=== PATIENT | male | born 1965 | race Hispanic/Latino ===

== ENCOUNTER 2018-04-08 09:00 | Inpatient (IN) | payer MEDICAID ==
[2018-04-08] MEDS ORDERED: NACL 0.9% 500 ML 500 ML IV ONE ×2 (09:33→19:03)
[2018-04-08] MEDS ORDERED: VANCOMYCIN 1,500 MG in NACL 0.9% 500 ML 500 ML IV ONE (09:33)
[2018-04-08] MEDS ORDERED: NACL 0.9% 1000 ML IV ONE (09:33)
[2018-04-08] MEDS ORDERED: ZOSYN/NS 4.5GM/100ML 4.5 GM/100 ML VIAL IV ONE (09:35)
[2018-04-08] MEDS ORDERED: NACL 0.9% 1000 ML 1,000 ML IV ONE ×2 (09:39)
[2018-04-08] MEDS ORDERED: VASELINE LIP THERAPY TP PRN (09:39)
[2018-04-08 09:55] LABS: Calcium 9.8 mg/dL (8.4-10.2)
[2018-04-08 09:58] LABS: Basophils % (Auto) 0.3 % (0.0-1.8); Eosinophils # (Auto) 0.1 K/mm3 (0.0-0.4); Eosinophils % (Auto) 0.8 % (0.0-4.3); Hematocrit 47.1 % (35.5-45.6); Hemoglobin 15.7 gm/dl (11.8-15.2); Lymphocytes # (Auto) 1.1 K/mm3 (1.2-5.4); Lymphocytes % (Auto) 11.4 % (13.4-35.0); Mean Corpuscular HGB Conc 33 % (32-34); Mean Corpuscular Hemoglobin 30 pg (28-32); Mean Corpuscular Volume 91 fl (84-94); Monocytes # (Auto) 0.5 K/mm3 (0.0-0.8); Monocytes % (Auto) 5.8 % (0.0-7.3); Platelet Count 621 K/mm3 (140-440); Red Cell Distribution Width 15.1 % (13.2-15.2)
[2018-04-08] MEDS ORDERED: NACL 0.9% 500 ML IV SCH (10:00)
[2018-04-08] MEDS ORDERED: LEVOPHED DRIP 4 MG/NS 250 ML 4 MG/250 ML BAG IV SCH (10:00)
[2018-04-08] MEDS ORDERED: ATIVAN 100 MG in NACL 0.9% 50 ML, VIAFLEX EMPTY CONTAINER 0 ML IV SCH (10:00)
--- NOTE | 2018-04-08 10:03 | Cat Scan Report ---
FINAL REPORT EXAM: CT HEAD/BRAIN WO CON HISTORY: neuro deficits < 6hrs or sx present upon awakening TECHNIQUE: CT of the Head without IV contrast. PRIORS: None currently available. FINDINGS: Series 2:52 oval low-attenuation lesion measuring 13 x 15 mm in the right parietal lobe demonstrates a focal area of irregular peripheral calcification. Surrounding decreased attenuation the wider matter appears represent vasogenic edema. There is a very subtle left midline shift of the posterior falx. Marie-white matter attenuation appears intact. No other lesions identified. Differential diagnosis does include acute ischemia. There is no hemorrhage. There is no hydrocephalus. Age appropriate marie-white matter attenuation is noted. There is no calvarial fracture. The temporal bones demonstrate aerated mastoid air cells. The middle ears appear unremarkable. Paranasal sinuses are unremarkable. Globes are intact. IMPRESSION: Suspect cystic mass in the right parietal lobe. Differential diagnosis includes ischemia and neurocysticercosis. Further evaluation with a CT with contrast or MRI of the brain with and without contrast. April 07, 2018 at 0655 PDT: I discussed the findings over phone with Dr. Mccann.
[2018-04-08 10:27] LABS: INR 1.35 (0.87-1.13)
[2018-04-08 10:28] LABS: Thrombin Time 14.6 Sec. (15.1-19.6)
--- NOTE | 2018-04-08 10:35 | Emergency Department Report ---
ED General Adult HPI - General Chief complaint: Altered Mental Status Stated complaint: UNRESPONSIVE Source: EMS Mode of arrival: Stretcher Limitations: Altered Mental Status - History of Present Illness Initial comments: This is a 52-year-old male that was transferred to this facility via EMS. Paramedics states they were called for shortness of breath. However, they report that they found the patient to be completely unresponsive. They transported him to this facility for further care and evaluation. They were unable to initiate an IV. They did find a glucose of approximately 200. His blood pressure and pulse were basically stable. According to the information the paramedics received from the [place] [facility] the patient had just been admitted there yesterday. At the time of admission, he was able to suction himself and speak. The [place] [facility] did not provide us with any information concerning the patient's past medical history nor with the medics able to provide this. Later on the patient's father did arrive. He corroborated that the patient had an acute change in his mental status since yesterday. He was indeed able to speak yesterday. He had limited mobility. He had been registered for hosp[facility] care and [place] [facility]. Had only been in the [place] [facility] since yesterday. 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 He has already received chemotherapy and radiation therapy. The father is aware that the patient is in hospice for a terminal condition. His CODE STATUS is still full code however. -: year(s) Consistency: constant Associated Symptoms: other (unable to obtain patient is unresponsive) - Related Data Allergies Allergy/AdvReac Type Severity Reaction Status Date / Time No Known Allergies Allergy Unverified 04/08/18 09:20 ED Review of Systems ROS: Stated complaint: UNRESPONSIVE Other details as noted in HPI Comment: Unobtainable due to pts medical conditions ED Past Medical Hx - Past Medical History Additional medical history: Metastatic cancer - Social History Other Social History: longterm resident ED Physical Exam - General Limitations: Altered Mental Status General appearance: obtunded, other (respiratory distress) - Head Head exam: Present: atraumatic - Eye Eye exam: Absent: scleral icterus Pupils: Present: miosis - ENT ENT exam: Present: other (some dark material about the oropharynx) - Neck Neck exam: Present: full ROM (adequate ). Absent: meningismus - Respiratory Respiratory exam: Present: normal lung sounds bilaterally. Absent: respiratory distress - Cardiovascular Cardiovascular Exam: Present: regular rate, normal rhythm. Absent: systolic murmur, diastolic murmur, rubs, gallop - GI/Abdominal GI/Abdominal exam: Present: soft, normal bowel sounds. Absent: distended, tenderness, guarding, rigid - Extremities Exam Extremities exam: Present: other (no gross deformity) - Back Exam Back exam: Present: other (did not visualize) - Neurological Exam Neurological exam: Present: other (obtunded I doubt if the pupils are reactive) ED Course Vital Signs 04/08/18 04/08/18 04/08/18 08:58 09:00 09:16 Pulse Rate 160 H 159 H 154 H Respiratory 16 20 20 Rate Blood Pressure 100/81 65/40 O2 Sat by Pulse 85 Oximetry 04/08/18 04/08/18 04/08/18 09:30 09:48 10:00 Pulse Rate 154 H Respiratory 30 H Rate Blood Pressure 124/92 67/34 92/65 O2 Sat by Pulse 92 Oximetry 04/08/18 04/08/18 04/08/18 10:15 10:25 10:30 Pulse Rate 121 H 122 H 121 H Respiratory 19 17 Rate Blood Pressure 98/69 98/69 97/67 O2 Sat by Pulse 95 96 95 Oximetry 04/08/18 04/08/18 04/08/18 10:45 11:00 11:15 Pulse Rate 116 H 119 H 122 H Respiratory 20 18 16 Rate Blood Pressure 98/63 97/56 91/59 O2 Sat by Pulse 95 92 91 Oximetry 04/08/18 04/08/18 04/08/18 11:30 11:45 12:00 Pulse Rate 121 H 123 H 123 H Respiratory 20 21 22 Rate Blood Pressure 95/61 98/64 104/70 O2 Sat by Pulse 91 92 92 Oximetry 04/08/18 12:15 Pulse Rate 121 H Respiratory 23 Rate Blood Pressure 103/72 O2 Sat by Pulse 92 Oximetry - Reevaluation(s) Reevaluation #1: Since the patient had a full CODE STATUS he was actively resuscitated. I placed him on a code sepsis and code stroke pathway. He was treated with empiric Miotics. He was intubated on arrival. A central line was placed in anticipation of hypotension which occurred shortly thereafter. The patient was given a volume bolus. He was placed on pressors. A CT of his head showed a very large right parietal mass with significant edema and mild midline shift. Chest x-ray was consistent with a tumor burden of metastatic lung tissue. The line and endotracheal tube were in good position. I spoke to the father concerning the patient's obvious grim prognosis. I explained that decisions or guarding and of life care are certainly warranted. I explained to him that Dr. Wood hospice would talk to him further about this. At this time he will remain intubated and be admitted to the intensive care unit. I did not find that the father was ready to withdraw life support. The patient remains deeply comatose. I did order Decadron and consideration of cerebral edema. Father could not tell me if the patient was already on steroids. 04/08/18 12:04 Reevaluation #2: Case was reviewed with Dr. Wood who will be taking over care. 04/08/18 12:38 - Central Line Placement Left IJ Consent Obtained: verbal consent Time Out Performed: Yes Patient Placed on Monitor/Pulse Ox: Yes MD Prep: mask, gown, gloves Central Line Prep: Chlorhexidine scrub Local Anesthesia Used: Lidocaine 1% Amount of Anesthesia Used (mls): 3 Ultrasound Used for Placement: No Central Line Lumen Inserted: triple Bloods Obtained for Lab: Yes (dark red nonpulsatile) Central Line Position: good blood return, all ports aspirated, flus, sutured in place with 3-0 Dressing Applied: Tegaderm Post Procedure X-Ray: tip of catheter in good p Patient Tolerated Procedure: well Complications: none - Intubation Time Out Performed: No Sedative: Etomidate Paralytic: Succinylcholine Laryngoscope: Derek Size: 4 ET Tube Size: 8 Tube Secured Depth (cm): 24 Tube Secured Location: teeth Tube Placement Confirmation: visualized tube passing t Patient Tolerated Procedure: well Intubation Complications: none ED Medical Decision Making - Lab Data Result diagrams: 04/08/18 09:25 04/08/18 11:00 Laboratory Results - last 24 hr 04/08/18 04/08/18 04/08/18 09:25 09:25 09:25 WBC 9.3 RBC 5.20 H Hgb 15.7 H Hct 47.1 H MCV 91 MCH 30 MCHC 33 RDW 15.1 Plt Count 621 H Lymph % (Auto) 11.4 L [place] % (Auto) 5.8 Eos % (Auto) 0.8 Baso % (Auto) 0.3 Lymph # 1.1 L [place] # 0.5 Eos # 0.1 Baso # 0.0 Add Manual Diff Complete Seg Neutrophils % 81.7 H Seg Neutrophils # 7.6 PT 17.5 H INR 1.35 H APTT 35.0 Thrombin Time 14.6 L Sodium 140 Potassium 5.2 H Chloride 89.9 L Carbon Dioxide 24 Anion Gap 31 BUN 22 H Creatinine 1.7 H Estimated GFR 43 BUN/Creatinine Ratio 13 Glucose 184 H Calcium 9.8 Ammonia Troponin T 0.059 H NT-Pro-B Natriuret Pep 04/08/18 04/08/18 09:25 09:57 WBC RBC Hgb Hct MCV MCH MCHC RDW Plt Count Lymph % (Auto) [place] % (Auto) Eos % (Auto) Baso % (Auto) Lymph # [place] # Eos # Baso # Add Manual Diff Seg Neutrophils % Seg Neutrophils # PT INR APTT Thrombin Time Sodium Potassium Chloride Carbon Dioxide Anion Gap BUN Creatinine Estimated GFR BUN/Creatinine Ratio Glucose Calcium Ammonia 74.0 H Troponin T NT-Pro-B Natriuret Pep 2534 H - EKG Data -: EKG Interpreted by Me EKG shows normal: sinus rhythm, axis, intervals, QRS complexes, ST-T waves Rate: tachycardia - EKG Data Interpretation: nonspecific ST-T wave delon (inferolateral abnormalities) - Radiology Data interpreted by me: See above description. Couldn't totally rule out superimposed pneumonia Critical Care Time: Yes Critical care time in (mins) excluding proc time.: 90 Critical care attestation.: If time is entered above; I have spent that time in minutes in the direct care of this critically ill patient, excluding procedure time. ED Disposition Clinical Impression: Metastatic cancer, Brain metastases Coma Qualifiers: Coma depth: [place] coma 3-8 Coma timing: in the field (EMT or ambulance) Qualified Code(s): R40.2431 - [place] coma scale score 3-8, in the field [EMT or ambulance] Respiratory failure Qualifiers: Chronicity: acute Respiratory failure complication: hypoxia Qualified Code(s): J96.01 - Acute respiratory failure with hypoxia Sepsis Qualifiers: Sepsis type: sepsis due to unspecified organism Qualified Code(s): A41.9 - Sepsis, unspecified organism Disposition: DC-09 OP ADMIT IP TO THIS HOSP Is pt being admited?: Yes Does the pt Need Aspirin: No Condition: Stable Referrals: PRIMARY CARE, [Primary Care Provider] - 3-5 Days Time of Disposition: 12:37
[2018-04-08 10:39] LABS: Creatine Kinase MB < 1.0 ng/mL (0.0-4.0)
[2018-04-08 11:08] LABS: Bilirubin,Direct 0.2 mg/dL (0-0.2)
[2018-04-08] MEDS ORDERED: DECADRON IV ONE (11:22)
[2018-04-08] MEDS ORDERED: REGLAN IV PRN (11:28)
[2018-04-08] MEDS ORDERED: SODIUM BICARBONATE FEEDTUBE PRN ×2 (11:28→11:36)
[2018-04-08] MEDS ORDERED: SODIUM CHLORIDE FLUSH SYRINGE 10 ML IV PRN ×2 (11:28)
[2018-04-08] MEDS ORDERED: ZOFRAN IV PRN (11:28)
[2018-04-08] MEDS ORDERED: SIMPLE SYRUP FEEDTUBE PRN ×4 (11:28→11:36)
[2018-04-08] MEDS ORDERED: PANCREAZE DR 10,500 UNIT FEEDTUBE PRN ×2 (11:28→11:36)
--- NOTE | 2018-04-08 11:28 | History and Physical Report ---
History of Present Illness Date of examination: 04/08/18 Date of admission: 04/08/18 Chief complaint: CC Unresponsive and Resp distress in NH pripr to EMS arrival History of present illness: - History of Present Illness Initial comments: This is a 52-year-old male that was transferred to this facility via EMS. Paramedics states they were called for shortness of breath. However, they report that they found the patient to be completely unresponsive. They transported him to this facility for further care and evaluation. They were unable to initiate an IV. They did find a glucose of approximately 200. His blood pressure and pulse were basically stable. According to the information the paramedics received from the care home the patient had just been admitted there yesterday. At the time of admission, he was able to suction himself and speak. The care home did not provide us with any information concerning the patient's past medical history nor with the medics able to provide this. Later on the patient's father did arrive. He corroborated that the patient had an acute change in his mental status since yesterday. He was indeed able to speak yesterday. He had limited mobility. He had been registered for hospice care and care home at [facility]. Had only been in the care home since yesterday. 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 He has already received chemotherapy and radiation therapy. The father is aware that the patient is in hospice for a terminal condition. His CODE STATUS is still full code however. Past Medical History Additional medical history: Metastatic cancer Social History Other Social History: [facility] resident Surgical History unavailable Family History unavailable Review of Systems ROS: Stated complaint: UNRESPONSIVE Other details as noted in HPI Comment: Unobtainable due to pts medical conditions Medications and Allergies Allergies Allergy/AdvReac Type Severity Reaction Status Date / Time No Known Allergies Allergy Unverified 04/08/18 09:20 Home Medications Medication Instructions Recorded Confirmed Last Taken Type Acetaminophen 650 mg PERCUTANEO Q4HR PRN 04/08/18 04/08/18 Unknown History Cipro/Dexameth 0.3/0.1% 1 drop OD 4XD 04/08/18 04/08/18 04/07/18 13:00 History Furosemide 20 mg PERCUTANEO DAILY 04/08/18 04/08/18 04/07/18 09:00 History Hyoscyamine Rapdis 0.125 mg 0.125 mg SL Q4HR PRN 04/08/18 04/08/18 Unknown History Keppra TAB 500 mg PERCUTANEO Q12H 04/08/18 04/08/18 04/07/18 09:00 History Morphine Sulfate 0.25 - 1 ml PERCUTANEO Q4-6H PRN 04/08/18 04/08/18 04/07/18 01: 30 History [place] 10-325 Tablet 10 - 325 mg PERCUTANEO Q6HR PRN 04/08/18 04/08/18 04/08/18 05:10 History Polyethylene Glycol 3350 17 gm PERCUTANEO Q24HR PRN 04/08/18 04/08/18 Unknown History [Smoothlax] Senna 17.2 mg PERCUTANEO QHS PRN 04/08/18 04/08/18 04/06/18 21:00 History Sertraline HCl 50 mg PERCUTANEO DAILY 04/08/18 04/08/18 04/07/18 09:00 History Xanax 1 mg PERCUTANEO Q12H 04/08/18 04/08/18 04/07/18 09:00 History oxyCODONE 10 mg PERCUTANEO Q12H 04/08/18 04/08/18 04/07/18 09:00 History Active Meds: Active Medications Hydrophilic Ointment (Vaseline Lip Therapy) 1 applic TP Q2HR PRN PRN Reason: Dry Lips Norepinephrine (Levophed Drip 4 Mg/Ns 250 Ml) 4 mg in 250 mls @ 7.5 mls/hr IV TITR MARISOL; Protocol Last Admin: 04/08/18 09:39 Dose: 6 mcg/min, 22.5 mls/hr Lorazepam 100 mg/ Sodium Chloride/ Miscellaneous Information 100 mls @ 1 mls/ hr IV TITR MARISOL; Protocol Last Admin: 04/08/18 09:59 Dose: 1 mg/hr, 1 mls/hr Multi-Ingred Cream/Lotion/Oil/Oint (Artificial Tears Ophth Oint) 1 applic OU Q4HR PRN PRN Reason: Dry Eye(s) Sodium Chloride (Nacl 0.9% 500 Ml) 1 ml IV DIRECT MARISOL Exam - Physical Exam Narrative exam: Patient intubated - Constitutional Vitals: Temp Pulse Resp BP Pulse Ox 121 H 17 97/67 95 04/08/18 10:30 04/08/18 10:30 04/08/18 10:30 04/08/18 10:30 General appearance: Present: mild distress, well-nourished - EENT Eyes: Present: PERRL ENT: hearing intact, clear oral mucosa, other - Neck Neck: Present: supple, normal ROM - Respiratory Respiratory effort: normal Respiratory: bilateral: CTA - Cardiovascular Heart rate: 78 Rhythm: regular Heart Sounds: Present: S1 & S2. Absent: rub, click - Extremities Extremities: no ischemia, pulses intact, pulses symmetrical, No edema Peripheral Pulses: within normal limits - Abdominal General gastrointestinal: Present: soft, non-tender, non-distended, normal bowel sounds Male genitourinary: Present: normal - Rectal Rectal Exam: deferred - Integumentary Integumentary: Present: clear, warm, dry - Musculoskeletal Musculoskeletal: generalized weakness, other - Psychiatric Psychiatric: intact judgment & insight, other (Patient intubated) - Neurologic Neurologic: CNII-XII intact - Allied Health Allied health notes reviewed: nursing, case management Results - Labs CBC & Chem 7: 04/09/18 04:00 04/09/18 04:00 Labs: Laboratory Last Values WBC 9.3 K/mm3 (4.5-11.0) 04/08/18 09:25 RBC 5.20 M/mm3 (3.65-5.03) H 04/08/18 09:25 Hgb 15.7 gm/dl (11.8-15.2) H 04/08/18 09:25 Hct 47.1 % (35.5-45.6) H 04/08/18 09:25 MCV 91 fl (84-94) 04/08/18 09:25 MCH 30 pg (28-32) 04/08/18 09:25 MCHC 33 % (32-34) 04/08/18 09:25 RDW 15.1 % (13.2-15.2) 04/08/18 09:25 Plt Count 621 K/mm3 (140-440) H 04/08/18 09:25 Lymph % (Auto) 11.4 % (13.4-35.0) L 04/08/18 09:25 [place] % (Auto) 5.8 % (0.0-7.3) 04/08/18 09:25 Eos % (Auto) 0.8 % (0.0-4.3) 04/08/18 09:25 Baso % (Auto) 0.3 % (0.0-1.8) 04/08/18 09:25 Lymph # 1.1 K/mm3 (1.2-5.4) L 04/08/18 09:25 [place] # 0.5 K/mm3 (0.0-0.8) 04/08/18 09:25 Eos # 0.1 K/mm3 (0.0-0.4) 04/08/18 09:25 Baso # 0.0 K/mm3 (0.0-0.1) 04/08/18 09:25 Add Manual Diff Complete 04/08/18 09:25 Seg Neutrophils % 81.7 % (40.0-70.0) H 04/08/18 09:25 Seg Neutrophils # 7.6 K/mm3 (1.8-7.7) 04/08/18 09:25 PT 17.5 Sec. (12.2-14.9) H 04/08/18 09:25 INR 1.35 (0.87-1.13) H 04/08/18 09:25 APTT 35.0 Sec. (24.2-36.6) 04/08/18 09:25 Thrombin Time 14.6 Sec. (15.1-19.6) L 04/08/18 09:25 POC ABG pH 7.294 (7.35-7.45) L 04/08/18 10:43 POC ABG pCO2 49.6 (35-45) H 04/08/18 10:43 POC ABG pO2 92 (80-105) 04/08/18 10:43 POC ABG HCO3 24.1 04/08/18 10:43 POC ABG Total CO2 26 04/08/18 10:43 POC ABG O2 Sat 96 04/08/18 10:43 POC ABG Base Excess -2 04/08/18 10:43 FiO2 70 % 04/08/18 10:43 Sodium 140 mmol/L (137-145) 04/08/18 09:25 Potassium 5.2 mmol/L (3.6-5.0) H 04/08/18 09:25 Chloride 89.9 mmol/L (98-107) L 04/08/18 09:25 Carbon Dioxide 24 mmol/L (22-30) 04/08/18 09:25 Anion Gap 31 mmol/L 04/08/18 09:25 BUN 22 mg/dL (9-20) H 04/08/18 09:25 Creatinine 1.7 mg/dL (0.8-1.5) H 04/08/18 09:25 Estimated GFR 43 ml/min 04/08/18 09:25 BUN/Creatinine Ratio 13 % 04/08/18 09:25 Glucose 184 mg/dL (75-100) H 04/08/18 09:25 Lactic Acid 10.50 mmol/L (0.7-2.0) H* 04/08/18 09:25 Calcium 9.8 mg/dL (8.4-10.2) 04/08/18 09:25 Magnesium 1.90 mg/dL (1.7-2.3) 04/08/18 09:25 Total Bilirubin 0.50 mg/dL (0.1-1.2) 04/08/18 10:18 Direct Bilirubin 0.2 mg/dL (0-0.2) 04/08/18 10:18 Indirect Bilirubin 0.3 mg/dL 04/08/18 10:18 AST 93 units/L (5-40) H 04/08/18 10:18 ALT 39 units/L (7-56) 04/08/18 10:18 Alkaline Phosphatase 216 units/L (35-129) H 04/08/18 10:18 Ammonia 74.0 umol/L (25-60) H 04/08/18 09:57 Total Creatine Kinase 38 units/L (55-170) L 04/08/18 09:25 CK-MB (CK-2) < 1.0 ng/mL (0.0-4.0) 04/08/18 09:25 CK-MB (CK-2) Rel Index 2.6 (0-4) 04/08/18 09:25 Troponin T 0.059 ng/mL (0.00-0.029) H 04/08/18 09:25 NT-Pro-B Natriuret Pep 2534 pg/mL (0-900) H 04/08/18 09:25 Total Protein 6.6 g/dL (6.3-8.2) 04/08/18 10:18 Albumin 3.0 g/dL (3.9-5) L 04/08/18 10:18 Albumin/Globulin Ratio 0.8 % 04/08/18 10:18 - Imaging and Cardiology Imaging and Cardiology: Head Ct IMPRESSION: Suspect cystic mass in the right parietal lobe. Differential diagnosis includes ischemia and neurocysticercosis. Further evaluation with a CT with contrast or MRI of the brain with and without contrast CXR . IMPRESSION: Suspect multiple bilateral pulmonary nodules. Differential diagnosis includes diffuse patchy pneumonia or acute pneumonitis. Assessment and Plan Assessment and plan: Critical care statement The high probability of a clinically significant, sudden or life threatening deterioration of the [Pulmonary, cadiac, renal] system(s) required my full and direct attention, intervention and personal management. The aggregate critical care time was [45] minutes. This time is in addition to time spent performing reported procedures but includes the following: [x] Data Review and interpretation [x] Patient assessment and monitoring of vital signs [x] Documentation [x] Medication orders and management Advance Directives: Yes (DNR) VTE prophylaxis?: Chemical Plan of care discussed with patient/family: Yes - Patient Problems (1) Respiratory failure Current Visit: Yes Status: Acute Qualifiers: Chronicity: acute Respiratory failure complication: hypoxia Qualified Code(s): J96.01 - Acute respiratory failure with hypoxia Plan to address problem: VEnt support Patient is apparently DNR per father but he doesn't want to sign the DNR Sheet to give permission Jesika [phone] Hospitalist team to call reg DNR as it was late in the night -this information was recieved (2) Brain metastases Current Visit: Yes Status: Chronic Plan to address problem: Probably from Lung CA Poor prognosis IV Decadron to decrease swelling (3) Metastatic cancer Current Visit: Yes Status: Chronic Plan to address problem: Hospice suggested and initiated (4) Sepsis Current Visit: Yes Status: Acute Qualifiers: Sepsis type: sepsis due to unspecified organism Qualified Code(s): A41.9 - Sepsis, unspecified organism Plan to address problem: IV Vanco and IV Zosyn for Broad spectrum coverage Sepsis possible Elevated Lactic Acid (5) SETH (acute kidney injury) Current Visit: Yes Status: Acute Plan to address problem: IV Fluids for now (6) DVT prophylaxis Current Visit: Yes Status: Acute Plan to address problem: On Lovenox GI prophylaxis initiated
[2018-04-08 11:29] LABS: Calcium 8.5 mg/dL (8.4-10.2)
--- NOTE | 2018-04-08 11:41 | XRay Report ---
FINAL REPORT EXAM: XR CHEST 1V AP HISTORY: ETT placement TECHNIQUE: Frontal chest x-ray. PRIORS: None currently available. FINDINGS: Cardiac silhouette is within normal limits. Aortic calcifications. Multiple nodular ill-defined densities in both lungs slightly more predominant in the left lower lobe. No pneumothorax. No effusion There are no suspicious osseous lesions. Endotracheal tube tip is approximately 4.5 cm above the kayla. Satisfactory. Left internal jugular central line tip is present within the SVC. IMPRESSION: Suspect multiple bilateral pulmonary nodules. Differential diagnosis includes diffuse patchy pneumonia or acute pneumonitis.
[2018-04-08 13:00] LABS: Bacteria,Urine 1+ /HPF (Negative); Mucus,Urine FEW /HPF
[2018-04-08 13:01] LABS: Bilirubin,Urine NEG (Negative); Blood,Urine NEG (Negative); Color,Urine Amber (Yellow)
[2018-04-08] MEDS: DUONEB *Not for PRN Use IH SCH ×2 (13:05→20:11)
--- NOTE | 2018-04-08 14:52 | Consultation ---
History of Present Illness Consult date: 04/08/18 Requesting physician: KOTA CLARK History of present illness: History per medical records This is a 52-year-old male that was transferred to this facility via EMS. Paramedics states they were called for shortness of breath. However, they report that they found the patient to be completely unresponsive. They transported him to this facility for further care and evaluation. They were unable to initiate an IV. They did find a glucose of approximately 200. His blood pressure and pulse were basically stable. According to the information the paramedics received from the fpc the patient had just been admitted there yesterday. At the time of admission, he was able to suction himself and speak. The fpc did not provide us with any information concerning the patient's past medical history nor with the medics able to provide this. Later on the patient's father did arrive. He corroborated that the patient had an acute change in his mental status since yesterday. He was indeed able to speak yesterday. He had limited mobility. He had been registered for hospice care and fpc at [facility]. Had only been in the fpc since yesterday. 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 He has already received chemotherapy and radiation therapy. The father is aware that the patient is in hospice for a terminal condition. Patient seen and examined. Vitals, labs, medications, chart and imaging reviewed. Discussed extensively with the father and cousin at the bedside. They share decision making Patient is orally intubated, mechanical ventilatroy support, and is currently unresponsive. 24 hour events reviewed. discussed with RT and RN Medications and Allergies Allergies Allergy/AdvReac Type Severity Reaction Status Date / Time No Known Allergies Allergy Unverified 04/08/18 09:20 Active Meds: Active Medications Acetaminophen (Tylenol) 650 mg PO Q4H PRN PRN Reason: Pain MILD(1-3)/Fever >100.5/CHEN Albuterol/Ipratropium (Duoneb *Not For Prn Use*) 1 ampul IH Q6HRT [facility] Last Admin: 04/08/18 13:05 Dose: 1 ampul Lipase/Protease/Amylase (Pancreaze Dr 10,500 Unit) 1 each FEEDTUBE PRN PRN PRN Reason: For Clogged Feeding Tube Lipase/Protease/Amylase (Pancreaze Dr 10,500 Unit) 1 each FEEDTUBE PRN PRN PRN Reason: For Clogged Feeding Tube Enoxaparin Sodium (Lovenox) 30 mg SUB-Q QDAY MARISOL Hydrophilic Ointment (Vaseline Lip Therapy) 1 applic TP Q2HR PRN PRN Reason: Dry Lips Norepinephrine (Levophed Drip 4 Mg/Ns 250 Ml) 4 mg in 250 mls @ 7.5 mls/hr IV TITR MARISOL; Protocol Last Admin: 04/08/18 09:39 Dose: 6 mcg/min, 22.5 mls/hr Lorazepam 100 mg/ Sodium Chloride/ Miscellaneous Information 100 mls @ 1 mls/ hr IV TITR MARISOL; Protocol Last Admin: 04/08/18 09:59 Dose: 1 mg/hr, 1 mls/hr Dextrose/Sodium Chloride (D5ns) 1,000 mls @ 100 mls/hr IV DIRECT MARISOL Metoclopramide HCl (Reglan) 10 mg IV Q6H PRN PRN Reason: Nausea And Vomiting Morphine Sulfate (Morphine) 2 mg IV Q4H PRN PRN Reason: Pain, Moderate (4-6) Multi-Ingred Cream/Lotion/Oil/Oint (Artificial Tears Ophth Oint) 1 applic OU Q4HR PRN PRN Reason: Dry Eye(s) Ondansetron HCl (Zofran) 4 mg IV Q8H PRN PRN Reason: Nausea And Vomiting Simple Syrup (Simple Syrup) 15 ml FEEDTUBE PRN PRN PRN Reason: Hypoglycemia Simple Syrup (Simple Syrup) 30 ml FEEDTUBE PRN PRN PRN Reason: Hypoglycemia Simple Syrup (Simple Syrup) 15 ml FEEDTUBE PRN PRN PRN Reason: Hypoglycemia Simple Syrup (Simple Syrup) 30 ml FEEDTUBE PRN PRN PRN Reason: Hypoglycemia Sodium Bicarbonate (Sodium Bicarbonate) 325 mg FEEDTUBE PRN PRN PRN Reason: For Clogged Feeding Tube Sodium Bicarbonate (Sodium Bicarbonate) 325 mg FEEDTUBE PRN PRN PRN Reason: For Clogged Feeding Tube Sodium Chloride (Nacl 0.9% 500 Ml) 1 ml IV DIRECT MARISOL Sodium Chloride (Sodium Chloride Flush Syringe 10 Ml) 10 ml IV PRN PRN PRN Reason: LINE FLUSH Sodium Chloride (Sodium Chloride Flush Syringe 10 Ml) 10 ml IV PRN PRN PRN Reason: LINE FLUSH Sodium Chloride (Sodium Chloride Flush Syringe 10 Ml) 10 ml IV BID MARISOL Sodium Chloride (Sodium Chloride Flush Syringe 10 Ml) 10 ml IV BID MARISOL Review of Systems ROS unobtainable: due to endotracheal tube, due to mental status Physical Examination Vital signs: Vital Signs Pulse Resp 160 H 16 04/08/18 08:58 04/08/18 08:58 Gen. appearance: Patient lying in bed, no apparent distress, cachexia Orally intubated, ETT to [facility], no patient-ventilator dyssynchrony HEENT: Normocephalic, atraumatic, pupils equally round and reactive to light, no scleral icterus,. Dark blood in oral cavity No JVD or thyromegaly or nodule,neck supple, no carotid bruit ,mucous membranes moist, no exudate or erythema Heart: S1, S2, regular rate and rhythm Lungs: Clear bilaterally, breathing comfortable Abdomen: Positive bowel sounds, non distended, no organomegaly, PEG tube in palce Extremity:no edema cyanosis, clubbing, pulses present bilaterally Skin: no rash, dry, warm Neuro: unresponsive Results - Laboratory Findings CBC and BMP: 04/08/18 09:25 04/08/18 11:00 ABG POC ABG pH 7.294 (7.35-7.45) L 04/08/18 10:43 POC ABG pCO2 49.6 (35-45) H 04/08/18 10:43 POC ABG pO2 92 (80-105) 04/08/18 10:43 POC ABG HCO3 24.1 04/08/18 10:43 POC ABG Total CO2 26 04/08/18 10:43 POC ABG O2 Sat 96 04/08/18 10:43 PT/INR, D-dimer PT 17.5 Sec. (12.2-14.9) H 04/08/18 09:25 INR 1.35 (0.87-1.13) H 04/08/18 09:25 Abnormal lab findings: Abnormal Labs 04/08/18 04/08/18 04/08/18 09:25 09:25 09:25 RBC 5.20 H Hgb 15.7 H Hct 47.1 H Plt Count 621 H Lymph % (Auto) 11.4 L Lymph # 1.1 L Seg Neutrophils % 81.7 H PT 17.5 H INR 1.35 H Thrombin Time 14.6 L POC ABG pH POC ABG pCO2 Potassium 5.2 H Chloride 89.9 L BUN 22 H Creatinine 1.7 H Glucose 184 H Lactic Acid AST Alkaline Phosphatase Ammonia Total Creatine Kinase Troponin T 0.059 H NT-Pro-B Natriuret Pep Albumin Urine WBC (Auto) 04/08/18 04/08/18 04/08/18 09:25 09:25 09:57 RBC Hgb Hct Plt Count Lymph % (Auto) Lymph # Seg Neutrophils % PT INR Thrombin Time POC ABG pH POC ABG pCO2 Potassium Chloride BUN Creatinine Glucose Lactic Acid 10.50 H* AST Alkaline Phosphatase Ammonia 74.0 H Total Creatine Kinase 38 L Troponin T NT-Pro-B Natriuret Pep 2534 H Albumin Urine WBC (Auto) 04/08/18 04/08/18 04/08/18 10:18 10:43 11:00 RBC Hgb Hct Plt Count Lymph % (Auto) Lymph # Seg Neutrophils % PT INR Thrombin Time POC ABG pH 7.294 L POC ABG pCO2 49.6 H Potassium Chloride 96.8 L BUN 21 H Creatinine 1.6 H Glucose 155 H Lactic Acid AST 93 H Alkaline Phosphatase 216 H Ammonia Total Creatine Kinase Troponin T NT-Pro-B Natriuret Pep Albumin 3.0 L Urine WBC (Auto) 04/08/18 04/08/18 11:00 12:34 RBC Hgb Hct Plt Count Lymph % (Auto) Lymph # Seg Neutrophils % PT INR Thrombin Time POC ABG pH POC ABG pCO2 Potassium Chloride BUN Creatinine Glucose Lactic Acid 8.40 H* AST Alkaline Phosphatase Ammonia Total Creatine Kinase Troponin T NT-Pro-B Natriuret Pep Albumin Urine WBC (Auto) 22.0 H Assessment and Plan -Acute hypoxemic respiratory failure on MVS -Aspiration pneumonia/HAP -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 Plan is to make him DNAR if he has a cardiac arrest. They want him aggressively treated fro the next 48 hours and then will decide on further goals of care The high probability of a clinically significant, sudden or life threatening deterioration of the [respiratory,cardiovascular,] system(s) required my full and direct attention, intervention and personal management. The aggregate critical care time was [40] minutes without overlap. Time includes spent on; [x] Data Review and interpretation [x] Patient assessment and monitoring of vital signs [x] Documentation [x] Medication orders and management
[2018-04-08] MEDS: D5NS 1,000 ML IV SCH (17:42)
[2018-04-08] MEDS ORDERED: SODIUM CHLORIDE FLUSH SYRINGE 10 ML IV SCH ×2 (22:00)
[2018-04-09] MEDS: PEPCID PO SCH ×3 (00:25→22:50)
[2018-04-09] MEDS ORDERED: ZOSYN/NS 4.5GM/100ML 4.5 GM/100 ML VIAL IV SCH (02:00)
[2018-04-09] MEDS ORDERED: VANCOMYCIN PHARMACY TO DOSE IV SCH (02:00)
[2018-04-09] MEDS: DUONEB *Not for PRN Use IH SCH ×4 (02:05→20:12)
[2018-04-09] MEDS: ZOSYN/NS 3.375GM/50ML 3.375 GM/50 ML BAG IV SCH ×4 (03:08→18:32)
[2018-04-09] MEDS: D5NS 1,000 ML IV SCH (03:10)
[2018-04-09 03:32] LABS: Chol/HDL Ratio 4.06 %
[2018-04-09 05:34] LABS: Alanine Aminotransferase 26 units/L (7-56); Albumin 2.3 g/dL (3.9-5); BUN/Creatinine Ratio 29; Blood Urea Nitrogen 26 mg/dL (9-20); Calcium 8.2 mg/dL (8.4-10.2); Hemolysis Index 2
[2018-04-09] MEDS ORDERED: VANCOMYCIN 1,250 MG in NACL 0.9% 250ML 250 ML IV SCH (06:00)
[2018-04-09 06:07] LABS: Basophils % (Auto) 0.2 % (0.0-1.8); Eosinophils % (Auto) 0.2 % (0.0-4.3); Hematocrit 34.7 % (35.5-45.6); Hemoglobin 11.7 gm/dl (11.8-15.2); Lymphocytes # (Auto) 0.5 K/mm3 (1.2-5.4); Lymphocytes % (Auto) 6.5 % (13.4-35.0); Mean Corpuscular HGB Conc 34 % (32-34); Mean Corpuscular Hemoglobin 30 pg (28-32); Mean Corpuscular Volume 90 fl (84-94); Monocytes # (Auto) 0.2 K/mm3 (0.0-0.8); Monocytes % (Auto) 3.5 % (0.0-7.3); Platelet Count 351 K/mm3 (140-440); Red Blood Count 3.86 M/mm3 (3.65-5.03)
[2018-04-09] MEDS ORDERED: D50W (25GM) Syringe IV PRN ×2 (06:55)
[2018-04-09] MEDS ORDERED: NACL 0.9% 1000 ML 1,000 ML IV SCH (08:00)
[2018-04-09] MEDS ORDERED: DUONEB *Not for PRN Use IH SCH (08:00)
[2018-04-09] MEDS ORDERED: LOVENOX SUB-Q SCH (10:00)
[2018-04-09] MEDS: DECADRON IV SCH ×3 (10:06→18:32)
[2018-04-09] MEDS: SODIUM CHLORIDE FLUSH SYRINGE 10 ML IV SCH (10:07)
--- NOTE | 2018-04-09 13:31 | Progress Note ---
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 DNAR if he has a cardiac arrest. Discussed with the . If weaning parameters are acceptable plan is to extubate him to BIPAP with an understanding not to re-intubate. The high probability of a clinically significant, sudden or life threatening deterioration of the [respiratory,cardiovascular,] system(s) required my full and direct attention, intervention and personal management. The aggregate critical care time was [40] minutes without overlap. Time includes spent on; [x] Data Review and interpretation [x] Patient assessment and monitoring of vital signs [x] Documentation [x] Medication orders and management Subjective Date of service: 04/09/18 Interval history: Acute hypoxemic respiratory failure, pneumonia, brain metastases, sepsis Seen and examined at bedside; 24hour events reviewed; nursing and respiratory care staff consulted; no adverse overnight events reported to me; More awake and responsive Objective - Exam Narrative Exam: GEN: gravely ill, unresponsive, orally intubated to MVS HEENT: extraocular, pupils upward gaze NECK: supple, no adenopathy, no thyromegaly, no JVD CVS/HEART: Regular tacycardia, normal S1S2, pulses present bilaterally CHEST/LUNGS: Tachypneic, Symmetrical chest expansion, good air entry bilaterally GI/Abdomen: soft, PEG in place, good bowel sounds, no guarding or rebound /Bladder: no suprapubic tenderness, no CVA or paraspinal tenderness EXT/Skin: no c/c/e, no obvious rash MSK: unresponsive, he will spontaneous move right arm Neuro: doesn't follow command Psych: unresponsive Vital Signs - 12hr 04/09/18 04/09/18 04/09/18 01:40 01:50 02:00 Temperature Pulse Rate 125 H 124 H 124 H Pulse Rate [ Anterior Bilateral Throughout] Pulse Rate [ From Monitor] Respiratory 24 23 18 Rate Respiratory Rate [Anterior Bilateral Throughout] Blood Pressure 104/71 101/68 104/66 O2 Sat by Pulse 96 96 95 Oximetry 04/09/18 04/09/18 04/09/18 02:06 02:10 02:11 Temperature Pulse Rate 128 H Pulse Rate [ 125 H 125 H Anterior Bilateral Throughout] Pulse Rate [ From Monitor] Respiratory 22 Rate Respiratory 21 23 Rate [Anterior Bilateral Throughout] Blood Pressure 104/66 O2 Sat by Pulse 96 Oximetry 04/09/18 04/09/18 04/09/18 02:20 02:30 02:40 Temperature Pulse Rate 128 H 128 H 125 H Pulse Rate [ Anterior Bilateral Throughout] Pulse Rate [ From Monitor] Respiratory 22 22 22 Rate Respiratory Rate [Anterior Bilateral Throughout] Blood Pressure 106/69 104/70 104/70 O2 Sat by Pulse 96 96 96 Oximetry 04/09/18 04/09/18 04/09/18 02:50 03:00 03:10 Temperature Pulse Rate 127 H 126 H 127 H Pulse Rate [ Anterior Bilateral Throughout] Pulse Rate [ From Monitor] Respiratory 21 22 21 Rate Respiratory Rate [Anterior Bilateral Throughout] Blood Pressure 111/75 105/74 105/74 O2 Sat by Pulse 96 96 96 Oximetry 04/09/18 04/09/18 04/09/18 03:20 03:30 03:40 Temperature Pulse Rate 126 H 126 H 126 H Pulse Rate [ Anterior Bilateral Throughout] Pulse Rate [ From Monitor] Respiratory 22 21 21 Rate Respiratory Rate [Anterior Bilateral Throughout] Blood Pressure 104/73 108/72 105/74 O2 Sat by Pulse 96 96 96 Oximetry 04/09/18 04/09/18 04/09/18 03:44 03:50 04:00 Temperature 100.5 F H Pulse Rate 126 H 124 H Pulse Rate [ Anterior Bilateral Throughout] Pulse Rate [ 126 H From Monitor] Respiratory 21 22 Rate Respiratory Rate [Anterior Bilateral Throughout] Blood Pressure 106/68 106/72 O2 Sat by Pulse 97 96 96 Oximetry 04/09/18 04/09/18 04/09/18 04:10 04:17 04:20 Temperature Pulse Rate 124 H 125 H 125 H Pulse Rate [ Anterior Bilateral Throughout] Pulse Rate [ From Monitor] Respiratory 22 21 Rate Respiratory Rate [Anterior Bilateral Throughout] Blood Pressure 106/72 106/72 102/72 O2 Sat by Pulse 96 96 96 Oximetry 04/09/18 04/09/18 04/09/18 04:30 04:40 04:50 Temperature Pulse Rate 125 H 125 H 125 H Pulse Rate [ Anterior Bilateral Throughout] Pulse Rate [ From Monitor] Respiratory 21 21 23 Rate Respiratory Rate [Anterior Bilateral Throughout] Blood Pressure 102/70 102/70 106/69 O2 Sat by Pulse 96 96 96 Oximetry 04/09/18 04/09/18 04/09/18 05:00 05:10 05:20 Temperature Pulse Rate 125 H 123 H 122 H Pulse Rate [ Anterior Bilateral Throughout] Pulse Rate [ From Monitor] Respiratory 23 21 21 Rate Respiratory Rate [Anterior Bilateral Throughout] Blood Pressure 102/73 102/73 106/69 O2 Sat by Pulse 96 96 96 Oximetry 04/09/18 04/09/18 04/09/18 05:30 05:31 05:40 Temperature Pulse Rate 123 H 124 H Pulse Rate [ Anterior Bilateral Throughout] Pulse Rate [ 123 H From Monitor] Respiratory 20 26 H 21 Rate Respiratory Rate [Anterior Bilateral Throughout] Blood Pressure 110/72 110/72 O2 Sat by Pulse 96 96 96 Oximetry 04/09/18 04/09/18 04/09/18 05:50 06:00 06:10 Temperature Pulse Rate 123 H 123 H 121 H Pulse Rate [ Anterior Bilateral Throughout] Pulse Rate [ From Monitor] Respiratory 21 22 23 Rate Respiratory Rate [Anterior Bilateral Throughout] Blood Pressure 109/74 105/73 105/73 O2 Sat by Pulse 96 96 95 Oximetry 04/09/18 04/09/18 04/09/18 06:20 06:30 06:40 Temperature Pulse Rate 122 H 120 H 121 H Pulse Rate [ Anterior Bilateral Throughout] Pulse Rate [ From Monitor] Respiratory 22 22 25 H Rate Respiratory Rate [Anterior Bilateral Throughout] Blood Pressure 102/70 106/67 106/67 O2 Sat by Pulse 96 95 95 Oximetry 04/09/18 04/09/18 04/09/18 06:50 07:00 07:10 Temperature Pulse Rate 122 H 120 H 120 H Pulse Rate [ Anterior Bilateral Throughout] Pulse Rate [ 101 H From Monitor] Respiratory 22 24 22 Rate Respiratory Rate [Anterior Bilateral Throughout] Blood Pressure 100/71 106/70 106/70 O2 Sat by Pulse 95 95 96 Oximetry 04/09/18 04/09/18 04/09/18 07:20 07:30 07:40 Temperature Pulse Rate 121 H 120 H 121 H Pulse Rate [ Anterior Bilateral Throughout] Pulse Rate [ From Monitor] Respiratory 23 23 22 Rate Respiratory Rate [Anterior Bilateral Throughout] Blood Pressure 100/71 96/67 96/67 O2 Sat by Pulse 96 96 96 Oximetry 04/09/18 04/09/18 04/09/18 07:50 08:00 08:08 Temperature 99.1 F Pulse Rate 121 H 121 H Pulse Rate [ 106 H Anterior Bilateral Throughout] Pulse Rate [ From Monitor] Respiratory 22 22 Rate Respiratory 23 Rate [Anterior Bilateral Throughout] Blood Pressure 100/73 106/69 O2 Sat by Pulse 96 96 Oximetry 04/09/18 04/09/18 04/09/18 08:10 08:20 08:30 Temperature Pulse Rate 120 H 119 H 124 H Pulse Rate [ Anterior Bilateral Throughout] Pulse Rate [ From Monitor] Respiratory 21 16 15 Rate Respiratory Rate [Anterior Bilateral Throughout] Blood Pressure 106/69 110/70 108/69 O2 Sat by Pulse 96 97 97 Oximetry 04/09/18 04/09/18 04/09/18 08:40 08:50 09:00 Temperature Pulse Rate 127 H 127 H 130 H Pulse Rate [ Anterior Bilateral Throughout] Pulse Rate [ From Monitor] Respiratory 16 23 18 Rate Respiratory Rate [Anterior Bilateral Throughout] Blood Pressure 108/69 103/72 95/68 O2 Sat by Pulse 97 96 94 Oximetry 04/09/18 04/09/18 04/09/18 09:10 09:20 09:30 Temperature Pulse Rate 128 H 129 H 129 H Pulse Rate [ Anterior Bilateral Throughout] Pulse Rate [ From Monitor] Respiratory 25 H 25 H 24 Rate Respiratory Rate [Anterior Bilateral Throughout] Blood Pressure 95/68 105/78 114/73 O2 Sat by Pulse 96 96 96 Oximetry 04/09/18 04/09/18 04/09/18 09:40 09:50 10:00 Temperature Pulse Rate 127 H 127 H 126 H Pulse Rate [ Anterior Bilateral Throughout] Pulse Rate [ From Monitor] Respiratory 25 H 23 27 H Rate Respiratory Rate [Anterior Bilateral Throughout] Blood Pressure 114/73 106/67 109/80 O2 Sat by Pulse 96 96 96 Oximetry 04/09/18 04/09/18 04/09/18 10:10 10:20 10:30 Temperature Pulse Rate 126 H 124 H Pulse Rate [ Anterior Bilateral Throughout] Pulse Rate [ From Monitor] Respiratory 25 H 18 Rate Respiratory Rate [Anterior Bilateral Throughout] Blood Pressure 109/80 109/80 111/72 O2 Sat by Pulse 96 96 100 Oximetry 04/09/18 04/09/18 04/09/18 10:40 10:50 11:00 Temperature Pulse Rate 126 H 123 H 122 H Pulse Rate [ Anterior Bilateral Throughout] Pulse Rate [ From Monitor] Respiratory 20 23 22 Rate Respiratory Rate [Anterior Bilateral Throughout] Blood Pressure 111/72 97/49 102/69 O2 Sat by Pulse 99 99 99 Oximetry 04/09/18 04/09/18 04/09/18 11:10 11:20 11:30 Temperature Pulse Rate 121 H 120 H 119 H Pulse Rate [ Anterior Bilateral Throughout] Pulse Rate [ From Monitor] Respiratory 25 H 17 20 Rate Respiratory Rate [Anterior Bilateral Throughout] Blood Pressure 102/69 103/67 106/69 O2 Sat by Pulse 97 96 96 Oximetry 04/09/18 04/09/18 04/09/18 11:40 11:50 12:00 Temperature 98.6 F Pulse Rate 117 H 115 H 114 H Pulse Rate [ Anterior Bilateral Throughout] Pulse Rate [ From Monitor] Respiratory 24 25 H 24 Rate Respiratory Rate [Anterior Bilateral Throughout] Blood Pressure 106/69 107/69 102/68 O2 Sat by Pulse 94 94 94 Oximetry CBC and BMP: 04/09/18 04:00 04/12/18 08:29 ABG, PT/INR, D-dimer: ABG POC ABG pH 7.405 (7.35-7.45) 04/09/18 04:24 POC ABG pCO2 44.5 (35-45) 04/09/18 04:24 POC ABG pO2 135 (80-105) H 04/09/18 04:24 POC ABG HCO3 27.9 04/09/18 04:24 POC ABG Total CO2 29 04/09/18 04:24 POC ABG O2 Sat 99 04/09/18 04:24 PT/INR, D-dimer PT 17.5 Sec. (12.2-14.9) H 04/08/18 09:25 INR 1.35 (0.87-1.13) H 04/08/18 09:25 Abnormal lab findings: Abnormal Labs 04/08/18 04/08/18 04/08/18 09:25 09:25 09:25 RBC 5.20 H Hgb 15.7 H Hct 47.1 H Plt Count 621 H Lymph % (Auto) 11.4 L Lymph # 1.1 L Seg Neutrophils % 81.7 H PT 17.5 H INR 1.35 H Thrombin Time 14.6 L POC ABG pH POC ABG pCO2 POC ABG pO2 Potassium 5.2 H Chloride 89.9 L BUN 22 H Creatinine 1.7 H Glucose 184 H POC Glucose Lactic Acid Calcium AST Alkaline Phosphatase Ammonia Total Creatine Kinase Troponin T 0.059 H NT-Pro-B Natriuret Pep Total Protein Albumin Triglycerides 158 H HDL Cholesterol 32 L Urine WBC (Auto) 04/08/18 04/08/18 04/08/18 09:25 09:25 09:57 RBC Hgb Hct Plt Count Lymph % (Auto) Lymph # Seg Neutrophils % PT INR Thrombin Time POC ABG pH POC ABG pCO2 POC ABG pO2 Potassium Chloride BUN Creatinine Glucose POC Glucose Lactic Acid 10.50 H* Calcium AST Alkaline Phosphatase Ammonia 74.0 H Total Creatine Kinase 38 L Troponin T NT-Pro-B Natriuret Pep 2534 H Total Protein Albumin Triglycerides HDL Cholesterol Urine WBC (Auto) 04/08/18 04/08/18 04/08/18 10:18 10:43 11:00 RBC Hgb Hct Plt Count Lymph % (Auto) Lymph # Seg Neutrophils % PT INR Thrombin Time POC ABG pH 7.294 L POC ABG pCO2 49.6 H POC ABG pO2 Potassium Chloride 96.8 L BUN 21 H Creatinine 1.6 H Glucose 155 H POC Glucose Lactic Acid Calcium AST 93 H Alkaline Phosphatase 216 H Ammonia Total Creatine Kinase Troponin T NT-Pro-B Natriuret Pep Total Protein Albumin 3.0 L Triglycerides HDL Cholesterol Urine WBC (Auto) 04/08/18 04/08/18 04/08/18 11:00 12:34 16:41 RBC Hgb Hct Plt Count Lymph % (Auto) Lymph # Seg Neutrophils % PT INR Thrombin Time POC ABG pH POC ABG pCO2 POC ABG pO2 Potassium Chloride BUN Creatinine Glucose POC Glucose Lactic Acid 8.40 H* 5.10 H* Calcium AST Alkaline Phosphatase Ammonia Total Creatine Kinase Troponin T NT-Pro-B Natriuret Pep Total Protein Albumin Triglycerides HDL Cholesterol Urine WBC (Auto) 22.0 H 04/08/18 04/08/18 04/08/18 17:43 20:54 23:39 RBC Hgb Hct Plt Count Lymph % (Auto) Lymph # Seg Neutrophils % PT INR Thrombin Time POC ABG pH POC ABG pCO2 POC ABG pO2 Potassium Chloride BUN Creatinine Glucose POC Glucose 168 H 167 H Lactic Acid 4.70 H* Calcium AST Alkaline Phosphatase Ammonia Total Creatine Kinase Troponin T NT-Pro-B Natriuret Pep Total Protein Albumin Triglycerides HDL Cholesterol Urine WBC (Auto) 04/09/18 04/09/18 04/09/18 04:00 04:00 04:00 RBC Hgb 11.7 L D Hct 34.7 L D Plt Count Lymph % (Auto) 6.5 L Lymph # 0.5 L Seg Neutrophils % 89.6 H PT INR Thrombin Time POC ABG pH POC ABG pCO2 POC ABG pO2 Potassium Chloride BUN 26 H Creatinine Glucose 179 H POC Glucose Lactic Acid 3.50 H* Calcium 8.2 L AST 61 H Alkaline Phosphatase 142 H Ammonia Total Creatine Kinase Troponin T NT-Pro-B Natriuret Pep Total Protein 5.2 L D Albumin 2.3 L Triglycerides HDL Cholesterol Urine WBC (Auto) 04/09/18 04/09/18 04/09/18 04:24 06:03 12:19 RBC Hgb Hct Plt Count Lymph % (Auto) Lymph # Seg Neutrophils % PT INR Thrombin Time POC ABG pH POC ABG pCO2 POC ABG pO2 135 H Potassium Chloride BUN Creatinine Glucose POC Glucose 158 H 168 H Lactic Acid Calcium AST Alkaline Phosphatase Ammonia Total Creatine Kinase Troponin T NT-Pro-B Natriuret Pep Total Protein Albumin Triglycerides HDL Cholesterol Urine WBC (Auto)
--- NOTE | 2018-04-09 14:10 | Progress Note ---
Assessment and Plan - Patient Problems (1) SETH (acute kidney injury) Current Visit: Yes Status: Acute Plan to address problem: Most likely secondary to prerenal azotemia. Should correct with intravascular volume repletion. (2) Coma Current Visit: Yes Status: Acute Qualifiers: Coma depth: Walden coma 3-8 Coma timing: in the field (EMT or ambulance) Qualified Code(s): R40.2431 - Walden coma scale score 3-8, in the field [EMT or ambulance] Plan to address problem: Most likely secondary to brain metastasis. See related MRI results and MRI examined. Prognosis at this times extremely poor. Unlikely to wake up. Patient has not lost gag but has limited pupil reflexes and activity. And this is on limited sedation. (3) Respiratory failure Current Visit: Yes Status: Acute Qualifiers: Chronicity: acute Respiratory failure complication: hypoxia Qualified Code(s): J96.01 - Acute respiratory failure with hypoxia Plan to address problem: Acute respiratory failure chronic respiratory failure secondary to metastatic lung cancer with brain metastasis. Prognosis grave. Can treat pain control supportive care. She does not a candidate treat underlying etiology. S x-ray show multiple bilateral pulmonary nodules. Continue vent management by pulmonology. (4) Sepsis Current Visit: Yes Status: Acute Qualifiers: Sepsis type: sepsis due to unspecified organism Qualified Code(s): A41.9 - Sepsis, unspecified organism Plan to address problem: Sepsis multifactorial possible pneumonia acute respiratory infection and renal also a possible source of infection. We'll continue on Zosyn and vancomycin broad-spectrum antibiotic coverage. Overall prognosis remained poor. (5) Brain metastases Current Visit: Yes Status: Chronic (6) Metastatic cancer Current Visit: Yes Status: Chronic Plan to address problem: Recommend to continue hospice services. Has spoke with family. Want to be aggressive for another 24 hours. If not may resume withdrawing life support. History Interval history: Patient currently in the ICU intubated unresponsive no sedatives. Hospital course complicated over p.m. low grade fever and agitation. Family at bedside AND ANSWERED TO HER SATISFACTION. FATHER IS AT BEDSIDE AND WANTS AGGRESSIVE TREATMENT FOR ANOTHER 24 HOURS AT LEAST. Hospitalist Physical - Constitutional Vitals: Temp Pulse Resp BP Pulse Ox 98.6 F 108 H 24 106/72 98 04/09/18 12:00 04/09/18 13:00 04/09/18 12:00 04/09/18 13:00 04/09/18 13:00 General appearance: Present: mild distress, well-nourished, other - EENT ENT: other (moderate distress. He would to appreciate pupils eyes are closed. Some distress. Intubated.) - Neck Neck: Present: supple, normal ROM - Respiratory Respiratory: bilateral: diminished - Cardiovascular Rhythm: other (tachycardia) Heart Sounds: Present: S1 & S2 - Extremities Extremities: no ischemia, pulses intact, pulses symmetrical, No edema, normal temperature, normal color Peripheral Pulses: within normal limits - Abdominal General gastrointestinal: soft, non-tender, non-distended - Integumentary Integumentary: Present: clear, warm, dry - Psychiatric Psychiatric: other (edematous) - Neurologic Neurologic: other (intubated unresponsive.) Results - Labs CBC & Chem 7: 04/09/18 04:00 04/09/18 04:00 Labs: Laboratory Last Values WBC 7.1 K/mm3 (4.5-11.0) 04/09/18 04:00 RBC 3.86 M/mm3 (3.65-5.03) 04/09/18 04:00 Hgb 11.7 gm/dl (11.8-15.2) L D 04/09/18 04:00 Hct 34.7 % (35.5-45.6) L D 04/09/18 04:00 MCV 90 fl (84-94) 04/09/18 04:00 MCH 30 pg (28-32) 04/09/18 04:00 MCHC 34 % (32-34) 04/09/18 04:00 RDW 15.0 % (13.2-15.2) 04/09/18 04:00 Plt Count 351 K/mm3 (140-440) 04/09/18 04:00 Lymph % (Auto) 6.5 % (13.4-35.0) L 04/09/18 04:00 Hale % (Auto) 3.5 % (0.0-7.3) 04/09/18 04:00 Eos % (Auto) 0.2 % (0.0-4.3) 04/09/18 04:00 Baso % (Auto) 0.2 % (0.0-1.8) 04/09/18 04:00 Lymph # 0.5 K/mm3 (1.2-5.4) L 04/09/18 04:00 Hale # 0.2 K/mm3 (0.0-0.8) 04/09/18 04:00 Eos # 0.0 K/mm3 (0.0-0.4) 04/09/18 04:00 Baso # 0.0 K/mm3 (0.0-0.1) 04/09/18 04:00 Add Manual Diff Complete 04/08/18 09:25 Seg Neutrophils % 89.6 % (40.0-70.0) H 04/09/18 04:00 Seg Neutrophils # 6.4 K/mm3 (1.8-7.7) 04/09/18 04:00 PT 17.5 Sec. (12.2-14.9) H 04/08/18 09:25 INR 1.35 (0.87-1.13) H 04/08/18 09:25 APTT 35.0 Sec. (24.2-36.6) 04/08/18 09:25 Thrombin Time 14.6 Sec. (15.1-19.6) L 04/08/18 09:25 POC ABG pH 7.405 (7.35-7.45) 04/09/18 04:24 POC ABG pCO2 44.5 (35-45) 04/09/18 04:24 POC ABG pO2 135 (80-105) H 04/09/18 04:24 POC ABG HCO3 27.9 04/09/18 04:24 POC ABG Total CO2 29 04/09/18 04:24 POC ABG O2 Sat 99 04/09/18 04:24 POC ABG Base Excess 3 04/09/18 04:24 FiO2 70 % 04/09/18 04:24 Sodium 141 mmol/L (137-145) 04/09/18 04:00 Potassium 3.9 mmol/L (3.6-5.0) 04/09/18 04:00 Chloride 100.7 mmol/L (98-107) 04/09/18 04:00 Carbon Dioxide 28 mmol/L (22-30) 04/09/18 04:00 Anion Gap 16 mmol/L 04/09/18 04:00 BUN 26 mg/dL (9-20) H 04/09/18 04:00 Creatinine 0.9 mg/dL (0.8-1.5) 04/09/18 04:00 Estimated GFR > 60 ml/min 04/09/18 04:00 BUN/Creatinine Ratio 29 % 04/09/18 04:00 Glucose 179 mg/dL (75-100) H 04/09/18 04:00 POC Glucose 168 (70-105) H 04/09/18 12:19 Lactic Acid 3.50 mmol/L (0.7-2.0) H* 04/09/18 04:00 Calcium 8.2 mg/dL (8.4-10.2) L 04/09/18 04:00 Magnesium 1.90 mg/dL (1.7-2.3) 04/08/18 09:25 Total Bilirubin 0.30 mg/dL (0.1-1.2) 04/09/18 04:00 Direct Bilirubin 0.2 mg/dL (0-0.2) 04/08/18 10:18 Indirect Bilirubin 0.3 mg/dL 04/08/18 10:18 AST 61 units/L (5-40) H 04/09/18 04:00 ALT 26 units/L (7-56) 04/09/18 04:00 Alkaline Phosphatase 142 units/L (35-129) H 04/09/18 04:00 Ammonia 74.0 umol/L (25-60) H 04/08/18 09:57 Total Creatine Kinase 38 units/L (55-170) L 04/08/18 09:25 CK-MB (CK-2) < 1.0 ng/mL (0.0-4.0) 04/08/18 09:25 CK-MB (CK-2) Rel Index 2.6 (0-4) 04/08/18 09:25 Troponin T 0.059 ng/mL (0.00-0.029) H 04/08/18 09:25 NT-Pro-B Natriuret Pep 2534 pg/mL (0-900) H 04/08/18 09:25 Total Protein 5.2 g/dL (6.3-8.2) L D 04/09/18 04:00 Albumin 2.3 g/dL (3.9-5) L 04/09/18 04:00 Albumin/Globulin Ratio 0.8 % 04/09/18 04:00 Triglycerides 158 mg/dL (2-149) H 04/08/18 09:25 Cholesterol 130 mg/dL (50-199) 04/08/18 09:25 LDL Cholesterol Direct 60 mg/dL (50-130) 04/08/18 09:25 HDL Cholesterol 32 mg/dL (40-59) L 04/08/18 09:25 Cholesterol/HDL Ratio 4.06 % 04/08/18 09:25 Urine Color Kiersten (Yellow) 04/08/18 12:34 Urine Turbidity Cloudy (Clear) 04/08/18 12:34 Urine pH 5.0 (5.0-7.0) 04/08/18 12:34 Ur Specific [place] 1.023 (1.003-1.030) 04/08/18 12:34 Urine Protein 100 mg/dl mg/dL (Negative) 04/08/18 12:34 Urine Glucose (UA) 50 mg/dL (Negative) 04/08/18 12:34 Urine Ketones Neg mg/dL (Negative) 04/08/18 12:34 Urine Blood Neg (Negative) 04/08/18 12:34 Urine Nitrite Neg (Negative) 04/08/18 12:34 Ur Reducing Substances Not Reportable 04/08/18 12:34 Urine Bilirubin Neg (Negative) 04/08/18 12:34 Urine Ictotest Not Reportable 04/08/18 12:34 Urine Urobilinogen 4.0 mg/dL (<2.0) 04/08/18 12:34 Ur Leukocyte Esterase Neg (Negative) 04/08/18 12:34 Urine WBC (Auto) 22.0 /HPF (0.0-6.0) H 04/08/18 12:34 Urine RBC (Auto) 7.0 /HPF (0.0-6.0) 04/08/18 12:34 U Epithel Cells (Auto) 5.0 /HPF (0-13.0) 04/08/18 12:34 Urine Bacteria (Auto) 1+ /HPF (Negative) 04/08/18 12:34 Urine Mucus Few /HPF 04/08/18 12:34
[2018-04-09] MEDS: VANCOMYCIN 1,500 MG in NACL 0.9% 500 ML 500 ML IV SCH (18:32)
--- NOTE | 2018-04-09 19:43 | XRay Report ---
FINAL REPORT EXAM: XR CHEST 1V AP HISTORY: follow up respiratory failure TECHNIQUE: Frontal chest x-ray Comparison: Earlier same day at 9:40 Eastern Standard time FINDINGS: Patient remains intubated with endotracheal tube tip 3 centimeters above the kayla. Unchanged left IJ central line. Heart size is normal. There are somewhat nodular and patchy appearing bilateral dense infiltrates which may represent masses or pneumonitis. No pneumothorax. IMPRESSION: Unchanged exam. Patchy somewhat nodular bilateral fairly dense infiltrates or pulmonary nodules. Recommend correlation with CT chest with IV contrast. Finding may represent patchy pneumonia/acute pneumonitis or neoplastic disease. Patient remains intubated with endotracheal tube tip well above the kayla. Left IJ central line unchanged.
[2018-04-09] MEDS: SODIUM CHLORIDE FLUSH SYRINGE 10 ML IV PRN (22:49)
[2018-04-10] MEDS: SODIUM CHLORIDE FLUSH SYRINGE 10 ML IV SCH ×3 (00:51→22:44)
[2018-04-10] MEDS: ZOSYN/NS 3.375GM/50ML 3.375 GM/50 ML BAG IV SCH ×4 (00:52→18:17)
[2018-04-10] MEDS: D5NS 1,000 ML IV SCH ×2 (00:52→09:59)
[2018-04-10] MEDS: DUONEB *Not for PRN Use IH SCH ×4 (02:13→20:51)
[2018-04-10] MEDS: DECADRON IV SCH ×4 (03:30→17:32)
--- NOTE | 2018-04-10 03:39 | XRay Report ---
FINAL REPORT EXAM: XR CHEST 1V AP HISTORY: follow up respiratory failure COMPARISON: April 09, 2018. FINDINGS: Frontal view(s) of the chest obtained. Heart normal in size. ETT and left IJ line remain in place. There persistent patchy nodular airspace opacities throughout the lungs. Increasing consolidation medial left lung base. No pneumothorax. IMPRESSION: Stable diffuse pulmonary nodular opacities. There may be increasing consolidation medial left lung base. Findings are most concerning for pneumonia.
[2018-04-10] MEDS: VANCOMYCIN 1,500 MG in NACL 0.9% 500 ML 500 ML IV SCH (07:03)
[2018-04-10] MEDS: LOVENOX SUB-Q SCH (10:00)
[2018-04-10] MEDS: PEPCID PO SCH ×2 (10:00→22:44)
--- NOTE | 2018-04-10 10:27 | Progress Note ---
Assessment and Plan -Head and neck cancer with metastasis to brain and lungs -Comatose -Acute hypoxemic respiratory failure on mechanical ventilation support -Aspiration pneumonia/HAP -Severe protein calorie malnutrition -Oropharyngeal dysphaigia -PEG -Patient had a spine is hospice appropriate -wean supplemental oxygen for O2 sats>90% -Aspiration precautions -Enteral nutrition -Stress ulcer prophylaxis -Monitor renal indices and urine output -Monitor neurology, neuro checks -Seizure precautions -Daily SAT and SBT -Analgesia and agitation management -Accuchecks with glycemic control -Antibiotics for MRSA and GNR coverage -VTE prophylaxis The high probability of a clinically significant, sudden or life threatening deterioration of the [] system(s) required my full and direct attention, intervention and personal management. The aggregate critical care time was [] minutes. This time is in addition to time spent performing reported procedures but includes the following: [x] Data Review and interpretation [x] Patient assessment and monitoring of vital signs [x] Documentation [x] Medication orders and management Subjective Date of service: 04/10/18 Principal diagnosis: acute hypoxemic respiratory failure, pneumonia, brain metastases, sepsis Interval history: Patient is seen and examined. Patient remained unresponsive and on ventilatory support. No overnight event reported to me. Objective - Exam Narrative Exam: Constitutional: Comatose. On mechanical ventilation. Afebrile. In no distress Head: Normocephalic atraumatic Eyes: Pupils are equal round and reactive to light Nose: No enlarged turbinates, no septal deviation. Mouth: Moist mucous membranes. Neck: Supple no thyromegaly. No bruit. No JVD Heart: Regular rate and rhythm, S1-S2 abnormal. No rubs murmurs or gallop Lungs: Decreased sounds bilaterally no rales or rhonchi Abdomen: Soft, nontender. Bowel sound are present. Extremities: No edema no cyanosis and no clubbing. Neuro: Unresponsive. Skin: No rashes no hyperemic spots Psychiatry: Unresponsive - Constitutional Vitals: Vital Signs - 12hr 04/09/18 04/09/18 04/09/18 22:30 22:41 22:50 Temperature Pulse Rate 107 H 112 H 113 H Pulse Rate [ Anterior Bilateral Throughout] Pulse Rate [ Right Dorsalis Pedis] Respiratory Rate Respiratory Rate [Anterior Bilateral Throughout] Blood Pressure 114/75 114/75 114/75 O2 Sat by Pulse 97 97 Oximetry 04/09/18 04/09/18 04/09/18 23:00 23:11 23:20 Temperature Pulse Rate 111 H 111 H Pulse Rate [ Anterior Bilateral Throughout] Pulse Rate [ Right Dorsalis Pedis] Respiratory 17 Rate Respiratory Rate [Anterior Bilateral Throughout] Blood Pressure 113/79 113/79 113/79 O2 Sat by Pulse 92 93 Oximetry 04/09/18 04/09/18 04/09/18 23:30 23:41 23:48 Temperature Pulse Rate 108 H 107 H 106 H Pulse Rate [ Anterior Bilateral Throughout] Pulse Rate [ Right Dorsalis Pedis] Respiratory 25 H 23 Rate Respiratory Rate [Anterior Bilateral Throughout] Blood Pressure 103/71 103/71 108/68 O2 Sat by Pulse 93 95 95 Oximetry 04/09/18 04/10/18 04/10/18 23:51 00:00 00:11 Temperature 98.1 F Pulse Rate 106 H 102 H 104 H Pulse Rate [ Anterior Bilateral Throughout] Pulse Rate [ 96 H Right Dorsalis Pedis] Respiratory 24 28 H 23 Rate Respiratory Rate [Anterior Bilateral Throughout] Blood Pressure 103/71 110/71 110/71 O2 Sat by Pulse 91 97 98 Oximetry 04/10/18 04/10/18 04/10/18 00:21 00:31 00:41 Temperature Pulse Rate 102 H 108 H 111 H Pulse Rate [ Anterior Bilateral Throughout] Pulse Rate [ Right Dorsalis Pedis] Respiratory 24 15 24 Rate Respiratory Rate [Anterior Bilateral Throughout] Blood Pressure 110/71 121/59 121/59 O2 Sat by Pulse 98 98 97 Oximetry 04/10/18 04/10/18 04/10/18 00:51 01:00 01:11 Temperature Pulse Rate 104 H 99 H 96 H Pulse Rate [ Anterior Bilateral Throughout] Pulse Rate [ Right Dorsalis Pedis] Respiratory 26 H 24 44 H Rate Respiratory Rate [Anterior Bilateral Throughout] Blood Pressure 121/59 107/72 107/72 O2 Sat by Pulse 96 93 97 Oximetry 04/10/18 04/10/18 04/10/18 01:21 01:30 01:41 Temperature Pulse Rate 94 H 93 H 92 H Pulse Rate [ Anterior Bilateral Throughout] Pulse Rate [ Right Dorsalis Pedis] Respiratory 21 20 19 Rate Respiratory Rate [Anterior Bilateral Throughout] Blood Pressure 107/73 104/68 104/68 O2 Sat by Pulse 97 97 Oximetry 04/10/18 04/10/18 04/10/18 01:51 02:00 02:11 Temperature Pulse Rate 91 H 90 94 H Pulse Rate [ Anterior Bilateral Throughout] Pulse Rate [ Right Dorsalis Pedis] Respiratory 21 19 14 Rate Respiratory Rate [Anterior Bilateral Throughout] Blood Pressure 104/70 104/70 104/71 O2 Sat by Pulse 96 96 99 Oximetry 04/10/18 04/10/18 04/10/18 02:13 02:21 02:30 Temperature Pulse Rate 94 H 94 H Pulse Rate [ 90 Anterior Bilateral Throughout] Pulse Rate [ Right Dorsalis Pedis] Respiratory 22 23 Rate Respiratory 20 Rate [Anterior Bilateral Throughout] Blood Pressure 116/78 107/74 O2 Sat by Pulse 99 Oximetry 04/10/18 04/10/18 04/10/18 02:35 02:41 02:51 Temperature Pulse Rate 99 H 96 H Pulse Rate [ 93 H Anterior Bilateral Throughout] Pulse Rate [ Right Dorsalis Pedis] Respiratory 26 H 23 Rate Respiratory 21 Rate [Anterior Bilateral Throughout] Blood Pressure 107/74 117/74 O2 Sat by Pulse 96 97 Oximetry 04/10/18 04/10/18 04/10/18 03:00 03:11 03:21 Temperature Pulse Rate 92 H 91 H 88 Pulse Rate [ Anterior Bilateral Throughout] Pulse Rate [ Right Dorsalis Pedis] Respiratory 16 21 22 Rate Respiratory Rate [Anterior Bilateral Throughout] Blood Pressure 105/70 105/70 103/71 O2 Sat by Pulse 96 97 Oximetry 04/10/18 04/10/18 04/10/18 03:30 03:41 03:51 Temperature Pulse Rate 93 H 87 87 Pulse Rate [ Anterior Bilateral Throughout] Pulse Rate [ Right Dorsalis Pedis] Respiratory 20 21 21 Rate Respiratory Rate [Anterior Bilateral Throughout] Blood Pressure 109/74 109/74 101/72 O2 Sat by Pulse 97 98 Oximetry 04/10/18 04/10/18 04/10/18 03:54 04:00 04:11 Temperature 98.2 F Pulse Rate 87 92 H 86 Pulse Rate [ Anterior Bilateral Throughout] Pulse Rate [ Right Dorsalis Pedis] Respiratory 24 21 Rate Respiratory Rate [Anterior Bilateral Throughout] Blood Pressure 101/72 114/81 114/81 O2 Sat by Pulse 98 97 97 Oximetry 04/10/18 04/10/18 04/10/18 04:21 04:29 04:30 Temperature Pulse Rate 84 83 Pulse Rate [ Anterior Bilateral Throughout] Pulse Rate [ 101 H Right Dorsalis Pedis] Respiratory 22 22 22 Rate Respiratory Rate [Anterior Bilateral Throughout] Blood Pressure 105/74 112/75 O2 Sat by Pulse 98 98 97 Oximetry 04/10/18 04/10/18 04/10/18 04:41 04:51 05:00 Temperature Pulse Rate 84 83 86 Pulse Rate [ Anterior Bilateral Throughout] Pulse Rate [ Right Dorsalis Pedis] Respiratory 22 22 24 Rate Respiratory Rate [Anterior Bilateral Throughout] Blood Pressure 112/75 110/76 119/80 O2 Sat by Pulse 98 97 96 Oximetry 04/10/18 04/10/18 04/10/18 05:11 05:21 05:30 Temperature Pulse Rate 85 83 81 Pulse Rate [ Anterior Bilateral Throughout] Pulse Rate [ Right Dorsalis Pedis] Respiratory 21 20 20 Rate Respiratory Rate [Anterior Bilateral Throughout] Blood Pressure 119/80 115/76 104/73 O2 Sat by Pulse 97 98 Oximetry 04/10/18 04/10/18 04/10/18 05:41 05:51 06:00 Temperature Pulse Rate 83 83 99 H Pulse Rate [ Anterior Bilateral Throughout] Pulse Rate [ Right Dorsalis Pedis] Respiratory 24 25 H 28 H Rate Respiratory Rate [Anterior Bilateral Throughout] Blood Pressure 104/73 119/78 125/79 O2 Sat by Pulse 98 99 97 Oximetry 04/10/18 04/10/18 04/10/18 06:11 06:21 06:30 Temperature Pulse Rate 87 100 H 98 H Pulse Rate [ Anterior Bilateral Throughout] Pulse Rate [ Right Dorsalis Pedis] Respiratory 23 14 24 Rate Respiratory Rate [Anterior Bilateral Throughout] Blood Pressure 125/79 110/73 123/85 O2 Sat by Pulse 97 98 98 Oximetry 04/10/18 04/10/18 04/10/18 06:41 06:51 06:54 Temperature Pulse Rate 92 H 95 H 94 H Pulse Rate [ Anterior Bilateral Throughout] Pulse Rate [ Right Dorsalis Pedis] Respiratory 25 H 32 H 30 H Rate Respiratory Rate [Anterior Bilateral Throughout] Blood Pressure 123/85 113/75 113/75 O2 Sat by Pulse 98 96 95 Oximetry 04/10/18 04/10/18 04/10/18 07:00 07:11 07:21 Temperature Pulse Rate 91 H 89 87 Pulse Rate [ Anterior Bilateral Throughout] Pulse Rate [ Right Dorsalis Pedis] Respiratory 30 H 26 H 25 H Rate Respiratory Rate [Anterior Bilateral Throughout] Blood Pressure 108/73 108/73 110/73 O2 Sat by Pulse 95 94 94 Oximetry 04/10/18 04/10/18 04/10/18 07:30 07:41 07:51 Temperature Pulse Rate 84 84 83 Pulse Rate [ Anterior Bilateral Throughout] Pulse Rate [ Right Dorsalis Pedis] Respiratory 25 H 26 H 26 H Rate Respiratory Rate [Anterior Bilateral Throughout] Blood Pressure 102/69 102/69 107/74 O2 Sat by Pulse 94 96 96 Oximetry 04/10/18 04/10/18 04/10/18 08:00 08:11 08:21 Temperature Pulse Rate 80 81 80 Pulse Rate [ Anterior Bilateral Throughout] Pulse Rate [ Right Dorsalis Pedis] Respiratory 24 23 25 H Rate Respiratory Rate [Anterior Bilateral Throughout] Blood Pressure 105/70 105/70 107/71 O2 Sat by Pulse 96 96 97 Oximetry 04/10/18 04/10/18 04/10/18 08:30 08:40 08:42 Temperature Pulse Rate 77 79 Pulse Rate [ 80 Anterior Bilateral Throughout] Pulse Rate [ Right Dorsalis Pedis] Respiratory 27 H 24 Rate Respiratory 23 Rate [Anterior Bilateral Throughout] Blood Pressure 110/73 110/73 O2 Sat by Pulse 98 97 Oximetry 04/10/18 04/10/18 04/10/18 08:47 08:51 08:55 Temperature Pulse Rate 84 80 Pulse Rate [ 90 Anterior Bilateral Throughout] Pulse Rate [ Right Dorsalis Pedis] Respiratory 30 H 23 Rate Respiratory 30 H Rate [Anterior Bilateral Throughout] Blood Pressure 110/73 113/74 O2 Sat by Pulse 98 99 Oximetry 04/10/18 04/10/18 04/10/18 09:00 09:11 09:21 Temperature Pulse Rate 90 93 H 91 H Pulse Rate [ Anterior Bilateral Throughout] Pulse Rate [ Right Dorsalis Pedis] Respiratory 35 H 32 H 32 H Rate Respiratory Rate [Anterior Bilateral Throughout] Blood Pressure 116/79 110/73 118/75 O2 Sat by Pulse 96 96 95 Oximetry 04/10/18 04/10/18 04/10/18 09:30 09:41 09:51 Temperature Pulse Rate 87 100 H 98 H Pulse Rate [ Anterior Bilateral Throughout] Pulse Rate [ Right Dorsalis Pedis] Respiratory 30 H 20 24 Rate Respiratory Rate [Anterior Bilateral Throughout] Blood Pressure 118/78 118/78 120/74 O2 Sat by Pulse 97 98 Oximetry - Labs CBC & Chem 7: 04/09/18 04:00 04/09/18 04:00 Labs: Abnormal lab results 04/09/18 04/09/18 04/09/18 Range/Units 12:19 16:30 18:01 POC ABG pCO2 45.7 H (35-45) POC ABG pO2 168 H (80-105) POC Glucose 168 H 161 H (70-105) 04/09/18 04/10/18 04/10/18 Range/Units 23:31 04:01 05:24 POC ABG pCO2 (35-45) POC ABG pO2 124 H (80-105) POC Glucose 154 H 141 H (70-105)
[2018-04-10] MEDS: SODIUM CHLORIDE FLUSH SYRINGE 10 ML IV PRN ×3 (11:33→18:46)
[2018-04-10] MEDS ORDERED: LASIX IV ONE (12:00)
[2018-04-10] MEDS: MORPHINE IV PRN ×3 (12:24→22:51)
--- NOTE | 2018-04-10 13:18 | Progress Note ---
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 Tolerating SBT with NIF -25, RSBI 62. Given one dose of furosemide. Plan to extubate to NIPPV Discussed extensively with his Lili. If he fails she would not want him re- intubated. However she will call Paras's father and talk with him to about her decision The high probability of a clinically significant, sudden or life threatening deterioration of the [respiratory,cardiovascular,] system(s) required my full and direct attention, intervention and personal management. The aggregate critical care time was [35] minutes without overlap. Time includes spent on; [x] Data Review and interpretation [x] Patient assessment and monitoring of vital signs [x] Documentation [x] Medication orders and management Subjective Date of service: 04/10/18 Principal diagnosis: acute hypoxemic respiratory failure, pneumonia, brain metastases, sepsis Interval history: Acute hypoxemic respiratory failure, pneumonia, brain metastases, sepsis Seen and examined at bedside; 24hour events reviewed; nursing and respiratory care staff consulted; no adverse overnight events reported to me; More awake and responsive Tracks voice. Father and cousin at the bedside Objective - Exam Narrative Exam: GEN: gravely ill, unresponsive, orally intubated to MVS HEENT: extraocular, pupils upward gaze NECK: supple, no adenopathy, no thyromegaly, no JVD CVS/HEART: Regular tacycardia, normal S1S2, pulses present bilaterally CHEST/LUNGS: Tachypneic, Symmetrical chest expansion, good air entry bilaterally GI/Abdomen: soft, PEG in place, good bowel sounds, no guarding or rebound /Bladder: no suprapubic tenderness, no CVA or paraspinal tenderness EXT/Skin: no c/c/e, no obvious rash MSK: unresponsive, he will spontaneous move right arm Neuro: doesn't follow command Psych: unresponsive Vital Signs - 12hr 04/10/18 04/10/18 04/10/18 01:21 01:30 01:41 Temperature Pulse Rate 94 H 93 H 92 H Pulse Rate [ Anterior Bilateral Throughout] Pulse Rate [ Right Dorsalis Pedis] Respiratory 21 20 19 Rate Respiratory Rate [Anterior Bilateral Throughout] Blood Pressure 107/73 104/68 104/68 O2 Sat by Pulse 97 97 Oximetry 04/10/18 04/10/18 04/10/18 01:51 02:00 02:11 Temperature Pulse Rate 91 H 90 94 H Pulse Rate [ Anterior Bilateral Throughout] Pulse Rate [ Right Dorsalis Pedis] Respiratory 21 19 14 Rate Respiratory Rate [Anterior Bilateral Throughout] Blood Pressure 104/70 104/70 104/71 O2 Sat by Pulse 96 96 99 Oximetry 04/10/18 04/10/18 04/10/18 02:13 02:21 02:30 Temperature Pulse Rate 94 H 94 H Pulse Rate [ 90 Anterior Bilateral Throughout] Pulse Rate [ Right Dorsalis Pedis] Respiratory 22 23 Rate Respiratory 20 Rate [Anterior Bilateral Throughout] Blood Pressure 116/78 107/74 O2 Sat by Pulse 99 Oximetry 04/10/18 04/10/18 04/10/18 02:35 02:41 02:51 Temperature Pulse Rate 99 H 96 H Pulse Rate [ 93 H Anterior Bilateral Throughout] Pulse Rate [ Right Dorsalis Pedis] Respiratory 26 H 23 Rate Respiratory 21 Rate [Anterior Bilateral Throughout] Blood Pressure 107/74 117/74 O2 Sat by Pulse 96 97 Oximetry 04/10/18 04/10/18 04/10/18 03:00 03:11 03:21 Temperature Pulse Rate 92 H 91 H 88 Pulse Rate [ Anterior Bilateral Throughout] Pulse Rate [ Right Dorsalis Pedis] Respiratory 16 21 22 Rate Respiratory Rate [Anterior Bilateral Throughout] Blood Pressure 105/70 105/70 103/71 O2 Sat by Pulse 96 97 Oximetry 04/10/18 04/10/18 04/10/18 03:30 03:41 03:51 Temperature Pulse Rate 93 H 87 87 Pulse Rate [ Anterior Bilateral Throughout] Pulse Rate [ Right Dorsalis Pedis] Respiratory 20 21 21 Rate Respiratory Rate [Anterior Bilateral Throughout] Blood Pressure 109/74 109/74 101/72 O2 Sat by Pulse 97 98 Oximetry 08/13/18 08/13/18 08/13/18 03:54 04:00 04:11 Temperature 98.2 F Pulse Rate 87 92 H 86 Pulse Rate [ Anterior Bilateral Throughout] Pulse Rate [ Right Dorsalis Pedis] Respiratory 24 21 Rate Respiratory Rate [Anterior Bilateral Throughout] Blood Pressure 101/72 114/81 114/81 O2 Sat by Pulse 98 97 97 Oximetry 04/10/18 04/10/18 04/10/18 04:21 04:29 04:30 Temperature Pulse Rate 84 83 Pulse Rate [ Anterior Bilateral Throughout] Pulse Rate [ 101 H Right Dorsalis Pedis] Respiratory 22 22 22 Rate Respiratory Rate [Anterior Bilateral Throughout] Blood Pressure 105/74 112/75 O2 Sat by Pulse 98 98 97 Oximetry 04/10/18 04/10/18 04/10/18 04:41 04:51 05:00 Temperature Pulse Rate 84 83 86 Pulse Rate [ Anterior Bilateral Throughout] Pulse Rate [ Right Dorsalis Pedis] Respiratory 22 22 24 Rate Respiratory Rate [Anterior Bilateral Throughout] Blood Pressure 112/75 110/76 119/80 O2 Sat by Pulse 98 97 96 Oximetry 04/10/18 04/10/18 04/10/18 05:11 05:21 05:30 Temperature Pulse Rate 85 83 81 Pulse Rate [ Anterior Bilateral Throughout] Pulse Rate [ Right Dorsalis Pedis] Respiratory 21 20 20 Rate Respiratory Rate [Anterior Bilateral Throughout] Blood Pressure 119/80 115/76 104/73 O2 Sat by Pulse 97 98 Oximetry 04/10/18 04/10/18 04/10/18 05:41 05:51 06:00 Temperature Pulse Rate 83 83 99 H Pulse Rate [ Anterior Bilateral Throughout] Pulse Rate [ Right Dorsalis Pedis] Respiratory 24 25 H 28 H Rate Respiratory Rate [Anterior Bilateral Throughout] Blood Pressure 104/73 119/78 125/79 O2 Sat by Pulse 98 99 97 Oximetry 04/10/18 04/10/18 04/10/18 06:11 06:21 06:30 Temperature Pulse Rate 87 100 H 98 H Pulse Rate [ Anterior Bilateral Throughout] Pulse Rate [ Right Dorsalis Pedis] Respiratory 23 14 24 Rate Respiratory Rate [Anterior Bilateral Throughout] Blood Pressure 125/79 110/73 123/85 O2 Sat by Pulse 97 98 98 Oximetry 04/10/18 04/10/18 04/10/18 06:41 06:51 06:54 Temperature Pulse Rate 92 H 95 H 94 H Pulse Rate [ Anterior Bilateral Throughout] Pulse Rate [ Right Dorsalis Pedis] Respiratory 25 H 32 H 30 H Rate Respiratory Rate [Anterior Bilateral Throughout] Blood Pressure 123/85 113/75 113/75 O2 Sat by Pulse 98 96 95 Oximetry 04/10/18 04/10/18 04/10/18 07:00 07:11 07:21 Temperature Pulse Rate 91 H 89 87 Pulse Rate [ Anterior Bilateral Throughout] Pulse Rate [ Right Dorsalis Pedis] Respiratory 30 H 26 H 25 H Rate Respiratory Rate [Anterior Bilateral Throughout] Blood Pressure 108/73 108/73 110/73 O2 Sat by Pulse 95 94 94 Oximetry 04/10/18 04/10/18 04/10/18 07:30 07:41 07:51 Temperature Pulse Rate 84 84 83 Pulse Rate [ Anterior Bilateral Throughout] Pulse Rate [ Right Dorsalis Pedis] Respiratory 25 H 26 H 26 H Rate Respiratory Rate [Anterior Bilateral Throughout] Blood Pressure 102/69 102/69 107/74 O2 Sat by Pulse 94 96 96 Oximetry 04/10/18 04/10/18 04/10/18 08:00 08:11 08:21 Temperature Pulse Rate 80 81 80 Pulse Rate [ Anterior Bilateral Throughout] Pulse Rate [ Right Dorsalis Pedis] Respiratory 24 23 25 H Rate Respiratory Rate [Anterior Bilateral Throughout] Blood Pressure 105/70 105/70 107/71 O2 Sat by Pulse 96 96 97 Oximetry 04/10/18 04/10/18 04/10/18 08:30 08:40 08:42 Temperature Pulse Rate 77 79 Pulse Rate [ 80 Anterior Bilateral Throughout] Pulse Rate [ Right Dorsalis Pedis] Respiratory 27 H 24 Rate Respiratory 23 Rate [Anterior Bilateral Throughout] Blood Pressure 110/73 110/73 O2 Sat by Pulse 98 97 Oximetry 04/10/18 04/10/18 04/10/18 08:47 08:51 08:55 Temperature Pulse Rate 84 80 Pulse Rate [ 90 Anterior Bilateral Throughout] Pulse Rate [ Right Dorsalis Pedis] Respiratory 30 H 23 Rate Respiratory 30 H Rate [Anterior Bilateral Throughout] Blood Pressure 110/73 113/74 O2 Sat by Pulse 98 99 Oximetry 04/10/18 04/10/18 04/10/18 09:00 09:11 09:21 Temperature Pulse Rate 90 93 H 91 H Pulse Rate [ Anterior Bilateral Throughout] Pulse Rate [ Right Dorsalis Pedis] Respiratory 35 H 32 H 32 H Rate Respiratory Rate [Anterior Bilateral Throughout] Blood Pressure 116/79 110/73 118/75 O2 Sat by Pulse 96 96 95 Oximetry 04/10/18 04/10/18 04/10/18 09:30 09:41 09:51 Temperature Pulse Rate 87 100 H 98 H Pulse Rate [ Anterior Bilateral Throughout] Pulse Rate [ Right Dorsalis Pedis] Respiratory 30 H 20 24 Rate Respiratory Rate [Anterior Bilateral Throughout] Blood Pressure 118/78 118/78 120/74 O2 Sat by Pulse 97 98 Oximetry 04/10/18 04/10/18 10:45 12:56 Temperature Pulse Rate 108 H 89 Pulse Rate [ Anterior Bilateral Throughout] Pulse Rate [ Right Dorsalis Pedis] Respiratory 36 H 34 H Rate Respiratory Rate [Anterior Bilateral Throughout] Blood Pressure 130/83 142/107 O2 Sat by Pulse 95 95 Oximetry CBC and BMP: 04/09/18 04:00 04/12/18 08:29 ABG, PT/INR, D-dimer: ABG POC ABG pH 7.439 (7.35-7.45) 04/10/18 04:01 POC ABG pCO2 38.6 (35-45) 04/10/18 04:01 POC ABG pO2 124 (80-105) H 04/10/18 04:01 POC ABG HCO3 26.2 04/10/18 04:01 POC ABG Total CO2 27 04/10/18 04:01 POC ABG O2 Sat 99 04/10/18 04:01 PT/INR, D-dimer PT 17.5 Sec. (12.2-14.9) H 04/08/18 09:25 INR 1.35 (0.87-1.13) H 04/08/18 09:25 Abnormal lab findings: Abnormal Labs 04/08/18 04/08/18 04/08/18 09:25 09:25 09:25 RBC 5.20 H Hgb 15.7 H Hct 47.1 H Plt Count 621 H Lymph % (Auto) 11.4 L Lymph # 1.1 L Seg Neutrophils % 81.7 H PT 17.5 H INR 1.35 H Thrombin Time 14.6 L POC ABG pH POC ABG pCO2 POC ABG pO2 Potassium 5.2 H Chloride 89.9 L BUN 22 H Creatinine 1.7 H Glucose 184 H POC Glucose Lactic Acid Calcium AST Alkaline Phosphatase Ammonia Total Creatine Kinase Troponin T 0.059 H NT-Pro-B Natriuret Pep Total Protein Albumin Triglycerides 158 H HDL Cholesterol 32 L Urine WBC (Auto) 04/08/18 04/08/18 04/08/18 09:25 09:25 09:57 RBC Hgb Hct Plt Count Lymph % (Auto) Lymph # Seg Neutrophils % PT INR Thrombin Time POC ABG pH POC ABG pCO2 POC ABG pO2 Potassium Chloride BUN Creatinine Glucose POC Glucose Lactic Acid 10.50 H* Calcium AST Alkaline Phosphatase Ammonia 74.0 H Total Creatine Kinase 38 L Troponin T NT-Pro-B Natriuret Pep 2534 H Total Protein Albumin Triglycerides HDL Cholesterol Urine WBC (Auto) 04/08/18 04/08/18 04/08/18 10:18 10:43 11:00 RBC Hgb Hct Plt Count Lymph % (Auto) Lymph # Seg Neutrophils % PT INR Thrombin Time POC ABG pH 7.294 L POC ABG pCO2 49.6 H POC ABG pO2 Potassium Chloride 96.8 L BUN 21 H Creatinine 1.6 H Glucose 155 H POC Glucose Lactic Acid Calcium AST 93 H Alkaline Phosphatase 216 H Ammonia Total Creatine Kinase Troponin T NT-Pro-B Natriuret Pep Total Protein Albumin 3.0 L Triglycerides HDL Cholesterol Urine WBC (Auto) 04/08/18 04/08/18 04/08/18 11:00 12:34 16:41 RBC Hgb Hct Plt Count Lymph % (Auto) Lymph # Seg Neutrophils % PT INR Thrombin Time POC ABG pH POC ABG pCO2 POC ABG pO2 Potassium Chloride BUN Creatinine Glucose POC Glucose Lactic Acid 8.40 H* 5.10 H* Calcium AST Alkaline Phosphatase Ammonia Total Creatine Kinase Troponin T NT-Pro-B Natriuret Pep Total Protein Albumin Triglycerides HDL Cholesterol Urine WBC (Auto) 22.0 H 04/08/18 04/08/18 04/08/18 17:43 20:54 23:39 RBC Hgb Hct Plt Count Lymph % (Auto) Lymph # Seg Neutrophils % PT INR Thrombin Time POC ABG pH POC ABG pCO2 POC ABG pO2 Potassium Chloride BUN Creatinine Glucose POC Glucose 168 H 167 H Lactic Acid 4.70 H* Calcium AST Alkaline Phosphatase Ammonia Total Creatine Kinase Troponin T NT-Pro-B Natriuret Pep Total Protein Albumin Triglycerides HDL Cholesterol Urine WBC (Auto) 04/09/18 04/09/18 04/09/18 04:00 04:00 04:00 RBC Hgb 11.7 L D Hct 34.7 L D Plt Count Lymph % (Auto) 6.5 L Lymph # 0.5 L Seg Neutrophils % 89.6 H PT INR Thrombin Time POC ABG pH POC ABG pCO2 POC ABG pO2 Potassium Chloride BUN 26 H Creatinine Glucose 179 H POC Glucose Lactic Acid 3.50 H* Calcium 8.2 L AST 61 H Alkaline Phosphatase 142 H Ammonia Total Creatine Kinase Troponin T NT-Pro-B Natriuret Pep Total Protein 5.2 L D Albumin 2.3 L Triglycerides HDL Cholesterol Urine WBC (Auto) 04/09/18 04/09/18 04/09/18 04:24 06:03 12:19 RBC Hgb Hct Plt Count Lymph % (Auto) Lymph # Seg Neutrophils % PT INR Thrombin Time POC ABG pH POC ABG pCO2 POC ABG pO2 135 H Potassium Chloride BUN Creatinine Glucose POC Glucose 158 H 168 H Lactic Acid Calcium AST Alkaline Phosphatase Ammonia Total Creatine Kinase Troponin T NT-Pro-B Natriuret Pep Total Protein Albumin Triglycerides HDL Cholesterol Urine WBC (Auto) 04/09/18 04/09/18 04/09/18 16:30 18:01 23:31 RBC Hgb Hct Plt Count Lymph % (Auto) Lymph # Seg Neutrophils % PT INR Thrombin Time POC ABG pH POC ABG pCO2 45.7 H POC ABG pO2 168 H Potassium Chloride BUN Creatinine Glucose POC Glucose 161 H 154 H Lactic Acid Calcium AST Alkaline Phosphatase Ammonia Total Creatine Kinase Troponin T NT-Pro-B Natriuret Pep Total Protein Albumin Triglycerides HDL Cholesterol Urine WBC (Auto) 04/10/18 04/10/18 04/10/18 04:01 05:24 12:49 RBC Hgb Hct Plt Count Lymph % (Auto) Lymph # Seg Neutrophils % PT INR Thrombin Time POC ABG pH POC ABG pCO2 POC ABG pO2 124 H Potassium Chloride BUN Creatinine Glucose POC Glucose 141 H 132 H Lactic Acid Calcium AST Alkaline Phosphatase Ammonia Total Creatine Kinase Troponin T NT-Pro-B Natriuret Pep Total Protein Albumin Triglycerides HDL Cholesterol Urine WBC (Auto)
[2018-04-11] MEDS: ZOSYN/NS 3.375GM/50ML 3.375 GM/50 ML BAG IV SCH ×4 (02:14→17:41)
[2018-04-11] MEDS: DECADRON IV SCH ×5 (02:14→21:41)
[2018-04-11] MEDS: DUONEB *Not for PRN Use IH SCH ×3 (08:04→20:00)
--- NOTE | 2018-04-11 08:12 | Progress Note ---
Assessment and Plan Assessment and plan: Patient is a 52 yo man from [facility] with Hospice who presented to [facility] ED via EMS with AMS/unresponsiveness. According to chart, patient just arrived to [facility] with hospice one day prior to this unresponsive state. 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 He has already received chemotherapy and radiation therapy. The father is aware that the patient is in hospice for a terminal condition. His CODE STATUS was intially full code but has been changed to DNR/ AND. He is intubated but not sedated. His care has been pretty much been governed by Inserting Press Operator. -Acute hypoxic respiratory failure on MV: continue weaning attempts, possible extubation today -Aspiration pneumonia/HAP with Sepsis poa: being treated with IV Zosyn -Metastatic head and neck cancer to the brain and lung: on IV Decadron -Acute encephalopathy as above -ARF, vasomotor nephropathy, poa: continue to monitor bmp -Severe protein calorie malnutrition: consult Gaming Worker, tube feeding -Oropharyngeal dysphaigia with PEG tube: continue present management -Advance care planning: now DNR -DVT prophylaxis: scd and sq lovenox CCT 31 minutes History Interval history: Patient was seen and examined. Follow-up on current diagnosis of unresponsiveness. Patient is intubated. Imaging, nursing note, chart, labs and old chart reviewed. Hospitalist Physical - Physical exam Narrative exam: GEN: ill appearing unresponsive, eyes open HEENT: ETT in place, extraocular, pupils upward gaze NECK: supple, no adenopathy, no thyromegaly, no JVD CVS/HEART: RRR, normal S1S2, pulses present bilaterally CHEST/LUNGS: Symmetrical chest expansion, good air entry bilaterally GI/Abdomen: soft, PEG in place, good bowel sounds, no guarding or rebound /Bladder: no suprapubic tenderness, no CVA or paraspinal tenderness EXT/Skin: no c/c/e, no obvious rash MSK: unresponsive Neuro: CN 2-12 grossly intact, doesn't follow command Psych: unresponsive - Constitutional Vitals: Temp Pulse Resp BP Pulse Ox 97.6 F 77 11 L 147/93 98 04/11/18 03:28 04/11/18 07:00 04/11/18 07:00 04/11/18 07:00 04/11/18 07:00 General appearance: Absent: mild distress, well-nourished, other Results - Labs CBC & Chem 7: 04/09/18 04:00 04/09/18 04:00 Labs: Laboratory Last Values WBC 7.1 K/mm3 (4.5-11.0) 04/09/18 04:00 RBC 3.86 M/mm3 (3.65-5.03) 04/09/18 04:00 Hgb 11.7 gm/dl (11.8-15.2) L D 04/09/18 04:00 Hct 34.7 % (35.5-45.6) L D 04/09/18 04:00 MCV 90 fl (84-94) 04/09/18 04:00 MCH 30 pg (28-32) 04/09/18 04:00 MCHC 34 % (32-34) 04/09/18 04:00 RDW 15.0 % (13.2-15.2) 04/09/18 04:00 Plt Count 351 K/mm3 (140-440) 04/09/18 04:00 Lymph % (Auto) 6.5 % (13.4-35.0) L 04/09/18 04:00 [place] % (Auto) 3.5 % (0.0-7.3) 04/09/18 04:00 Eos % (Auto) 0.2 % (0.0-4.3) 04/09/18 04:00 Baso % (Auto) 0.2 % (0.0-1.8) 04/09/18 04:00 Lymph # 0.5 K/mm3 (1.2-5.4) L 04/09/18 04:00 [place] # 0.2 K/mm3 (0.0-0.8) 04/09/18 04:00 Eos # 0.0 K/mm3 (0.0-0.4) 04/09/18 04:00 Baso # 0.0 K/mm3 (0.0-0.1) 04/09/18 04:00 Add Manual Diff Complete 04/08/18 09:25 Seg Neutrophils % 89.6 % (40.0-70.0) H 04/09/18 04:00 Seg Neutrophils # 6.4 K/mm3 (1.8-7.7) 04/09/18 04:00 PT 17.5 Sec. (12.2-14.9) H 04/08/18 09:25 INR 1.35 (0.87-1.13) H 04/08/18 09:25 APTT 35.0 Sec. (24.2-36.6) 04/08/18 09:25 Thrombin Time 14.6 Sec. (15.1-19.6) L 04/08/18 09:25 POC ABG pH 7.439 (7.35-7.45) 04/10/18 04:01 POC ABG pCO2 38.6 (35-45) 04/10/18 04:01 POC ABG pO2 124 (80-105) H 04/10/18 04:01 POC ABG HCO3 26.2 04/10/18 04:01 POC ABG Total CO2 27 04/10/18 04:01 POC ABG O2 Sat 99 04/10/18 04:01 POC ABG Base Excess 2 04/10/18 04:01 FiO2 50 % 04/10/18 04:01 Sodium 141 mmol/L (137-145) 04/09/18 04:00 Potassium 3.9 mmol/L (3.6-5.0) 04/09/18 04:00 Chloride 100.7 mmol/L (98-107) 04/09/18 04:00 Carbon Dioxide 28 mmol/L (22-30) 04/09/18 04:00 Anion Gap 16 mmol/L 04/09/18 04:00 BUN 26 mg/dL (9-20) H 04/09/18 04:00 Creatinine 0.9 mg/dL (0.8-1.5) 04/09/18 04:00 Estimated GFR > 60 ml/min 04/09/18 04:00 BUN/Creatinine Ratio 29 % 04/09/18 04:00 Glucose 179 mg/dL (75-100) H 04/09/18 04:00 POC Glucose 107 (70-105) H 04/11/18 05:28 Lactic Acid 3.50 mmol/L (0.7-2.0) H* 04/09/18 04:00 Calcium 8.2 mg/dL (8.4-10.2) L 04/09/18 04:00 Magnesium 1.90 mg/dL (1.7-2.3) 04/08/18 09:25 Total Bilirubin 0.30 mg/dL (0.1-1.2) 04/09/18 04:00 Direct Bilirubin 0.2 mg/dL (0-0.2) 04/08/18 10:18 Indirect Bilirubin 0.3 mg/dL 04/08/18 10:18 AST 61 units/L (5-40) H 04/09/18 04:00 ALT 26 units/L (7-56) 04/09/18 04:00 Alkaline Phosphatase 142 units/L (35-129) H 04/09/18 04:00 Ammonia 74.0 umol/L (25-60) H 04/08/18 09:57 Total Creatine Kinase 38 units/L (55-170) L 04/08/18 09:25 CK-MB (CK-2) < 1.0 ng/mL (0.0-4.0) 04/08/18 09:25 CK-MB (CK-2) Rel Index 2.6 (0-4) 04/08/18 09:25 Troponin T 0.059 ng/mL (0.00-0.029) H 04/08/18 09:25 NT-Pro-B Natriuret Pep 2534 pg/mL (0-900) H 04/08/18 09:25 Total Protein 5.2 g/dL (6.3-8.2) L D 04/09/18 04:00 Albumin 2.3 g/dL (3.9-5) L 04/09/18 04:00 Albumin/Globulin Ratio 0.8 % 04/09/18 04:00 Triglycerides 158 mg/dL (2-149) H 04/08/18 09:25 Cholesterol 130 mg/dL (50-199) 04/08/18 09:25 LDL Cholesterol Direct 60 mg/dL (50-130) 04/08/18 09:25 HDL Cholesterol 32 mg/dL (40-59) L 04/08/18 09:25 Cholesterol/HDL Ratio 4.06 % 04/08/18 09:25 Urine Color Kiersten (Yellow) 04/08/18 12:34 Urine Turbidity Cloudy (Clear) 04/08/18 12:34 Urine pH 5.0 (5.0-7.0) 08/11/18 12:34 Ur Specific [place] 1.023 (1.003-1.030) 04/08/18 12:34 Urine Protein 100 mg/dl mg/dL (Negative) 04/08/18 12:34 Urine Glucose (UA) 50 mg/dL (Negative) 04/08/18 12:34 Urine Ketones Neg mg/dL (Negative) 04/08/18 12:34 Urine Blood Neg (Negative) 04/08/18 12:34 Urine Nitrite Neg (Negative) 04/08/18 12:34 Ur Reducing Substances Not Reportable 04/08/18 12:34 Urine Bilirubin Neg (Negative) 04/08/18 12:34 Urine Ictotest Not Reportable 04/08/18 12:34 Urine Urobilinogen 4.0 mg/dL (<2.0) 04/08/18 12:34 Ur Leukocyte Esterase Neg (Negative) 04/08/18 12:34 Urine WBC (Auto) 22.0 /HPF (0.0-6.0) H 04/08/18 12:34 Urine RBC (Auto) 7.0 /HPF (0.0-6.0) 04/08/18 12:34 U Epithel Cells (Auto) 5.0 /HPF (0-13.0) 04/08/18 12:34 Urine Bacteria (Auto) 1+ /HPF (Negative) 04/08/18 12:34 Urine Mucus Few /HPF 04/08/18 12:34
--- NOTE | 2018-04-11 11:41 | Progress Note ---
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 Acute encephalopathy Abnormal CTscan brain Severe protein calorie malnutrition Oropharyngeal dysphagia PEG - stopped BIPAP re: emesis - NT suction done and will continue prn - continue aspiration precautions - continue to wean supplemental oxygen for O2 sats>90% - continue VTE prophylaxis - continue Reglan re: emesis - continue Enteral nutrition as tolerated - continue to monitor renal indices and urine output (repeat BMP in am) - continue to monitor neurology, neuro checks - continue Seizure precautions - Analgesia and agitation management - Accuchecks with glycemic control - continue empiric antibiotics and follow cultures (growing klebsiella from ETT aspirate) - de-escalate AB's once BC's final - Critical care bundles addressed - family discussion had yesterday; he is a DNR now and is already enrolled with hospice care - care plan discussed with family in room The high probability of a clinically significant, sudden or life threatening deterioration of the [respiratory,cardiac, neurologic] system(s) required my full and direct attention, intervention and personal management. The aggregate critical care time was [35] minutes without overlap. Time includes spent on; [x] Data Review and interpretation [x] Patient assessment and monitoring of vital signs [x] Documentation [x] Medication orders and management Subjective Date of service: 04/11/18 Principal diagnosis: Acute hypoxemic respiratory failure, pneumonia, brain metastases, sepsis Interval history: Patient is seen today for: Acute hypoxemic respiratory failure, pneumonia, brain metastases, sepsis Seen and examined at bedside; 24hour events reviewed; nursing and respiratory care staff consulted; no adverse overnight events reported to me; on 100% NRB; breathing is moderately labored; remains a DNR; No emesis or overt aspiration but with excessive oropharyngeal secretions; also episode of emesis earlier so off NIV Objective Vital Signs - 12hr 04/10/18 04/11/18 04/11/18 23:51 00:00 00:11 Temperature Pulse Rate 79 96 H 79 Pulse Rate [ Anterior Bilateral Throughout] Pulse Rate [ 98 H Right Dorsalis Pedis] Respiratory 21 25 H 24 Rate Respiratory Rate [Anterior Bilateral Throughout] Respiratory Rate [Head] Blood Pressure 114/81 128/87 128/87 O2 Sat by Pulse 98 96 Oximetry 04/11/18 04/11/18 04/11/18 00:21 00:25 00:30 Temperature Pulse Rate 87 88 91 H Pulse Rate [ Anterior Bilateral Throughout] Pulse Rate [ Right Dorsalis Pedis] Respiratory 26 H 25 H 17 Rate Respiratory Rate [Anterior Bilateral Throughout] Respiratory Rate [Head] Blood Pressure 123/86 123/86 125/84 O2 Sat by Pulse 96 96 97 Oximetry 04/11/18 04/11/18 04/11/18 00:41 00:51 01:00 Temperature Pulse Rate 89 98 H 85 Pulse Rate [ Anterior Bilateral Throughout] Pulse Rate [ Right Dorsalis Pedis] Respiratory 20 11 L 26 H Rate Respiratory Rate [Anterior Bilateral Throughout] Respiratory Rate [Head] Blood Pressure 125/84 133/94 118/83 O2 Sat by Pulse 95 97 94 Oximetry 04/11/18 04/11/18 04/11/18 01:11 01:21 01:30 Temperature Pulse Rate 95 H 83 89 Pulse Rate [ Anterior Bilateral Throughout] Pulse Rate [ Right Dorsalis Pedis] Respiratory 14 29 H 12 Rate Respiratory Rate [Anterior Bilateral Throughout] Respiratory Rate [Head] Blood Pressure 118/83 135/87 126/88 O2 Sat by Pulse 96 93 94 Oximetry 04/11/18 04/11/18 04/11/18 01:41 01:51 02:00 Temperature Pulse Rate 96 H 90 90 Pulse Rate [ Anterior Bilateral Throughout] Pulse Rate [ Right Dorsalis Pedis] Respiratory 17 27 H 13 Rate Respiratory Rate [Anterior Bilateral Throughout] Respiratory Rate [Head] Blood Pressure 126/88 142/102 135/95 O2 Sat by Pulse 96 94 95 Oximetry 04/11/18 04/11/18 04/11/18 02:11 02:21 02:30 Temperature Pulse Rate 81 81 84 Pulse Rate [ Anterior Bilateral Throughout] Pulse Rate [ Right Dorsalis Pedis] Respiratory 27 H 28 H 13 Rate Respiratory Rate [Anterior Bilateral Throughout] Respiratory Rate [Head] Blood Pressure 135/95 136/94 140/91 O2 Sat by Pulse 94 94 97 Oximetry 04/11/18 04/11/18 04/11/18 02:41 02:51 03:00 Temperature Pulse Rate 79 92 H 87 Pulse Rate [ Anterior Bilateral Throughout] Pulse Rate [ Right Dorsalis Pedis] Respiratory 26 H 16 16 Rate Respiratory Rate [Anterior Bilateral Throughout] Respiratory Rate [Head] Blood Pressure 140/91 128/87 141/90 O2 Sat by Pulse 98 98 98 Oximetry 04/11/18 04/11/18 04/11/18 03:11 03:21 03:28 Temperature 97.6 F Pulse Rate 86 91 H Pulse Rate [ Anterior Bilateral Throughout] Pulse Rate [ Right Dorsalis Pedis] Respiratory 24 17 Rate Respiratory Rate [Anterior Bilateral Throughout] Respiratory Rate [Head] Blood Pressure 141/90 142/98 O2 Sat by Pulse 98 98 Oximetry 04/11/18 04/11/18 04/11/18 03:30 03:41 03:49 Temperature Pulse Rate 92 H 97 H 85 Pulse Rate [ Anterior Bilateral Throughout] Pulse Rate [ Right Dorsalis Pedis] Respiratory 19 13 22 Rate Respiratory Rate [Anterior Bilateral Throughout] Respiratory Rate [Head] Blood Pressure 138/92 138/92 138/92 O2 Sat by Pulse 95 98 96 Oximetry 04/11/18 04/11/18 04/11/18 03:51 04:00 04:11 Temperature Pulse Rate 85 91 H 80 Pulse Rate [ Anterior Bilateral Throughout] Pulse Rate [ 89 Right Dorsalis Pedis] Respiratory 19 15 27 H Rate Respiratory Rate [Anterior Bilateral Throughout] Respiratory Rate [Head] Blood Pressure 139/88 142/95 142/95 O2 Sat by Pulse 97 95 96 Oximetry 04/11/18 04/11/18 04/11/18 04:21 04:30 04:41 Temperature Pulse Rate 88 80 80 Pulse Rate [ Anterior Bilateral Throughout] Pulse Rate [ Right Dorsalis Pedis] Respiratory 19 26 H 18 Rate Respiratory Rate [Anterior Bilateral Throughout] Respiratory Rate [Head] Blood Pressure 132/90 135/87 135/87 O2 Sat by Pulse 97 Oximetry 04/11/18 04/11/18 04/11/18 04:51 05:00 05:11 Temperature Pulse Rate 86 81 77 Pulse Rate [ Anterior Bilateral Throughout] Pulse Rate [ Right Dorsalis Pedis] Respiratory 24 21 24 Rate Respiratory Rate [Anterior Bilateral Throughout] Respiratory Rate [Head] Blood Pressure 130/87 133/89 133/89 O2 Sat by Pulse Oximetry 04/11/18 04/11/18 04/11/18 05:21 05:30 05:41 Temperature Pulse Rate 90 92 H 82 Pulse Rate [ Anterior Bilateral Throughout] Pulse Rate [ Right Dorsalis Pedis] Respiratory 18 14 18 Rate Respiratory Rate [Anterior Bilateral Throughout] Respiratory Rate [Head] Blood Pressure 132/87 143/100 133/89 O2 Sat by Pulse Oximetry 04/11/18 04/11/18 04/11/18 05:51 06:00 06:11 Temperature Pulse Rate 86 82 77 Pulse Rate [ Anterior Bilateral Throughout] Pulse Rate [ Right Dorsalis Pedis] Respiratory 25 H 15 25 H Rate Respiratory Rate [Anterior Bilateral Throughout] Respiratory Rate [Head] Blood Pressure 132/88 147/99 147/99 O2 Sat by Pulse Oximetry 04/11/18 04/11/18 04/11/18 06:21 06:30 06:41 Temperature Pulse Rate 85 79 87 Pulse Rate [ Anterior Bilateral Throughout] Pulse Rate [ Right Dorsalis Pedis] Respiratory 14 16 15 Rate Respiratory Rate [Anterior Bilateral Throughout] Respiratory Rate [Head] Blood Pressure 144/103 144/99 144/99 O2 Sat by Pulse 98 97 Oximetry 04/11/18 04/11/18 04/11/18 06:51 07:00 07:11 Temperature Pulse Rate 91 H 77 79 Pulse Rate [ Anterior Bilateral Throughout] Pulse Rate [ Right Dorsalis Pedis] Respiratory 17 11 L 17 Rate Respiratory Rate [Anterior Bilateral Throughout] Respiratory Rate [Head] Blood Pressure 149/99 147/93 147/93 O2 Sat by Pulse 97 98 97 Oximetry 04/11/18 04/11/18 04/11/18 07:21 07:30 07:41 Temperature Pulse Rate 83 89 82 Pulse Rate [ Anterior Bilateral Throughout] Pulse Rate [ Right Dorsalis Pedis] Respiratory 14 14 15 Rate Respiratory Rate [Anterior Bilateral Throughout] Respiratory Rate [Head] Blood Pressure 149/99 150/107 149/99 O2 Sat by Pulse 97 98 97 Oximetry 04/11/18 04/11/18 04/11/18 07:51 08:00 08:02 Temperature 98.8 F Pulse Rate 90 83 86 Pulse Rate [ Anterior Bilateral Throughout] Pulse Rate [ Right Dorsalis Pedis] Respiratory 16 13 20 Rate Respiratory Rate [Anterior Bilateral Throughout] Respiratory Rate [Head] Blood Pressure 151/96 160/106 151/96 O2 Sat by Pulse 97 97 97 Oximetry 04/11/18 04/11/18 04/11/18 08:04 08:11 08:14 Temperature Pulse Rate 89 Pulse Rate [ 85 82 Anterior Bilateral Throughout] Pulse Rate [ Right Dorsalis Pedis] Respiratory 15 Rate Respiratory 20 20 Rate [Anterior Bilateral Throughout] Respiratory Rate [Head] Blood Pressure 151/96 O2 Sat by Pulse 97 Oximetry 04/11/18 04/11/18 04/11/18 08:21 08:30 08:41 Temperature Pulse Rate 98 H 88 91 H Pulse Rate [ Anterior Bilateral Throughout] Pulse Rate [ Right Dorsalis Pedis] Respiratory 12 13 12 Rate Respiratory Rate [Anterior Bilateral Throughout] Respiratory Rate [Head] Blood Pressure 162/99 158/94 162/99 O2 Sat by Pulse 96 97 97 Oximetry 04/11/18 04/11/18 04/11/18 08:51 09:00 09:11 Temperature Pulse Rate 92 H 90 94 H Pulse Rate [ Anterior Bilateral Throughout] Pulse Rate [ Right Dorsalis Pedis] Respiratory 15 10 L 19 Rate Respiratory Rate [Anterior Bilateral Throughout] Respiratory Rate [Head] Blood Pressure 161/102 154/107 158/94 O2 Sat by Pulse 97 97 96 Oximetry 04/11/18 04/11/18 04/11/18 09:21 09:30 09:41 Temperature Pulse Rate 88 100 H 81 Pulse Rate [ Anterior Bilateral Throughout] Pulse Rate [ Right Dorsalis Pedis] Respiratory 11 L 12 12 Rate Respiratory Rate [Anterior Bilateral Throughout] Respiratory Rate [Head] Blood Pressure 149/107 163/107 163/107 O2 Sat by Pulse 97 96 97 Oximetry 04/11/18 04/11/18 04/11/18 09:51 10:00 10:11 Temperature Pulse Rate 93 H 138 H 79 Pulse Rate [ Anterior Bilateral Throughout] Pulse Rate [ Right Dorsalis Pedis] Respiratory 17 12 14 Rate Respiratory Rate [Anterior Bilateral Throughout] Respiratory 27 H Rate [Head] Blood Pressure 137/94 148/98 148/98 O2 Sat by Pulse 97 97 99 Oximetry 04/11/18 04/11/18 04/11/18 10:21 10:30 10:41 Temperature Pulse Rate 89 79 84 Pulse Rate [ Anterior Bilateral Throughout] Pulse Rate [ Right Dorsalis Pedis] Respiratory 14 14 12 Rate Respiratory Rate [Anterior Bilateral Throughout] Respiratory Rate [Head] Blood Pressure 138/98 156/96 156/96 O2 Sat by Pulse 99 97 98 Oximetry 04/11/18 04/11/18 04/11/18 10:51 11:01 11:11 Temperature Pulse Rate 118 H 138 H Pulse Rate [ Anterior Bilateral Throughout] Pulse Rate [ Right Dorsalis Pedis] Respiratory 36 H 29 H 29 H Rate Respiratory Rate [Anterior Bilateral Throughout] Respiratory Rate [Head] Blood Pressure 164/95 171/106 171/106 O2 Sat by Pulse 50 L 63 L 81 L Oximetry Constitutional: appears uncomfortable, other (middle aged chronically ill looking CM; normocephalic and atraumatic) Eyes: non-icteric ENT: oropharynx moist, oropharyngeal exudate pre, other (mallampati 2) Neck: supple, no lymphadenopathy, no JVD, other (no thyromegaly) Effort: very labored Ascultation: Bilateral: diminished breath sounds, rales Percussion: Bilateral: not dull Cardiovascular: regular rate and rhythm, PVC's noted (occasional), other (No R/M ) Gastrointestinal: normoactive bowel sounds, soft, non-tender, non-distended, other (No HSM) Integumentary: other (poor turgor) Extremities: no cyanosis, no edema, pink and warm, pulses normal, other ( contractures) Neurologic: unable to assess Psychiatric: other (unable to assess) CBC and BMP: 04/09/18 04:00 04/09/18 04:00 ABG, PT/INR, D-dimer: ABG POC ABG pH 7.439 (7.35-7.45) 04/10/18 04:01 POC ABG pCO2 38.6 (35-45) 04/10/18 04:01 POC ABG pO2 124 (80-105) H 04/10/18 04:01 POC ABG HCO3 26.2 04/10/18 04:01 POC ABG Total CO2 27 04/10/18 04:01 POC ABG O2 Sat 99 04/10/18 04:01 PT/INR, D-dimer PT 17.5 Sec. (12.2-14.9) H 04/08/18 09:25 INR 1.35 (0.87-1.13) H 04/08/18 09:25 Abnormal lab findings: Abnormal Labs 04/08/18 04/08/18 04/08/18 09:25 09:25 09:25 RBC 5.20 H Hgb 15.7 H Hct 47.1 H Plt Count 621 H Lymph % (Auto) 11.4 L Lymph # 1.1 L Seg Neutrophils % 81.7 H PT 17.5 H INR 1.35 H Thrombin Time 14.6 L POC ABG pH POC ABG pCO2 POC ABG pO2 Potassium 5.2 H Chloride 89.9 L BUN 22 H Creatinine 1.7 H Glucose 184 H POC Glucose Lactic Acid Calcium AST Alkaline Phosphatase Ammonia Total Creatine Kinase Troponin T 0.059 H NT-Pro-B Natriuret Pep Total Protein Albumin Triglycerides 158 H HDL Cholesterol 32 L Urine WBC (Auto) 04/08/18 04/08/18 04/08/18 09:25 09:25 09:57 RBC Hgb Hct Plt Count Lymph % (Auto) Lymph # Seg Neutrophils % PT INR Thrombin Time POC ABG pH POC ABG pCO2 POC ABG pO2 Potassium Chloride BUN Creatinine Glucose POC Glucose Lactic Acid 10.50 H* Calcium AST Alkaline Phosphatase Ammonia 74.0 H Total Creatine Kinase 38 L Troponin T NT-Pro-B Natriuret Pep 2534 H Total Protein Albumin Triglycerides HDL Cholesterol Urine WBC (Auto) 04/08/18 04/08/18 04/08/18 10:18 10:43 11:00 RBC Hgb Hct Plt Count Lymph % (Auto) Lymph # Seg Neutrophils % PT INR Thrombin Time POC ABG pH 7.294 L POC ABG pCO2 49.6 H POC ABG pO2 Potassium Chloride 96.8 L BUN 21 H Creatinine 1.6 H Glucose 155 H POC Glucose Lactic Acid Calcium AST 93 H Alkaline Phosphatase 216 H Ammonia Total Creatine Kinase Troponin T NT-Pro-B Natriuret Pep Total Protein Albumin 3.0 L Triglycerides HDL Cholesterol Urine WBC (Auto) 04/08/18 04/08/18 04/08/18 11:00 12:34 16:41 RBC Hgb Hct Plt Count Lymph % (Auto) Lymph # Seg Neutrophils % PT INR Thrombin Time POC ABG pH POC ABG pCO2 POC ABG pO2 Potassium Chloride BUN Creatinine Glucose POC Glucose Lactic Acid 8.40 H* 5.10 H* Calcium AST Alkaline Phosphatase Ammonia Total Creatine Kinase Troponin T NT-Pro-B Natriuret Pep Total Protein Albumin Triglycerides HDL Cholesterol Urine WBC (Auto) 22.0 H 04/08/18 04/08/18 04/08/18 17:43 20:54 23:39 RBC Hgb Hct Plt Count Lymph % (Auto) Lymph # Seg Neutrophils % PT INR Thrombin Time POC ABG pH POC ABG pCO2 POC ABG pO2 Potassium Chloride BUN Creatinine Glucose POC Glucose 168 H 167 H Lactic Acid 4.70 H* Calcium AST Alkaline Phosphatase Ammonia Total Creatine Kinase Troponin T NT-Pro-B Natriuret Pep Total Protein Albumin Triglycerides HDL Cholesterol Urine WBC (Auto) 04/09/18 04/09/18 04/09/18 04:00 04:00 04:00 RBC Hgb 11.7 L D Hct 34.7 L D Plt Count Lymph % (Auto) 6.5 L Lymph # 0.5 L Seg Neutrophils % 89.6 H PT INR Thrombin Time POC ABG pH POC ABG pCO2 POC ABG pO2 Potassium Chloride BUN 26 H Creatinine Glucose 179 H POC Glucose Lactic Acid 3.50 H* Calcium 8.2 L AST 61 H Alkaline Phosphatase 142 H Ammonia Total Creatine Kinase Troponin T NT-Pro-B Natriuret Pep Total Protein 5.2 L D Albumin 2.3 L Triglycerides HDL Cholesterol Urine WBC (Auto) 04/09/18 04/09/18 04/09/18 04:24 06:03 12:19 RBC Hgb Hct Plt Count Lymph % (Auto) Lymph # Seg Neutrophils % PT INR Thrombin Time POC ABG pH POC ABG pCO2 POC ABG pO2 135 H Potassium Chloride BUN Creatinine Glucose POC Glucose 158 H 168 H Lactic Acid Calcium AST Alkaline Phosphatase Ammonia Total Creatine Kinase Troponin T NT-Pro-B Natriuret Pep Total Protein Albumin Triglycerides HDL Cholesterol Urine WBC (Auto) 04/09/18 04/09/18 04/09/18 16:30 18:01 23:31 RBC Hgb Hct Plt Count Lymph % (Auto) Lymph # Seg Neutrophils % PT INR Thrombin Time POC ABG pH POC ABG pCO2 45.7 H POC ABG pO2 168 H Potassium Chloride BUN Creatinine Glucose POC Glucose 161 H 154 H Lactic Acid Calcium AST Alkaline Phosphatase Ammonia Total Creatine Kinase Troponin T NT-Pro-B Natriuret Pep Total Protein Albumin Triglycerides HDL Cholesterol Urine WBC (Auto) 04/10/18 04/10/18 04/10/18 04:01 05:24 12:49 RBC Hgb Hct Plt Count Lymph % (Auto) Lymph # Seg Neutrophils % PT INR Thrombin Time POC ABG pH POC ABG pCO2 POC ABG pO2 124 H Potassium Chloride BUN Creatinine Glucose POC Glucose 141 H 132 H Lactic Acid Calcium AST Alkaline Phosphatase Ammonia Total Creatine Kinase Troponin T NT-Pro-B Natriuret Pep Total Protein Albumin Triglycerides HDL Cholesterol Urine WBC (Auto) 04/10/18 04/11/18 04/11/18 19:07 00:11 05:28 RBC Hgb Hct Plt Count Lymph % (Auto) Lymph # Seg Neutrophils % PT INR Thrombin Time POC ABG pH POC ABG pCO2 POC ABG pO2 Potassium Chloride BUN Creatinine Glucose POC Glucose 128 H 120 H 107 H Lactic Acid Calcium AST Alkaline Phosphatase Ammonia Total Creatine Kinase Troponin T NT-Pro-B Natriuret Pep Total Protein Albumin Triglycerides HDL Cholesterol Urine WBC (Auto) Chest x-ray: image reviewed (persistent metastatic lesions and no obvious new aspiration) Allied health notes reviewed: nursing
--- NOTE | 2018-04-11 11:55 | XRay Report ---
AP CHEST: HISTORY: Respiratory distress, low oxygen saturation The endotracheal tube has been removed since yesterday's examination. The left venous catheter is unchanged. Diffuse bilateral nodular lung densities are not significantly changed. It is unclear if this represents nodular infiltrates or bilateral pulmonary nodules. Consider further evaluation with CT chest as needed. No large pleural effusion or pneumothorax has developed. Heart size remains within normal limits. IMPRESSION: Extubation. Otherwise, no change since yesterday's exam.
[2018-04-11] MEDS: PEPCID PO SCH ×2 (13:09→21:42)
[2018-04-11] MEDS: LOVENOX SUB-Q SCH (13:09)
[2018-04-11] MEDS: TORADOL IV PRN (21:37)
[2018-04-11] MEDS: SODIUM CHLORIDE FLUSH SYRINGE 10 ML IV SCH (21:42)
[2018-04-11] MEDS: ARTIFICIAL TEARS OPHTH OINT OU PRN (21:42)
[2018-04-12] MEDS: ZOSYN/NS 3.375GM/50ML 3.375 GM/50 ML BAG IV SCH ×3 (00:20→19:14)
--- NOTE | 2018-04-12 03:08 | XRay Report ---
FINAL REPORT EXAM: XR CHEST 1V AP HISTORY: follow up respiratory failure COMPARISON: April 10, 2018 FINDINGS: Frontal view(s) of the chest obtained. Heart normal in size. Left IJ line remains in place. ET tube is been removed. Patchy airspace opacities scattered throughout the lungs slightly progressed from prior study. No pneumothorax. IMPRESSION: Bilateral patchy pulmonary infiltrates slightly progressed from prior study concerning for worsening pneumonia. ETT has been removed.
[2018-04-12] MEDS: DECADRON IV SCH ×3 (05:55→22:30)
[2018-04-12] MEDS: MORPHINE IV PRN ×4 (06:01→22:39)
--- NOTE | 2018-04-12 08:04 | Progress Note ---
Assessment and Plan Assessment and plan: Patient is a 52 yo man from [facility] with Hospice who presented to [facility] ED via EMS with AMS/unresponsiveness. According to chart, patient just arrived to [facility] with hospice one day prior to this unresponsive state. 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 He has already received chemotherapy and radiation therapy. The father is aware that the patient is in hospice for a terminal condition. His CODE STATUS was initially full code but has been changed to DNR/ AND. He was intubated but not sedated, now he has been extubated on 04/11/18. His care has been pretty much been governed by Waist Fitter. -Acute hypoxic respiratory failure on MV: continue weaning attempts, extubated -Aspiration pneumonia/HAP with Sepsis poa: being treated with IV Zosyn -Metastatic head and neck cancer to the brain and lung: on IV Decadron -Acute encephalopathy as above -ARF, vasomotor nephropathy, poa: continue to monitor bmp -Severe protein calorie malnutrition: consult Residential Housekeeper, tube feeding -Oropharyngeal dysphaigia with PEG tube: continue present management -Advance care planning: now DNR -DVT prophylaxis: scd and sq lovenox Disposition: Hospice care pending Gravely ill I sat down and talked with father at bedside. He did not like [facility]. He willing to go to hospice but location will need to be decided upon. D/W Dr. Gomez CCT 32 minutes History Interval history: Patient was seen and examined. Follow-up on current diagnosis of unresponsiveness. Patient was extubated then Vomited with Bipap yesterday, , now on NRB. Imaging, nursing note, chart, labs and old chart reviewed. Hospitalist Physical - Physical exam Narrative exam: GEN: gravely ill, unresponsive, moderate increase use of accessory muscles, eyes open but not focused, semi-comatose state HEENT: extubated 04/11/18, extraocular, pupils upward gaze NECK: supple, no adenopathy, no thyromegaly, no JVD CVS/HEART: Regular tacycardia, normal S1S2, pulses present bilaterally CHEST/LUNGS: Tachypneic, Symmetrical chest expansion, good air entry bilaterally GI/Abdomen: soft, PEG in place, good bowel sounds, no guarding or rebound /Bladder: no suprapubic tenderness, no CVA or paraspinal tenderness EXT/Skin: no c/c/e, no obvious rash MSK: unresponsive, he will spontaneous move right arm Neuro: CN 2-12 grossly intact, doesn't follow command Psych: unresponsive - Constitutional Vitals: Temp Pulse Resp BP Pulse Ox 97.9 F 114 H 21 90/61 99 04/12/18 04:00 04/12/18 07:21 04/12/18 07:21 04/12/18 07:21 04/12/18 07:21 General appearance: Absent: mild distress, well-nourished, other Results - Labs CBC & Chem 7: 04/09/18 04:00 04/12/18 08:29 Labs: Laboratory Last Values WBC 7.1 K/mm3 (4.5-11.0) 04/09/18 04:00 RBC 3.86 M/mm3 (3.65-5.03) 04/09/18 04:00 Hgb 11.7 gm/dl (11.8-15.2) L D 04/09/18 04:00 Hct 34.7 % (35.5-45.6) L D 04/09/18 04:00 MCV 90 fl (84-94) 04/09/18 04:00 MCH 30 pg (28-32) 04/09/18 04:00 MCHC 34 % (32-34) 04/09/18 04:00 RDW 15.0 % (13.2-15.2) 04/09/18 04:00 Plt Count 351 K/mm3 (140-440) 04/09/18 04:00 Lymph % (Auto) 6.5 % (13.4-35.0) L 04/09/18 04:00 [place] % (Auto) 3.5 % (0.0-7.3) 04/09/18 04:00 Eos % (Auto) 0.2 % (0.0-4.3) 04/09/18 04:00 Baso % (Auto) 0.2 % (0.0-1.8) 04/09/18 04:00 Lymph # 0.5 K/mm3 (1.2-5.4) L 04/09/18 04:00 [place] # 0.2 K/mm3 (0.0-0.8) 04/09/18 04:00 Eos # 0.0 K/mm3 (0.0-0.4) 04/09/18 04:00 Baso # 0.0 K/mm3 (0.0-0.1) 04/09/18 04:00 Add Manual Diff Complete 04/08/18 09:25 Seg Neutrophils % 89.6 % (40.0-70.0) H 04/09/18 04:00 Seg Neutrophils # 6.4 K/mm3 (1.8-7.7) 04/09/18 04:00 PT 17.5 Sec. (12.2-14.9) H 04/08/18 09:25 INR 1.35 (0.87-1.13) H 04/08/18 09:25 APTT 35.0 Sec. (24.2-36.6) 04/08/18 09:25 Thrombin Time 14.6 Sec. (15.1-19.6) L 04/08/18 09:25 POC ABG pH 7.439 (7.35-7.45) 04/10/18 04:01 POC ABG pCO2 38.6 (35-45) 04/10/18 04:01 POC ABG pO2 124 (80-105) H 04/10/18 04:01 POC ABG HCO3 26.2 04/10/18 04:01 POC ABG Total CO2 27 04/10/18 04:01 POC ABG O2 Sat 99 04/10/18 04:01 POC ABG Base Excess 2 04/10/18 04:01 FiO2 50 % 04/10/18 04:01 Sodium 141 mmol/L (137-145) 04/09/18 04:00 Potassium 3.9 mmol/L (3.6-5.0) 04/09/18 04:00 Chloride 100.7 mmol/L (98-107) 04/09/18 04:00 Carbon Dioxide 28 mmol/L (22-30) 04/09/18 04:00 Anion Gap 16 mmol/L 04/09/18 04:00 BUN 26 mg/dL (9-20) H 04/09/18 04:00 Creatinine 0.9 mg/dL (0.8-1.5) 04/09/18 04:00 Estimated GFR > 60 ml/min 04/09/18 04:00 BUN/Creatinine Ratio 29 % 04/09/18 04:00 Glucose 179 mg/dL (75-100) H 04/09/18 04:00 POC Glucose 99 (70-105) 04/12/18 05:36 Lactic Acid 3.30 mmol/L (0.7-2.0) H* 04/12/18 03:48 Calcium 8.2 mg/dL (8.4-10.2) L 04/09/18 04:00 Magnesium 1.90 mg/dL (1.7-2.3) 04/08/18 09:25 Total Bilirubin 0.30 mg/dL (0.1-1.2) 04/09/18 04:00 Direct Bilirubin 0.2 mg/dL (0-0.2) 04/08/18 10:18 Indirect Bilirubin 0.3 mg/dL 04/08/18 10:18 AST 61 units/L (5-40) H 04/09/18 04:00 ALT 26 units/L (7-56) 04/09/18 04:00 Alkaline Phosphatase 142 units/L (35-129) H 04/09/18 04:00 Ammonia 74.0 umol/L (25-60) H 04/08/18 09:57 Total Creatine Kinase 38 units/L (55-170) L 04/08/18 09:25 CK-MB (CK-2) < 1.0 ng/mL (0.0-4.0) 04/08/18 09:25 CK-MB (CK-2) Rel Index 2.6 (0-4) 04/08/18 09:25 Troponin T 0.059 ng/mL (0.00-0.029) H 04/08/18 09:25 NT-Pro-B Natriuret Pep 2534 pg/mL (0-900) H 04/08/18 09:25 Total Protein 5.2 g/dL (6.3-8.2) L D 04/09/18 04:00 Albumin 2.3 g/dL (3.9-5) L 04/09/18 04:00 Albumin/Globulin Ratio 0.8 % 04/09/18 04:00 Triglycerides 158 mg/dL (2-149) H 04/08/18 09:25 Cholesterol 130 mg/dL (50-199) 04/08/18 09:25 LDL Cholesterol Direct 60 mg/dL (50-130) 04/08/18 09:25 HDL Cholesterol 32 mg/dL (40-59) L 04/08/18 09:25 Cholesterol/HDL Ratio 4.06 % 04/08/18 09:25 Urine Color Kiersten (Yellow) 04/08/18 12:34 Urine Turbidity Cloudy (Clear) 04/08/18 12:34 Urine pH 5.0 (5.0-7.0) 04/08/18 12:34 Ur Specific Thermal 1.023 (1.003-1.030) 04/08/18 12:34 Urine Protein 100 mg/dl mg/dL (Negative) 04/08/18 12:34 Urine Glucose (UA) 50 mg/dL (Negative) 04/08/18 12:34 Urine Ketones Neg mg/dL (Negative) 04/08/18 12:34 Urine Blood Neg (Negative) 04/08/18 12:34 Urine Nitrite Neg (Negative) 04/08/18 12:34 Ur Reducing Substances Not Reportable 04/08/18 12:34 Urine Bilirubin Neg (Negative) 04/08/18 12:34 Urine Ictotest Not Reportable 04/08/18 12:34 Urine Urobilinogen 4.0 mg/dL (<2.0) 04/08/18 12:34 Ur Leukocyte Esterase Neg (Negative) 04/08/18 12:34 Urine WBC (Auto) 22.0 /HPF (0.0-6.0) H 04/08/18 12:34 Urine RBC (Auto) 7.0 /HPF (0.0-6.0) 04/08/18 12:34 U Epithel Cells (Auto) 5.0 /HPF (0-13.0) 04/08/18 12:34 Urine Bacteria (Auto) 1+ /HPF (Negative) 04/08/18 12:34 Urine Mucus Few /HPF 04/08/18 12:34
[2018-04-12] MEDS: DUONEB *Not for PRN Use IH SCH ×2 (08:16→15:33)
[2018-04-12 09:07] LABS: BUN/Creatinine Ratio 34; Blood Urea Nitrogen 34 mg/dL (9-20); Calcium 9.5 mg/dL (8.4-10.2); Hemolysis Index 4
[2018-04-12] MEDS: LOVENOX SUB-Q SCH (10:24)
[2018-04-12] MEDS: PEPCID PO SCH ×2 (10:26→22:30)
[2018-04-12] MEDS: SODIUM CHLORIDE FLUSH SYRINGE 10 ML IV SCH ×2 (10:26→22:31)
[2018-04-12] MEDS: NACL 0.9% 1000 ML 1,000 ML IV SCH (14:05)
--- NOTE | 2018-04-12 14:30 | Progress Note ---
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 If no hypotensive episodes overnight will pull and place peripheral or mid-line if unable to get peripheral access) - place on venti-mask and wean FiO2 for sats > 90% - resume scheduled BIPAP qhs - give IV NS at 75mls/hr X 3 liters re: persistent lactic acidosis, hypotension and pre-renal numbers - schedule NT suction in short term (secretions improved with scopolamine) - continue aspiration precautions - continue VTE prophylaxis - continue Reglan re: emesis - continue Enteral nutrition as tolerated - continue to monitor renal indices and urine output (repeat BMP in am) - continue to monitor neurology, neuro checks - continue Seizure precautions - Analgesia and agitation management - Accuchecks with glycemic control - continue empiric antibiotics and follow cultures (growing klebsiella from ETT aspirate) - de-escalate AB's once BC's final - Critical care bundles addressed - care plan discussed with dad in room ... DNR status The high probability of a clinically significant, sudden or life threatening deterioration of the [respiratory,cardiac, neurologic] system(s) required my full and direct attention, intervention and personal management. The aggregate critical care time was [35] minutes without overlap. Time includes spent on; [x] Data Review and interpretation [x] Patient assessment and monitoring of vital signs [x] Documentation [x] Medication orders and management Subjective Date of service: 04/12/18 Principal diagnosis: Acute hypoxemic respiratory failure, pneumonia, brain metastases, sepsis Interval history: Patient is seen today for: Acute hypoxemic respiratory failure, pneumonia, brain metastases, sepsis Seen and examined at bedside; 24hour events reviewed; nursing and respiratory care staff consulted; no adverse overnight events reported to me; on 100% NRB; breathing is moderately labored at times; no repeat emesis; family in room; no new issues otherwise; remains of levophed this morning but some labile BP readings. Objective Vital Signs - 12hr 04/12/18 04/12/18 04/12/18 02:31 02:41 02:51 Temperature Pulse Rate 120 H 121 H 121 H Pulse Rate [ Anterior Bilateral Throughout] Pulse Rate [ From Monitor] Respiratory 21 24 21 Rate Respiratory Rate [Anterior Bilateral Throughout] Blood Pressure 86/57 95/65 95/65 O2 Sat by Pulse 96 95 95 Oximetry 04/12/18 04/12/18 04/12/18 03:00 03:11 03:21 Temperature Pulse Rate 122 H 121 H 123 H Pulse Rate [ Anterior Bilateral Throughout] Pulse Rate [ From Monitor] Respiratory 24 23 22 Rate Respiratory Rate [Anterior Bilateral Throughout] Blood Pressure 84/63 84/63 84/63 O2 Sat by Pulse 95 96 96 Oximetry 04/12/18 04/12/18 04/12/18 03:31 03:41 03:51 Temperature Pulse Rate 123 H 122 H 124 H Pulse Rate [ Anterior Bilateral Throughout] Pulse Rate [ From Monitor] Respiratory 22 22 22 Rate Respiratory Rate [Anterior Bilateral Throughout] Blood Pressure 99/60 99/60 99/60 O2 Sat by Pulse 94 96 95 Oximetry 04/12/18 04/12/18 04/12/18 04:00 04:11 04:21 Temperature 97.9 F Pulse Rate 122 H 122 H 122 H Pulse Rate [ Anterior Bilateral Throughout] Pulse Rate [ 120 H From Monitor] Respiratory 22 22 23 Rate Respiratory Rate [Anterior Bilateral Throughout] Blood Pressure 97/67 97/67 97/67 O2 Sat by Pulse 96 96 95 Oximetry 04/12/18 04/12/18 04/12/18 04:31 04:41 04:51 Temperature Pulse Rate 132 H 120 H 119 H Pulse Rate [ Anterior Bilateral Throughout] Pulse Rate [ From Monitor] Respiratory 28 H 20 20 Rate Respiratory Rate [Anterior Bilateral Throughout] Blood Pressure 97/67 97/67 97/67 O2 Sat by Pulse 46 L 90 95 Oximetry 04/12/18 04/12/18 04/12/18 05:00 05:11 05:21 Temperature Pulse Rate 118 H 118 H 120 H Pulse Rate [ Anterior Bilateral Throughout] Pulse Rate [ From Monitor] Respiratory 20 19 20 Rate Respiratory Rate [Anterior Bilateral Throughout] Blood Pressure 88/59 88/59 88/59 O2 Sat by Pulse 96 97 98 Oximetry 04/12/18 04/12/18 04/12/18 05:31 05:41 05:51 Temperature Pulse Rate 118 H 117 H 118 H Pulse Rate [ Anterior Bilateral Throughout] Pulse Rate [ From Monitor] Respiratory 20 19 18 Rate Respiratory Rate [Anterior Bilateral Throughout] Blood Pressure 88/59 88/59 104/59 O2 Sat by Pulse 98 98 98 Oximetry 04/12/18 04/12/18 04/12/18 06:01 06:11 06:21 Temperature Pulse Rate 120 H 120 H 119 H Pulse Rate [ Anterior Bilateral Throughout] Pulse Rate [ From Monitor] Respiratory 20 22 22 Rate Respiratory Rate [Anterior Bilateral Throughout] Blood Pressure 101/67 101/67 101/67 O2 Sat by Pulse 98 98 98 Oximetry 04/12/18 04/12/18 04/12/18 06:31 06:41 06:51 Temperature Pulse Rate 118 H 118 H 116 H Pulse Rate [ Anterior Bilateral Throughout] Pulse Rate [ From Monitor] Respiratory 21 26 H 20 Rate Respiratory Rate [Anterior Bilateral Throughout] Blood Pressure 96/68 96/68 96/68 O2 Sat by Pulse 97 96 97 Oximetry 04/12/18 04/12/18 04/12/18 07:00 07:11 07:21 Temperature Pulse Rate 115 H 115 H 114 H Pulse Rate [ Anterior Bilateral Throughout] Pulse Rate [ From Monitor] Respiratory 20 21 21 Rate Respiratory Rate [Anterior Bilateral Throughout] Blood Pressure 90/61 90/61 90/61 O2 Sat by Pulse 97 99 99 Oximetry 04/12/18 04/12/18 04/12/18 07:31 07:41 07:51 Temperature Pulse Rate 119 H 121 H 117 H Pulse Rate [ Anterior Bilateral Throughout] Pulse Rate [ From Monitor] Respiratory 24 16 23 Rate Respiratory Rate [Anterior Bilateral Throughout] Blood Pressure 90/61 90/61 90/61 O2 Sat by Pulse 99 99 99 Oximetry 04/12/18 04/12/18 04/12/18 08:00 08:11 08:15 Temperature 98.0 F Pulse Rate 117 H 117 H Pulse Rate [ Anterior Bilateral Throughout] Pulse Rate [ 117 H From Monitor] Respiratory 20 21 Rate Respiratory Rate [Anterior Bilateral Throughout] Blood Pressure 105/70 105/70 O2 Sat by Pulse 98 99 99 Oximetry 04/12/18 04/12/18 04/12/18 08:16 08:21 08:26 Temperature Pulse Rate 128 H Pulse Rate [ 119 H 130 H Anterior Bilateral Throughout] Pulse Rate [ From Monitor] Respiratory 20 Rate Respiratory 22 22 Rate [Anterior Bilateral Throughout] Blood Pressure 105/70 O2 Sat by Pulse 82 L Oximetry 04/12/18 04/12/18 04/12/18 08:31 08:41 08:51 Temperature Pulse Rate 121 H 117 H 118 H Pulse Rate [ Anterior Bilateral Throughout] Pulse Rate [ From Monitor] Respiratory 18 21 27 H Rate Respiratory Rate [Anterior Bilateral Throughout] Blood Pressure 105/70 105/70 105/70 O2 Sat by Pulse 99 100 99 Oximetry 04/12/18 04/12/18 04/12/18 09:00 09:11 09:21 Temperature Pulse Rate 117 H 112 H 114 H Pulse Rate [ Anterior Bilateral Throughout] Pulse Rate [ From Monitor] Respiratory 20 20 19 Rate Respiratory Rate [Anterior Bilateral Throughout] Blood Pressure 104/65 104/65 104/65 O2 Sat by Pulse 100 100 100 Oximetry 04/12/18 04/12/18 04/12/18 09:31 09:41 09:51 Temperature Pulse Rate 116 H 117 H 114 H Pulse Rate [ Anterior Bilateral Throughout] Pulse Rate [ From Monitor] Respiratory 20 24 18 Rate Respiratory Rate [Anterior Bilateral Throughout] Blood Pressure 104/65 104/65 104/65 O2 Sat by Pulse 100 100 100 Oximetry 04/12/18 04/12/18 04/12/18 10:00 10:11 10:21 Temperature Pulse Rate 113 H 112 H 117 H Pulse Rate [ Anterior Bilateral Throughout] Pulse Rate [ From Monitor] Respiratory 18 19 26 H Rate Respiratory Rate [Anterior Bilateral Throughout] Blood Pressure 82/56 82/56 82/56 O2 Sat by Pulse 99 100 99 Oximetry 04/12/18 04/12/18 04/12/18 10:31 10:41 10:51 Temperature Pulse Rate 122 H 124 H 125 H Pulse Rate [ Anterior Bilateral Throughout] Pulse Rate [ From Monitor] Respiratory 25 H 19 26 H Rate Respiratory Rate [Anterior Bilateral Throughout] Blood Pressure 82/56 82/56 82/56 O2 Sat by Pulse 99 97 98 Oximetry 04/12/18 04/12/18 04/12/18 11:01 11:11 11:21 Temperature Pulse Rate 124 H 121 H 120 H Pulse Rate [ Anterior Bilateral Throughout] Pulse Rate [ From Monitor] Respiratory 16 27 H 25 H Rate Respiratory Rate [Anterior Bilateral Throughout] Blood Pressure 116/66 116/66 116/66 O2 Sat by Pulse 98 99 99 Oximetry 04/12/18 04/12/18 04/12/18 11:31 11:41 11:51 Temperature Pulse Rate 122 H 119 H 123 H Pulse Rate [ Anterior Bilateral Throughout] Pulse Rate [ From Monitor] Respiratory 32 H 25 H 30 H Rate Respiratory Rate [Anterior Bilateral Throughout] Blood Pressure 116/66 116/66 116/66 O2 Sat by Pulse 99 99 98 Oximetry 04/12/18 04/12/18 04/12/18 12:00 12:11 12:21 Temperature 97.9 F Pulse Rate 121 H 121 H 122 H Pulse Rate [ Anterior Bilateral Throughout] Pulse Rate [ From Monitor] Respiratory 27 H 27 H 32 H Rate Respiratory Rate [Anterior Bilateral Throughout] Blood Pressure 85/46 85/46 85/46 O2 Sat by Pulse 99 99 99 Oximetry 04/12/18 04/12/18 04/12/18 12:31 12:40 12:51 Temperature Pulse Rate 122 H 124 H Pulse Rate [ Anterior Bilateral Throughout] Pulse Rate [ From Monitor] Respiratory 30 H 33 H 28 H Rate Respiratory Rate [Anterior Bilateral Throughout] Blood Pressure 128/78 97/67 128/78 O2 Sat by Pulse 96 97 97 Oximetry 04/12/18 04/12/18 04/12/18 13:01 13:11 13:21 Temperature Pulse Rate Pulse Rate [ Anterior Bilateral Throughout] Pulse Rate [ From Monitor] Respiratory 29 H 29 H 32 H Rate Respiratory Rate [Anterior Bilateral Throughout] Blood Pressure 110/77 128/78 128/78 O2 Sat by Pulse 97 97 97 Oximetry 04/12/18 04/12/18 04/12/18 13:31 13:41 13:51 Temperature Pulse Rate Pulse Rate [ Anterior Bilateral Throughout] Pulse Rate [ From Monitor] Respiratory 28 H 17 18 Rate Respiratory Rate [Anterior Bilateral Throughout] Blood Pressure 128/78 128/78 128/78 O2 Sat by Pulse 97 97 97 Oximetry Constitutional: appears uncomfortable, other (middle aged chronically ill looking CM; normocephalic and atraumatic) Eyes: non-icteric ENT: oropharynx moist, oropharyngeal exudate pre, other (mallampati 2) Neck: supple, no lymphadenopathy, no JVD, other (no thyromegaly) Effort: very labored Ascultation: Bilateral: diminished breath sounds, rales Percussion: Bilateral: not dull Cardiovascular: regular rate and rhythm, PVC's noted (occasional), other (No R/M ) Gastrointestinal: normoactive bowel sounds, soft, non-tender, non-distended, other (No HSM) Integumentary: other (poor turgor) Extremities: no cyanosis, no edema, pink and warm, pulses normal, other ( contractures) Neurologic: unable to assess Psychiatric: other (unable to assess) CBC and BMP: 04/09/18 04:00 04/12/18 08:29 ABG, PT/INR, D-dimer: ABG POC ABG pH 7.364 (7.35-7.45) 04/12/18 13:48 POC ABG pCO2 54.5 (35-45) H 04/12/18 13:48 POC ABG pO2 98 (80-105) 04/12/18 13:48 POC ABG HCO3 31.1 04/12/18 13:48 POC ABG Total CO2 33 04/12/18 13:48 POC ABG O2 Sat 97 04/12/18 13:48 PT/INR, D-dimer PT 17.5 Sec. (12.2-14.9) H 04/08/18 09:25 INR 1.35 (0.87-1.13) H 04/08/18 09:25 Abnormal lab findings: Abnormal Labs 04/08/18 04/08/18 04/08/18 09:25 09:25 09:25 RBC 5.20 H Hgb 15.7 H Hct 47.1 H Plt Count 621 H Lymph % (Auto) 11.4 L Lymph # 1.1 L Seg Neutrophils % 81.7 H PT 17.5 H INR 1.35 H Thrombin Time 14.6 L POC ABG pH POC ABG pCO2 POC ABG pO2 Potassium 5.2 H Chloride 89.9 L BUN 22 H Creatinine 1.7 H Glucose 184 H POC Glucose Lactic Acid Calcium AST Alkaline Phosphatase Ammonia Total Creatine Kinase Troponin T 0.059 H NT-Pro-B Natriuret Pep Total Protein Albumin Triglycerides 158 H HDL Cholesterol 32 L Urine WBC (Auto) 04/08/18 04/08/18 04/08/18 09:25 09:25 09:57 RBC Hgb Hct Plt Count Lymph % (Auto) Lymph # Seg Neutrophils % PT INR Thrombin Time POC ABG pH POC ABG pCO2 POC ABG pO2 Potassium Chloride BUN Creatinine Glucose POC Glucose Lactic Acid 10.50 H* Calcium AST Alkaline Phosphatase Ammonia 74.0 H Total Creatine Kinase 38 L Troponin T NT-Pro-B Natriuret Pep 2534 H Total Protein Albumin Triglycerides HDL Cholesterol Urine WBC (Auto) 04/08/18 04/08/1804/08/18 10:18 10:43 11:00 RBC Hgb Hct Plt Count Lymph % (Auto) Lymph # Seg Neutrophils % PT INR Thrombin Time POC ABG pH 7.294 L POC ABG pCO2 49.6 H POC ABG pO2 Potassium Chloride 96.8 L BUN 21 H Creatinine 1.6 H Glucose 155 H POC Glucose Lactic Acid Calcium AST 93 H Alkaline Phosphatase 216 H Ammonia Total Creatine Kinase Troponin T NT-Pro-B Natriuret Pep Total Protein Albumin 3.0 L Triglycerides HDL Cholesterol Urine WBC (Auto) 04/08/18 04/08/18 04/08/18 11:00 12:34 16:41 RBC Hgb Hct Plt Count Lymph % (Auto) Lymph # Seg Neutrophils % PT INR Thrombin Time POC ABG pH POC ABG pCO2 POC ABG pO2 Potassium Chloride BUN Creatinine Glucose POC Glucose Lactic Acid 8.40 H* 5.10 H* Calcium AST Alkaline Phosphatase Ammonia Total Creatine Kinase Troponin T NT-Pro-B Natriuret Pep Total Protein Albumin Triglycerides HDL Cholesterol Urine WBC (Auto) 22.0 H 04/08/18 04/08/18 04/08/18 17:43 20:54 23:39 RBC Hgb Hct Plt Count Lymph % (Auto) Lymph # Seg Neutrophils % PT INR Thrombin Time POC ABG pH POC ABG pCO2 POC ABG pO2 Potassium Chloride BUN Creatinine Glucose POC Glucose 168 H 167 H Lactic Acid 4.70 H* Calcium AST Alkaline Phosphatase Ammonia Total Creatine Kinase Troponin T NT-Pro-B Natriuret Pep Total Protein Albumin Triglycerides HDL Cholesterol Urine WBC (Auto) 04/09/18 04/09/18 04/09/18 04:00 04:00 04:00 RBC Hgb 11.7 L D Hct 34.7 L D Plt Count Lymph % (Auto) 6.5 L Lymph # 0.5 L Seg Neutrophils % 89.6 H PT INR Thrombin Time POC ABG pH POC ABG pCO2 POC ABG pO2 Potassium Chloride BUN 26 H Creatinine Glucose 179 H POC Glucose Lactic Acid 3.50 H* Calcium 8.2 L AST 61 H Alkaline Phosphatase 142 H Ammonia Total Creatine Kinase Troponin T NT-Pro-B Natriuret Pep Total Protein 5.2 L D Albumin 2.3 L Triglycerides HDL Cholesterol Urine WBC (Auto) 04/09/18 04/09/18 04/09/18 04:24 06:03 12:19 RBC Hgb Hct Plt Count Lymph % (Auto) Lymph # Seg Neutrophils % PT INR Thrombin Time POC ABG pH POC ABG pCO2 POC ABG pO2 135 H Potassium Chloride BUN Creatinine Glucose POC Glucose 158 H 168 H Lactic Acid Calcium AST Alkaline Phosphatase Ammonia Total Creatine Kinase Troponin T NT-Pro-B Natriuret Pep Total Protein Albumin Triglycerides HDL Cholesterol Urine WBC (Auto) 04/09/18 04/09/18 04/09/18 16:30 18:01 23:31 RBC Hgb Hct Plt Count Lymph % (Auto) Lymph # Seg Neutrophils % PT INR Thrombin Time POC ABG pH POC ABG pCO2 45.7 H POC ABG pO2 168 H Potassium Chloride BUN Creatinine Glucose POC Glucose 161 H 154 H Lactic Acid Calcium AST Alkaline Phosphatase Ammonia Total Creatine Kinase Troponin T NT-Pro-B Natriuret Pep Total Protein Albumin Triglycerides HDL Cholesterol Urine WBC (Auto) 04/10/18 04/10/18 04/10/18 04:01 05:24 12:49 RBC Hgb Hct Plt Count Lymph % (Auto) Lymph # Seg Neutrophils % PT INR Thrombin Time POC ABG pH POC ABG pCO2 POC ABG pO2 124 H Potassium Chloride BUN Creatinine Glucose POC Glucose 141 H 132 H Lactic Acid Calcium AST Alkaline Phosphatase Ammonia Total Creatine Kinase Troponin T NT-Pro-B Natriuret Pep Total Protein Albumin Triglycerides HDL Cholesterol Urine WBC (Auto) 04/10/18 04/11/18 04/11/18 19:07 00:11 05:28 RBC Hgb Hct Plt Count Lymph % (Auto) Lymph # Seg Neutrophils % PT INR Thrombin Time POC ABG pH POC ABG pCO2 POC ABG pO2 Potassium Chloride BUN Creatinine Glucose POC Glucose 128 H 120 H 107 H Lactic Acid Calcium AST Alkaline Phosphatase Ammonia Total Creatine Kinase Troponin T NT-Pro-B Natriuret Pep Total Protein Albumin Triglycerides HDL Cholesterol Urine WBC (Auto) 04/11/18 04/12/18 04/12/18 22:04 03:48 08:29 RBC Hgb Hct Plt Count Lymph % (Auto) Lymph # Seg Neutrophils % PT INR Thrombin Time POC ABG pH POC ABG pCO2 POC ABG pO2 Potassium Chloride BUN Creatinine Glucose POC Glucose Lactic Acid 3.10 H* 3.30 H* 3.10 H* Calcium AST Alkaline Phosphatase Ammonia Total Creatine Kinase Troponin T NT-Pro-B Natriuret Pep Total Protein Albumin Triglycerides HDL Cholesterol Urine WBC (Auto) 04/12/18 04/12/18 04/12/18 08:29 10:12 11:52 RBC Hgb Hct Plt Count Lymph % (Auto) Lymph # Seg Neutrophils % PT INR Thrombin Time POC ABG pH POC ABG pCO2 POC ABG pO2 Potassium Chloride BUN 34 H Creatinine Glucose 135 H POC Glucose 140 H Lactic Acid 2.60 H* Calcium AST Alkaline Phosphatase Ammonia Total Creatine Kinase Troponin T NT-Pro-B Natriuret Pep Total Protein Albumin Triglycerides HDL Cholesterol Urine WBC (Auto) 04/12/18 13:48 RBC Hgb Hct Plt Count Lymph % (Auto) Lymph # Seg Neutrophils % PT INR Thrombin Time POC ABG pH POC ABG pCO2 54.5 H POC ABG pO2 Potassium Chloride BUN Creatinine Glucose POC Glucose Lactic Acid Calcium AST Alkaline Phosphatase Ammonia Total Creatine Kinase Troponin T NT-Pro-B Natriuret Pep Total Protein Albumin Triglycerides HDL Cholesterol Urine WBC (Auto) Allied health notes reviewed: nursing
[2018-04-12] MEDS: ROCEPHIN/NS 2 GM/100 ML 2 GM/100 ML BAG IV SCH (14:46)
[2018-04-12] MEDS: TORADOL IV PRN (15:50)
--- NOTE | 2018-04-13 03:08 | XRay Report ---
FINAL REPORT PROCEDURE: XR CHEST 1V AP TECHNIQUE: Chest radiograph anteroposterior view. CPT 94808 HISTORY: follow up respiratory failure COMPARISON: 04/12/2018 FINDINGS: Heart: Normal. Mediastinum/Vessels: Normal. Lungs/Pleural space: Patchy bilateral infiltrates are again identified.. Bony thorax: No acute osseous abnormality. Life support devices: Left central catheter ends in the SVC. IMPRESSION: No change in bilateral scattered patchy infiltrates. The left central catheter ends in the SVC..
[2018-04-13] MEDS: NACL 0.9% 1000 ML 1,000 ML IV SCH (04:10)
[2018-04-13] MEDS: DECADRON IV SCH ×3 (05:16→21:10)
[2018-04-13] MEDS: DUONEB *Not for PRN Use IH SCH ×4 (06:32→20:02)
--- NOTE | 2018-04-13 08:20 | Progress Note ---
Assessment and Plan Assessment and plan: Patient is a 52 yo man from [facility] with Hospice who presented to [facility] ED via EMS with AMS/unresponsiveness. According to chart, patient just arrived to [facility] with hospice one day prior to this unresponsive state. 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 He has already received chemotherapy and radiation therapy. The father is aware that the patient is in hospice for a terminal condition. His CODE STATUS was initially full code but has been changed to DNR/ AND. He was intubated but not sedated, now he has been extubated on 04/11/18. His care has been pretty much been governed by [employer]. -Acute hypoxic respiratory failure on MV: continue weaning attempts, extubated -Aspiration pneumonia/HAP with Sepsis poa: being treated with abx per [facility] -Metastatic head and neck cancer to the brain and lung: still on on IV Decadron -Acute encephalopathy as above -ARF, vasomotor nephropathy, poa: continue to monitor bmp -Severe protein calorie malnutrition: consult Leasing Machine Tender, tube feeding -Oropharyngeal dysphaigia with PEG tube: continue present management -Advance care planning: now DNR -DVT prophylaxis: scd and sq lovenox Disposition: Hospice care pending d/w father at bedside. He refuses inpatient hospice and doesn't want to go back to [facility], he reports that [facility] is filthy. Patient has an estranged . d/w Case management, will try to discharge to SNF hospice of Father's choice. Gravely ill History Interval history: Patient was seen and examined. Follow-up on current diagnosis of unresponsiveness. Patient was extubated then Vomited with Bipap on 04/11/18, so it was discontinued and now on NRB. Imaging, nursing note, chart, labs and old chart reviewed. Hospitalist Physical - Physical exam Narrative exam: GEN: gravely ill, unresponsive, moderate increase use of accessory muscles, eyes open but not focused, semi-comatose state HEENT: extubated 04/11/18, extraocular, pupils upward gaze NECK: supple, no adenopathy, no thyromegaly, no JVD CVS/HEART: Regular tacycardia, normal S1S2, pulses present bilaterally CHEST/LUNGS: Tachypneic, Symmetrical chest expansion, good air entry bilaterally GI/Abdomen: soft, PEG in place, good bowel sounds, no guarding or rebound /Bladder: no suprapubic tenderness, no CVA or paraspinal tenderness EXT/Skin: no c/c/e, no obvious rash MSK: unresponsive, he will spontaneous move extremities, right wrist in restraint but not left Neuro: CN 2-12 grossly intact, doesn't follow command Psych: unresponsive - Constitutional Vitals: Temp Pulse Resp BP Pulse Ox 97.8 F 99 H 19 105/74 98 04/13/18 03:55 04/13/18 06:11 04/13/18 06:11 04/13/18 06:11 04/13/18 06:11 General appearance: Absent: mild distress, well-nourished, other Results - Labs CBC & Chem 7: 04/09/18 04:00 04/12/18 08:29 Labs: Laboratory Last Values WBC 7.1 K/mm3 (4.5-11.0) 04/09/18 04:00 RBC 3.86 M/mm3 (3.65-5.03) 04/09/18 04:00 Hgb 11.7 gm/dl (11.8-15.2) L D 04/09/18 04:00 Hct 34.7 % (35.5-45.6) L D 04/09/18 04:00 MCV 90 fl (84-94) 04/09/18 04:00 MCH 30 pg (28-32) 04/09/18 04:00 MCHC 34 % (32-34) 04/09/18 04:00 RDW 15.0 % (13.2-15.2) 04/09/18 04:00 Plt Count 351 K/mm3 (140-440) 04/09/18 04:00 Lymph % (Auto) 6.5 % (13.4-35.0) L 04/09/18 04:00 Power % (Auto) 3.5 % (0.0-7.3) 04/09/18 04:00 Eos % (Auto) 0.2 % (0.0-4.3) 04/09/18 04:00 Baso % (Auto) 0.2 % (0.0-1.8) 04/09/18 04:00 Lymph # 0.5 K/mm3 (1.2-5.4) L 04/09/18 04:00 Power # 0.2 K/mm3 (0.0-0.8) 04/09/18 04:00 Eos # 0.0 K/mm3 (0.0-0.4) 04/09/18 04:00 Baso # 0.0 K/mm3 (0.0-0.1) 04/09/18 04:00 Add Manual Diff Complete 04/08/18 09:25 Seg Neutrophils % 89.6 % (40.0-70.0) H 04/09/18 04:00 Seg Neutrophils # 6.4 K/mm3 (1.8-7.7) 04/09/18 04:00 PT 17.5 Sec. (12.2-14.9) H 04/08/18 09:25 INR 1.35 (0.87-1.13) H 04/08/18 09:25 APTT 35.0 Sec. (24.2-36.6) 04/08/18 09:25 Thrombin Time 14.6 Sec. (15.1-19.6) L 04/08/18 09:25 POC ABG pH 7.364 (7.35-7.45) 04/12/18 13:48 POC ABG pCO2 54.5 (35-45) H 04/12/18 13:48 POC ABG pO2 98 (80-105) 04/12/18 13:48 POC ABG HCO3 31.1 04/12/18 13:48 POC ABG Total CO2 33 04/12/18 13:48 POC ABG O2 Sat 97 04/12/18 13:48 POC ABG Base Excess 6 04/12/18 13:48 FiO2 50 % 04/12/18 13:48 Sodium 142 mmol/L (137-145) 04/12/18 08:29 Potassium 3.6 mmol/L (3.6-5.0) 04/12/18 08:29 Chloride 101.2 mmol/L (98-107) 04/12/18 08:29 Carbon Dioxide 27 mmol/L (22-30) 04/12/18 08:29 Anion Gap 17 mmol/L 04/12/18 08:29 BUN 34 mg/dL (9-20) H 04/12/18 08:29 Creatinine 1.0 mg/dL (0.8-1.5) 04/12/18 08:29 Estimated GFR > 60 ml/min 04/12/18 08:29 BUN/Creatinine Ratio 34 % 04/12/18 08:29 Glucose 135 mg/dL (75-100) H 04/12/18 08:29 POC Glucose 111 (70-105) H 04/13/18 05:41 Lactic Acid 2.60 mmol/L (0.7-2.0) H* 04/12/18 10:12 Calcium 9.5 mg/dL (8.4-10.2) D 04/12/18 08:29 Magnesium 1.90 mg/dL (1.7-2.3) 04/08/18 09:25 Total Bilirubin 0.30 mg/dL (0.1-1.2) 04/09/18 04:00 Direct Bilirubin 0.2 mg/dL (0-0.2) 04/08/18 10:18 Indirect Bilirubin 0.3 mg/dL 04/08/18 10:18 AST 61 units/L (5-40) H 04/09/18 04:00 ALT 26 units/L (7-56) 04/09/18 04:00 Alkaline Phosphatase 142 units/L (35-129) H 04/09/18 04:00 Ammonia 74.0 umol/L (25-60) H 04/08/18 09:57 Total Creatine Kinase 38 units/L (55-170) L 04/08/18 09:25 CK-MB (CK-2) < 1.0 ng/mL (0.0-4.0) 04/08/18 09:25 CK-MB (CK-2) Rel Index 2.6 (0-4) 04/08/18 09:25 Troponin T 0.059 ng/mL (0.00-0.029) H 04/08/18 09:25 NT-Pro-B Natriuret Pep 2534 pg/mL (0-900) H 04/08/18 09:25 Total Protein 5.2 g/dL (6.3-8.2) L D 04/09/18 04:00 Albumin 2.3 g/dL (3.9-5) L 04/09/18 04:00 Albumin/Globulin Ratio 0.8 % 04/09/18 04:00 Triglycerides 158 mg/dL (2-149) H 04/08/18 09:25 Cholesterol 130 mg/dL (50-199) 04/08/18 09:25 LDL Cholesterol Direct 60 mg/dL (50-130) 04/08/18 09:25 HDL Cholesterol 32 mg/dL (40-59) L 04/08/18 09:25 Cholesterol/HDL Ratio 4.06 % 04/08/18 09:25 Urine Color Kiersten (Yellow) 04/08/18 12:34 Urine Turbidity Cloudy (Clear) 04/08/18 12:34 Urine pH 5.0 (5.0-7.0) 04/08/18 12:34 Ur Specific Yeso 1.023 (1.003-1.030) 04/08/18 12:34 Urine Protein 100 mg/dl mg/dL (Negative) 04/08/18 12:34 Urine Glucose (UA) 50 mg/dL (Negative) 04/08/18 12:34 Urine Ketones Neg mg/dL (Negative) 04/08/18 12:34 Urine Blood Neg (Negative) 04/08/18 12:34 Urine Nitrite Neg (Negative) 04/08/18 12:34 Ur Reducing Substances Not Reportable 04/08/18 12:34 Urine Bilirubin Neg (Negative) 04/08/18 12:34 Urine Ictotest Not Reportable 04/08/18 12:34 Urine Urobilinogen 4.0 mg/dL (<2.0) 04/08/18 12:34 Ur Leukocyte Esterase Neg (Negative) 04/08/18 12:34 Urine WBC (Auto) 22.0 /HPF (0.0-6.0) H 04/08/18 12:34 Urine RBC (Auto) 7.0 /HPF (0.0-6.0) 04/08/18 12:34 U Epithel Cells (Auto) 5.0 /HPF (0-13.0) 04/08/18 12:34 Urine Bacteria (Auto) 1+ /HPF (Negative) 04/08/18 12:34 Urine Mucus Few /HPF 04/08/18 12:34
[2018-04-13] MEDS: PEPCID PO SCH ×2 (09:22→21:11)
[2018-04-13] MEDS: LOVENOX SUB-Q SCH (09:22)
[2018-04-13] MEDS: ROCEPHIN/NS 2 GM/100 ML 2 GM/100 ML BAG IV SCH (09:47)
[2018-04-13] MEDS: MORPHINE IV PRN (09:48)
[2018-04-13] MEDS ORDERED: LASIX IV ONE (11:00)
--- NOTE | 2018-04-13 11:01 | Progress Note ---
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 Hospice appropriate. is in agreement, but his father is not agreeable to hospice evaluation Subjective Date of service: 04/13/18 Principal diagnosis: acute hypoxemic respiratory failure, pneumonia, brain metastases, sepsis Interval history: Acute hypoxemic respiratory failure, pneumonia, brain metastases, sepsis Seen and examined at bedside; 24hour events reviewed; nursing and respiratory care staff consulted; no adverse overnight events reported to me; Unresponsive this morning. On Venturi mask at 50%, required NIPPV support all night Father at the bedside Objective Vital Signs - 12hr 04/12/18 04/12/18 04/12/18 23:11 23:21 23:31 Temperature Pulse Rate 117 H Pulse Rate [ From Monitor] Respiratory 28 H Rate Blood Pressure 99/70 99/70 99/70 O2 Sat by Pulse 99 98 99 Oximetry 04/12/18 04/12/18 04/13/18 23:41 23:51 00:00 Temperature 98.8 F Pulse Rate 127 H 109 H 114 H Pulse Rate [ 119 H From Monitor] Respiratory 33 H 21 26 H Rate Blood Pressure 99/70 99/70 136/81 O2 Sat by Pulse 76 L 98 99 Oximetry 04/13/18 04/13/18 04/13/18 00:11 00:21 00:31 Temperature Pulse Rate 113 H Pulse Rate [ From Monitor] Respiratory 32 H 29 H 23 Rate Blood Pressure 136/81 136/81 136/81 O2 Sat by Pulse 97 97 97 Oximetry 04/13/18 04/13/18 04/13/18 00:41 00:51 01:01 Temperature Pulse Rate 111 H 108 H Pulse Rate [ From Monitor] Respiratory 21 25 H 24 Rate Blood Pressure 136/81 136/81 116/74 O2 Sat by Pulse 98 98 98 Oximetry 04/13/18 04/13/18 04/13/18 01:11 01:21 01:31 Temperature Pulse Rate 104 H Pulse Rate [ From Monitor] Respiratory 22 Rate Blood Pressure 116/74 116/74 116/74 O2 Sat by Pulse 98 98 98 Oximetry 04/13/18 04/13/18 04/13/18 01:41 01:51 02:00 Temperature Pulse Rate 106 H 102 H 108 H Pulse Rate [ From Monitor] Respiratory 29 H 28 H 29 H Rate Blood Pressure 116/74 116/74 114/76 O2 Sat by Pulse 98 99 98 Oximetry 04/13/18 04/13/18 04/13/18 02:11 02:21 02:31 Temperature Pulse Rate 111 H 105 H Pulse Rate [ From Monitor] Respiratory 19 27 H Rate Blood Pressure 114/76 114/76 114/76 O2 Sat by Pulse 97 98 98 Oximetry 04/13/18 04/13/18 04/13/18 02:41 02:51 03:01 Temperature Pulse Rate 111 H 101 H 107 H Pulse Rate [ From Monitor] Respiratory 15 20 25 H Rate Blood Pressure 114/76 114/76 131/86 O2 Sat by Pulse 98 98 98 Oximetry 04/13/18 04/13/18 04/13/18 03:11 03:21 03:31 Temperature Pulse Rate 109 H 113 H 104 H Pulse Rate [ From Monitor] Respiratory 28 H 16 11 L Rate Blood Pressure 131/86 131/86 131/86 O2 Sat by Pulse 97 97 98 Oximetry 04/13/18 04/13/18 04/13/18 03:41 03:51 03:55 Temperature 97.8 F Pulse Rate 112 H 113 H Pulse Rate [ From Monitor] Respiratory 13 14 Rate Blood Pressure 131/86 131/86 O2 Sat by Pulse 97 97 Oximetry 04/13/18 04/13/18 04/13/18 04:00 04:11 04:21 Temperature Pulse Rate 107 H 109 H 110 H Pulse Rate [ 119 H From Monitor] Respiratory 21 13 16 Rate Blood Pressure 112/74 112/74 112/74 O2 Sat by Pulse 97 98 98 Oximetry 04/13/18 04/13/18 04/13/18 04:31 04:41 04:51 Temperature Pulse Rate 103 H 108 H 103 H Pulse Rate [ From Monitor] Respiratory 13 15 18 Rate Blood Pressure 112/74 112/74 112/74 O2 Sat by Pulse 98 98 98 Oximetry 04/13/18 04/13/18 04/13/18 05:00 05:01 05:11 Temperature Pulse Rate 104 H 106 H 109 H Pulse Rate [ From Monitor] Respiratory 22 27 H 20 Rate Blood Pressure 105/74 144/95 112/74 O2 Sat by Pulse 98 98 98 Oximetry 04/13/18 04/13/18 04/13/18 05:21 05:31 05:41 Temperature Pulse Rate 101 H 98 H 97 H Pulse Rate [ From Monitor] Respiratory 21 23 24 Rate Blood Pressure 112/74 112/74 112/74 O2 Sat by Pulse 98 98 98 Oximetry 04/13/18 04/13/18 04/13/18 05:51 06:00 06:11 Temperature Pulse Rate 103 H 100 H 99 H Pulse Rate [ From Monitor] Respiratory 25 H 24 19 Rate Blood Pressure 112/74 105/74 105/74 O2 Sat by Pulse 98 98 98 Oximetry 04/13/18 04/13/18 04/13/18 06:21 06:31 06:41 Temperature Pulse Rate 107 H 105 H 103 H Pulse Rate [ From Monitor] Respiratory 22 24 16 Rate Blood Pressure 105/74 105/74 105/74 O2 Sat by Pulse 98 98 97 Oximetry 04/13/18 04/13/18 04/13/18 06:51 07:00 07:11 Temperature Pulse Rate 105 H 97 H 111 H Pulse Rate [ From Monitor] Respiratory 20 26 H 22 Rate Blood Pressure 105/74 134/82 134/82 O2 Sat by Pulse 97 98 98 Oximetry 04/13/18 04/13/18 04/13/18 07:21 07:31 07:41 Temperature Pulse Rate 107 H 100 H 107 H Pulse Rate [ From Monitor] Respiratory 17 28 H 18 Rate Blood Pressure 134/82 134/82 134/82 O2 Sat by Pulse 99 98 99 Oximetry 04/13/18 04/13/18 04/13/18 07:51 08:00 08:11 Temperature Pulse Rate 99 H 128 H 117 H Pulse Rate [ 99 H From Monitor] Respiratory 26 H 43 H 28 H Rate Blood Pressure 134/82 156/111 156/111 O2 Sat by Pulse 100 69 L 95 Oximetry 04/13/18 04/13/18 04/13/18 08:21 08:31 08:41 Temperature Pulse Rate 113 H 112 H 113 H Pulse Rate [ From Monitor] Respiratory 31 H 25 H 29 H Rate Blood Pressure 156/111 156/111 156/111 O2 Sat by Pulse 98 99 99 Oximetry 04/13/18 04/13/18 04/13/18 08:51 09:00 09:11 Temperature Pulse Rate 116 H 116 H 117 H Pulse Rate [ From Monitor] Respiratory 22 26 H 20 Rate Blood Pressure 156/111 145/109 156/111 O2 Sat by Pulse 99 99 99 Oximetry 04/13/18 09:21 Temperature Pulse Rate 111 H Pulse Rate [ From Monitor] Respiratory 29 H Rate Blood Pressure 156/111 O2 Sat by Pulse 99 Oximetry Constitutional: appears uncomfortable, other (middle aged chronically ill looking CM; normocephalic and atraumatic) Eyes: non-icteric ENT: oropharynx moist, oropharyngeal exudate pre, other (mallampati 2) Neck: supple, no lymphadenopathy, no JVD, other (no thyromegaly) Effort: very labored Ascultation: Bilateral: diminished breath sounds, rales Percussion: Bilateral: not dull Cardiovascular: regular rate and rhythm, PVC's noted (occasional), other (No R/M ) Gastrointestinal: normoactive bowel sounds, soft, non-tender, non-distended, other (No HSM) Integumentary: other (poor turgor) Extremities: no cyanosis, no edema, pink and warm, pulses normal, other ( contractures) Neurologic: unable to assess Psychiatric: other (unable to assess) CBC and BMP: 04/09/18 04:00 04/12/18 08:29 ABG, PT/INR, D-dimer: ABG POC ABG pH 7.364 (7.35-7.45) 04/12/18 13:48 POC ABG pCO2 54.5 (35-45) H 04/12/18 13:48 POC ABG pO2 98 (80-105) 04/12/18 13:48 POC ABG HCO3 31.1 04/12/18 13:48 POC ABG Total CO2 33 04/12/18 13:48 POC ABG O2 Sat 97 04/12/18 13:48 PT/INR, D-dimer PT 17.5 Sec. (12.2-14.9) H 04/08/18 09:25 INR 1.35 (0.87-1.13) H 04/08/18 09:25 Abnormal lab findings: Abnormal Labs 04/08/18 04/08/18 04/08/18 09:25 09:25 09:25 RBC 5.20 H Hgb 15.7 H Hct 47.1 H Plt Count 621 H Lymph % (Auto) 11.4 L Lymph # 1.1 L Seg Neutrophils % 81.7 H PT 17.5 H INR 1.35 H Thrombin Time 14.6 L POC ABG pH POC ABG pCO2 POC ABG pO2 Potassium 5.2 H Chloride 89.9 L BUN 22 H Creatinine 1.7 H Glucose 184 H POC Glucose Lactic Acid Calcium AST Alkaline Phosphatase Ammonia Total Creatine Kinase Troponin T 0.059 H NT-Pro-B Natriuret Pep Total Protein Albumin Triglycerides 158 H HDL Cholesterol 32 L Urine WBC (Auto) 04/08/18 04/08/18 04/08/18 09:25 09:25 09:57 RBC Hgb Hct Plt Count Lymph % (Auto) Lymph # Seg Neutrophils % PT INR Thrombin Time POC ABG pH POC ABG pCO2 POC ABG pO2 Potassium Chloride BUN Creatinine Glucose POC Glucose Lactic Acid 10.50 H* Calcium AST Alkaline Phosphatase Ammonia 74.0 H Total Creatine Kinase 38 L Troponin T NT-Pro-B Natriuret Pep 2534 H Total Protein Albumin Triglycerides HDL Cholesterol Urine WBC (Auto) 04/08/18 04/08/18 04/08/18 10:18 10:43 11:00 RBC Hgb Hct Plt Count Lymph % (Auto) Lymph # Seg Neutrophils % PT INR Thrombin Time POC ABG pH 7.294 L POC ABG pCO2 49.6 H POC ABG pO2 Potassium Chloride 96.8 L BUN 21 H Creatinine 1.6 H Glucose 155 H POC Glucose Lactic Acid Calcium AST 93 H Alkaline Phosphatase 216 H Ammonia Total Creatine Kinase Troponin T NT-Pro-B Natriuret Pep Total Protein Albumin 3.0 L Triglycerides HDL Cholesterol Urine WBC (Auto) 04/08/18 04/08/18 04/08/18 11:00 12:34 16:41 RBC Hgb Hct Plt Count Lymph % (Auto) Lymph # Seg Neutrophils % PT INR Thrombin Time POC ABG pH POC ABG pCO2 POC ABG pO2 Potassium Chloride BUN Creatinine Glucose POC Glucose Lactic Acid 8.40 H* 5.10 H* Calcium AST Alkaline Phosphatase Ammonia Total Creatine Kinase Troponin T NT-Pro-B Natriuret Pep Total Protein Albumin Triglycerides HDL Cholesterol Urine WBC (Auto) 22.0 H 04/08/18 04/08/18 04/08/18 17:43 20:54 23:39 RBC Hgb Hct Plt Count Lymph % (Auto) Lymph # Seg Neutrophils % PT INR Thrombin Time POC ABG pH POC ABG pCO2 POC ABG pO2 Potassium Chloride BUN Creatinine Glucose POC Glucose 168 H 167 H Lactic Acid 4.70 H* Calcium AST Alkaline Phosphatase Ammonia Total Creatine Kinase Troponin T NT-Pro-B Natriuret Pep Total Protein Albumin Triglycerides HDL Cholesterol Urine WBC (Auto) 04/09/18 04/09/18 04/09/18 04:00 04:00 04:00 RBC Hgb 11.7 L D Hct 34.7 L D Plt Count Lymph % (Auto) 6.5 L Lymph # 0.5 L Seg Neutrophils % 89.6 H PT INR Thrombin Time POC ABG pH POC ABG pCO2 POC ABG pO2 Potassium Chloride BUN 26 H Creatinine Glucose 179 H POC Glucose Lactic Acid 3.50 H* Calcium 8.2 L AST 61 H Alkaline Phosphatase 142 H Ammonia Total Creatine Kinase Troponin T NT-Pro-B Natriuret Pep Total Protein 5.2 L D Albumin 2.3 L Triglycerides HDL Cholesterol Urine WBC (Auto) 04/09/18 04/09/18 04/09/18 04:24 06:03 12:19 RBC Hgb Hct Plt Count Lymph % (Auto) Lymph # Seg Neutrophils % PT INR Thrombin Time POC ABG pH POC ABG pCO2 POC ABG pO2 135 H Potassium Chloride BUN Creatinine Glucose POC Glucose 158 H 168 H Lactic Acid Calcium AST Alkaline Phosphatase Ammonia Total Creatine Kinase Troponin T NT-Pro-B Natriuret Pep Total Protein Albumin Triglycerides HDL Cholesterol Urine WBC (Auto) 04/09/18 04/09/18 04/09/18 16:30 18:01 23:31 RBC Hgb Hct Plt Count Lymph % (Auto) Lymph # Seg Neutrophils % PT INR Thrombin Time POC ABG pH POC ABG pCO2 45.7 H POC ABG pO2 168 H Potassium Chloride BUN Creatinine Glucose POC Glucose 161 H 154 H Lactic Acid Calcium AST Alkaline Phosphatase Ammonia Total Creatine Kinase Troponin T NT-Pro-B Natriuret Pep Total Protein Albumin Triglycerides HDL Cholesterol Urine WBC (Auto) 04/10/18 04/10/18 04/10/18 04:01 05:24 12:49 RBC Hgb Hct Plt Count Lymph % (Auto) Lymph # Seg Neutrophils % PT INR Thrombin Time POC ABG pH POC ABG pCO2 POC ABG pO2 124 H Potassium Chloride BUN Creatinine Glucose POC Glucose 141 H 132 H Lactic Acid Calcium AST Alkaline Phosphatase Ammonia Total Creatine Kinase Troponin T NT-Pro-B Natriuret Pep Total Protein Albumin Triglycerides HDL Cholesterol Urine WBC (Auto) 04/10/18 04/11/18 04/11/18 19:07 00:11 05:28 RBC Hgb Hct Plt Count Lymph % (Auto) Lymph # Seg Neutrophils % PT INR Thrombin Time POC ABG pH POC ABG pCO2 POC ABG pO2 Potassium Chloride BUN Creatinine Glucose POC Glucose 128 H 120 H 107 H Lactic Acid Calcium AST Alkaline Phosphatase Ammonia Total Creatine Kinase Troponin T NT-Pro-B Natriuret Pep Total Protein Albumin Triglycerides HDL Cholesterol Urine WBC (Auto) 04/11/18 04/12/18 04/12/18 22:04 03:48 08:29 RBC Hgb Hct Plt Count Lymph % (Auto) Lymph # Seg Neutrophils % PT INR Thrombin Time POC ABG pH POC ABG pCO2 POC ABG pO2 Potassium Chloride BUN Creatinine Glucose POC Glucose Lactic Acid 3.10 H* 3.30 H* 3.10 H* Calcium AST Alkaline Phosphatase Ammonia Total Creatine Kinase Troponin T NT-Pro-B Natriuret Pep Total Protein Albumin Triglycerides HDL Cholesterol Urine WBC (Auto) 04/12/18 04/12/18 04/12/18 08:29 10:12 11:52 RBC Hgb Hct Plt Count Lymph % (Auto) Lymph # Seg Neutrophils % PT INR Thrombin Time POC ABG pH POC ABG pCO2 POC ABG pO2 Potassium Chloride BUN 34 H Creatinine Glucose 135 H POC Glucose 140 H Lactic Acid 2.60 H* Calcium AST Alkaline Phosphatase Ammonia Total Creatine Kinase Troponin T NT-Pro-B Natriuret Pep Total Protein Albumin Triglycerides HDL Cholesterol Urine WBC (Auto) 04/12/18 04/12/18 04/13/18 13:48 18:32 00:23 RBC Hgb Hct Plt Count Lymph % (Auto) Lymph # Seg Neutrophils % PT INR Thrombin Time POC ABG pH POC ABG pCO2 54.5 H POC ABG pO2 Potassium Chloride BUN Creatinine Glucose POC Glucose 121 H 118 H Lactic Acid Calcium AST Alkaline Phosphatase Ammonia Total Creatine Kinase Troponin T NT-Pro-B Natriuret Pep Total Protein Albumin Triglycerides HDL Cholesterol Urine WBC (Auto) 04/13/18 05:41 RBC Hgb Hct Plt Count Lymph % (Auto) Lymph # Seg Neutrophils % PT INR Thrombin Time POC ABG pH POC ABG pCO2 POC ABG pO2 Potassium Chloride BUN Creatinine Glucose POC Glucose 111 H Lactic Acid Calcium AST Alkaline Phosphatase Ammonia Total Creatine Kinase Troponin T NT-Pro-B Natriuret Pep Total Protein Albumin Triglycerides HDL Cholesterol Urine WBC (Auto) Allied health notes reviewed: nursing
[2018-04-13] MEDS: TORADOL IV PRN (11:02)
[2018-04-13] MEDS: PERCOCET 5/325 PO PRN ×2 (11:12→15:40)
[2018-04-13] MEDS: SODIUM CHLORIDE FLUSH SYRINGE 10 ML IV SCH ×2 (13:44→21:10)
[2018-04-13] MEDS: TYLENOL PO PRN (21:02)
[2018-04-14] MEDS: PERCOCET 5/325 PO PRN ×2 (00:46→18:34)
--- NOTE | 2018-04-14 03:02 | XRay Report ---
FINAL REPORT EXAM: XR CHEST 1V AP HISTORY: follow up respiratory failure TECHNIQUE: A portable upright view the chest was obtained and compared to the study of 04/13/2018. FINDINGS: The left-sided internal jugular line has been removed since the previous study. The lungs once again reveal diffuse nodular infiltrates throughout both lungs unchanged from the previous study. The heart size is normal. Underlying congestion cannot be excluded. There are EKG leads overlying the chest wall. The skeletal structures are unchanged. IMPRESSION: Stable diffuse nodular infiltrates throughout both lungs. Interval removal of left-sided internal jugular line since the previous study.
[2018-04-14] MEDS: DECADRON IV SCH ×3 (06:24→21:40)
[2018-04-14] MEDS: DUONEB *Not for PRN Use IH SCH ×3 (07:56→20:04)
[2018-04-14] MEDS: ROCEPHIN/NS 2 GM/100 ML 2 GM/100 ML BAG IV SCH (10:26)
[2018-04-14] MEDS: LOVENOX SUB-Q SCH (10:27)
[2018-04-14] MEDS: PEPCID PO SCH ×2 (10:28→21:40)
[2018-04-14] MEDS: SODIUM CHLORIDE FLUSH SYRINGE 10 ML IV SCH ×2 (10:28→21:40)
--- NOTE | 2018-04-14 11:14 | Progress Note ---
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 Hospice appropriate. is in agreement, but his father is not agreeable to hospice evaluation Subjective Date of service: 04/14/18 Principal diagnosis: acute hypoxemic respiratory failure, pneumonia, brain metastases, sepsis Interval history: Acute hypoxemic respiratory failure, pneumonia, brain metastases, sepsis Seen and examined at bedside; 24hour events reviewed; nursing and respiratory care staff consulted; no adverse overnight events reported to me; Unresponsive this morning. On Venturi mask at 50%, required NIPPV support all night Father at the bedside Objective Vital Signs - 12hr 04/13/18 04/13/18 04/13/18 23:16 23:20 23:30 Temperature Pulse Rate 101 H 101 H 105 H Pulse Rate [ Anterior Bilateral Throughout] Pulse Rate [ From Monitor] Pulse Rate [ Right Dorsalis Pedis] Respiratory 30 H 23 28 H Rate Respiratory Rate [Anterior Bilateral Throughout] Blood Pressure 149/92 149/92 149/92 O2 Sat by Pulse 99 99 99 Oximetry 04/13/18 04/13/18 04/13/18 23:40 23:50 23:55 Temperature Pulse Rate 104 H 102 H 106 H Pulse Rate [ Anterior Bilateral Throughout] Pulse Rate [ From Monitor] Pulse Rate [ Right Dorsalis Pedis] Respiratory 31 H 29 H 28 H Rate Respiratory Rate [Anterior Bilateral Throughout] Blood Pressure 149/92 149/92 149/92 O2 Sat by Pulse 99 99 98 Oximetry 04/14/18 04/14/18 04/14/18 00:00 00:10 00:20 Temperature 99.8 F H Pulse Rate 103 H 101 H 92 H Pulse Rate [ Anterior Bilateral Throughout] Pulse Rate [ 105 H From Monitor] Pulse Rate [ Right Dorsalis Pedis] Respiratory 20 25 H 24 Rate Respiratory Rate [Anterior Bilateral Throughout] Blood Pressure 147/94 147/94 147/94 O2 Sat by Pulse 99 98 98 Oximetry 04/14/18 04/14/1818 00:30 00:40 00:50 Temperature Pulse Rate 91 H 98 H 88 Pulse Rate [ Anterior Bilateral Throughout] Pulse Rate [ From Monitor] Pulse Rate [ Right Dorsalis Pedis] Respiratory 19 28 H 21 Rate Respiratory Rate [Anterior Bilateral Throughout] Blood Pressure 147/94 147/94 147/94 O2 Sat by Pulse 98 98 99 Oximetry 04/14/18 04/14/18 04/14/18 01:00 01:10 01:20 Temperature Pulse Rate 104 H 95 H 100 H Pulse Rate [ Anterior Bilateral Throughout] Pulse Rate [ From Monitor] Pulse Rate [ Right Dorsalis Pedis] Respiratory 25 H 25 H 24 Rate Respiratory Rate [Anterior Bilateral Throughout] Blood Pressure 147/94 147/94 147/94 O2 Sat by Pulse 99 99 99 Oximetry 04/14/18 04/14/18 04/14/18 01:30 01:40 01:50 Temperature Pulse Rate 99 H 93 H 93 H Pulse Rate [ Anterior Bilateral Throughout] Pulse Rate [ From Monitor] Pulse Rate [ Right Dorsalis Pedis] Respiratory 20 24 28 H Rate Respiratory Rate [Anterior Bilateral Throughout] Blood Pressure 147/94 147/94 147/94 O2 Sat by Pulse 100 99 99 Oximetry 04/14/18 04/14/18 04/14/18 02:00 02:10 02:20 Temperature Pulse Rate 86 84 97 H Pulse Rate [ Anterior Bilateral Throughout] Pulse Rate [ From Monitor] Pulse Rate [ Right Dorsalis Pedis] Respiratory 17 22 21 Rate Respiratory Rate [Anterior Bilateral Throughout] Blood Pressure 159/79 159/79 159/79 O2 Sat by Pulse 99 99 99 Oximetry 04/14/18 04/14/18 04/14/18 02:30 02:40 02:50 Temperature Pulse Rate 83 94 H 84 Pulse Rate [ Anterior Bilateral Throughout] Pulse Rate [ From Monitor] Pulse Rate [ Right Dorsalis Pedis] Respiratory 21 28 H 20 Rate Respiratory Rate [Anterior Bilateral Throughout] Blood Pressure 159/79 159/79 159/79 O2 Sat by Pulse 99 99 99 Oximetry 04/14/18 04/14/18 04/14/18 03:00 03:10 03:20 Temperature Pulse Rate 96 H 92 H 96 H Pulse Rate [ Anterior Bilateral Throughout] Pulse Rate [ From Monitor] Pulse Rate [ Right Dorsalis Pedis] Respiratory 26 H 24 27 H Rate Respiratory Rate [Anterior Bilateral Throughout] Blood Pressure 161/89 161/89 161/89 O2 Sat by Pulse 99 99 99 Oximetry 04/14/18 04/14/18 04/14/18 03:30 03:40 03:50 Temperature Pulse Rate 99 H 82 86 Pulse Rate [ Anterior Bilateral Throughout] Pulse Rate [ From Monitor] Pulse Rate [ Right Dorsalis Pedis] Respiratory 24 23 24 Rate Respiratory Rate [Anterior Bilateral Throughout] Blood Pressure 161/89 161/89 161/89 O2 Sat by Pulse 99 99 99 Oximetry 04/14/18 04/14/18 04/14/18 04:00 04:10 04:20 Temperature 99 F Pulse Rate 95 H 95 H 90 Pulse Rate [ Anterior Bilateral Throughout] Pulse Rate [ 105 H From Monitor] Pulse Rate [ Right Dorsalis Pedis] Respiratory 21 29 H 26 H Rate Respiratory Rate [Anterior Bilateral Throughout] Blood Pressure 161/89 120/100 120/100 O2 Sat by Pulse 99 99 99 Oximetry 04/14/18 04/14/18 04/14/18 04:30 04:40 04:50 Temperature Pulse Rate 93 H 83 89 Pulse Rate [ Anterior Bilateral Throughout] Pulse Rate [ From Monitor] Pulse Rate [ Right Dorsalis Pedis] Respiratory 23 28 H 28 H Rate Respiratory Rate [Anterior Bilateral Throughout] Blood Pressure 120/100 120/100 120/100 O2 Sat by Pulse 99 99 99 Oximetry 04/14/18 04/14/18 04/14/18 05:00 05:10 05:20 Temperature Pulse Rate 90 86 89 Pulse Rate [ Anterior Bilateral Throughout] Pulse Rate [ From Monitor] Pulse Rate [ Right Dorsalis Pedis] Respiratory 24 22 29 H Rate Respiratory Rate [Anterior Bilateral Throughout] Blood Pressure 152/98 152/98 152/98 O2 Sat by Pulse 99 99 99 Oximetry 04/14/18 04/14/18 04/14/18 05:30 05:40 05:50 Temperature Pulse Rate 82 80 89 Pulse Rate [ Anterior Bilateral Throughout] Pulse Rate [ From Monitor] Pulse Rate [ Right Dorsalis Pedis] Respiratory 25 H 27 H 27 H Rate Respiratory Rate [Anterior Bilateral Throughout] Blood Pressure 152/98 152/98 152/98 O2 Sat by Pulse 98 99 99 Oximetry 04/14/18 04/14/18 04/14/18 06:00 06:10 06:20 Temperature Pulse Rate 89 94 H 91 H Pulse Rate [ Anterior Bilateral Throughout] Pulse Rate [ From Monitor] Pulse Rate [ Right Dorsalis Pedis] Respiratory 24 22 27 H Rate Respiratory Rate [Anterior Bilateral Throughout] Blood Pressure 147/90 147/90 147/90 O2 Sat by Pulse 99 99 98 Oximetry 04/14/18 04/14/18 04/14/18 06:30 06:40 06:50 Temperature Pulse Rate 93 H 94 H 94 H Pulse Rate [ Anterior Bilateral Throughout] Pulse Rate [ From Monitor] Pulse Rate [ Right Dorsalis Pedis] Respiratory 25 H 30 H 17 Rate Respiratory Rate [Anterior Bilateral Throughout] Blood Pressure 147/90 147/90 147/90 O2 Sat by Pulse 98 99 96 Oximetry 04/14/18 04/14/18 04/14/18 07:00 07:10 07:20 Temperature Pulse Rate 79 93 H 89 Pulse Rate [ Anterior Bilateral Throughout] Pulse Rate [ From Monitor] Pulse Rate [ Right Dorsalis Pedis] Respiratory 24 24 26 H Rate Respiratory Rate [Anterior Bilateral Throughout] Blood Pressure 142/94 142/94 142/94 O2 Sat by Pulse 99 100 99 Oximetry 04/14/18 04/14/18 04/14/18 07:30 07:39 07:40 Temperature Pulse Rate 88 80 96 H Pulse Rate [ 88 Anterior Bilateral Throughout] Pulse Rate [ From Monitor] Pulse Rate [ Right Dorsalis Pedis] Respiratory 25 H 26 H 29 H Rate Respiratory 27 H Rate [Anterior Bilateral Throughout] Blood Pressure 142/94 142/94 147/90 O2 Sat by Pulse 99 99 98 Oximetry 04/14/18 04/14/18 04/14/18 07:50 07:54 08:00 Temperature 99.0 F Pulse Rate 86 89 Pulse Rate [ 90 Anterior Bilateral Throughout] Pulse Rate [ 92 H From Monitor] Pulse Rate [ 9 L Right Dorsalis Pedis] Respiratory 32 H 32 H Rate Respiratory 28 H Rate [Anterior Bilateral Throughout] Blood Pressure 147/90 150/93 O2 Sat by Pulse 98 98 100 Oximetry 04/14/18 04/14/18 04/14/18 08:10 08:20 08:30 Temperature Pulse Rate 80 96 H 96 H Pulse Rate [ Anterior Bilateral Throughout] Pulse Rate [ From Monitor] Pulse Rate [ Right Dorsalis Pedis] Respiratory 25 H 22 26 H Rate Respiratory Rate [Anterior Bilateral Throughout] Blood Pressure 150/93 150/93 150/93 O2 Sat by Pulse 100 99 99 Oximetry 04/14/18 04/14/18 04/14/18 08:40 08:50 09:00 Temperature Pulse Rate 81 89 92 H Pulse Rate [ Anterior Bilateral Throughout] Pulse Rate [ From Monitor] Pulse Rate [ Right Dorsalis Pedis] Respiratory 23 27 H 29 H Rate Respiratory Rate [Anterior Bilateral Throughout] Blood Pressure 142/94 142/94 150/97 O2 Sat by Pulse 100 100 100 Oximetry 04/14/18 04/14/18 04/14/18 09:10 09:20 09:30 Temperature Pulse Rate 85 88 84 Pulse Rate [ Anterior Bilateral Throughout] Pulse Rate [ From Monitor] Pulse Rate [ Right Dorsalis Pedis] Respiratory 25 H 28 H 25 H Rate Respiratory Rate [Anterior Bilateral Throughout] Blood Pressure 150/97 150/97 150/97 O2 Sat by Pulse 99 100 100 Oximetry 04/14/18 04/14/18 04/14/18 09:40 09:50 10:00 Temperature Pulse Rate 74 84 90 Pulse Rate [ Anterior Bilateral Throughout] Pulse Rate [ From Monitor] Pulse Rate [ Right Dorsalis Pedis] Respiratory 24 25 H 30 H Rate Respiratory Rate [Anterior Bilateral Throughout] Blood Pressure 150/97 150/97 149/94 O2 Sat by Pulse 100 100 97 Oximetry 04/14/18 04/14/18 10:10 10:20 Temperature Pulse Rate 84 92 H Pulse Rate [ Anterior Bilateral Throughout] Pulse Rate [ From Monitor] Pulse Rate [ Right Dorsalis Pedis] Respiratory 31 H 26 H Rate Respiratory Rate [Anterior Bilateral Throughout] Blood Pressure 149/94 149/94 O2 Sat by Pulse 97 97 Oximetry Constitutional: appears uncomfortable, other (middle aged chronically ill looking CM; normocephalic and atraumatic) Eyes: non-icteric ENT: oropharynx moist, oropharyngeal exudate pre, other (mallampati 2) Neck: supple, no lymphadenopathy, no JVD, other (no thyromegaly) Effort: very labored Ascultation: Bilateral: diminished breath sounds, rales Percussion: Bilateral: not dull Cardiovascular: regular rate and rhythm, PVC's noted (occasional), other (No R/M ) Gastrointestinal: normoactive bowel sounds, soft, non-tender, non-distended, other (No HSM) Integumentary: other (poor turgor) Extremities: no cyanosis, no edema, pink and warm, pulses normal, other ( contractures) Neurologic: unable to assess Psychiatric: other (unable to assess) CBC and BMP: 04/09/18 04:00 04/12/18 08:29 ABG, PT/INR, D-dimer: ABG POC ABG pH 7.364 (7.35-7.45) 04/12/18 13:48 POC ABG pCO2 54.5 (35-45) H 04/12/18 13:48 POC ABG pO2 98 (80-105) 04/12/18 13:48 POC ABG HCO3 31.1 04/12/18 13:48 POC ABG Total CO2 33 04/12/18 13:48 POC ABG O2 Sat 97 04/12/18 13:48 PT/INR, D-dimer PT 17.5 Sec. (12.2-14.9) H 04/08/18 09:25 INR 1.35 (0.87-1.13) H 04/08/18 09:25 Abnormal lab findings: Abnormal Labs 04/08/18 04/08/18 04/08/18 09:25 09:25 09:25 RBC 5.20 H Hgb 15.7 H Hct 47.1 H Plt Count 621 H Lymph % (Auto) 11.4 L Lymph # 1.1 L Seg Neutrophils % 81.7 H PT 17.5 H INR 1.35 H Thrombin Time 14.6 L POC ABG pH POC ABG pCO2 POC ABG pO2 Potassium 5.2 H Chloride 89.9 L BUN 22 H Creatinine 1.7 H Glucose 184 H POC Glucose Lactic Acid Calcium AST Alkaline Phosphatase Ammonia Total Creatine Kinase Troponin T 0.059 H NT-Pro-B Natriuret Pep Total Protein Albumin Triglycerides 158 H HDL Cholesterol 32 L Urine WBC (Auto) 04/08/18 04/08/18 04/08/18 09:25 09:25 09:57 RBC Hgb Hct Plt Count Lymph % (Auto) Lymph # Seg Neutrophils % PT INR Thrombin Time POC ABG pH POC ABG pCO2 POC ABG pO2 Potassium Chloride BUN Creatinine Glucose POC Glucose Lactic Acid 10.50 H* Calcium AST Alkaline Phosphatase Ammonia 74.0 H Total Creatine Kinase 38 L Troponin T NT-Pro-B Natriuret Pep 2534 H Total Protein Albumin Triglycerides HDL Cholesterol Urine WBC (Auto) 04/08/18 04/08/18 04/08/18 10:18 10:43 11:00 RBC Hgb Hct Plt Count Lymph % (Auto) Lymph # Seg Neutrophils % PT INR Thrombin Time POC ABG pH 7.294 L POC ABG pCO2 49.6 H POC ABG pO2 Potassium Chloride 96.8 L BUN 21 H Creatinine 1.6 H Glucose 155 H POC Glucose Lactic Acid Calcium AST 93 H Alkaline Phosphatase 216 H Ammonia Total Creatine Kinase Troponin T NT-Pro-B Natriuret Pep Total Protein Albumin 3.0 L Triglycerides HDL Cholesterol Urine WBC (Auto) 04/08/18 04/08/18 04/08/18 11:00 12:34 16:41 RBC Hgb Hct Plt Count Lymph % (Auto) Lymph # Seg Neutrophils % PT INR Thrombin Time POC ABG pH POC ABG pCO2 POC ABG pO2 Potassium Chloride BUN Creatinine Glucose POC Glucose Lactic Acid 8.40 H* 5.10 H* Calcium AST Alkaline Phosphatase Ammonia Total Creatine Kinase Troponin T NT-Pro-B Natriuret Pep Total Protein Albumin Triglycerides HDL Cholesterol Urine WBC (Auto) 22.0 H 04/08/18 04/08/18 04/08/18 17:43 20:54 23:39 RBC Hgb Hct Plt Count Lymph % (Auto) Lymph # Seg Neutrophils % PT INR Thrombin Time POC ABG pH POC ABG pCO2 POC ABG pO2 Potassium Chloride BUN Creatinine Glucose POC Glucose 168 H 167 H Lactic Acid 4.70 H* Calcium AST Alkaline Phosphatase Ammonia Total Creatine Kinase Troponin T NT-Pro-B Natriuret Pep Total Protein Albumin Triglycerides HDL Cholesterol Urine WBC (Auto) 04/09/18 04/09/18 04/09/18 04:00 04:00 04:00 RBC Hgb 11.7 L D Hct 34.7 L D Plt Count Lymph % (Auto) 6.5 L Lymph # 0.5 L Seg Neutrophils % 89.6 H PT INR Thrombin Time POC ABG pH POC ABG pCO2 POC ABG pO2 Potassium Chloride BUN 26 H Creatinine Glucose 179 H POC Glucose Lactic Acid 3.50 H* Calcium 8.2 L AST 61 H Alkaline Phosphatase 142 H Ammonia Total Creatine Kinase Troponin T NT-Pro-B Natriuret Pep Total Protein 5.2 L D Albumin 2.3 L Triglycerides HDL Cholesterol Urine WBC (Auto) 04/09/18 04/09/18 04/09/18 04:24 06:03 12:19 RBC Hgb Hct Plt Count Lymph % (Auto) Lymph # Seg Neutrophils % PT INR Thrombin Time POC ABG pH POC ABG pCO2 POC ABG pO2 135 H Potassium Chloride BUN Creatinine Glucose POC Glucose 158 H 168 H Lactic Acid Calcium AST Alkaline Phosphatase Ammonia Total Creatine Kinase Troponin T NT-Pro-B Natriuret Pep Total Protein Albumin Triglycerides HDL Cholesterol Urine WBC (Auto) 04/09/18 04/09/18 04/09/18 16:30 18:01 23:31 RBC Hgb Hct Plt Count Lymph % (Auto) Lymph # Seg Neutrophils % PT INR Thrombin Time POC ABG pH POC ABG pCO2 45.7 H POC ABG pO2 168 H Potassium Chloride BUN Creatinine Glucose POC Glucose 161 H 154 H Lactic Acid Calcium AST Alkaline Phosphatase Ammonia Total Creatine Kinase Troponin T NT-Pro-B Natriuret Pep Total Protein Albumin Triglycerides HDL Cholesterol Urine WBC (Auto) 04/10/18 04/10/18 04/10/18 04:01 05:24 12:49 RBC Hgb Hct Plt Count Lymph % (Auto) Lymph # Seg Neutrophils % PT INR Thrombin Time POC ABG pH POC ABG pCO2 POC ABG pO2 124 H Potassium Chloride BUN Creatinine Glucose POC Glucose 141 H 132 H Lactic Acid Calcium AST Alkaline Phosphatase Ammonia Total Creatine Kinase Troponin T NT-Pro-B Natriuret Pep Total Protein Albumin Triglycerides HDL Cholesterol Urine WBC (Auto) 04/10/18 04/11/18 04/11/18 19:07 00:11 05:28 RBC Hgb Hct Plt Count Lymph % (Auto) Lymph # Seg Neutrophils % PT INR Thrombin Time POC ABG pH POC ABG pCO2 POC ABG pO2 Potassium Chloride BUN Creatinine Glucose POC Glucose 128 H 120 H 107 H Lactic Acid Calcium AST Alkaline Phosphatase Ammonia Total Creatine Kinase Troponin T NT-Pro-B Natriuret Pep Total Protein Albumin Triglycerides HDL Cholesterol Urine WBC (Auto) 04/11/18 04/12/18 04/12/18 22:04 03:48 08:29 RBC Hgb Hct Plt Count Lymph % (Auto) Lymph # Seg Neutrophils % PT INR Thrombin Time POC ABG pH POC ABG pCO2 POC ABG pO2 Potassium Chloride BUN Creatinine Glucose POC Glucose Lactic Acid 3.10 H* 3.30 H* 3.10 H* Calcium AST Alkaline Phosphatase Ammonia Total Creatine Kinase Troponin T NT-Pro-B Natriuret Pep Total Protein Albumin Triglycerides HDL Cholesterol Urine WBC (Auto) 04/12/18 04/12/18 04/12/18 08:29 10:12 11:52 RBC Hgb Hct Plt Count Lymph % (Auto) Lymph # Seg Neutrophils % PT INR Thrombin Time POC ABG pH POC ABG pCO2 POC ABG pO2 Potassium Chloride BUN 34 H Creatinine Glucose 135 H POC Glucose 140 H Lactic Acid 2.60 H* Calcium AST Alkaline Phosphatase Ammonia Total Creatine Kinase Troponin T NT-Pro-B Natriuret Pep Total Protein Albumin Triglycerides HDL Cholesterol Urine WBC (Auto) 04/12/18 04/12/18 04/13/18 13:48 18:32 00:23 RBC Hgb Hct Plt Count Lymph % (Auto) Lymph # Seg Neutrophils % PT INR Thrombin Time POC ABG pH POC ABG pCO2 54.5 H POC ABG pO2 Potassium Chloride BUN Creatinine Glucose POC Glucose 121 H 118 H Lactic Acid Calcium AST Alkaline Phosphatase Ammonia Total Creatine Kinase Troponin T NT-Pro-B Natriuret Pep Total Protein Albumin Triglycerides HDL Cholesterol Urine WBC (Auto) 04/13/18 04/13/18 04/14/18 05:41 13:49 00:22 RBC Hgb Hct Plt Count Lymph % (Auto) Lymph # Seg Neutrophils % PT INR Thrombin Time POC ABG pH POC ABG pCO2 POC ABG pO2 Potassium Chloride BUN Creatinine Glucose POC Glucose 111 H 122 H 142 H Lactic Acid Calcium AST Alkaline Phosphatase Ammonia Total Creatine Kinase Troponin T NT-Pro-B Natriuret Pep Total Protein Albumin Triglycerides HDL Cholesterol Urine WBC (Auto) Allied health notes reviewed: nursing
[2018-04-14] MEDS ORDERED: LASIX IV ONE ×2 (12:00→14:00)
[2018-04-14 12:47] LABS: Hematocrit 33.3 % (35.5-45.6); Hemoglobin 11.1 gm/dl (11.8-15.2); Mean Corpuscular HGB Conc 33 % (32-34); Mean Corpuscular Hemoglobin 30 pg (28-32); Mean Corpuscular Volume 88 fl (84-94); Platelet Count 443 K/mm3 (140-440); Red Blood Count 3.77 M/mm3 (3.65-5.03); Red Cell Distribution Width 15.7 % (13.2-15.2)
[2018-04-14 13:09] LABS: BUN/Creatinine Ratio 80; Blood Urea Nitrogen 40 mg/dL (9-20); Calcium 9.6 mg/dL (8.4-10.2); Hemolysis Index 18
[2018-04-14 14:41] LABS: Anisocytosis 1+; Band Neutrophils # (Manual) 0.1 K/mm3; Basophils % (Manual) 0 % (0.0-1.8); Eosinophils % (Manual) 0 % (0.0-4.3); Myelocytes # (Manual) 0.1 K/mm3; Total Cells Counted 100
[2018-04-14 14:42] LABS: Platelet Estimate Cons; Toxic Granulation Few
--- NOTE | 2018-04-14 15:28 | Progress Note ---
Assessment and Plan Assessment and plan: Patient is a 52 yo man from [facility] with Hospice who presented to [facility] ED via EMS with AMS/unresponsiveness. According to chart, patient just arrived to [facility] with hospice one day prior to this unresponsive state. 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 He has already received chemotherapy and radiation therapy. The father is aware that the patient is in hospice for a terminal condition. His CODE STATUS was initially full code but has been changed to DNR/ AND. He was intubated but not sedated, now he has been extubated on 04/11/18. His care has been pretty much been governed by Esthetics Instructor. 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 Follow-up on current diagnosis of unresponsiveness. Patient is back on Bipap. Imaging, nursing note, chart, labs and old chart reviewed. Hospitalist Physical - Physical exam Narrative exam: GEN: gravely ill, unresponsive, moderate increase use of accessory muscles, eyes open but not focused, semi-comatose state HEENT: extubated 04/11/18, extraocular, pupils upward gaze NECK: supple, no adenopathy, no thyromegaly, no JVD CVS/HEART: Regular tacycardia, normal S1S2, pulses present bilaterally CHEST/LUNGS: Tachypneic, Symmetrical chest expansion, good air entry bilaterally GI/Abdomen: soft, PEG in place, good bowel sounds, no guarding or rebound EXT/Skin: dependant edema MSK: unresponsive, he will spontaneous move extremities, right wrist in restraint but not left Neuro: CN 2-12 grossly intact, doesn't follow command Psych: unresponsive - Constitutional Vitals: Temp Pulse Resp BP Pulse Ox 98.8 F 101 H 31 H 153/97 99 04/14/18 12:00 04/14/18 14:51 04/14/18 14:51 04/14/18 13:20 04/14/18 13:20 General appearance: Absent: mild distress, well-nourished, other Results - Labs CBC & Chem 7: 04/14/18 11:56 04/14/18 12:12 Labs: Laboratory Last Values WBC 14.8 K/mm3 (4.5-11.0) H 04/14/18 11:56 RBC 3.77 M/mm3 (3.65-5.03) 04/14/18 11:56 Hgb 11.1 gm/dl (11.8-15.2) L 04/14/18 11:56 Hct 33.3 % (35.5-45.6) L 04/14/18 11:56 MCV 88 fl (84-94) 04/14/18 11:56 MCH 30 pg (28-32) 04/14/18 11:56 MCHC 33 % (32-34) 04/14/18 11:56 RDW 15.7 % (13.2-15.2) H 04/14/18 11:56 Plt Count 443 K/mm3 (140-440) H 04/14/18 11:56 Lymph % (Auto) 6.5 % (13.4-35.0) L 04/09/18 04:00 [place] % (Auto) 3.5 % (0.0-7.3) 04/09/18 04:00 Eos % (Auto) 0.2 % (0.0-4.3) 04/09/18 04:00 Baso % (Auto) 0.2 % (0.0-1.8) 04/09/18 04:00 Lymph # 0.5 K/mm3 (1.2-5.4) L 04/09/18 04:00 [place] # 0.2 K/mm3 (0.0-0.8) 04/09/18 04:00 Eos # 0.0 K/mm3 (0.0-0.4) 04/09/18 04:00 Baso # 0.0 K/mm3 (0.0-0.1) 04/09/18 04:00 Add Manual Diff Complete 04/14/18 11:56 Total Counted 100 04/14/18 11:56 Seg Neutrophils % 89.6 % (40.0-70.0) H 04/09/18 04:00 Seg Neuts % (Manual) 89.0 % (40.0-70.0) H 04/14/18 11:56 Band Neutrophils % 1.0 % 04/14/18 11:56 Lymphocytes % (Manual) 1.0 % (13.4-35.0) L 04/14/18 11:56 Reactive Lymphs % (Man) 0 % 04/14/18 11:56 Monocytes % (Manual) 2.0 % (0.0-7.3) 04/14/18 11:56 Eosinophils % (Manual) 0 % (0.0-4.3) 04/14/18 11:56 Basophils % (Manual) 0 % (0.0-1.8) 04/14/18 11:56 Metamyelocytes % 6.0 % 04/14/18 11:56 Myelocytes % 1.0 % 04/14/18 11:56 Promyelocytes % 0 % 04/14/18 11:56 Blast Cells % 0 % 04/14/18 11:56 Nucleated RBC % Not Reportable 04/14/18 11:56 Seg Neutrophils # 6.4 K/mm3 (1.8-7.7) 04/09/18 04:00 Seg Neutrophils # Man 13.2 K/mm3 (1.8-7.7) H 04/14/18 11:56 Band Neutrophils # 0.1 K/mm3 04/14/18 11:56 Lymphocytes # (Manual) 0.1 K/mm3 (1.2-5.4) L 04/14/18 11:56 Abs React Lymphs (Man) 0.0 K/mm3 04/14/18 11:56 Monocytes # (Manual) 0.3 K/mm3 (0.0-0.8) 04/14/18 11:56 Eosinophils # (Manual) 0.0 K/mm3 (0.0-0.4) 04/14/18 11:56 Basophils # (Manual) 0.0 K/mm3 (0.0-0.1) 04/14/18 11:56 Metamyelocytes # 0.9 K/mm3 04/14/18 11:56 Myelocytes # 0.1 K/mm3 04/14/18 11:56 Promyelocytes # 0.0 K/mm3 04/14/18 11:56 Blast Cells # 0.0 K/mm3 04/14/18 11:56 WBC Morphology Not Reportable 04/14/18 11:56 Hypersegmented Neuts Not Reportable 04/14/18 11:56 Hyposegmented Neuts Not Reportable 04/14/18 11:56 Hypogranular Neuts Not Reportable 04/14/18 11:56 Smudge Cells Not Reportable 04/14/18 11:56 Toxic Granulation Few 04/14/18 11:56 Toxic Vacuolation Not Reportable 04/14/18 11:56 Dohle Bodies Not Reportable 04/14/18 11:56 Pelger-Huet Anomaly Not Reportable 04/14/18 11:56 Zandra Rods Not Reportable 04/14/18 11:56 Platelet Estimate Cons 04/14/18 11:56 Clumped Platelets Not Reportable 04/14/18 11:56 Plt Clumps, EDTA Not Reportable 04/14/18 11:56 Large Platelets Not Reportable 04/14/18 11:56 Giant Platelets Not Reportable 04/14/18 11:56 Platelet Satelliting Not Reportable 04/14/18 11:56 Plt Morphology Comment Not Reportable 04/14/18 11:56 RBC Morphology Not Reportable 04/14/18 11:56 Dimorphic RBCs Not Reportable 04/14/18 11:56 Polychromasia Not Reportable 04/14/18 11:56 Hypochromasia Not Reportable 04/14/18 11:56 Poikilocytosis Not Reportable 04/14/18 11:56 Anisocytosis 1+ 04/14/18 11:56 Microcytosis Not Reportable 04/14/18 11:56 Macrocytosis Not Reportable 04/14/18 11:56 Spherocytes Not Reportable 04/14/18 11:56 Pappenheimer Bodies Not Reportable 04/14/18 11:56 Sickle Cells Not Reportable 04/14/18 11:56 Target Cells Not Reportable 04/14/18 11:56 Tear Drop Cells Not Reportable 04/14/18 11:56 Ovalocytes Not Reportable 04/14/18 11:56 Helmet Cells Not Reportable 04/14/18 11:56 [place] Bodies Not Reportable 04/14/18 11:56 [place] Rings Not Reportable 04/14/18 11:56 [place] Cells Not Reportable 04/14/18 11:56 Bite Cells Not Reportable 04/14/18 11:56 Crenated Cell Not Reportable 04/14/18 11:56 Elliptocytes Not Reportable 04/14/18 11:56 Acanthocytes (Spur) Not Reportable 04/14/18 11:56 Rouleaux Not Reportable 04/14/18 11:56 Hemoglobin C Crystals Not Reportable 04/14/18 11:56 Schistocytes Not Reportable 04/14/18 11:56 Malaria parasites Not Reportable 04/14/18 11:56 Juan Bodies Not Reportable 04/14/18 11:56 Hem Pathologist Commnt No 04/14/18 11:56 PT 17.5 Sec. (12.2-14.9) H 04/08/18 09:25 INR 1.35 (0.87-1.13) H 04/08/18 09:25 APTT 35.0 Sec. (24.2-36.6) 04/08/18 09:25 Thrombin Time 14.6 Sec. (15.1-19.6) L 04/08/18 09:25 POC ABG pH 7.364 (7.35-7.45) 04/12/18 13:48 POC ABG pCO2 54.5 (35-45) H 04/12/18 13:48 POC ABG pO2 98 (80-105) 04/12/18 13:48 POC ABG HCO3 31.1 04/12/18 13:48 POC ABG Total CO2 33 04/12/18 13:48 POC ABG O2 Sat 97 04/12/18 13:48 POC ABG Base Excess 6 04/12/18 13:48 FiO2 50 % 04/12/18 13:48 Sodium 150 mmol/L (137-145) H D 04/14/18 12:12 Potassium 3.3 mmol/L (3.6-5.0) L 04/14/18 12:12 Chloride 108.5 mmol/L (98-107) H 04/14/18 12:12 Carbon Dioxide 28 mmol/L (22-30) 04/14/18 12:12 Anion Gap 17 mmol/L 04/14/18 12:12 BUN 40 mg/dL (9-20) H 04/14/18 12:12 Creatinine 0.5 mg/dL (0.8-1.5) L 04/14/18 12:12 Estimated GFR > 60 ml/min 04/14/18 12:12 BUN/Creatinine Ratio 80 % 04/14/18 12:12 Glucose 140 mg/dL (75-100) H 04/14/18 12:12 POC Glucose 142 (70-105) H 04/14/18 00:22 Lactic Acid 2.60 mmol/L (0.7-2.0) H* 04/12/18 10:12 Calcium 9.6 mg/dL (8.4-10.2) 04/14/18 12:12 Magnesium 1.90 mg/dL (1.7-2.3) 04/08/18 09:25 Total Bilirubin 0.30 mg/dL (0.1-1.2) 04/09/18 04:00 Direct Bilirubin 0.2 mg/dL (0-0.2) 04/08/18 10:18 Indirect Bilirubin 0.3 mg/dL 04/08/18 10:18 AST 61 units/L (5-40) H 04/09/18 04:00 ALT 26 units/L (7-56) 04/09/18 04:00 Alkaline Phosphatase 142 units/L (35-129) H 04/09/18 04:00 Ammonia 74.0 umol/L (25-60) H 04/08/18 09:57 Total Creatine Kinase 38 units/L (55-170) L 04/08/18 09:25 CK-MB (CK-2) < 1.0 ng/mL (0.0-4.0) 04/08/18 09:25 CK-MB (CK-2) Rel Index 2.6 (0-4) 04/08/18 09:25 Troponin T 0.059 ng/mL (0.00-0.029) H 04/08/18 09:25 NT-Pro-B Natriuret Pep 2534 pg/mL (0-900) H 04/08/18 09:25 Total Protein 5.2 g/dL (6.3-8.2) L D 04/09/18 04:00 Albumin 2.3 g/dL (3.9-5) L 04/09/18 04:00 Albumin/Globulin Ratio 0.8 % 04/09/18 04:00 Triglycerides 158 mg/dL (2-149) H 04/08/18 09:25 Cholesterol 130 mg/dL (50-199) 04/08/18 09:25 LDL Cholesterol Direct 60 mg/dL (50-130) 04/08/18 09:25 HDL Cholesterol 32 mg/dL (40-59) L 04/08/18 09:25 Cholesterol/HDL Ratio 4.06 % 04/08/18 09:25 Urine Color Kiersten (Yellow) 04/08/18 12:34 Urine Turbidity Cloudy (Clear) 04/08/18 12:34 Urine pH 5.0 (5.0-7.0) 04/08/18 12:34 Ur Specific [place] 1.023 (1.003-1.030) 04/08/18 12:34 Urine Protein 100 mg/dl mg/dL (Negative) 04/08/18 12:34 Urine Glucose (UA) 50 mg/dL (Negative) 04/08/18 12:34 Urine Ketones Neg mg/dL (Negative) 04/08/18 12:34 Urine Blood Neg (Negative) 04/08/18 12:34 Urine Nitrite Neg (Negative) 04/08/18 12:34 Ur Reducing Substances Not Reportable 04/08/18 12:34 Urine Bilirubin Neg (Negative) 04/08/18 12:34 Urine Ictotest Not Reportable 04/08/18 12:34 Urine Urobilinogen 4.0 mg/dL (<2.0) 04/08/18 12:34 Ur Leukocyte Esterase Neg (Negative) 04/08/18 12:34 Urine WBC (Auto) 22.0 /HPF (0.0-6.0) H 04/08/18 12:34 Urine RBC (Auto) 7.0 /HPF (0.0-6.0) 04/08/18 12:34 U Epithel Cells (Auto) 5.0 /HPF (0-13.0) 04/08/18 12:34 Urine Bacteria (Auto) 1+ /HPF (Negative) 04/08/18 12:34 Urine Mucus Few /HPF 04/08/18 12:34
--- NOTE | 2018-04-15 03:51 | XRay Report ---
FINAL REPORT EXAM: XR CHEST 1V AP HISTORY: follow up respiratory failure TECHNIQUE: A portable semi-erect view of the chest was obtained and compared to the study of 04/14/2018. FINDINGS: The lungs reveal stable nodular infiltrates bilaterally. Underlying congestion cannot be excluded. The heart size is normal. Pleural fluid is not seen. There EKG leads overlying the chest wall. The skeletal structures otherwise are unchanged. IMPRESSION: Stable bilateral nodular infiltrates as described. Superimposed congestion cannot be excluded.
[2018-04-15] MEDS ORDERED: NACL 0.9% 500 ML 500 ML IV ONE (04:46)
[2018-04-15] MEDS: TYLENOL PO PRN (04:52)
[2018-04-15] MEDS: DECADRON IV SCH ×3 (06:03→21:43)
[2018-04-15] MEDS: DUONEB *Not for PRN Use IH SCH ×3 (07:57→20:09)
[2018-04-15] MEDS: PEPCID PO SCH ×2 (09:50→21:43)
[2018-04-15] MEDS: LOVENOX SUB-Q SCH (09:50)
[2018-04-15] MEDS: ROCEPHIN/NS 2 GM/100 ML 2 GM/100 ML BAG IV SCH (09:51)
[2018-04-15] MEDS: SODIUM CHLORIDE FLUSH SYRINGE 10 ML IV SCH ×2 (09:52→21:46)
--- NOTE | 2018-04-15 10:25 | Progress Note ---
Assessment and Plan Assessment and plan: Patient is a 52 yo man from [facility] with Hospice who presented to [facility] ED via EMS with AMS/unresponsiveness. According to chart, patient just arrived to [facility] with hospice one day prior to this unresponsive state. 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 He has already received chemotherapy and radiation therapy. The father is aware that the patient is in hospice for a terminal condition. His CODE STATUS was initially full code but has been changed to DNR/ AND. He was intubated but not sedated, now he has been extubated on 04/11/18. His care has been pretty much been governed by Quality Engineer. 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: still on on IV Decadron -Acute encephalopathy as above -ARF, vasomotor nephropathy, poa: continue to monitor bmp -Severe protein calorie malnutrition: consult Machine Accountant, tube feeding -Oropharyngeal dysphaigia with PEG tube: continue present management -Advance care planning: now full code -DVT prophylaxis: scd and sq lovenox Consulted Ethic committee, ?hospice but family are not on the same page, patient is terminally ill==>it appears the patient's mother and father (pt lives with father) are now on the same page; however, patient is still legally but x 6 yr ( lives in [place]) they (parents) want SNF hospice Patient is responsive today, following commands, indicated to Dr. Gomez he wanted to be full code. Dr. Gomez called me to verify patient wishes. Patient appears to be orientated x 3 (he can squeeze right hand to any question you ask and he appropriately pass my testing) and he did indicate he wanted to be intubated. Disposition: continue inpatient care, trying to get to SNF Hospice vs LTach vs SNF CCT 32 min History Interval history: Patient was seen and examined. Follow-up on current diagnosis of unresponsiveness which appears to be resolved today. Patient is NRB today. Imaging, nursing note, chart, labs and old chart reviewed. Father and cousin Yoandy at bedside. Hospitalist Physical - Physical exam Narrative exam: GEN: gravely ill, responsive today, and appeared orientated, nonverbal but appropriated squeezed hand to questions, he was orientated x 3 HEENT: extubated 04/11/18, extraocular, pupils focused and tracking appropriately , NECK: supple, no adenopathy, no thyromegaly, no JVD CVS/HEART: Regular tacycardia, normal S1S2, pulses present bilaterally CHEST/LUNGS: Tachypneic, Symmetrical chest expansion, good air entry bilaterally GI/Abdomen: soft, PEG in place, good bowel sounds, no guarding or rebound EXT/Skin: dependant edema MSK: unresponsive, he will spontaneous move extremities, right wrist in restraint but not left Neuro: CN 2-12 grossly intact, followed command Psych: unresponsive - Constitutional Vitals: Temp Pulse Resp BP Pulse Ox 98.2 F 109 H 30 H 145/88 100 04/15/18 08:00 04/15/18 08:00 04/15/18 08:00 04/15/18 08:00 04/15/18 08:00 General appearance: Absent: mild distress, well-nourished, other Results - Labs CBC & Chem 7: 04/14/18 11:56 04/14/18 12:12 Labs: Laboratory Last Values WBC 14.8 K/mm3 (4.5-11.0) H 04/14/18 11:56 RBC 3.77 M/mm3 (3.65-5.03) 04/14/18 11:56 Hgb 11.1 gm/dl (11.8-15.2) L 04/14/18 11:56 Hct 33.3 % (35.5-45.6) L 04/14/18 11:56 MCV 88 fl (84-94) 04/14/18 11:56 MCH 30 pg (28-32) 04/14/18 11:56 MCHC 33 % (32-34) 04/14/18 11:56 RDW 15.7 % (13.2-15.2) H 04/14/18 11:56 Plt Count 443 K/mm3 (140-440) H 04/14/18 11:56 Lymph % (Auto) 6.5 % (13.4-35.0) L 04/09/18 04:00 [place] % (Auto) 3.5 % (0.0-7.3) 04/09/18 04:00 Eos % (Auto) 0.2 % (0.0-4.3) 04/09/18 04:00 Baso % (Auto) 0.2 % (0.0-1.8) 04/09/18 04:00 Lymph # 0.5 K/mm3 (1.2-5.4) L 04/09/18 04:00 [place] # 0.2 K/mm3 (0.0-0.8) 04/09/18 04:00 Eos # 0.0 K/mm3 (0.0-0.4) 04/09/18 04:00 Baso # 0.0 K/mm3 (0.0-0.1) 04/09/18 04:00 Add Manual Diff Complete 04/14/18 11:56 Total Counted 100 04/14/18 11:56 Seg Neutrophils % 89.6 % (40.0-70.0) H 04/09/18 04:00 Seg Neuts % (Manual) 89.0 % (40.0-70.0) H 04/14/18 11:56 Band Neutrophils % 1.0 % 04/14/18 11:56 Lymphocytes % (Manual) 1.0 % (13.4-35.0) L 04/14/18 11:56 Reactive Lymphs % (Man) 0 % 04/14/18 11:56 Monocytes % (Manual) 2.0 % (0.0-7.3) 04/14/18 11:56 Eosinophils % (Manual) 0 % (0.0-4.3) 04/14/18 11:56 Basophils % (Manual) 0 % (0.0-1.8) 04/14/18 11:56 Metamyelocytes % 6.0 % 04/14/18 11:56 Myelocytes % 1.0 % 04/14/18 11:56 Promyelocytes % 0 % 04/14/18 11:56 Blast Cells % 0 % 04/14/18 11:56 Nucleated RBC % Not Reportable 04/14/18 11:56 Seg Neutrophils # 6.4 K/mm3 (1.8-7.7) 04/09/18 04:00 Seg Neutrophils # Man 13.2 K/mm3 (1.8-7.7) H 04/14/18 11:56 Band Neutrophils # 0.1 K/mm3 04/14/18 11:56 Lymphocytes # (Manual) 0.1 K/mm3 (1.2-5.4) L 04/14/18 11:56 Abs React Lymphs (Man) 0.0 K/mm3 04/14/18 11:56 Monocytes # (Manual) 0.3 K/mm3 (0.0-0.8) 04/14/18 11:56 Eosinophils # (Manual) 0.0 K/mm3 (0.0-0.4) 04/14/18 11:56 Basophils # (Manual) 0.0 K/mm3 (0.0-0.1) 04/14/18 11:56 Metamyelocytes # 0.9 K/mm3 04/14/18 11:56 Myelocytes # 0.1 K/mm3 04/14/18 11:56 Promyelocytes # 0.0 K/mm3 04/14/18 11:56 Blast Cells # 0.0 K/mm3 04/14/18 11:56 WBC Morphology Not Reportable 04/14/18 11:56 Hypersegmented Neuts Not Reportable 04/14/18 11:56 Hyposegmented Neuts Not Reportable 04/14/18 11:56 Hypogranular Neuts Not Reportable 04/14/18 11:56 Smudge Cells Not Reportable 04/14/18 11:56 Toxic Granulation Few 04/14/18 11:56 Toxic Vacuolation Not Reportable 04/14/18 11:56 Dohle Bodies Not Reportable 04/14/18 11:56 Pelger-Huet Anomaly Not Reportable 04/14/18 11:56 Zandra Rods Not Reportable 04/14/18 11:56 Platelet Estimate Cons 04/14/18 11:56 Clumped Platelets Not Reportable 04/14/18 11:56 Plt Clumps, EDTA Not Reportable 04/14/18 11:56 Large Platelets Not Reportable 04/14/18 11:56 Giant Platelets Not Reportable 04/14/18 11:56 Platelet Satelliting Not Reportable 04/14/18 11:56 Plt Morphology Comment Not Reportable 04/14/18 11:56 RBC Morphology Not Reportable 04/14/18 11:56 Dimorphic RBCs Not Reportable 04/14/18 11:56 Polychromasia Not Reportable 04/14/18 11:56 Hypochromasia Not Reportable 04/14/18 11:56 Poikilocytosis Not Reportable 04/14/18 11:56 Anisocytosis 1+ 04/14/18 11:56 Microcytosis Not Reportable 04/14/18 11:56 Macrocytosis Not Reportable 04/14/18 11:56 Spherocytes Not Reportable 04/14/18 11:56 Pappenheimer Bodies Not Reportable 04/14/18 11:56 Sickle Cells Not Reportable 04/14/18 11:56 Target Cells Not Reportable 04/14/18 11:56 Tear Drop Cells Not Reportable 04/14/18 11:56 Ovalocytes Not Reportable 04/14/18 11:56 Helmet Cells Not Reportable 04/14/18 11:56 [place] Bodies Not Reportable 04/14/18 11:56 [place] Rings Not Reportable 04/14/18 11:56 [place] Cells Not Reportable 04/14/18 11:56 Bite Cells Not Reportable 04/14/18 11:56 Crenated Cell Not Reportable 04/14/18 11:56 Elliptocytes Not Reportable 04/14/18 11:56 Acanthocytes (Spur) Not Reportable 04/14/18 11:56 Rouleaux Not Reportable 04/14/18 11:56 Hemoglobin C Crystals Not Reportable 04/14/18 11:56 Schistocytes Not Reportable 04/14/18 11:56 Malaria parasites Not Reportable 04/14/18 11:56 Juan Bodies Not Reportable 04/14/18 11:56 Hem Pathologist Commnt No 04/14/18 11:56 PT 17.5 Sec. (12.2-14.9) H 04/08/18 09:25 INR 1.35 (0.87-1.13) H 04/08/18 09:25 APTT 35.0 Sec. (24.2-36.6) 04/08/18 09:25 Thrombin Time 14.6 Sec. (15.1-19.6) L 04/08/18 09:25 POC ABG pH 7.364 (7.35-7.45) 04/12/18 13:48 POC ABG pCO2 54.5 (35-45) H 04/12/18 13:48 POC ABG pO2 98 (80-105) 04/12/18 13:48 POC ABG HCO3 31.1 04/12/18 13:48 POC ABG Total CO2 33 04/12/18 13:48 POC ABG O2 Sat 97 04/12/18 13:48 POC ABG Base Excess 6 04/12/18 13:48 FiO2 50 % 04/12/18 13:48 Sodium 150 mmol/L (137-145) H D 04/14/18 12:12 Potassium 3.3 mmol/L (3.6-5.0) L 04/14/18 12:12 Chloride 108.5 mmol/L (98-107) H 04/14/18 12:12 Carbon Dioxide 28 mmol/L (22-30) 04/14/18 12:12 Anion Gap 17 mmol/L 04/14/18 12:12 BUN 40 mg/dL (9-20) H 04/14/18 12:12 Creatinine 0.5 mg/dL (0.8-1.5) L 04/14/18 12:12 Estimated GFR > 60 ml/min 04/14/18 12:12 BUN/Creatinine Ratio 80 % 04/14/18 12:12 Glucose 140 mg/dL (75-100) H 04/14/18 12:12 POC Glucose 122 (70-105) H 04/15/18 05:58 Lactic Acid 2.60 mmol/L (0.7-2.0) H* 04/12/18 10:12 Calcium 9.6 mg/dL (8.4-10.2) 04/14/18 12:12 Magnesium 1.90 mg/dL (1.7-2.3) 04/08/18 09:25 Total Bilirubin 0.30 mg/dL (0.1-1.2) 04/09/18 04:00 Direct Bilirubin 0.2 mg/dL (0-0.2) 04/08/18 10:18 Indirect Bilirubin 0.3 mg/dL 04/08/18 10:18 AST 61 units/L (5-40) H 04/09/18 04:00 ALT 26 units/L (7-56) 04/09/18 04:00 Alkaline Phosphatase 142 units/L (35-129) H 04/09/18 04:00 Ammonia 74.0 umol/L (25-60) H 04/08/18 09:57 Total Creatine Kinase 38 units/L (55-170) L 04/08/18 09:25 CK-MB (CK-2) < 1.0 ng/mL (0.0-4.0) 04/08/18 09:25 CK-MB (CK-2) Rel Index 2.6 (0-4) 04/08/18 09:25 Troponin T 0.059 ng/mL (0.00-0.029) H 04/08/18 09:25 NT-Pro-B Natriuret Pep 2534 pg/mL (0-900) H 04/08/18 09:25 Total Protein 5.2 g/dL (6.3-8.2) L D 04/09/18 04:00 Albumin 2.3 g/dL (3.9-5) L 04/09/18 04:00 Albumin/Globulin Ratio 0.8 % 04/09/18 04:00 Triglycerides 158 mg/dL (2-149) H 04/08/18 09:25 Cholesterol 130 mg/dL (50-199) 04/08/18 09:25 LDL Cholesterol Direct 60 mg/dL (50-130) 04/08/18 09:25 HDL Cholesterol 32 mg/dL (40-59) L 04/08/18 09:25 Cholesterol/HDL Ratio 4.06 % 04/08/18 09:25 Urine Color Kiersten (Yellow) 04/08/18 12:34 Urine Turbidity Cloudy (Clear) 04/08/18 12:34 Urine pH 5.0 (5.0-7.0) 04/08/18 12:34 Ur Specific [place] 1.023 (1.003-1.030) 04/08/18 12:34 Urine Protein 100 mg/dl mg/dL (Negative) 04/08/18 12:34 Urine Glucose (UA) 50 mg/dL (Negative) 04/08/18 12:34 Urine Ketones Neg mg/dL (Negative) 04/08/18 12:34 Urine Blood Neg (Negative) 04/08/18 12:34 Urine Nitrite Neg (Negative) 04/08/18 12:34 Ur Reducing Substances Not Reportable 04/08/18 12:34 Urine Bilirubin Neg (Negative) 04/08/18 12:34 Urine Ictotest Not Reportable 04/08/18 12:34 Urine Urobilinogen 4.0 mg/dL (<2.0) 04/08/18 12:34 Ur Leukocyte Esterase Neg (Negative) 04/08/18 12:34 Urine WBC (Auto) 22.0 /HPF (0.0-6.0) H 04/08/18 12:34 Urine RBC (Auto) 7.0 /HPF (0.0-6.0) 04/08/18 12:34 U Epithel Cells (Auto) 5.0 /HPF (0-13.0) 04/08/18 12:34 Urine Bacteria (Auto) 1+ /HPF (Negative) 04/08/18 12:34 Urine Mucus Few /HPF 04/08/18 12:34
--- NOTE | 2018-04-15 13:13 | Progress Note ---
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 Acute encephalopathy Abnormal CTscan brain Severe protein calorie malnutrition Oropharyngeal dysphagia PEG (Ayush has responded appropriately and is A&O X 3 at time of my examination which was witnessed by RN and his father in room; he clearly asks me to do everything even if he has to go back on life support) - continue venti-mask and wean FiO2 for sats > 90% - continue scheduled BIPAP qhs - humidify all supplemental oxygen - prn NT-suction - continue aspiration precautions - continue VTE prophylaxis - continue Reglan prn - continue Enteral nutrition as tolerated - continue to monitor renal indices and urine output - free water supplementation (D5w at 100 mls/hr X 2 liters ordered) - continue to monitor neurology, neuro checks - continue Seizure precautions - Analgesia and agitation management - Accuchecks with glycemic control - continue rocephin X 7 days - Critical care bundles addressed - care plan discussed with dad in room ... FULL CODE status per patients wishes .... improved and will transfer to telemetry floor ... 35' Subjective Date of service: 04/15/18 Principal diagnosis: acute hypoxemic respiratory failure, pneumonia, brain metastases, sepsis Interval history: Patient is seen today for: Acute hypoxemic respiratory failure, pneumonia, brain metastases, sepsis Seen and examined at bedside; 24hour events reviewed; nursing and respiratory care staff consulted; no adverse overnight events reported to me; he remains on a venti-mask; much more appropriate; A&O X 3; denies acute chest pains or other uncontrolled pain; No N/V/F/C Objective Vital Signs - 12hr 04/15/18 04/15/18 04/15/18 01:20 01:30 01:40 Temperature Pulse Rate 95 H 89 87 Pulse Rate [ From Monitor] Pulse Rate [ Right Dorsalis Pedis] Respiratory 21 23 22 Rate Blood Pressure 92/48 92/48 92/48 O2 Sat by Pulse 99 98 98 Oximetry 04/15/18 04/15/18 04/15/18 01:50 02:00 02:10 Temperature Pulse Rate 84 97 H 102 H Pulse Rate [ From Monitor] Pulse Rate [ Right Dorsalis Pedis] Respiratory 24 22 16 Rate Blood Pressure 92/48 92/48 92/48 O2 Sat by Pulse 98 99 99 Oximetry 0804/15/18 04/15/18 02:20 02:30 02:40 Temperature Pulse Rate 94 H 95 H 95 H Pulse Rate [ From Monitor] Pulse Rate [ Right Dorsalis Pedis] Respiratory 18 22 13 Rate Blood Pressure 92/48 92/48 92/48 O2 Sat by Pulse 99 99 99 Oximetry 04/15/18 04/15/18 04/15/18 02:50 03:00 03:10 Temperature Pulse Rate 94 H 97 H 87 Pulse Rate [ From Monitor] Pulse Rate [ Right Dorsalis Pedis] Respiratory 9 L 21 27 H Rate Blood Pressure 92/48 92/48 92/48 O2 Sat by Pulse 99 99 99 Oximetry 04/15/18 04/15/18 04/15/18 03:20 03:23 03:30 Temperature 100.4 F H Pulse Rate 95 H 96 H Pulse Rate [ From Monitor] Pulse Rate [ Right Dorsalis Pedis] Respiratory 17 20 Rate Blood Pressure 92/48 92/48 O2 Sat by Pulse 99 98 Oximetry 04/15/18 04/15/18 04/15/18 03:40 03:50 04:00 Temperature Pulse Rate 94 H 94 H 93 H Pulse Rate [ 92 H From Monitor] Pulse Rate [ Right Dorsalis Pedis] Respiratory 22 18 16 Rate Blood Pressure 92/48 92/48 92/48 O2 Sat by Pulse 98 98 98 Oximetry 04/15/18 04/15/18 04/15/18 04:10 04:20 04:30 Temperature Pulse Rate 94 H 93 H 84 Pulse Rate [ From Monitor] Pulse Rate [ Right Dorsalis Pedis] Respiratory 22 19 18 Rate Blood Pressure 69/40 86/43 86/43 O2 Sat by Pulse 97 98 97 Oximetry 04/15/18 04/15/18 04/15/18 04:40 04:50 04:52 Temperature Pulse Rate 92 H 90 Pulse Rate [ From Monitor] Pulse Rate [ Right Dorsalis Pedis] Respiratory 29 H 20 23 Rate Blood Pressure 86/43 86/43 O2 Sat by Pulse 98 99 Oximetry 04/15/18 04/15/18 04/15/18 05:00 05:10 05:20 Temperature Pulse Rate 91 H 84 83 Pulse Rate [ From Monitor] Pulse Rate [ Right Dorsalis Pedis] Respiratory 20 17 23 Rate Blood Pressure 147/94 147/94 147/94 O2 Sat by Pulse 99 99 98 Oximetry 04/15/18 04/15/18 04/15/18 05:30 05:40 05:50 Temperature Pulse Rate 81 86 83 Pulse Rate [ From Monitor] Pulse Rate [ Right Dorsalis Pedis] Respiratory 24 28 H 25 H Rate Blood Pressure 147/94 147/94 147/94 O2 Sat by Pulse 99 99 100 Oximetry 04/15/18 04/15/18 04/15/18 06:00 06:10 06:20 Temperature Pulse Rate 81 89 81 Pulse Rate [ From Monitor] Pulse Rate [ Right Dorsalis Pedis] Respiratory 25 H 29 H 21 Rate Blood Pressure 152/93 152/93 152/93 O2 Sat by Pulse 99 99 100 Oximetry 04/15/18 04/15/18 04/15/18 06:30 06:40 06:50 Temperature Pulse Rate 82 83 83 Pulse Rate [ From Monitor] Pulse Rate [ Right Dorsalis Pedis] Respiratory 24 18 21 Rate Blood Pressure 152/93 152/93 152/93 O2 Sat by Pulse 100 100 99 Oximetry 04/15/18 04/15/18 04/15/18 07:00 07:10 07:20 Temperature Pulse Rate 71 77 98 H Pulse Rate [ From Monitor] Pulse Rate [ Right Dorsalis Pedis] Respiratory 29 H 25 H 20 Rate Blood Pressure 159/90 159/90 159/90 O2 Sat by Pulse 100 99 99 Oximetry 04/15/18 04/15/18 04/15/18 07:30 07:40 07:50 Temperature Pulse Rate 84 85 90 Pulse Rate [ From Monitor] Pulse Rate [ Right Dorsalis Pedis] Respiratory 25 H 21 13 Rate Blood Pressure 159/90 159/90 159/90 O2 Sat by Pulse 99 99 100 Oximetry 04/15/18 04/15/18 04/15/18 08:00 08:10 08:20 Temperature 98.2 F Pulse Rate 95 H 108 H 111 H Pulse Rate [ 109 H From Monitor] Pulse Rate [ 109 H Right Dorsalis Pedis] Respiratory 28 H 27 H 29 H Rate Blood Pressure 145/88 145/88 145/88 O2 Sat by Pulse 99 99 98 Oximetry 04/15/18 04/15/18 04/15/18 08:30 08:40 08:50 Temperature Pulse Rate 105 H 108 H 107 H Pulse Rate [ From Monitor] Pulse Rate [ Right Dorsalis Pedis] Respiratory 22 21 21 Rate Blood Pressure 130/84 130/84 130/84 O2 Sat by Pulse 99 99 99 Oximetry 04/15/18 04/15/18 04/15/18 09:00 09:10 09:20 Temperature Pulse Rate 104 H 109 H 105 H Pulse Rate [ From Monitor] Pulse Rate [ Right Dorsalis Pedis] Respiratory 23 19 26 H Rate Blood Pressure 132/86 132/86 132/86 O2 Sat by Pulse 99 99 99 Oximetry 04/15/18 04/15/18 04/15/18 09:30 09:40 09:50 Temperature Pulse Rate 100 H 104 H 99 H Pulse Rate [ From Monitor] Pulse Rate [ Right Dorsalis Pedis] Respiratory 23 30 H 18 Rate Blood Pressure 134/84 134/84 134/84 O2 Sat by Pulse 99 96 97 Oximetry 04/15/18 04/15/18 04/15/18 10:00 10:10 10:20 Temperature Pulse Rate 100 H 95 H 94 H Pulse Rate [ From Monitor] Pulse Rate [ Right Dorsalis Pedis] Respiratory 24 20 24 Rate Blood Pressure 139/87 139/87 139/87 O2 Sat by Pulse 98 97 96 Oximetry 04/15/18 04/15/18 04/15/18 10:30 10:40 10:50 Temperature Pulse Rate 95 H 92 H 91 H Pulse Rate [ From Monitor] Pulse Rate [ Right Dorsalis Pedis] Respiratory 21 25 H 19 Rate Blood Pressure 141/85 141/85 141/85 O2 Sat by Pulse 98 98 Oximetry 04/15/18 04/15/18 04/15/18 11:00 11:10 11:20 Temperature Pulse Rate 92 H 93 H 94 H Pulse Rate [ From Monitor] Pulse Rate [ Right Dorsalis Pedis] Respiratory 22 21 23 Rate Blood Pressure 124/78 124/78 124/78 O2 Sat by Pulse 97 96 96 Oximetry 04/15/18 04/15/18 04/15/18 11:30 11:40 11:50 Temperature Pulse Rate 97 H 92 H 100 H Pulse Rate [ From Monitor] Pulse Rate [ Right Dorsalis Pedis] Respiratory 24 19 23 Rate Blood Pressure 133/83 133/83 133/83 O2 Sat by Pulse 95 96 94 Oximetry 04/15/18 04/15/18 04/15/18 12:00 12:10 12:20 Temperature 98.2 F Pulse Rate 102 H 95 H 101 H Pulse Rate [ 109 H From Monitor] Pulse Rate [ 109 H Right Dorsalis Pedis] Respiratory 25 H 24 21 Rate Blood Pressure 131/89 131/89 133/83 O2 Sat by Pulse 96 93 93 Oximetry 04/15/18 12:30 Temperature Pulse Rate 103 H Pulse Rate [ From Monitor] Pulse Rate [ Right Dorsalis Pedis] Respiratory 27 H Rate Blood Pressure 142/89 O2 Sat by Pulse 92 Oximetry Constitutional: appears uncomfortable, other (middle aged chronically ill looking CM; normocephalic and atraumatic) Eyes: non-icteric ENT: oropharynx moist, other (mallampati 2) Neck: supple, no lymphadenopathy, no JVD, other (no thyromegaly) Effort: very labored Ascultation: Bilateral: diminished breath sounds, rhonchi (scant ) Percussion: Bilateral: not dull Cardiovascular: regular rate and rhythm, PVC's noted (occasional), other (No R/M ) Gastrointestinal: normoactive bowel sounds, soft, non-tender, non-distended, other (No HSM) Integumentary: other (poor turgor) Extremities: no cyanosis, no edema, pink and warm, pulses normal, other ( contractures) Neurologic: normal mental status, pupils equal and round, CN II-XII normal, other (weak) Psychiatric: mood appropriate, affect normal CBC and BMP: 04/14/18 11:56 04/14/18 12:12 ABG, PT/INR, D-dimer: ABG POC ABG pH 7.364 (7.35-7.45) 04/12/18 13:48 POC ABG pCO2 54.5 (35-45) H 04/12/18 13:48 POC ABG pO2 98 (80-105) 04/12/18 13:48 POC ABG HCO3 31.1 04/12/18 13:48 POC ABG Total CO2 33 04/12/18 13:48 POC ABG O2 Sat 97 04/12/18 13:48 PT/INR, D-dimer PT 17.5 Sec. (12.2-14.9) H 04/08/18 09:25 INR 1.35 (0.87-1.13) H 04/08/18 09:25 Abnormal lab findings: Abnormal Labs 04/08/18 04/08/18 04/08/18 09:25 09:25 09:25 WBC RBC 5.20 H Hgb 15.7 H Hct 47.1 H RDW Plt Count 621 H Lymph % (Auto) 11.4 L Lymph # 1.1 L Seg Neutrophils % 81.7 H Seg Neuts % (Manual) Lymphocytes % (Manual) Seg Neutrophils # Man Lymphocytes # (Manual) PT 17.5 H INR 1.35 H Thrombin Time 14.6 L POC ABG pH POC ABG pCO2 POC ABG pO2 Sodium Potassium 5.2 H Chloride 89.9 L BUN 22 H Creatinine 1.7 H Glucose 184 H POC Glucose Lactic Acid Calcium AST Alkaline Phosphatase Ammonia Total Creatine Kinase Troponin T 0.059 H NT-Pro-B Natriuret Pep Total Protein Albumin Triglycerides 158 H HDL Cholesterol 32 L Urine WBC (Auto) 04/08/18 04/08/18 04/08/18 09:25 09:25 09:57 WBC RBC Hgb Hct RDW Plt Count Lymph % (Auto) Lymph # Seg Neutrophils % Seg Neuts % (Manual) Lymphocytes % (Manual) Seg Neutrophils # Man Lymphocytes # (Manual) PT INR Thrombin Time POC ABG pH POC ABG pCO2 POC ABG pO2 Sodium Potassium Chloride BUN Creatinine Glucose POC Glucose Lactic Acid 10.50 H* Calcium AST Alkaline Phosphatase Ammonia 74.0 H Total Creatine Kinase 38 L Troponin T NT-Pro-B Natriuret Pep 2534 H Total Protein Albumin Triglycerides HDL Cholesterol Urine WBC (Auto) 04/08/18 04/08/18 04/08/18 10:18 10:43 11:00 WBC RBC Hgb Hct RDW Plt Count Lymph % (Auto) Lymph # Seg Neutrophils % Seg Neuts % (Manual) Lymphocytes % (Manual) Seg Neutrophils # Man Lymphocytes # (Manual) PT INR Thrombin Time POC ABG pH 7.294 L POC ABG pCO2 49.6 H POC ABG pO2 Sodium Potassium Chloride 96.8 L BUN 21 H Creatinine 1.6 H Glucose 155 H POC Glucose Lactic Acid Calcium AST 93 H Alkaline Phosphatase 216 H Ammonia Total Creatine Kinase Troponin T NT-Pro-B Natriuret Pep Total Protein Albumin 3.0 L Triglycerides HDL Cholesterol Urine WBC (Auto) 04/08/18 04/08/18 04/08/18 11:00 12:34 16:41 WBC RBC Hgb Hct RDW Plt Count Lymph % (Auto) Lymph # Seg Neutrophils % Seg Neuts % (Manual) Lymphocytes % (Manual) Seg Neutrophils # Man Lymphocytes # (Manual) PT INR Thrombin Time POC ABG pH POC ABG pCO2 POC ABG pO2 Sodium Potassium Chloride BUN Creatinine Glucose POC Glucose Lactic Acid 8.40 H* 5.10 H* Calcium AST Alkaline Phosphatase Ammonia Total Creatine Kinase Troponin T NT-Pro-B Natriuret Pep Total Protein Albumin Triglycerides HDL Cholesterol Urine WBC (Auto) 22.0 H 04/08/18 04/08/18 04/08/18 17:43 20:54 23:39 WBC RBC Hgb Hct RDW Plt Count Lymph % (Auto) Lymph # Seg Neutrophils % Seg Neuts % (Manual) Lymphocytes % (Manual) Seg Neutrophils # Man Lymphocytes # (Manual) PT INR Thrombin Time POC ABG pH POC ABG pCO2 POC ABG pO2 Sodium Potassium Chloride BUN Creatinine Glucose POC Glucose 168 H 167 H Lactic Acid 4.70 H* Calcium AST Alkaline Phosphatase Ammonia Total Creatine Kinase Troponin T NT-Pro-B Natriuret Pep Total Protein Albumin Triglycerides HDL Cholesterol Urine WBC (Auto) 04/09/18 04/09/18 04/09/18 04:00 04:00 04:00 WBC RBC Hgb 11.7 L D Hct 34.7 L D RDW Plt Count Lymph % (Auto) 6.5 L Lymph # 0.5 L Seg Neutrophils % 89.6 H Seg Neuts % (Manual) Lymphocytes % (Manual) Seg Neutrophils # Man Lymphocytes # (Manual) PT INR Thrombin Time POC ABG pH POC ABG pCO2 POC ABG pO2 Sodium Potassium Chloride BUN 26 H Creatinine Glucose 179 H POC Glucose Lactic Acid 3.50 H* Calcium 8.2 L AST 61 H Alkaline Phosphatase 142 H Ammonia Total Creatine Kinase Troponin T NT-Pro-B Natriuret Pep Total Protein 5.2 L D Albumin 2.3 L Triglycerides HDL Cholesterol Urine WBC (Auto) 04/09/18 04/09/18 04/09/18 04:24 06:03 12:19 WBC RBC Hgb Hct RDW Plt Count Lymph % (Auto) Lymph # Seg Neutrophils % Seg Neuts % (Manual) Lymphocytes % (Manual) Seg Neutrophils # Man Lymphocytes # (Manual) PT INR Thrombin Time POC ABG pH POC ABG pCO2 POC ABG pO2 135 H Sodium Potassium Chloride BUN Creatinine Glucose POC Glucose 158 H 168 H Lactic Acid Calcium AST Alkaline Phosphatase Ammonia Total Creatine Kinase Troponin T NT-Pro-B Natriuret Pep Total Protein Albumin Triglycerides HDL Cholesterol Urine WBC (Auto) 04/09/18 04/09/18 04/09/18 16:30 18:01 23:31 WBC RBC Hgb Hct RDW Plt Count Lymph % (Auto) Lymph # Seg Neutrophils % Seg Neuts % (Manual) Lymphocytes % (Manual) Seg Neutrophils # Man Lymphocytes # (Manual) PT INR Thrombin Time POC ABG pH POC ABG pCO2 45.7 H POC ABG pO2 168 H Sodium Potassium Chloride BUN Creatinine Glucose POC Glucose 161 H 154 H Lactic Acid Calcium AST Alkaline Phosphatase Ammonia Total Creatine Kinase Troponin T NT-Pro-B Natriuret Pep Total Protein Albumin Triglycerides HDL Cholesterol Urine WBC (Auto) 04/10/18 04/10/18 04/10/18 04:01 05:24 12:49 WBC RBC Hgb Hct RDW Plt Count Lymph % (Auto) Lymph # Seg Neutrophils % Seg Neuts % (Manual) Lymphocytes % (Manual) Seg Neutrophils # Man Lymphocytes # (Manual) PT INR Thrombin Time POC ABG pH POC ABG pCO2 POC ABG pO2 124 H Sodium Potassium Chloride BUN Creatinine Glucose POC Glucose 141 H 132 H Lactic Acid Calcium AST Alkaline Phosphatase Ammonia Total Creatine Kinase Troponin T NT-Pro-B Natriuret Pep Total Protein Albumin Triglycerides HDL Cholesterol Urine WBC (Auto) 04/10/18 04/11/18 04/11/18 19:07 00:11 05:28 WBC RBC Hgb Hct RDW Plt Count Lymph % (Auto) Lymph # Seg Neutrophils % Seg Neuts % (Manual) Lymphocytes % (Manual) Seg Neutrophils # Man Lymphocytes # (Manual) PT INR Thrombin Time POC ABG pH POC ABG pCO2 POC ABG pO2 Sodium Potassium Chloride BUN Creatinine Glucose POC Glucose 128 H 120 H 107 H Lactic Acid Calcium AST Alkaline Phosphatase Ammonia Total Creatine Kinase Troponin T NT-Pro-B Natriuret Pep Total Protein Albumin Triglycerides HDL Cholesterol Urine WBC (Auto) 04/11/18 04/12/18 04/12/18 22:04 03:48 08:29 WBC RBC Hgb Hct RDW Plt Count Lymph % (Auto) Lymph # Seg Neutrophils % Seg Neuts % (Manual) Lymphocytes % (Manual) Seg Neutrophils # Man Lymphocytes # (Manual) PT INR Thrombin Time POC ABG pH POC ABG pCO2 POC ABG pO2 Sodium Potassium Chloride BUN Creatinine Glucose POC Glucose Lactic Acid 3.10 H* 3.30 H* 3.10 H* Calcium AST Alkaline Phosphatase Ammonia Total Creatine Kinase Troponin T NT-Pro-B Natriuret Pep Total Protein Albumin Triglycerides HDL Cholesterol Urine WBC (Auto) 04/12/18 04/12/18 04/12/18 08:29 10:12 11:52 WBC RBC Hgb Hct RDW Plt Count Lymph % (Auto) Lymph # Seg Neutrophils % Seg Neuts % (Manual) Lymphocytes % (Manual) Seg Neutrophils # Man Lymphocytes # (Manual) PT INR Thrombin Time POC ABG pH POC ABG pCO2 POC ABG pO2 Sodium Potassium Chloride BUN 34 H Creatinine Glucose 135 H POC Glucose 140 H Lactic Acid 2.60 H* Calcium AST Alkaline Phosphatase Ammonia Total Creatine Kinase Troponin T NT-Pro-B Natriuret Pep Total Protein Albumin Triglycerides HDL Cholesterol Urine WBC (Auto) 04/12/18 04/12/18 04/13/18 13:48 18:32 00:23 WBC RBC Hgb Hct RDW Plt Count Lymph % (Auto) Lymph # Seg Neutrophils % Seg Neuts % (Manual) Lymphocytes % (Manual) Seg Neutrophils # Man Lymphocytes # (Manual) PT INR Thrombin Time POC ABG pH POC ABG pCO2 54.5 H POC ABG pO2 Sodium Potassium Chloride BUN Creatinine Glucose POC Glucose 121 H 118 H Lactic Acid Calcium AST Alkaline Phosphatase Ammonia Total Creatine Kinase Troponin T NT-Pro-B Natriuret Pep Total Protein Albumin Triglycerides HDL Cholesterol Urine WBC (Auto) 04/13/18 04/13/18 04/14/18 05:41 13:49 00:22 WBC RBC Hgb Hct RDW Plt Count Lymph % (Auto) Lymph # Seg Neutrophils % Seg Neuts % (Manual) Lymphocytes % (Manual) Seg Neutrophils # Man Lymphocytes # (Manual) PT INR Thrombin Time POC ABG pH POC ABG pCO2 POC ABG pO2 Sodium Potassium Chloride BUN Creatinine Glucose POC Glucose 111 H 122 H 142 H Lactic Acid Calcium AST Alkaline Phosphatase Ammonia Total Creatine Kinase Troponin T NT-Pro-B Natriuret Pep Total Protein Albumin Triglycerides HDL Cholesterol Urine WBC (Auto) 04/14/18 04/14/18 04/14/18 11:56 12:12 13:46 WBC 14.8 H RBC Hgb 11.1 L Hct 33.3 L RDW 15.7 H Plt Count 443 H Lymph % (Auto) Lymph # Seg Neutrophils % Seg Neuts % (Manual) 89.0 H Lymphocytes % (Manual) 1.0 L Seg Neutrophils # Man 13.2 H Lymphocytes # (Manual) 0.1 L PT INR Thrombin Time POC ABG pH POC ABG pCO2 POC ABG pO2 Sodium 150 H D Potassium 3.3 L Chloride 108.5 H BUN 40 H Creatinine 0.5 L Glucose 140 H POC Glucose 135 H Lactic Acid Calcium AST Alkaline Phosphatase Ammonia Total Creatine Kinase Troponin T NT-Pro-B Natriuret Pep Total Protein Albumin Triglycerides HDL Cholesterol Urine WBC (Auto) 04/14/18 04/14/18 04/15/18 17:32 23:27 05:58 WBC RBC Hgb Hct RDW Plt Count Lymph % (Auto) Lymph # Seg Neutrophils % Seg Neuts % (Manual) Lymphocytes % (Manual) Seg Neutrophils # Man Lymphocytes # (Manual) PT INR Thrombin Time POC ABG pH POC ABG pCO2 POC ABG pO2 Sodium Potassium Chloride BUN Creatinine Glucose POC Glucose 158 H 156 H 122 H Lactic Acid Calcium AST Alkaline Phosphatase Ammonia Total Creatine Kinase Troponin T NT-Pro-B Natriuret Pep Total Protein Albumin Triglycerides HDL Cholesterol Urine WBC (Auto) Allied health notes reviewed: nursing
[2018-04-15] MEDS: MORPHINE IV PRN (20:54)
[2018-04-16] MEDS: PERCOCET 5/325 PO PRN (00:28)
[2018-04-16] MEDS: MORPHINE IV PRN (02:22)
[2018-04-16] MEDS: DECADRON IV SCH ×3 (05:12→22:31)
[2018-04-16] MEDS: DUONEB *Not for PRN Use IH SCH ×3 (08:03→20:52)
[2018-04-16] MEDS: PEPCID PO SCH ×2 (09:29→22:31)
[2018-04-16] MEDS: SODIUM CHLORIDE FLUSH SYRINGE 10 ML IV SCH ×2 (09:29→22:32)
[2018-04-16] MEDS: LOVENOX SUB-Q SCH (09:29)
[2018-04-16] MEDS: ARTIFICIAL TEARS OPHTH OINT OU PRN (09:30)
[2018-04-16] MEDS: ROCEPHIN/NS 2 GM/100 ML 2 GM/100 ML BAG IV SCH (10:21)
--- NOTE | 2018-04-16 13:11 | Progress Note ---
Assessment and Plan Assessment and plan: Patient is a 52 yo man from [facility] with Hospice who presented to [facility] ED via EMS with AMS/unresponsiveness. According to chart, patient just arrived to [facility] with hospice one day prior to this unresponsive state. 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 He has already received chemotherapy and radiation therapy. The father is aware that the patient is in hospice for a terminal condition. His CODE STATUS was initially full code but has been changed to DNR/ AND. He was intubated but not sedated, now he has been extubated on 04/11/18. His care has been pretty much been governed by Student Officer. 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: still on on IV Decadron -Acute encephalopathy as above -ARF, vasomotor nephropathy, poa: continue to monitor bmp -Severe protein calorie malnutrition: consult Lockstitch Machine Operator, tube feeding -Oropharyngeal dysphaigia with PEG tube: continue present management -Advance care planning: now full code -DVT prophylaxis: scd and sq lovenox Consulted Ethic committee, ?hospice but family are not on the same page, patient is terminally ill==>it appears the patient's mother and father (pt lives with father) are now on the same page; however, patient is still legally but x 6 yr ( lives in [place]) they (parents) want SNF hospice. Patient is responsive and writing. He wants something to drink, will consult speech therapy Disposition: continue inpatient care, trying to get to SNF Hospice vs LTach vs SNF History Interval history: Patient was seen and examined. Follow-up on current diagnosis of unresponsiveness which appears to be resolved, He is writing to communicate. Patient is NRB today. Imaging, nursing note, chart, labs and old chart reviewed. Father at bedside. Hospitalist Physical - Physical exam Narrative exam: GEN: gravely ill, responsive today, and appeared orientated, nonverbal but appropriated squeezed hand to questions, he was orientated x 3 HEENT: extubated 04/11/18, extraocular, pupils focused and tracking appropriately , NECK: supple, no adenopathy, no thyromegaly, no JVD CVS/HEART: Regular tacycardia, normal S1S2, pulses present bilaterally CHEST/LUNGS: Tachypneic, Symmetrical chest expansion, good air entry bilaterally GI/Abdomen: soft, PEG in place, good bowel sounds, no guarding or rebound EXT/Skin: dependant edema MSK: unresponsive, he will spontaneous move extremities, right wrist in restraint but not left Neuro: CN 2-12 grossly intact, followed command Psych: unresponsive - Constitutional Vitals: Temp Pulse Resp BP Pulse Ox 98.7 F 102 H 22 143/95 94 04/16/18 12:00 04/16/18 12:00 04/16/18 12:00 04/16/18 12:00 04/16/18 12:00 General appearance: Absent: mild distress, well-nourished, other Results - Labs CBC & Chem 7: 04/14/18 11:56 04/14/18 12:12 Labs: Laboratory Last Values WBC 14.8 K/mm3 (4.5-11.0) H 04/14/18 11:56 RBC 3.77 M/mm3 (3.65-5.03) 04/14/18 11:56 Hgb 11.1 gm/dl (11.8-15.2) L 04/14/18 11:56 Hct 33.3 % (35.5-45.6) L 04/14/18 11:56 MCV 88 fl (84-94) 04/14/18 11:56 MCH 30 pg (28-32) 04/14/18 11:56 MCHC 33 % (32-34) 04/14/18 11:56 RDW 15.7 % (13.2-15.2) H 04/14/18 11:56 Plt Count 443 K/mm3 (140-440) H 04/14/18 11:56 Lymph % (Auto) 6.5 % (13.4-35.0) L 04/09/18 04:00 [place] % (Auto) 3.5 % (0.0-7.3) 04/09/18 04:00 Eos % (Auto) 0.2 % (0.0-4.3) 04/09/18 04:00 Baso % (Auto) 0.2 % (0.0-1.8) 04/09/18 04:00 Lymph # 0.5 K/mm3 (1.2-5.4) L 04/09/18 04:00 [place] # 0.2 K/mm3 (0.0-0.8) 04/09/18 04:00 Eos # 0.0 K/mm3 (0.0-0.4) 04/09/18 04:00 Baso # 0.0 K/mm3 (0.0-0.1) 04/09/18 04:00 Add Manual Diff Complete 04/14/18 11:56 Total Counted 100 04/14/18 11:56 Seg Neutrophils % 89.6 % (40.0-70.0) H 04/09/18 04:00 Seg Neuts % (Manual) 89.0 % (40.0-70.0) H 04/14/18 11:56 Band Neutrophils % 1.0 % 04/14/18 11:56 Lymphocytes % (Manual) 1.0 % (13.4-35.0) L 04/14/18 11:56 Reactive Lymphs % (Man) 0 % 04/14/18 11:56 Monocytes % (Manual) 2.0 % (0.0-7.3) 04/14/18 11:56 Eosinophils % (Manual) 0 % (0.0-4.3) 04/14/18 11:56 Basophils % (Manual) 0 % (0.0-1.8) 04/14/18 11:56 Metamyelocytes % 6.0 % 04/14/18 11:56 Myelocytes % 1.0 % 04/14/18 11:56 Promyelocytes % 0 % 04/14/18 11:56 Blast Cells % 0 % 04/14/18 11:56 Nucleated RBC % Not Reportable 04/14/18 11:56 Seg Neutrophils # 6.4 K/mm3 (1.8-7.7) 04/09/18 04:00 Seg Neutrophils # Man 13.2 K/mm3 (1.8-7.7) H 04/14/18 11:56 Band Neutrophils # 0.1 K/mm3 04/14/18 11:56 Lymphocytes # (Manual) 0.1 K/mm3 (1.2-5.4) L 04/14/18 11:56 Abs React Lymphs (Man) 0.0 K/mm3 04/14/18 11:56 Monocytes # (Manual) 0.3 K/mm3 (0.0-0.8) 04/14/18 11:56 Eosinophils # (Manual) 0.0 K/mm3 (0.0-0.4) 04/14/18 11:56 Basophils # (Manual) 0.0 K/mm3 (0.0-0.1) 04/14/18 11:56 Metamyelocytes # 0.9 K/mm3 04/14/18 11:56 Myelocytes # 0.1 K/mm3 04/14/18 11:56 Promyelocytes # 0.0 K/mm3 04/14/18 11:56 Blast Cells # 0.0 K/mm3 04/14/18 11:56 WBC Morphology Not Reportable 04/14/18 11:56 Hypersegmented Neuts Not Reportable 04/14/18 11:56 Hyposegmented Neuts Not Reportable 04/14/18 11:56 Hypogranular Neuts Not Reportable 04/14/18 11:56 Smudge Cells Not Reportable 04/14/18 11:56 Toxic Granulation Few 04/14/18 11:56 Toxic Vacuolation Not Reportable 04/14/18 11:56 Dohle Bodies Not Reportable 04/14/18 11:56 Pelger-Huet Anomaly Not Reportable 04/14/18 11:56 Zandra Rods Not Reportable 04/14/18 11:56 Platelet Estimate Cons 04/14/18 11:56 Clumped Platelets Not Reportable 04/14/18 11:56 Plt Clumps, EDTA Not Reportable 04/14/18 11:56 Large Platelets Not Reportable 04/14/18 11:56 Giant Platelets Not Reportable 04/14/18 11:56 Platelet Satelliting Not Reportable 04/14/18 11:56 Plt Morphology Comment Not Reportable 04/14/18 11:56 RBC Morphology Not Reportable 04/14/18 11:56 Dimorphic RBCs Not Reportable 04/14/18 11:56 Polychromasia Not Reportable 04/14/18 11:56 Hypochromasia Not Reportable 04/14/18 11:56 Poikilocytosis Not Reportable 04/14/18 11:56 Anisocytosis 1+ 04/14/18 11:56 Microcytosis Not Reportable 04/14/18 11:56 Macrocytosis Not Reportable 04/14/18 11:56 Spherocytes Not Reportable 04/14/18 11:56 Pappenheimer Bodies Not Reportable 04/14/18 11:56 Sickle Cells Not Reportable 04/14/18 11:56 Target Cells Not Reportable 04/14/18 11:56 Tear Drop Cells Not Reportable 04/14/18 11:56 Ovalocytes Not Reportable 04/14/18 11:56 Helmet Cells Not Reportable 04/14/18 11:56 Beltrán-Cerulean Bodies Not Reportable 04/14/18 11:56 [place] Rings Not Reportable 04/14/18 11:56 Gela Cells Not Reportable 04/14/18 11:56 Bite Cells Not Reportable 04/14/18 11:56 Crenated Cell Not Reportable 04/14/18 11:56 Elliptocytes Not Reportable 04/14/18 11:56 Acanthocytes (Spur) Not Reportable 04/14/18 11:56 Rouleaux Not Reportable 04/14/18 11:56 Hemoglobin C Crystals Not Reportable 04/14/18 11:56 Schistocytes Not Reportable 04/14/18 11:56 Malaria parasites Not Reportable 04/14/18 11:56 Juan Bodies Not Reportable 04/14/18 11:56 Hem Pathologist Commnt No 04/14/18 11:56 PT 17.5 Sec. (12.2-14.9) H 04/08/18 09:25 INR 1.35 (0.87-1.13) H 04/08/18 09:25 APTT 35.0 Sec. (24.2-36.6) 04/08/18 09:25 Thrombin Time 14.6 Sec. (15.1-19.6) L 04/08/18 09:25 POC ABG pH 7.364 (7.35-7.45) 04/12/18 13:48 POC ABG pCO2 54.5 (35-45) H 04/12/18 13:48 POC ABG pO2 98 (80-105) 04/12/18 13:48 POC ABG HCO3 31.1 04/12/18 13:48 POC ABG Total CO2 33 04/12/18 13:48 POC ABG O2 Sat 97 04/12/18 13:48 POC ABG Base Excess 6 08/15/18 13:48 FiO2 50 % 04/12/18 13:48 Sodium 150 mmol/L (137-145) H D 04/14/18 12:12 Potassium 3.3 mmol/L (3.6-5.0) L 04/14/18 12:12 Chloride 108.5 mmol/L (98-107) H 04/14/18 12:12 Carbon Dioxide 28 mmol/L (22-30) 04/14/18 12:12 Anion Gap 17 mmol/L 04/14/18 12:12 BUN 40 mg/dL (9-20) H 04/14/18 12:12 Creatinine 0.5 mg/dL (0.8-1.5) L 04/14/18 12:12 Estimated GFR > 60 ml/min 04/14/18 12:12 BUN/Creatinine Ratio 80 % 04/14/18 12:12 Glucose 140 mg/dL (75-100) H 04/14/18 12:12 POC Glucose 150 (70-105) H 04/15/18 12:05 Lactic Acid 2.60 mmol/L (0.7-2.0) H* 04/12/18 10:12 Calcium 9.6 mg/dL (8.4-10.2) 04/14/18 12:12 Magnesium 1.90 mg/dL (1.7-2.3) 04/08/18 09:25 Total Bilirubin 0.30 mg/dL (0.1-1.2) 04/09/18 04:00 Direct Bilirubin 0.2 mg/dL (0-0.2) 04/08/18 10:18 Indirect Bilirubin 0.3 mg/dL 04/08/18 10:18 AST 61 units/L (5-40) H 04/09/18 04:00 ALT 26 units/L (7-56) 04/09/18 04:00 Alkaline Phosphatase 142 units/L (35-129) H 04/09/18 04:00 Ammonia 74.0 umol/L (25-60) H 04/08/18 09:57 Total Creatine Kinase 38 units/L (55-170) L 04/08/18 09:25 CK-MB (CK-2) < 1.0 ng/mL (0.0-4.0) 04/08/18 09:25 CK-MB (CK-2) Rel Index 2.6 (0-4) 04/08/18 09:25 Troponin T 0.059 ng/mL (0.00-0.029) H 04/08/18 09:25 NT-Pro-B Natriuret Pep 2534 pg/mL (0-900) H 04/08/18 09:25 Total Protein 5.2 g/dL (6.3-8.2) L D 04/09/18 04:00 Albumin 2.3 g/dL (3.9-5) L 04/09/18 04:00 Albumin/Globulin Ratio 0.8 % 04/09/18 04:00 Triglycerides 158 mg/dL (2-149) H 04/08/18 09:25 Cholesterol 130 mg/dL (50-199) 04/08/18 09:25 LDL Cholesterol Direct 60 mg/dL (50-130) 04/08/18 09:25 HDL Cholesterol 32 mg/dL (40-59) L 04/08/18 09:25 Cholesterol/HDL Ratio 4.06 % 04/08/18 09:25 Urine Color Kiersten (Yellow) 04/08/18 12:34 Urine Turbidity Cloudy (Clear) 04/08/18 12:34 Urine pH 5.0 (5.0-7.0) 04/08/18 12:34 Ur Specific [place] 1.023 (1.003-1.030) 04/08/18 12:34 Urine Protein 100 mg/dl mg/dL (Negative) 04/08/18 12:34 Urine Glucose (UA) 50 mg/dL (Negative) 04/08/18 12:34 Urine Ketones Neg mg/dL (Negative) 04/08/18 12:34 Urine Blood Neg (Negative) 04/08/18 12:34 Urine Nitrite Neg (Negative) 04/08/18 12:34 Ur Reducing Substances Not Reportable 04/08/18 12:34 Urine Bilirubin Neg (Negative) 04/08/18 12:34 Urine Ictotest Not Reportable 04/08/18 12:34 Urine Urobilinogen 4.0 mg/dL (<2.0) 04/08/18 12:34 Ur Leukocyte Esterase Neg (Negative) 04/08/18 12:34 Urine WBC (Auto) 22.0 /HPF (0.0-6.0) H 04/08/18 12:34 Urine RBC (Auto) 7.0 /HPF (0.0-6.0) 04/08/18 12:34 U Epithel Cells (Auto) 5.0 /HPF (0-13.0) 04/08/18 12:34 Urine Bacteria (Auto) 1+ /HPF (Negative) 04/08/18 12:34 Urine Mucus Few /HPF 04/08/18 12:34
--- NOTE | 2018-04-16 14:09 | Progress Note ---
Assessment and Plan Patient awake but weak. Resting on venturi mask, FIO2 35%. O2 saturation running 93%. - Patient Problems (1) Respiratory failure Current Visit: Yes Status: Acute Qualifiers: Chronicity: acute Respiratory failure complication: hypoxia Qualified Code(s): J96.01 - Acute respiratory failure with hypoxia Plan to address problem: Patient presently on venturimask, FIO2 35% and O2 saturation running 93%. Albuterol/atrovent aerosol treatments q 6 hours. Continue S/C Lovenox Continue famotidine. (2) Metastatic cancer Current Visit: Yes Status: Chronic Plan to address problem: Management as per Oncology. (3) Brain metastases Current Visit: Yes Status: Chronic Plan to address problem: Management as per Oncology. (4) SETH (acute kidney injury) Current Visit: Yes Status: Acute Plan to address problem: Management as per nephrology. (5) Sepsis Current Visit: Yes Status: Acute Qualifiers: Sepsis type: sepsis due to unspecified organism Qualified Code(s): A41.9 - Sepsis, unspecified organism Plan to address problem: Patient is on ceftrioxone. Subjective Date of service: 04/16/18 Principal diagnosis: acute hypoxemic respiratory failure, pneumonia, brain metastases, sepsis Interval history: Patient awake but weak. Resting on venturi mask, FIO2 35%. O2 saturation running 93%. Objective Vital Signs - 12hr 04/16/18 04/16/18 04/16/18 04:00 04:30 04:40 Temperature 97.9 F Pulse Rate 83 Pulse Rate [ Anterior Bilateral Throughout] Pulse Rate [ From Monitor] Pulse Rate [ Left] Respiratory 18 22 Rate Respiratory Rate [Anterior Bilateral Throughout] Blood Pressure 145/95 O2 Sat by Pulse 96 100 Oximetry 04/16/18 04/16/18 04/16/18 08:00 08:23 08:29 Temperature 98.0 F Pulse Rate Pulse Rate [ 84 122 H Anterior Bilateral Throughout] Pulse Rate [ From Monitor] Pulse Rate [ Left] Respiratory Rate Respiratory 20 20 Rate [Anterior Bilateral Throughout] Blood Pressure O2 Sat by Pulse 100 Oximetry 04/16/18 04/16/18 04/16/18 10:00 11:42 12:00 Temperature 98.7 F 98.7 F Pulse Rate 107 H Pulse Rate [ Anterior Bilateral Throughout] Pulse Rate [ 106 H From Monitor] Pulse Rate [ 102 H Left] Respiratory 23 22 Rate Respiratory Rate [Anterior Bilateral Throughout] Blood Pressure 143/95 O2 Sat by Pulse 98 94 Oximetry Constitutional: no acute distress, lethargic, appears uncomfortable, other ( middle aged chronically ill looking CM; normocephalic and atraumatic) Eyes: non-icteric ENT: oropharynx moist, other (mallampati 2) Neck: supple, no lymphadenopathy, no JVD, other (no thyromegaly) Effort: very labored Ascultation: Bilateral: diminished breath sounds, rales, rhonchi (scant ) Percussion: Bilateral: not dull Cardiovascular: regular rate and rhythm, PVC's noted (occasional), other (No R/M ) Gastrointestinal: normoactive bowel sounds, soft, non-tender, non-distended, other (No HSM) Integumentary: other (poor turgor) Extremities: no cyanosis, no edema, pink and warm, pulses normal, other ( contractures) Neurologic: normal mental status, pupils equal and round, CN II-XII normal, other (weak) Psychiatric: mood appropriate, affect normal CBC and BMP: 04/14/18 11:56 04/14/18 12:12 ABG, PT/INR, D-dimer: ABG POC ABG pH 7.364 (7.35-7.45) 04/12/18 13:48 POC ABG pCO2 54.5 (35-45) H 04/12/18 13:48 POC ABG pO2 98 (80-105) 04/12/18 13:48 POC ABG HCO3 31.1 04/12/18 13:48 POC ABG Total CO2 33 04/12/18 13:48 POC ABG O2 Sat 97 04/12/18 13:48 PT/INR, D-dimer PT 17.5 Sec. (12.2-14.9) H 04/08/18 09:25 INR 1.35 (0.87-1.13) H 04/08/18 09:25 Abnormal lab findings: Abnormal Labs 04/08/18 04/08/18 04/08/18 09:25 09:25 09:25 WBC RBC 5.20 H Hgb 15.7 H Hct 47.1 H RDW Plt Count 621 H Lymph % (Auto) 11.4 L Lymph # 1.1 L Seg Neutrophils % 81.7 H Seg Neuts % (Manual) Lymphocytes % (Manual) Seg Neutrophils # Man Lymphocytes # (Manual) PT 17.5 H INR 1.35 H Thrombin Time 14.6 L POC ABG pH POC ABG pCO2 POC ABG pO2 Sodium Potassium 5.2 H Chloride 89.9 L BUN 22 H Creatinine 1.7 H Glucose 184 H POC Glucose Lactic Acid Calcium AST Alkaline Phosphatase Ammonia Total Creatine Kinase Troponin T 0.059 H NT-Pro-B Natriuret Pep Total Protein Albumin Triglycerides 158 H HDL Cholesterol 32 L Urine WBC (Auto) 04/08/18 04/08/18 04/08/18 09:25 09:25 09:57 WBC RBC Hgb Hct RDW Plt Count Lymph % (Auto) Lymph # Seg Neutrophils % Seg Neuts % (Manual) Lymphocytes % (Manual) Seg Neutrophils # Man Lymphocytes # (Manual) PT INR Thrombin Time POC ABG pH POC ABG pCO2 POC ABG pO2 Sodium Potassium Chloride BUN Creatinine Glucose POC Glucose Lactic Acid 10.50 H* Calcium AST Alkaline Phosphatase Ammonia 74.0 H Total Creatine Kinase 38 L Troponin T NT-Pro-B Natriuret Pep 2534 H Total Protein Albumin Triglycerides HDL Cholesterol Urine WBC (Auto) 04/08/18 04/08/18 04/08/18 10:18 10:43 11:00 WBC RBC Hgb Hct RDW Plt Count Lymph % (Auto) Lymph # Seg Neutrophils % Seg Neuts % (Manual) Lymphocytes % (Manual) Seg Neutrophils # Man Lymphocytes # (Manual) PT INR Thrombin Time POC ABG pH 7.294 L POC ABG pCO2 49.6 H POC ABG pO2 Sodium Potassium Chloride 96.8 L BUN 21 H Creatinine 1.6 H Glucose 155 H POC Glucose Lactic Acid Calcium AST 93 H Alkaline Phosphatase 216 H Ammonia Total Creatine Kinase Troponin T NT-Pro-B Natriuret Pep Total Protein Albumin 3.0 L Triglycerides HDL Cholesterol Urine WBC (Auto) 04/08/18 04/08/18 04/08/18 11:00 12:34 16:41 WBC RBC Hgb Hct RDW Plt Count Lymph % (Auto) Lymph # Seg Neutrophils % Seg Neuts % (Manual) Lymphocytes % (Manual) Seg Neutrophils # Man Lymphocytes # (Manual) PT INR Thrombin Time POC ABG pH POC ABG pCO2 POC ABG pO2 Sodium Potassium Chloride BUN Creatinine Glucose POC Glucose Lactic Acid 8.40 H* 5.10 H* Calcium AST Alkaline Phosphatase Ammonia Total Creatine Kinase Troponin T NT-Pro-B Natriuret Pep Total Protein Albumin Triglycerides HDL Cholesterol Urine WBC (Auto) 22.0 H 04/08/18 04/08/18 04/08/18 17:43 20:54 23:39 WBC RBC Hgb Hct RDW Plt Count Lymph % (Auto) Lymph # Seg Neutrophils % Seg Neuts % (Manual) Lymphocytes % (Manual) Seg Neutrophils # Man Lymphocytes # (Manual) PT INR Thrombin Time POC ABG pH POC ABG pCO2 POC ABG pO2 Sodium Potassium Chloride BUN Creatinine Glucose POC Glucose 168 H 167 H Lactic Acid 4.70 H* Calcium AST Alkaline Phosphatase Ammonia Total Creatine Kinase Troponin T NT-Pro-B Natriuret Pep Total Protein Albumin Triglycerides HDL Cholesterol Urine WBC (Auto) 04/09/18 04/09/18 04/09/18 04:00 04:00 04:00 WBC RBC Hgb 11.7 L D Hct 34.7 L D RDW Plt Count Lymph % (Auto) 6.5 L Lymph # 0.5 L Seg Neutrophils % 89.6 H Seg Neuts % (Manual) Lymphocytes % (Manual) Seg Neutrophils # Man Lymphocytes # (Manual) PT INR Thrombin Time POC ABG pH POC ABG pCO2 POC ABG pO2 Sodium Potassium Chloride BUN 26 H Creatinine Glucose 179 H POC Glucose Lactic Acid 3.50 H* Calcium 8.2 L AST 61 H Alkaline Phosphatase 142 H Ammonia Total Creatine Kinase Troponin T NT-Pro-B Natriuret Pep Total Protein 5.2 L D Albumin 2.3 L Triglycerides HDL Cholesterol Urine WBC (Auto) 04/09/18 04/09/18 04/09/18 04:24 06:03 12:19 WBC RBC Hgb Hct RDW Plt Count Lymph % (Auto) Lymph # Seg Neutrophils % Seg Neuts % (Manual) Lymphocytes % (Manual) Seg Neutrophils # Man Lymphocytes # (Manual) PT INR Thrombin Time POC ABG pH POC ABG pCO2 POC ABG pO2 135 H Sodium Potassium Chloride BUN Creatinine Glucose POC Glucose 158 H 168 H Lactic Acid Calcium AST Alkaline Phosphatase Ammonia Total Creatine Kinase Troponin T NT-Pro-B Natriuret Pep Total Protein Albumin Triglycerides HDL Cholesterol Urine WBC (Auto) 04/09/18 04/09/18 04/09/18 16:30 18:01 23:31 WBC RBC Hgb Hct RDW Plt Count Lymph % (Auto) Lymph # Seg Neutrophils % Seg Neuts % (Manual) Lymphocytes % (Manual) Seg Neutrophils # Man Lymphocytes # (Manual) PT INR Thrombin Time POC ABG pH POC ABG pCO2 45.7 H POC ABG pO2 168 H Sodium Potassium Chloride BUN Creatinine Glucose POC Glucose 161 H 154 H Lactic Acid Calcium AST Alkaline Phosphatase Ammonia Total Creatine Kinase Troponin T NT-Pro-B Natriuret Pep Total Protein Albumin Triglycerides HDL Cholesterol Urine WBC (Auto) 04/10/18 04/10/18 04/10/18 04:01 05:24 12:49 WBC RBC Hgb Hct RDW Plt Count Lymph % (Auto) Lymph # Seg Neutrophils % Seg Neuts % (Manual) Lymphocytes % (Manual) Seg Neutrophils # Man Lymphocytes # (Manual) PT INR Thrombin Time POC ABG pH POC ABG pCO2 POC ABG pO2 124 H Sodium Potassium Chloride BUN Creatinine Glucose POC Glucose 141 H 132 H Lactic Acid Calcium AST Alkaline Phosphatase Ammonia Total Creatine Kinase Troponin T NT-Pro-B Natriuret Pep Total Protein Albumin Triglycerides HDL Cholesterol Urine WBC (Auto) 04/10/18 04/11/18 04/11/18 19:07 00:11 05:28 WBC RBC Hgb Hct RDW Plt Count Lymph % (Auto) Lymph # Seg Neutrophils % Seg Neuts % (Manual) Lymphocytes % (Manual) Seg Neutrophils # Man Lymphocytes # (Manual) PT INR Thrombin Time POC ABG pH POC ABG pCO2 POC ABG pO2 Sodium Potassium Chloride BUN Creatinine Glucose POC Glucose 128 H 120 H 107 H Lactic Acid Calcium AST Alkaline Phosphatase Ammonia Total Creatine Kinase Troponin T NT-Pro-B Natriuret Pep Total Protein Albumin Triglycerides HDL Cholesterol Urine WBC (Auto) 04/11/18 04/12/18 04/12/18 22:04 03:48 08:29 WBC RBC Hgb Hct RDW Plt Count Lymph % (Auto) Lymph # Seg Neutrophils % Seg Neuts % (Manual) Lymphocytes % (Manual) Seg Neutrophils # Man Lymphocytes # (Manual) PT INR Thrombin Time POC ABG pH POC ABG pCO2 POC ABG pO2 Sodium Potassium Chloride BUN Creatinine Glucose POC Glucose Lactic Acid 3.10 H* 3.30 H* 3.10 H* Calcium AST Alkaline Phosphatase Ammonia Total Creatine Kinase Troponin T NT-Pro-B Natriuret Pep Total Protein Albumin Triglycerides HDL Cholesterol Urine WBC (Auto) 04/12/18 04/12/18 04/12/18 08:29 10:12 11:52 WBC RBC Hgb Hct RDW Plt Count Lymph % (Auto) Lymph # Seg Neutrophils % Seg Neuts % (Manual) Lymphocytes % (Manual) Seg Neutrophils # Man Lymphocytes # (Manual) PT INR Thrombin Time POC ABG pH POC ABG pCO2 POC ABG pO2 Sodium Potassium Chloride BUN 34 H Creatinine Glucose 135 H POC Glucose 140 H Lactic Acid 2.60 H* Calcium AST Alkaline Phosphatase Ammonia Total Creatine Kinase Troponin T NT-Pro-B Natriuret Pep Total Protein Albumin Triglycerides HDL Cholesterol Urine WBC (Auto) 04/12/18 04/12/18 04/13/18 13:48 18:32 00:23 WBC RBC Hgb Hct RDW Plt Count Lymph % (Auto) Lymph # Seg Neutrophils % Seg Neuts % (Manual) Lymphocytes % (Manual) Seg Neutrophils # Man Lymphocytes # (Manual) PT INR Thrombin Time POC ABG pH POC ABG pCO2 54.5 H POC ABG pO2 Sodium Potassium Chloride BUN Creatinine Glucose POC Glucose 121 H 118 H Lactic Acid Calcium AST Alkaline Phosphatase Ammonia Total Creatine Kinase Troponin T NT-Pro-B Natriuret Pep Total Protein Albumin Triglycerides HDL Cholesterol Urine WBC (Auto) 04/13/18 04/13/18 04/14/18 05:41 13:49 00:22 WBC RBC Hgb Hct RDW Plt Count Lymph % (Auto) Lymph # Seg Neutrophils % Seg Neuts % (Manual) Lymphocytes % (Manual) Seg Neutrophils # Man Lymphocytes # (Manual) PT INR Thrombin Time POC ABG pH POC ABG pCO2 POC ABG pO2 Sodium Potassium Chloride BUN Creatinine Glucose POC Glucose 111 H 122 H 142 H Lactic Acid Calcium AST Alkaline Phosphatase Ammonia Total Creatine Kinase Troponin T NT-Pro-B Natriuret Pep Total Protein Albumin Triglycerides HDL Cholesterol Urine WBC (Auto) 04/14/18 04/14/18 04/14/18 11:56 12:12 13:46 WBC 14.8 H RBC Hgb 11.1 L Hct 33.3 L RDW 15.7 H Plt Count 443 H Lymph % (Auto) Lymph # Seg Neutrophils % Seg Neuts % (Manual) 89.0 H Lymphocytes % (Manual) 1.0 L Seg Neutrophils # Man 13.2 H Lymphocytes # (Manual) 0.1 L PT INR Thrombin Time POC ABG pH POC ABG pCO2 POC ABG pO2 Sodium 150 H D Potassium 3.3 L Chloride 108.5 H BUN 40 H Creatinine 0.5 L Glucose 140 H POC Glucose 135 H Lactic Acid Calcium AST Alkaline Phosphatase Ammonia Total Creatine Kinase Troponin T NT-Pro-B Natriuret Pep Total Protein Albumin Triglycerides HDL Cholesterol Urine WBC (Auto) 04/14/18 04/14/18 04/15/18 17:32 23:27 05:58 WBC RBC Hgb Hct RDW Plt Count Lymph % (Auto) Lymph # Seg Neutrophils % Seg Neuts % (Manual) Lymphocytes % (Manual) Seg Neutrophils # Man Lymphocytes # (Manual) PT INR Thrombin Time POC ABG pH POC ABG pCO2 POC ABG pO2 Sodium Potassium Chloride BUN Creatinine Glucose POC Glucose 158 H 156 H 122 H Lactic Acid Calcium AST Alkaline Phosphatase Ammonia Total Creatine Kinase Troponin T NT-Pro-B Natriuret Pep Total Protein Albumin Triglycerides HDL Cholesterol Urine WBC (Auto) 04/15/18 12:05 WBC RBC Hgb Hct RDW Plt Count Lymph % (Auto) Lymph # Seg Neutrophils % Seg Neuts % (Manual) Lymphocytes % (Manual) Seg Neutrophils # Man Lymphocytes # (Manual) PT INR Thrombin Time POC ABG pH POC ABG pCO2 POC ABG pO2 Sodium Potassium Chloride BUN Creatinine Glucose POC Glucose 150 H Lactic Acid Calcium AST Alkaline Phosphatase Ammonia Total Creatine Kinase Troponin T NT-Pro-B Natriuret Pep Total Protein Albumin Triglycerides HDL Cholesterol Urine WBC (Auto) Chest x-ray: image reviewed (Radiology report pending.) Allied health notes reviewed: nursing
[2018-04-17] MEDS ORDERED: QUELICIN ONE (03:00)
[2018-04-17] MEDS ORDERED: XYLOCAINE CARDIAC IV ONE (03:00)
[2018-04-17] MEDS ORDERED: AMIDATE IV ONE (03:00)
--- NOTE | 2018-04-17 06:10 | Event Note ---
ED M.D. CODE intubation note Requested by hospitalist Dr. Sara Parra to intubate the patient. The patient was intubated via orotracheal route using a 8.0 mm endotracheal tube. Rapid sequence induction was used utilizing lidocaine 100 mg IV, succinylcholine 100 mg IV, etomidate 20 mg IV. Positioning was confirmed using auscultation and CO2 detector. Patient left in the care of hospitalist at bedside Pulmonary: Breath sounds equal bilaterally after intubation
--- NOTE | 2018-04-17 06:26 | Event Note ---
Date: 04/17/18 Called by nurse because patient minimally responsive Will intubated, transferred to ICU Repeat labs, cxr cc 35 minutes
[2018-04-17] MEDS ORDERED: VASELINE LIP THERAPY TP PRN (06:31)
[2018-04-17] MEDS ORDERED: ARTIFICIAL TEARS OPHTH OINT OU PRN (06:31)
[2018-04-17] MEDS ORDERED: NACL 0.9% 500 ML IV SCH (07:00)
--- NOTE | 2018-04-17 07:03 | XRay Report ---
FINAL REPORT EXAM: XR CHEST 1V AP HISTORY: ETT placement TECHNIQUE: AP portable view(s) of the chest obtained. PRIORS: 04/15/2018 FINDINGS: The endotracheal tube terminates approximately 1 cm from the kayla and is directed toward the right mainstem bronchus. No mediastinal shift. Cardiac silhouette is not enlarged. No pneumothorax or definite effusion. Patchy airspace disease scattered throughout both lungs is not significantly changed. IMPRESSION: Endotracheal tube terminates approximately 1 cm and is directed toward the right mainstem bronchus. The retraction of approximately 3 centimeters is recommended for more optimal positioning. No pneumothorax. Diffusely scattered airspace disease in both lungs is not significantly changed. Notification initiated via Kenn mining support worker immediately following this dictation on 04/17/2018.
--- NOTE | 2018-04-17 07:30 | Progress Note ---
Assessment and Plan Assessment and plan: Patient is a 52 yo man from [facility] with Hospice who presented to [facility] ED via EMS with AMS/unresponsiveness. According to chart, patient just arrived to [facility] with hospice one day prior to this unresponsive state. 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 He has already received chemotherapy and radiation therapy. The father is aware that the patient is in hospice for a terminal condition. His CODE STATUS was initially full code but has been changed to DNR/ AND. He was intubated but not sedated, now he has been extubated on 04/11/18. His care has been pretty much been governed by Ob Scrub Tech. 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: still on on IV Decadron -Acute encephalopathy as above -ARF, vasomotor nephropathy, poa: continue to monitor bmp -Severe protein calorie malnutrition: consult Reclamation Kettle Tender, tube feeding -Oropharyngeal dysphaigia with PEG tube: continue present management -Advance care planning: now full code -DVT prophylaxis: scd and sq lovenox Consulted Ethic committee, ?hospice but family are not on the same page, patient is terminally ill==>it appears the patient's mother and father (pt lives with father) are now on the same page; however, patient is still legally but x 6 yr ( lives in [place]) they (parents) want SNF hospice. Patient was responsive and writing on Tuesday and then early Tuesday night he became unresponsive and was orally Intubated and moved back to the ICU CCT 32 minutes History Interval history: Patient was seen and examined. Follow-up on current diagnosis of unresponsiveness. Overnight was eventul as patient became unresponsive and was intubated. Imaging, nursing note, chart, labs and old chart reviewed. Hospitalist Physical - Physical exam Narrative exam: GEN: gravely ill, Orally intubated again this morning 04/17/18 HEENT: extubated 04/11/18, extraocular, pupils focused and tracking appropriately , NECK: supple, no adenopathy, no thyromegaly, no JVD CVS/HEART: Regular tacycardia, normal S1S2, pulses present bilaterally CHEST/LUNGS: Tachypneic, Symmetrical chest expansion, good air entry bilaterally GI/Abdomen: soft, PEG in place, good bowel sounds, no guarding or rebound EXT/Skin: dependant edema MSK: unresponsive, he will spontaneous move extremities, right wrist in restraint but not left Neuro: CN 2-12 grossly intact, intubated Psych: unresponsive - Constitutional Vitals: Temp Pulse Resp BP Pulse Ox 99.2 F 89 28 H 138/94 98 04/17/18 00:00 04/17/18 06:00 04/17/18 04:15 04/17/18 00:00 04/17/18 06:00 General appearance: Absent: mild distress, well-nourished, other Results - Labs CBC & Chem 7: 04/17/18 08:26 04/17/18 08:26 Labs: Laboratory Last Values WBC 14.8 K/mm3 (4.5-11.0) H 04/14/18 11:56 RBC 3.77 M/mm3 (3.65-5.03) 04/14/18 11:56 Hgb 11.1 gm/dl (11.8-15.2) L 04/14/18 11:56 Hct 33.3 % (35.5-45.6) L 04/14/18 11:56 MCV 88 fl (84-94) 04/14/18 11:56 MCH 30 pg (28-32) 04/14/18 11:56 MCHC 33 % (32-34) 04/14/18 11:56 RDW 15.7 % (13.2-15.2) H 04/14/18 11:56 Plt Count 443 K/mm3 (140-440) H 04/14/18 11:56 Lymph % (Auto) 6.5 % (13.4-35.0) L 04/09/18 04:00 [place] % (Auto) 3.5 % (0.0-7.3) 04/09/18 04:00 Eos % (Auto) 0.2 % (0.0-4.3) 04/09/18 04:00 Baso % (Auto) 0.2 % (0.0-1.8) 04/09/18 04:00 Lymph # 0.5 K/mm3 (1.2-5.4) L 04/09/18 04:00 [place] # 0.2 K/mm3 (0.0-0.8) 04/09/18 04:00 Eos # 0.0 K/mm3 (0.0-0.4) 04/09/18 04:00 Baso # 0.0 K/mm3 (0.0-0.1) 04/09/18 04:00 Add Manual Diff Complete 04/14/18 11:56 Total Counted 100 04/14/18 11:56 Seg Neutrophils % 89.6 % (40.0-70.0) H 04/09/18 04:00 Seg Neuts % (Manual) 89.0 % (40.0-70.0) H 04/14/18 11:56 Band Neutrophils % 1.0 % 04/14/18 11:56 Lymphocytes % (Manual) 1.0 % (13.4-35.0) L 04/14/18 11:56 Reactive Lymphs % (Man) 0 % 04/14/18 11:56 Monocytes % (Manual) 2.0 % (0.0-7.3) 04/14/18 11:56 Eosinophils % (Manual) 0 % (0.0-4.3) 04/14/18 11:56 Basophils % (Manual) 0 % (0.0-1.8) 04/14/18 11:56 Metamyelocytes % 6.0 % 04/14/18 11:56 Myelocytes % 1.0 % 04/14/18 11:56 Promyelocytes % 0 % 04/14/18 11:56 Blast Cells % 0 % 04/14/18 11:56 Nucleated RBC % Not Reportable 04/14/18 11:56 Seg Neutrophils # 6.4 K/mm3 (1.8-7.7) 04/09/18 04:00 Seg Neutrophils # Man 13.2 K/mm3 (1.8-7.7) H 04/14/18 11:56 Band Neutrophils # 0.1 K/mm3 04/14/18 11:56 Lymphocytes # (Manual) 0.1 K/mm3 (1.2-5.4) L 04/14/18 11:56 Abs React Lymphs (Man) 0.0 K/mm3 04/14/18 11:56 Monocytes # (Manual) 0.3 K/mm3 (0.0-0.8) 04/14/18 11:56 Eosinophils # (Manual) 0.0 K/mm3 (0.0-0.4) 04/14/18 11:56 Basophils # (Manual) 0.0 K/mm3 (0.0-0.1) 04/14/18 11:56 Metamyelocytes # 0.9 K/mm3 04/14/18 11:56 Myelocytes # 0.1 K/mm3 04/14/18 11:56 Promyelocytes # 0.0 K/mm3 04/14/18 11:56 Blast Cells # 0.0 K/mm3 04/14/18 11:56 WBC Morphology Not Reportable 04/14/18 11:56 Hypersegmented Neuts Not Reportable 04/14/18 11:56 Hyposegmented Neuts Not Reportable 04/14/18 11:56 Hypogranular Neuts Not Reportable 04/14/18 11:56 Smudge Cells Not Reportable 04/14/18 11:56 Toxic Granulation Few 04/14/18 11:56 Toxic Vacuolation Not Reportable 04/14/18 11:56 Dohle Bodies Not Reportable 04/14/18 11:56 Pelger-Huet Anomaly Not Reportable 04/14/18 11:56 Zandra Rods Not Reportable 04/14/18 11:56 Platelet Estimate Cons 04/14/18 11:56 Clumped Platelets Not Reportable 04/14/18 11:56 Plt Clumps, EDTA Not Reportable 04/14/18 11:56 Large Platelets Not Reportable 04/14/18 11:56 Giant Platelets Not Reportable 04/14/18 11:56 Platelet Satelliting Not Reportable 04/14/18 11:56 Plt Morphology Comment Not Reportable 04/14/18 11:56 RBC Morphology Not Reportable 04/14/18 11:56 Dimorphic RBCs Not Reportable 04/14/18 11:56 Polychromasia Not Reportable 04/14/18 11:56 Hypochromasia Not Reportable 04/14/18 11:56 Poikilocytosis Not Reportable 04/14/18 11:56 Anisocytosis 1+ 04/14/18 11:56 Microcytosis Not Reportable 04/14/18 11:56 Macrocytosis Not Reportable 04/14/18 11:56 Spherocytes Not Reportable 04/14/18 11:56 Pappenheimer Bodies Not Reportable 04/14/18 11:56 Sickle Cells Not Reportable 04/14/18 11:56 Target Cells Not Reportable 04/14/18 11:56 Tear Drop Cells Not Reportable 04/14/18 11:56 Ovalocytes Not Reportable 04/14/18 11:56 Helmet Cells Not Reportable 04/14/18 11:56 [place] Bodies Not Reportable 04/14/18 11:56 [place] Rings Not Reportable 04/14/18 11:56 [place] Cells Not Reportable 04/14/18 11:56 Bite Cells Not Reportable 04/14/18 11:56 Crenated Cell Not Reportable 04/14/18 11:56 Elliptocytes Not Reportable 04/14/18 11:56 Acanthocytes (Spur) Not Reportable 04/14/18 11:56 Rouleaux Not Reportable 04/14/18 11:56 Hemoglobin C Crystals Not Reportable 04/14/18 11:56 Schistocytes Not Reportable 04/14/18 11:56 Malaria parasites Not Reportable 04/14/18 11:56 Juan Bodies Not Reportable 04/14/18 11:56 Hem Pathologist Commnt No 04/14/18 11:56 PT 17.5 Sec. (12.2-14.9) H 04/08/18 09:25 INR 1.35 (0.87-1.13) H 04/08/18 09:25 APTT 35.0 Sec. (24.2-36.6) 04/08/18 09:25 Thrombin Time 14.6 Sec. (15.1-19.6) L 04/08/18 09:25 POC ABG pH 7.371 (7.35-7.45) 04/17/18 05:56 POC ABG pCO2 67.3 (35-45) H 04/17/18 05:56 POC ABG pO2 387 (80-105) H 04/17/18 05:56 POC ABG HCO3 39.0 04/17/18 05:56 POC ABG Total CO2 41 04/17/18 05:56 POC ABG O2 Sat 100 04/17/18 05:56 POC ABG Base Excess 14 04/17/18 05:56 FiO2 100 % 04/17/18 05:56 Sodium 150 mmol/L (137-145) H D 04/14/18 12:12 Potassium 3.3 mmol/L (3.6-5.0) L 04/14/18 12:12 Chloride 108.5 mmol/L (98-107) H 04/14/18 12:12 Carbon Dioxide 28 mmol/L (22-30) 04/14/18 12:12 Anion Gap 17 mmol/L 04/14/18 12:12 BUN 40 mg/dL (9-20) H 04/14/18 12:12 Creatinine 0.5 mg/dL (0.8-1.5) L 04/14/18 12:12 Estimated GFR > 60 ml/min 04/14/18 12:12 BUN/Creatinine Ratio 80 % 04/14/18 12:12 Glucose 140 mg/dL (75-100) H 04/14/18 12:12 POC Glucose 150 (70-105) H 04/15/18 12:05 Lactic Acid 2.60 mmol/L (0.7-2.0) H* 04/12/18 10:12 Calcium 9.6 mg/dL (8.4-10.2) 04/14/18 12:12 Magnesium 1.90 mg/dL (1.7-2.3) 04/08/18 09:25 Total Bilirubin 0.30 mg/dL (0.1-1.2) 04/09/18 04:00 Direct Bilirubin 0.2 mg/dL (0-0.2) 04/08/18 10:18 Indirect Bilirubin 0.3 mg/dL 04/08/18 10:18 AST 61 units/L (5-40) H 04/09/18 04:00 ALT 26 units/L (7-56) 04/09/18 04:00 Alkaline Phosphatase 142 units/L (35-129) H 04/09/18 04:00 Ammonia 74.0 umol/L (25-60) H 04/08/18 09:57 Total Creatine Kinase 38 units/L (55-170) L 04/08/18 09:25 CK-MB (CK-2) < 1.0 ng/mL (0.0-4.0) 04/08/18 09:25 CK-MB (CK-2) Rel Index 2.6 (0-4) 04/08/18 09:25 Troponin T 0.059 ng/mL (0.00-0.029) H 04/08/18 09:25 NT-Pro-B Natriuret Pep 2534 pg/mL (0-900) H 04/08/18 09:25 Total Protein 5.2 g/dL (6.3-8.2) L D 04/09/18 04:00 Albumin 2.3 g/dL (3.9-5) L 04/09/18 04:00 Albumin/Globulin Ratio 0.8 % 04/09/18 04:00 Triglycerides 158 mg/dL (2-149) H 04/08/18 09:25 Cholesterol 130 mg/dL (50-199) 04/08/18 09:25 LDL Cholesterol Direct 60 mg/dL (50-130) 04/08/18 09:25 HDL Cholesterol 32 mg/dL (40-59) L 04/08/18 09:25 Cholesterol/HDL Ratio 4.06 % 04/08/18 09:25 Urine Color Kiersten (Yellow) 04/08/18 12:34 Urine Turbidity Cloudy (Clear) 04/08/18 12:34 Urine pH 5.0 (5.0-7.0) 04/08/18 12:34 Ur Specific [place] 1.023 (1.003-1.030) 04/08/18 12:34 Urine Protein 100 mg/dl mg/dL (Negative) 04/08/18 12:34 Urine Glucose (UA) 50 mg/dL (Negative) 04/08/18 12:34 Urine Ketones Neg mg/dL (Negative) 04/08/18 12:34 Urine Blood Neg (Negative) 04/08/18 12:34 Urine Nitrite Neg (Negative) 04/08/18 12:34 Ur Reducing Substances Not Reportable 04/08/18 12:34 Urine Bilirubin Neg (Negative) 04/08/18 12:34 Urine Ictotest Not Reportable 04/08/18 12:34 Urine Urobilinogen 4.0 mg/dL (<2.0) 04/08/18 12:34 Ur Leukocyte Esterase Neg (Negative) 04/08/18 12:34 Urine WBC (Auto) 22.0 /HPF (0.0-6.0) H 04/08/18 12:34 Urine RBC (Auto) 7.0 /HPF (0.0-6.0) 04/08/18 12:34 U Epithel Cells (Auto) 5.0 /HPF (0-13.0) 04/08/18 12:34 Urine Bacteria (Auto) 1+ /HPF (Negative) 04/08/18 12:34 Urine Mucus Few /HPF 04/08/18 12:34
[2018-04-17] MEDS ORDERED: DUONEB *Not for PRN Use IH ONE (08:15)
[2018-04-17] MEDS: DUONEB *Not for PRN Use IH SCH ×3 (08:20→20:04)
[2018-04-17 08:41] LABS: Hematocrit 35.5 % (35.5-45.6); Hemoglobin 11.8 gm/dl (11.8-15.2); Mean Corpuscular HGB Conc 33 % (32-34); Mean Corpuscular Hemoglobin 29 pg (28-32); Mean Corpuscular Volume 88 fl (84-94); Platelet Count 466 K/mm3 (140-440); Red Blood Count 4.05 M/mm3 (3.65-5.03)
[2018-04-17 08:50] LABS: INR 0.93 (0.87-1.13)
[2018-04-17 08:51] LABS: Partial Thromboplastin Time 21.3 Sec. (24.2-36.6)
[2018-04-17 08:54] LABS: BUN/Creatinine Ratio 80; Blood Urea Nitrogen 24 mg/dL (9-20); Calcium 9.8 mg/dL (8.4-10.2); Hemolysis Index 8
--- NOTE | 2018-04-17 11:24 | Progress Note ---
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 Acute encephalopathy Abnormal CTscan brain Severe protein calorie malnutrition Oropharyngeal dysphagia PEG - ETT pulled back to 23 cm BALDEMAR - place on PSV / begin SBT now - extubate after 2 hour ABG if meets criteria otherwise - begin seroquel scheduled with prn xanax for anxiolysis - VAP bundle addressed - oral care per RT/RN - humidify all supplemental oxygen - prn NT-suction post extubation - continue aspiration precautions - continue VTE prophylaxis - continue Reglan prn - continue Enteral nutrition as tolerated (hold for extubation) - BIPAP qhs post extubation - continue to monitor renal indices and urine output - KCL 40meq enterally X 1 dose - continue to monitor neurology, neuro checks - continue Seizure precautions - Analgesia and agitation management - Accuchecks with glycemic control - complete rocephin dosing (7 days) - Critical care bundles addressed - continue other care per attending / other consultants ... FULL CODE status per patients wishes The high probability of a clinically significant, sudden or life threatening deterioration of the [respiratory,cardiac, neurologic] system(s) required my full and direct attention, intervention and personal management. The aggregate critical care time was [35] minutes without overlap. Time includes spent on; [x] Data Review and interpretation [x] Patient assessment and monitoring of vital signs [x] Documentation [x] Medication orders and management Subjective Date of service: 04/17/18 Principal diagnosis: acute hypoxemic respiratory failure, pneumonia, brain metastases, sepsis Interval history: Patient is seen today for: Acute hypoxemic respiratory failure, pneumonia, brain metastases, sepsis Seen and examined at bedside; 24hour events reviewed; nursing and respiratory care staff consulted; no adverse overnight events reported to me; decompensated and re-intubated; clinical circumstances equivocal but appear related to increased work of breathing; he denies pain and is responding appropriately; no N/V/F/C Objective Vital Signs - 12hr 04/17/18 04/17/18 04/17/18 00:00 00:50 04:15 Temperature 99.2 F Pulse Rate 93 H 94 H Pulse Rate [ Anterior Bilateral Throughout] Pulse Rate [ 92 H Left] Respiratory 19 24 28 H Rate Respiratory Rate [Anterior Bilateral Throughout] Blood Pressure 138/94 O2 Sat by Pulse 96 95 95 Oximetry 0804/17/18 04/17/18 06:00 06:07 07:01 Temperature Pulse Rate 89 98 H 108 H Pulse Rate [ Anterior Bilateral Throughout] Pulse Rate [ Left] Respiratory 14 29 H Rate Respiratory Rate [Anterior Bilateral Throughout] Blood Pressure 118/88 107/80 O2 Sat by Pulse 98 97 Oximetry 04/17/18 04/17/18 04/17/18 08:00 08:08 08:20 Temperature 99.4 F Pulse Rate 108 H Pulse Rate [ 118 H Anterior Bilateral Throughout] Pulse Rate [ Left] Respiratory Rate Respiratory 33 H Rate [Anterior Bilateral Throughout] Blood Pressure 149/95 O2 Sat by Pulse 94 Oximetry 04/17/18 08:51 Temperature Pulse Rate Pulse Rate [ 104 H Anterior Bilateral Throughout] Pulse Rate [ Left] Respiratory Rate Respiratory 27 H Rate [Anterior Bilateral Throughout] Blood Pressure O2 Sat by Pulse Oximetry Constitutional: appears uncomfortable, other (middle aged chronically ill looking CM; normocephalic and atraumatic) Eyes: non-icteric ENT: oropharynx dry, oropharyngeal exudate pre, other (ETT 23 cm BALDEMAR) Neck: supple, no lymphadenopathy, no JVD, other (no thyromegaly) Effort: mildly labored Ascultation: Bilateral: diminished breath sounds, rhonchi (scant ) Percussion: Bilateral: not dull Cardiovascular: regular rate and rhythm, PVC's noted (occasional), other (No R/M ) Gastrointestinal: normoactive bowel sounds, soft, non-tender, non-distended, other (No HSM) Integumentary: other (poor turgor) Extremities: no cyanosis, no edema, pink and warm, pulses normal, other ( contractures) Neurologic: pupils equal and round, CN II-XII normal, other (A & OX 3) Psychiatric: mood appropriate, anxious CBC and BMP: 04/17/18 08:26 04/17/18 08:26 ABG, PT/INR, D-dimer: ABG POC ABG pH 7.509 (7.35-7.45) H 04/17/18 09:04 POC ABG pCO2 46.0 (35-45) H 04/17/18 09:04 POC ABG pO2 62 (80-105) L 04/17/18 09:04 POC ABG HCO3 36.6 04/17/18 09:04 POC ABG Total CO2 38 04/17/18 09:04 POC ABG O2 Sat 93 04/17/18 09:04 PT/INR, D-dimer PT 12.9 Sec. (12.2-14.9) 04/17/18 08:26 INR 0.93 (0.87-1.13) 04/17/18 08:26 Abnormal lab findings: Abnormal Labs 04/08/18 04/08/18 04/08/18 09:25 09:25 09:25 WBC RBC 5.20 H Hgb 15.7 H Hct 47.1 H RDW Plt Count 621 H Lymph % (Auto) 11.4 L Lymph # 1.1 L Seg Neutrophils % 81.7 H Seg Neuts % (Manual) Lymphocytes % (Manual) Seg Neutrophils # Man Lymphocytes # (Manual) PT 17.5 H INR 1.35 H APTT Thrombin Time 14.6 L POC ABG pH POC ABG pCO2 POC ABG pO2 Sodium Potassium 5.2 H Chloride 89.9 L Carbon Dioxide BUN 22 H Creatinine 1.7 H Glucose 184 H POC Glucose Lactic Acid Calcium AST Alkaline Phosphatase Ammonia Total Creatine Kinase Troponin T 0.059 H NT-Pro-B Natriuret Pep Total Protein Albumin Triglycerides 158 H HDL Cholesterol 32 L Urine WBC (Auto) 04/08/18 04/08/18 04/08/18 09:25 09:25 09:57 WBC RBC Hgb Hct RDW Plt Count Lymph % (Auto) Lymph # Seg Neutrophils % Seg Neuts % (Manual) Lymphocytes % (Manual) Seg Neutrophils # Man Lymphocytes # (Manual) PT INR APTT Thrombin Time POC ABG pH POC ABG pCO2 POC ABG pO2 Sodium Potassium Chloride Carbon Dioxide BUN Creatinine Glucose POC Glucose Lactic Acid 10.50 H* Calcium AST Alkaline Phosphatase Ammonia 74.0 H Total Creatine Kinase 38 L Troponin T NT-Pro-B Natriuret Pep 2534 H Total Protein Albumin Triglycerides HDL Cholesterol Urine WBC (Auto) 04/08/18 04/08/18 04/08/18 10:18 10:43 11:00 WBC RBC Hgb Hct RDW Plt Count Lymph % (Auto) Lymph # Seg Neutrophils % Seg Neuts % (Manual) Lymphocytes % (Manual) Seg Neutrophils # Man Lymphocytes # (Manual) PT INR APTT Thrombin Time POC ABG pH 7.294 L POC ABG pCO2 49.6 H POC ABG pO2 Sodium Potassium Chloride 96.8 L Carbon Dioxide BUN 21 H Creatinine 1.6 H Glucose 155 H POC Glucose Lactic Acid Calcium AST 93 H Alkaline Phosphatase 216 H Ammonia Total Creatine Kinase Troponin T NT-Pro-B Natriuret Pep Total Protein Albumin 3.0 L Triglycerides HDL Cholesterol Urine WBC (Auto) 04/08/18 04/08/18 04/08/18 11:00 12:34 16:41 WBC RBC Hgb Hct RDW Plt Count Lymph % (Auto) Lymph # Seg Neutrophils % Seg Neuts % (Manual) Lymphocytes % (Manual) Seg Neutrophils # Man Lymphocytes # (Manual) PT INR APTT Thrombin Time POC ABG pH POC ABG pCO2 POC ABG pO2 Sodium Potassium Chloride Carbon Dioxide BUN Creatinine Glucose POC Glucose Lactic Acid 8.40 H* 5.10 H* Calcium AST Alkaline Phosphatase Ammonia Total Creatine Kinase Troponin T NT-Pro-B Natriuret Pep Total Protein Albumin Triglycerides HDL Cholesterol Urine WBC (Auto) 22.0 H 04/08/18 04/08/18 04/08/18 17:43 20:54 23:39 WBC RBC Hgb Hct RDW Plt Count Lymph % (Auto) Lymph # Seg Neutrophils % Seg Neuts % (Manual) Lymphocytes % (Manual) Seg Neutrophils # Man Lymphocytes # (Manual) PT INR APTT Thrombin Time POC ABG pH POC ABG pCO2 POC ABG pO2 Sodium Potassium Chloride Carbon Dioxide BUN Creatinine Glucose POC Glucose 168 H 167 H Lactic Acid 4.70 H* Calcium AST Alkaline Phosphatase Ammonia Total Creatine Kinase Troponin T NT-Pro-B Natriuret Pep Total Protein Albumin Triglycerides HDL Cholesterol Urine WBC (Auto) 04/09/18 04/09/18 04/09/18 04:00 04:00 04:00 WBC RBC Hgb 11.7 L D Hct 34.7 L D RDW Plt Count Lymph % (Auto) 6.5 L Lymph # 0.5 L Seg Neutrophils % 89.6 H Seg Neuts % (Manual) Lymphocytes % (Manual) Seg Neutrophils # Man Lymphocytes # (Manual) PT INR APTT Thrombin Time POC ABG pH POC ABG pCO2 POC ABG pO2 Sodium Potassium Chloride Carbon Dioxide BUN 26 H Creatinine Glucose 179 H POC Glucose Lactic Acid 3.50 H* Calcium 8.2 L AST 61 H Alkaline Phosphatase 142 H Ammonia Total Creatine Kinase Troponin T NT-Pro-B Natriuret Pep Total Protein 5.2 L D Albumin 2.3 L Triglycerides HDL Cholesterol Urine WBC (Auto) 04/09/18 04/09/18 04/09/18 04:24 06:03 12:19 WBC RBC Hgb Hct RDW Plt Count Lymph % (Auto) Lymph # Seg Neutrophils % Seg Neuts % (Manual) Lymphocytes % (Manual) Seg Neutrophils # Man Lymphocytes # (Manual) PT INR APTT Thrombin Time POC ABG pH POC ABG pCO2 POC ABG pO2 135 H Sodium Potassium Chloride Carbon Dioxide BUN Creatinine Glucose POC Glucose 158 H 168 H Lactic Acid Calcium AST Alkaline Phosphatase Ammonia Total Creatine Kinase Troponin T NT-Pro-B Natriuret Pep Total Protein Albumin Triglycerides HDL Cholesterol Urine WBC (Auto) 04/09/18 04/09/18 04/09/18 16:30 18:01 23:31 WBC RBC Hgb Hct RDW Plt Count Lymph % (Auto) Lymph # Seg Neutrophils % Seg Neuts % (Manual) Lymphocytes % (Manual) Seg Neutrophils # Man Lymphocytes # (Manual) PT INR APTT Thrombin Time POC ABG pH POC ABG pCO2 45.7 H POC ABG pO2 168 H Sodium Potassium Chloride Carbon Dioxide BUN Creatinine Glucose POC Glucose 161 H 154 H Lactic Acid Calcium AST Alkaline Phosphatase Ammonia Total Creatine Kinase Troponin T NT-Pro-B Natriuret Pep Total Protein Albumin Triglycerides HDL Cholesterol Urine WBC (Auto) 04/10/18 04/10/18 04/10/18 04:01 05:24 12:49 WBC RBC Hgb Hct RDW Plt Count Lymph % (Auto) Lymph # Seg Neutrophils % Seg Neuts % (Manual) Lymphocytes % (Manual) Seg Neutrophils # Man Lymphocytes # (Manual) PT INR APTT Thrombin Time POC ABG pH POC ABG pCO2 POC ABG pO2 124 H Sodium Potassium Chloride Carbon Dioxide BUN Creatinine Glucose POC Glucose 141 H 132 H Lactic Acid Calcium AST Alkaline Phosphatase Ammonia Total Creatine Kinase Troponin T NT-Pro-B Natriuret Pep Total Protein Albumin Triglycerides HDL Cholesterol Urine WBC (Auto) 04/10/18 04/11/18 04/11/18 19:07 00:11 05:28 WBC RBC Hgb Hct RDW Plt Count Lymph % (Auto) Lymph # Seg Neutrophils % Seg Neuts % (Manual) Lymphocytes % (Manual) Seg Neutrophils # Man Lymphocytes # (Manual) PT INR APTT Thrombin Time POC ABG pH POC ABG pCO2 POC ABG pO2 Sodium Potassium Chloride Carbon Dioxide BUN Creatinine Glucose POC Glucose 128 H 120 H 107 H Lactic Acid Calcium AST Alkaline Phosphatase Ammonia Total Creatine Kinase Troponin T NT-Pro-B Natriuret Pep Total Protein Albumin Triglycerides HDL Cholesterol Urine WBC (Auto) 04/11/18 04/12/18 04/12/18 22:04 03:48 08:29 WBC RBC Hgb Hct RDW Plt Count Lymph % (Auto) Lymph # Seg Neutrophils % Seg Neuts % (Manual) Lymphocytes % (Manual) Seg Neutrophils # Man Lymphocytes # (Manual) PT INR APTT Thrombin Time POC ABG pH POC ABG pCO2 POC ABG pO2 Sodium Potassium Chloride Carbon Dioxide BUN Creatinine Glucose POC Glucose Lactic Acid 3.10 H* 3.30 H* 3.10 H* Calcium AST Alkaline Phosphatase Ammonia Total Creatine Kinase Troponin T NT-Pro-B Natriuret Pep Total Protein Albumin Triglycerides HDL Cholesterol Urine WBC (Auto) 04/12/18 04/12/18 04/12/18 08:29 10:12 11:52 WBC RBC Hgb Hct RDW Plt Count Lymph % (Auto) Lymph # Seg Neutrophils % Seg Neuts % (Manual) Lymphocytes % (Manual) Seg Neutrophils # Man Lymphocytes # (Manual) PT INR APTT Thrombin Time POC ABG pH POC ABG pCO2 POC ABG pO2 Sodium Potassium Chloride Carbon Dioxide BUN 34 H Creatinine Glucose 135 H POC Glucose 140 H Lactic Acid 2.60 H* Calcium AST Alkaline Phosphatase Ammonia Total Creatine Kinase Troponin T NT-Pro-B Natriuret Pep Total Protein Albumin Triglycerides HDL Cholesterol Urine WBC (Auto) 04/12/18 04/12/18 04/13/18 13:48 18:32 00:23 WBC RBC Hgb Hct RDW Plt Count Lymph % (Auto) Lymph # Seg Neutrophils % Seg Neuts % (Manual) Lymphocytes % (Manual) Seg Neutrophils # Man Lymphocytes # (Manual) PT INR APTT Thrombin Time POC ABG pH POC ABG pCO2 54.5 H POC ABG pO2 Sodium Potassium Chloride Carbon Dioxide BUN Creatinine Glucose POC Glucose 121 H 118 H Lactic Acid Calcium AST Alkaline Phosphatase Ammonia Total Creatine Kinase Troponin T NT-Pro-B Natriuret Pep Total Protein Albumin Triglycerides HDL Cholesterol Urine WBC (Auto) 04/13/18 04/13/18 04/14/18 05:41 13:49 00:22 WBC RBC Hgb Hct RDW Plt Count Lymph % (Auto) Lymph # Seg Neutrophils % Seg Neuts % (Manual) Lymphocytes % (Manual) Seg Neutrophils # Man Lymphocytes # (Manual) PT INR APTT Thrombin Time POC ABG pH POC ABG pCO2 POC ABG pO2 Sodium Potassium Chloride Carbon Dioxide BUN Creatinine Glucose POC Glucose 111 H 122 H 142 H Lactic Acid Calcium AST Alkaline Phosphatase Ammonia Total Creatine Kinase Troponin T NT-Pro-B Natriuret Pep Total Protein Albumin Triglycerides HDL Cholesterol Urine WBC (Auto) 04/14/18 04/14/18 04/14/18 11:56 12:12 13:46 WBC 14.8 H RBC Hgb 11.1 L Hct 33.3 L RDW 15.7 H Plt Count 443 H Lymph % (Auto) Lymph # Seg Neutrophils % Seg Neuts % (Manual) 89.0 H Lymphocytes % (Manual) 1.0 L Seg Neutrophils # Man 13.2 H Lymphocytes # (Manual) 0.1 L PT INR APTT Thrombin Time POC ABG pH POC ABG pCO2 POC ABG pO2 Sodium 150 H D Potassium 3.3 L Chloride 108.5 H Carbon Dioxide BUN 40 H Creatinine 0.5 L Glucose 140 H POC Glucose 135 H Lactic Acid Calcium AST Alkaline Phosphatase Ammonia Total Creatine Kinase Troponin T NT-Pro-B Natriuret Pep Total Protein Albumin Triglycerides HDL Cholesterol Urine WBC (Auto) 04/14/18 04/14/18 04/15/18 17:32 23:27 05:58 WBC RBC Hgb Hct RDW Plt Count Lymph % (Auto) Lymph # Seg Neutrophils % Seg Neuts % (Manual) Lymphocytes % (Manual) Seg Neutrophils # Man Lymphocytes # (Manual) PT INR APTT Thrombin Time POC ABG pH POC ABG pCO2 POC ABG pO2 Sodium Potassium Chloride Carbon Dioxide BUN Creatinine Glucose POC Glucose 158 H 156 H 122 H Lactic Acid Calcium AST Alkaline Phosphatase Ammonia Total Creatine Kinase Troponin T NT-Pro-B Natriuret Pep Total Protein Albumin Triglycerides HDL Cholesterol Urine WBC (Auto) 04/15/18 04/17/18 04/17/18 12:05 05:56 08:26 WBC 28.7 H RBC Hgb Hct RDW Plt Count 466 H Lymph % (Auto) Lymph # Seg Neutrophils % Seg Neuts % (Manual) Lymphocytes % (Manual) Seg Neutrophils # Man Lymphocytes # (Manual) PT INR APTT Thrombin Time POC ABG pH POC ABG pCO2 67.3 H POC ABG pO2 387 H Sodium Potassium Chloride Carbon Dioxide BUN Creatinine Glucose POC Glucose 150 H Lactic Acid Calcium AST Alkaline Phosphatase Ammonia Total Creatine Kinase Troponin T NT-Pro-B Natriuret Pep Total Protein Albumin Triglycerides HDL Cholesterol Urine WBC (Auto) 04/17/18 04/17/18 04/17/18 08:26 08:26 09:04 WBC RBC Hgb Hct RDW Plt Count Lymph % (Auto) Lymph # Seg Neutrophils % Seg Neuts % (Manual) Lymphocytes % (Manual) Seg Neutrophils # Man Lymphocytes # (Manual) PT INR APTT 21.3 L Thrombin Time POC ABG pH 7.509 H POC ABG pCO2 46.0 H POC ABG pO2 62 L Sodium 147 H Potassium 3.4 L Chloride Carbon Dioxide 31 H BUN 24 H Creatinine 0.3 L Glucose 113 H POC Glucose Lactic Acid Calcium AST Alkaline Phosphatase Ammonia Total Creatine Kinase Troponin T NT-Pro-B Natriuret Pep Total Protein Albumin Triglycerides HDL Cholesterol Urine WBC (Auto) Chest x-ray: image reviewed (ETT at right mainstem opening) Allied health notes reviewed: nursing
[2018-04-17] MEDS: K-DUR PO ONE ×2 (12:55→14:27)
[2018-04-17] MEDS: LOVENOX SUB-Q SCH (12:56)
[2018-04-17] MEDS: ROCEPHIN/NS 2 GM/100 ML 2 GM/100 ML BAG IV SCH (12:57)
[2018-04-17] MEDS: SODIUM CHLORIDE FLUSH SYRINGE 10 ML IV SCH ×2 (12:58→22:03)
[2018-04-17] MEDS: PEPCID PO SCH ×2 (13:04→22:02)
[2018-04-17 13:12] LABS: Band Neutrophils # (Manual) 0.3 K/mm3; Basophils % (Manual) 0 % (0.0-1.8); Total Cells Counted 100
[2018-04-17 13:13] LABS: Anisocytosis 1+
[2018-04-17 13:14] LABS: Platelet Estimate Cons; Toxic Granulation Few
[2018-04-17] MEDS ORDERED: POTASSIUM CHLORIDE PO ONE (14:00)
[2018-04-17] MEDS: DECADRON IV SCH ×2 (15:10→22:02)
[2018-04-18] MEDS: DECADRON IV SCH (06:34)
[2018-04-18] MEDS: DUONEB *Not for PRN Use IH SCH ×3 (07:33→19:52)
--- NOTE | 2018-04-18 08:21 | Progress Note ---
Assessment and Plan Assessment and plan: Patient is a 52 yo man from [facility] with Hospice who presented to [facility] ED via EMS with AMS/unresponsiveness. According to chart, patient had just arrived to [facility] with hospice one day prior to this unresponsive state. 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 He has already received chemotherapy and radiation therapy. The father is aware that the patient is in hospice for a terminal condition. His CODE STATUS was initially full code but has been changed to DNR/AND. He was intubated but not sedated, now he has been extubated on 04/11/18. His care has been pretty much been governed by Pre Billing Clinician. 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: still on on IV Decadron -Acute encephalopathy as above -ARF, vasomotor nephropathy, poa: continue to monitor bmp -Severe protein calorie malnutrition: consult Facility Examiner, tube feeding -Oropharyngeal dysphaigia with PEG tube: continue present management -Advance care planning: pt was full changed to DNR and now full code, day later he was intubated -DVT prophylaxis: scd and sq lovenox Consulted Ethic committee, ?hospice but family are not on the same page, patient is terminally ill==>it appears the patient's mother and father (pt lives with father) are now on the same page; however, patient is still legally but x 6 yr ( lives in [place]) they (parents) want SNF hospice. Patient was responsive, writing, doing well on Tuesday04/16/18 and then early Tuesday morning he became unresponsive and was orally Intubated and moved back to the ICU CCT 31 minutes History Interval history: Patient was seen and examined. Follow-up on current diagnosis of unresponsiveness. Overnight uneventful. Imaging, nursing note, chart, labs and old chart reviewed. Hospitalist Physical - Physical exam Narrative exam: GEN: gravely ill, Orally intubated again on 04/17/18 and extubated later the same day, now on NRB, communicating HEENT: extubated 04/11/18, extraocular, pupils focused and tracking appropriately , NECK: supple, no adenopathy, no thyromegaly, no JVD CVS/HEART: Regular tacycardia, normal S1S2, pulses present bilaterally CHEST/LUNGS: Tachypneic, Symmetrical chest expansion, good air entry bilaterally GI/Abdomen: soft, PEG in place, good bowel sounds, no guarding or rebound EXT/Skin: dependant edema MSK: unresponsive, he will spontaneous move extremities, right wrist in restraint but not left Neuro: CN 2-12 grossly intact, following most commands, left hemiparesis remains Psych: calm - Constitutional Vitals: Temp Pulse Resp BP Pulse Ox 97 F L 88 19 117/80 100 04/18/18 04:00 04/18/18 06:00 04/18/18 06:00 04/18/18 06:00 04/18/18 06:00 General appearance: Absent: mild distress, well-nourished, other Results - Labs CBC & Chem 7: 04/18/18 09:09 04/18/18 09:09 Labs: Laboratory Last Values WBC 28.7 K/mm3 (4.5-11.0) H 04/17/18 08:26 RBC 4.05 M/mm3 (3.65-5.03) 04/17/18 08:26 Hgb 11.8 gm/dl (11.8-15.2) 04/17/18 08:26 Hct 35.5 % (35.5-45.6) 04/17/18 08:26 MCV 88 fl (84-94) 04/17/18 08:26 MCH 29 pg (28-32) 04/17/18 08:26 MCHC 33 % (32-34) 04/17/18 08:26 RDW 15.0 % (13.2-15.2) 04/17/18 08:26 Plt Count 466 K/mm3 (140-440) H 04/17/18 08:26 Lymph % (Auto) 6.5 % (13.4-35.0) L 04/09/18 04:00 [place] % (Auto) 3.5 % (0.0-7.3) 04/09/18 04:00 Eos % (Auto) 0.2 % (0.0-4.3) 04/09/18 04:00 Baso % (Auto) 0.2 % (0.0-1.8) 04/09/18 04:00 Lymph # 0.5 K/mm3 (1.2-5.4) L 04/09/18 04:00 [place] # 0.2 K/mm3 (0.0-0.8) 04/09/18 04:00 Eos # 0.0 K/mm3 (0.0-0.4) 04/09/18 04:00 Baso # 0.0 K/mm3 (0.0-0.1) 04/09/18 04:00 Add Manual Diff Complete 04/17/18 08:26 Total Counted 100 04/17/18 08:26 Seg Neutrophils % 89.6 % (40.0-70.0) H 04/09/18 04:00 Seg Neuts % (Manual) 89.0 % (40.0-70.0) H 04/17/18 08:26 Band Neutrophils % 1.0 % 04/17/18 08:26 Lymphocytes % (Manual) 3.0 % (13.4-35.0) L 04/17/18 08:26 Reactive Lymphs % (Man) 0 % 04/17/18 08:26 Monocytes % (Manual) 3.0 % (0.0-7.3) 04/17/18 08:26 Eosinophils % (Manual) 1.0 % (0.0-4.3) 04/17/18 08:26 Basophils % (Manual) 0 % (0.0-1.8) 04/17/18 08:26 Metamyelocytes % 3.0 % 04/17/18 08:26 Myelocytes % 0 % 04/17/18 08:26 Promyelocytes % 0 % 04/17/18 08:26 Blast Cells % 0 % 04/17/18 08:26 Nucleated RBC % Not Reportable 04/17/18 08:26 Seg Neutrophils # 6.4 K/mm3 (1.8-7.7) 04/09/18 04:00 Seg Neutrophils # Man 25.5 K/mm3 (1.8-7.7) H 04/17/18 08:26 Band Neutrophils # 0.3 K/mm3 04/17/18 08:26 Lymphocytes # (Manual) 0.9 K/mm3 (1.2-5.4) L 04/17/18 08:26 Abs React Lymphs (Man) 0.0 K/mm3 04/17/18 08:26 Monocytes # (Manual) 0.9 K/mm3 (0.0-0.8) H 04/17/18 08:26 Eosinophils # (Manual) 0.3 K/mm3 (0.0-0.4) 04/17/18 08:26 Basophils # (Manual) 0.0 K/mm3 (0.0-0.1) 04/17/18 08:26 Metamyelocytes # 0.9 K/mm3 04/17/18 08:26 Myelocytes # 0.0 K/mm3 04/17/18 08:26 Promyelocytes # 0.0 K/mm3 04/17/18 08:26 Blast Cells # 0.0 K/mm3 04/17/18 08:26 WBC Morphology Not Reportable 04/17/18 08:26 Hypersegmented Neuts Not Reportable 04/17/18 08:26 Hyposegmented Neuts Not Reportable 04/17/18 08:26 Hypogranular Neuts Not Reportable 04/17/18 08:26 Smudge Cells Not Reportable 04/17/18 08:26 Toxic Granulation Few 04/17/18 08:26 Toxic Vacuolation Not Reportable 04/17/18 08:26 Dohle Bodies Not Reportable 04/17/18 08:26 Pelger-Huet Anomaly Not Reportable 04/17/18 08:26 Zandra Rods Not Reportable 04/17/18 08:26 Platelet Estimate Cons 04/17/18 08:26 Clumped Platelets Not Reportable 04/17/18 08:26 Plt Clumps, EDTA Not Reportable 04/17/18 08:26 Large Platelets Not Reportable 04/17/18 08:26 Giant Platelets Not Reportable 04/17/18 08:26 Platelet Satelliting Not Reportable 04/17/18 08:26 Plt Morphology Comment Not Reportable 04/17/18 08:26 RBC Morphology Not Reportable 04/17/18 08:26 Dimorphic RBCs Not Reportable 04/17/18 08:26 Polychromasia Not Reportable 04/17/18 08:26 Hypochromasia Not Reportable 04/17/18 08:26 Poikilocytosis Not Reportable 04/17/18 08:26 Anisocytosis 1+ 04/17/18 08:26 Microcytosis Not Reportable 04/17/18 08:26 Macrocytosis Not Reportable 04/17/18 08:26 Spherocytes Not Reportable 04/17/18 08:26 Pappenheimer Bodies Not Reportable 04/17/18 08:26 Sickle Cells Not Reportable 04/17/18 08:26 Target Cells Not Reportable 04/17/18 08:26 Tear Drop Cells Not Reportable 04/17/18 08:26 Ovalocytes Not Reportable 04/17/18 08:26 Helmet Cells Not Reportable 04/17/18 08:26 [place] Bodies Not Reportable 04/17/18 08:26 [place] Rings Not Reportable 04/17/18 08:26 [place] Cells Not Reportable 04/17/18 08:26 Bite Cells Not Reportable 04/17/18 08:26 Crenated Cell Not Reportable 04/17/18 08:26 Elliptocytes Not Reportable 04/17/18 08:26 Acanthocytes (Spur) Not Reportable 04/17/18 08:26 Rouleaux Not Reportable 04/17/18 08:26 Hemoglobin C Crystals Not Reportable 04/17/18 08:26 Schistocytes Not Reportable 04/17/18 08:26 Malaria parasites Not Reportable 04/17/18 08:26 Juan Bodies Not Reportable 04/17/18 08:26 Hem Pathologist Commnt No 04/17/18 08:26 PT 12.9 Sec. (12.2-14.9) 04/17/18 08:26 INR 0.93 (0.87-1.13) 04/17/18 08:26 APTT 21.3 Sec. (24.2-36.6) L 04/17/18 08:26 Thrombin Time 14.6 Sec. (15.1-19.6) L 04/08/18 09:25 POC ABG pH 7.546 (7.35-7.45) H 04/17/18 14:58 POC ABG pCO2 39.4 (35-45) 04/17/18 14:58 POC ABG pO2 72 (80-105) L 04/17/18 14:58 POC ABG HCO3 34.2 04/17/18 14:58 POC ABG Total CO2 35 04/17/18 14:58 POC ABG O2 Sat 96 04/17/18 14:58 POC ABG Base Excess 12 04/17/18 14:58 FiO2 35 % 04/17/18 14:58 Sodium 147 mmol/L (137-145) H 04/17/18 08:26 Potassium 3.4 mmol/L (3.6-5.0) L 04/17/18 08:26 Chloride 104.9 mmol/L (98-107) 04/17/18 08:26 Carbon Dioxide 31 mmol/L (22-30) H 04/17/18 08:26 Anion Gap 15 mmol/L 04/17/18 08:26 BUN 24 mg/dL (9-20) H 04/17/18 08:26 Creatinine 0.3 mg/dL (0.8-1.5) L 04/17/18 08:26 Estimated GFR > 60 ml/min 04/17/18 08:26 BUN/Creatinine Ratio 80 % 04/17/18 08:26 Glucose 113 mg/dL (75-100) H 04/17/18 08:26 POC Glucose 148 (70-105) H 04/18/18 00:03 Lactic Acid 2.60 mmol/L (0.7-2.0) H* 04/12/18 10:12 Calcium 9.8 mg/dL (8.4-10.2) 04/17/18 08:26 Magnesium 1.90 mg/dL (1.7-2.3) 04/08/18 09:25 Total Bilirubin 0.30 mg/dL (0.1-1.2) 04/09/18 04:00 Direct Bilirubin 0.2 mg/dL (0-0.2) 04/08/18 10:18 Indirect Bilirubin 0.3 mg/dL 04/08/18 10:18 AST 61 units/L (5-40) H 04/09/18 04:00 ALT 26 units/L (7-56) 04/09/18 04:00 Alkaline Phosphatase 142 units/L (35-129) H 04/09/18 04:00 Ammonia 74.0 umol/L (25-60) H 04/08/18 09:57 Total Creatine Kinase 38 units/L (55-170) L 04/08/18 09:25 CK-MB (CK-2) < 1.0 ng/mL (0.0-4.0) 04/08/18 09:25 CK-MB (CK-2) Rel Index 2.6 (0-4) 04/08/18 09:25 Troponin T 0.059 ng/mL (0.00-0.029) H 04/08/18 09:25 NT-Pro-B Natriuret Pep 2534 pg/mL (0-900) H 04/08/18 09:25 Total Protein 5.2 g/dL (6.3-8.2) L D 04/09/18 04:00 Albumin 2.3 g/dL (3.9-5) L 04/09/18 04:00 Albumin/Globulin Ratio 0.8 % 04/09/18 04:00 Triglycerides 158 mg/dL (2-149) H 04/08/18 09:25 Cholesterol 130 mg/dL (50-199) 04/08/18 09:25 LDL Cholesterol Direct 60 mg/dL (50-130) 04/08/18 09:25 HDL Cholesterol 32 mg/dL (40-59) L 04/08/18 09:25 Cholesterol/HDL Ratio 4.06 % 04/08/18 09:25 Urine Color Kiersten (Yellow) 04/08/18 12:34 Urine Turbidity Cloudy (Clear) 04/08/18 12:34 Urine pH 5.0 (5.0-7.0) 04/08/18 12:34 Ur Specific [place] 1.023 (1.003-1.030) 04/08/18 12:34 Urine Protein 100 mg/dl mg/dL (Negative) 04/08/18 12:34 Urine Glucose (UA) 50 mg/dL (Negative) 04/08/18 12:34 Urine Ketones Neg mg/dL (Negative) 04/08/18 12:34 Urine Blood Neg (Negative) 04/08/18 12:34 Urine Nitrite Neg (Negative) 04/08/18 12:34 Ur Reducing Substances Not Reportable 04/08/18 12:34 Urine Bilirubin Neg (Negative) 04/08/18 12:34 Urine Ictotest Not Reportable 04/08/18 12:34 Urine Urobilinogen 4.0 mg/dL (<2.0) 04/08/18 12:34 Ur Leukocyte Esterase Neg (Negative) 04/08/18 12:34 Urine WBC (Auto) 22.0 /HPF (0.0-6.0) H 04/08/18 12:34 Urine RBC (Auto) 7.0 /HPF (0.0-6.0) 04/08/18 12:34 U Epithel Cells (Auto) 5.0 /HPF (0-13.0) 04/08/18 12:34 Urine Bacteria (Auto) 1+ /HPF (Negative) 04/08/18 12:34 Urine Mucus Few /HPF 04/08/18 12:34
--- NOTE | 2018-04-18 09:05 | Progress Note ---
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 Subjective Date of service: 04/18/18 Principal diagnosis: acute hypoxemic respiratory failure, pneumonia, brain metastases, sepsis Interval history: Acute hypoxemic respiratory failure, pneumonia, brain metastases, sepsis Seen and examined at bedside; 24hour events reviewed; nursing and respiratory care staff consulted; no adverse overnight events reported to me; Responsive this morning, On Venturi mask at 50%, required NIPPV support all night Father at the bedside Objective Vital Signs - 12hr 04/17/18 04/17/18 04/17/18 22:00 23:00 23:18 Temperature Pulse Rate 113 H 114 H 113 H Pulse Rate [ Anterior Bilateral Throughout] Respiratory 26 H 26 H 22 Rate Respiratory Rate [Anterior Bilateral Throughout] Blood Pressure 129/91 115/83 115/83 O2 Sat by Pulse 99 99 100 Oximetry 04/18/18 04/18/18 04/18/18 00:00 01:00 02:00 Temperature 97.6 F Pulse Rate 106 H 94 H 94 H Pulse Rate [ Anterior Bilateral Throughout] Respiratory 18 16 18 Rate Respiratory Rate [Anterior Bilateral Throughout] Blood Pressure 115/83 113/74 117/81 O2 Sat by Pulse 100 100 100 Oximetry 04/18/18 04/18/18 04/18/18 03:00 04:00 04:44 Temperature 97 F L Pulse Rate 92 H 90 89 Pulse Rate [ Anterior Bilateral Throughout] Respiratory 18 18 20 Rate Respiratory Rate [Anterior Bilateral Throughout] Blood Pressure 117/81 117/77 117/77 O2 Sat by Pulse 100 100 100 Oximetry 04/18/18 04/18/18 04/18/18 05:00 06:00 08:00 Temperature Pulse Rate 85 88 Pulse Rate [ 110 H Anterior Bilateral Throughout] Respiratory 19 19 Rate Respiratory 18 Rate [Anterior Bilateral Throughout] Blood Pressure 114/77 117/80 O2 Sat by Pulse 100 100 Oximetry 04/18/18 04/18/18 08:10 08:40 Temperature Pulse Rate Pulse Rate [ 112 H Anterior Bilateral Throughout] Respiratory Rate Respiratory 18 Rate [Anterior Bilateral Throughout] Blood Pressure O2 Sat by Pulse 96 Oximetry Constitutional: appears uncomfortable, other (middle aged chronically ill looking CM; normocephalic and atraumatic) Eyes: non-icteric ENT: oropharynx dry, oropharyngeal exudate pre, other (Venturi mask, ) Neck: supple, no lymphadenopathy, no JVD, other (no thyromegaly) Effort: mildly labored Ascultation: Bilateral: diminished breath sounds, rales, rhonchi (corse BS) Percussion: Bilateral: not dull Cardiovascular: regular rate and rhythm, PVC's noted (occasional), other (No R/M ) Gastrointestinal: normoactive bowel sounds, soft, non-tender, non-distended, other (No HSM, PEG in place..single lumen, floppy) Integumentary: other (poor turgor) Extremities: no cyanosis, no edema, pink and warm, pulses normal, other ( contractures) Neurologic: pupils equal and round, motor strength normal and (bilateral lower extremities), other (A & OX 2) Psychiatric: mood appropriate, anxious CBC and BMP: 04/18/18 09:09 04/19/18 08:06 ABG, PT/INR, D-dimer: ABG POC ABG pH 7.546 (7.35-7.45) H 04/17/18 14:58 POC ABG pCO2 39.4 (35-45) 04/17/18 14:58 POC ABG pO2 72 (80-105) L 04/17/18 14:58 POC ABG HCO3 34.2 04/17/18 14:58 POC ABG Total CO2 35 04/17/18 14:58 POC ABG O2 Sat 96 04/17/18 14:58 PT/INR, D-dimer PT 12.9 Sec. (12.2-14.9) 04/17/18 08:26 INR 0.93 (0.87-1.13) 04/17/18 08:26 Abnormal lab findings: Abnormal Labs 04/08/18 04/08/18 04/08/18 09:25 09:25 09:25 WBC RBC 5.20 H Hgb 15.7 H Hct 47.1 H RDW Plt Count 621 H Lymph % (Auto) 11.4 L Lymph # 1.1 L Seg Neutrophils % 81.7 H Seg Neuts % (Manual) Lymphocytes % (Manual) Seg Neutrophils # Man Lymphocytes # (Manual) Monocytes # (Manual) PT 17.5 H INR 1.35 H APTT Thrombin Time 14.6 L POC ABG pH POC ABG pCO2 POC ABG pO2 Sodium Potassium 5.2 H Chloride 89.9 L Carbon Dioxide BUN 22 H Creatinine 1.7 H Glucose 184 H POC Glucose Lactic Acid Calcium AST Alkaline Phosphatase Ammonia Total Creatine Kinase Troponin T 0.059 H NT-Pro-B Natriuret Pep Total Protein Albumin Triglycerides 158 H HDL Cholesterol 32 L Urine WBC (Auto) 04/08/18 04/08/18 04/08/18 09:25 09:25 09:57 WBC RBC Hgb Hct RDW Plt Count Lymph % (Auto) Lymph # Seg Neutrophils % Seg Neuts % (Manual) Lymphocytes % (Manual) Seg Neutrophils # Man Lymphocytes # (Manual) Monocytes # (Manual) PT INR APTT Thrombin Time POC ABG pH POC ABG pCO2 POC ABG pO2 Sodium Potassium Chloride Carbon Dioxide BUN Creatinine Glucose POC Glucose Lactic Acid 10.50 H* Calcium AST Alkaline Phosphatase Ammonia 74.0 H Total Creatine Kinase 38 L Troponin T NT-Pro-B Natriuret Pep 2534 H Total Protein Albumin Triglycerides HDL Cholesterol Urine WBC (Auto) 04/08/18 04/08/18 04/08/18 10:18 10:43 11:00 WBC RBC Hgb Hct RDW Plt Count Lymph % (Auto) Lymph # Seg Neutrophils % Seg Neuts % (Manual) Lymphocytes % (Manual) Seg Neutrophils # Man Lymphocytes # (Manual) Monocytes # (Manual) PT INR APTT Thrombin Time POC ABG pH 7.294 L POC ABG pCO2 49.6 H POC ABG pO2 Sodium Potassium Chloride 96.8 L Carbon Dioxide BUN 21 H Creatinine 1.6 H Glucose 155 H POC Glucose Lactic Acid Calcium AST 93 H Alkaline Phosphatase 216 H Ammonia Total Creatine Kinase Troponin T NT-Pro-B Natriuret Pep Total Protein Albumin 3.0 L Triglycerides HDL Cholesterol Urine WBC (Auto) 04/08/18 04/08/18 04/08/18 11:00 12:34 16:41 WBC RBC Hgb Hct RDW Plt Count Lymph % (Auto) Lymph # Seg Neutrophils % Seg Neuts % (Manual) Lymphocytes % (Manual) Seg Neutrophils # Man Lymphocytes # (Manual) Monocytes # (Manual) PT INR APTT Thrombin Time POC ABG pH POC ABG pCO2 POC ABG pO2 Sodium Potassium Chloride Carbon Dioxide BUN Creatinine Glucose POC Glucose Lactic Acid 8.40 H* 5.10 H* Calcium AST Alkaline Phosphatase Ammonia Total Creatine Kinase Troponin T NT-Pro-B Natriuret Pep Total Protein Albumin Triglycerides HDL Cholesterol Urine WBC (Auto) 22.0 H 04/08/18 04/08/18 04/08/18 17:43 20:54 23:39 WBC RBC Hgb Hct RDW Plt Count Lymph % (Auto) Lymph # Seg Neutrophils % Seg Neuts % (Manual) Lymphocytes % (Manual) Seg Neutrophils # Man Lymphocytes # (Manual) Monocytes # (Manual) PT INR APTT Thrombin Time POC ABG pH POC ABG pCO2 POC ABG pO2 Sodium Potassium Chloride Carbon Dioxide BUN Creatinine Glucose POC Glucose 168 H 167 H Lactic Acid 4.70 H* Calcium AST Alkaline Phosphatase Ammonia Total Creatine Kinase Troponin T NT-Pro-B Natriuret Pep Total Protein Albumin Triglycerides HDL Cholesterol Urine WBC (Auto) 04/09/18 04/09/18 04/09/18 04:00 04:00 04:00 WBC RBC Hgb 11.7 L D Hct 34.7 L D RDW Plt Count Lymph % (Auto) 6.5 L Lymph # 0.5 L Seg Neutrophils % 89.6 H Seg Neuts % (Manual) Lymphocytes % (Manual) Seg Neutrophils # Man Lymphocytes # (Manual) Monocytes # (Manual) PT INR APTT Thrombin Time POC ABG pH POC ABG pCO2 POC ABG pO2 Sodium Potassium Chloride Carbon Dioxide BUN 26 H Creatinine Glucose 179 H POC Glucose Lactic Acid 3.50 H* Calcium 8.2 L AST 61 H Alkaline Phosphatase 142 H Ammonia Total Creatine Kinase Troponin T NT-Pro-B Natriuret Pep Total Protein 5.2 L D Albumin 2.3 L Triglycerides HDL Cholesterol Urine WBC (Auto) 04/09/18 04/09/18 04/09/18 04:24 06:03 12:19 WBC RBC Hgb Hct RDW Plt Count Lymph % (Auto) Lymph # Seg Neutrophils % Seg Neuts % (Manual) Lymphocytes % (Manual) Seg Neutrophils # Man Lymphocytes # (Manual) Monocytes # (Manual) PT INR APTT Thrombin Time POC ABG pH POC ABG pCO2 POC ABG pO2 135 H Sodium Potassium Chloride Carbon Dioxide BUN Creatinine Glucose POC Glucose 158 H 168 H Lactic Acid Calcium AST Alkaline Phosphatase Ammonia Total Creatine Kinase Troponin T NT-Pro-B Natriuret Pep Total Protein Albumin Triglycerides HDL Cholesterol Urine WBC (Auto) 04/09/18 04/09/18 04/09/18 16:30 18:01 23:31 WBC RBC Hgb Hct RDW Plt Count Lymph % (Auto) Lymph # Seg Neutrophils % Seg Neuts % (Manual) Lymphocytes % (Manual) Seg Neutrophils # Man Lymphocytes # (Manual) Monocytes # (Manual) PT INR APTT Thrombin Time POC ABG pH POC ABG pCO2 45.7 H POC ABG pO2 168 H Sodium Potassium Chloride Carbon Dioxide BUN Creatinine Glucose POC Glucose 161 H 154 H Lactic Acid Calcium AST Alkaline Phosphatase Ammonia Total Creatine Kinase Troponin T NT-Pro-B Natriuret Pep Total Protein Albumin Triglycerides HDL Cholesterol Urine WBC (Auto) 04/10/18 04/10/18 04/10/18 04:01 05:24 12:49 WBC RBC Hgb Hct RDW Plt Count Lymph % (Auto) Lymph # Seg Neutrophils % Seg Neuts % (Manual) Lymphocytes % (Manual) Seg Neutrophils # Man Lymphocytes # (Manual) Monocytes # (Manual) PT INR APTT Thrombin Time POC ABG pH POC ABG pCO2 POC ABG pO2 124 H Sodium Potassium Chloride Carbon Dioxide BUN Creatinine Glucose POC Glucose 141 H 132 H Lactic Acid Calcium AST Alkaline Phosphatase Ammonia Total Creatine Kinase Troponin T NT-Pro-B Natriuret Pep Total Protein Albumin Triglycerides HDL Cholesterol Urine WBC (Auto) 04/10/18 04/11/18 04/11/18 19:07 00:11 05:28 WBC RBC Hgb Hct RDW Plt Count Lymph % (Auto) Lymph # Seg Neutrophils % Seg Neuts % (Manual) Lymphocytes % (Manual) Seg Neutrophils # Man Lymphocytes # (Manual) Monocytes # (Manual) PT INR APTT Thrombin Time POC ABG pH POC ABG pCO2 POC ABG pO2 Sodium Potassium Chloride Carbon Dioxide BUN Creatinine Glucose POC Glucose 128 H 120 H 107 H Lactic Acid Calcium AST Alkaline Phosphatase Ammonia Total Creatine Kinase Troponin T NT-Pro-B Natriuret Pep Total Protein Albumin Triglycerides HDL Cholesterol Urine WBC (Auto) 04/11/18 04/12/18 04/12/18 22:04 03:48 08:29 WBC RBC Hgb Hct RDW Plt Count Lymph % (Auto) Lymph # Seg Neutrophils % Seg Neuts % (Manual) Lymphocytes % (Manual) Seg Neutrophils # Man Lymphocytes # (Manual) Monocytes # (Manual) PT INR APTT Thrombin Time POC ABG pH POC ABG pCO2 POC ABG pO2 Sodium Potassium Chloride Carbon Dioxide BUN Creatinine Glucose POC Glucose Lactic Acid 3.10 H* 3.30 H* 3.10 H* Calcium AST Alkaline Phosphatase Ammonia Total Creatine Kinase Troponin T NT-Pro-B Natriuret Pep Total Protein Albumin Triglycerides HDL Cholesterol Urine WBC (Auto) 04/12/18 04/12/18 04/12/18 08:29 10:12 11:52 WBC RBC Hgb Hct RDW Plt Count Lymph % (Auto) Lymph # Seg Neutrophils % Seg Neuts % (Manual) Lymphocytes % (Manual) Seg Neutrophils # Man Lymphocytes # (Manual) Monocytes # (Manual) PT INR APTT Thrombin Time POC ABG pH POC ABG pCO2 POC ABG pO2 Sodium Potassium Chloride Carbon Dioxide BUN 34 H Creatinine Glucose 135 H POC Glucose 140 H Lactic Acid 2.60 H* Calcium AST Alkaline Phosphatase Ammonia Total Creatine Kinase Troponin T NT-Pro-B Natriuret Pep Total Protein Albumin Triglycerides HDL Cholesterol Urine WBC (Auto) 04/12/18 04/12/18 04/13/18 13:48 18:32 00:23 WBC RBC Hgb Hct RDW Plt Count Lymph % (Auto) Lymph # Seg Neutrophils % Seg Neuts % (Manual) Lymphocytes % (Manual) Seg Neutrophils # Man Lymphocytes # (Manual) Monocytes # (Manual) PT INR APTT Thrombin Time POC ABG pH POC ABG pCO2 54.5 H POC ABG pO2 Sodium Potassium Chloride Carbon Dioxide BUN Creatinine Glucose POC Glucose 121 H 118 H Lactic Acid Calcium AST Alkaline Phosphatase Ammonia Total Creatine Kinase Troponin T NT-Pro-B Natriuret Pep Total Protein Albumin Triglycerides HDL Cholesterol Urine WBC (Auto) 04/13/18 04/13/18 04/14/18 05:41 13:49 00:22 WBC RBC Hgb Hct RDW Plt Count Lymph % (Auto) Lymph # Seg Neutrophils % Seg Neuts % (Manual) Lymphocytes % (Manual) Seg Neutrophils # Man Lymphocytes # (Manual) Monocytes # (Manual) PT INR APTT Thrombin Time POC ABG pH POC ABG pCO2 POC ABG pO2 Sodium Potassium Chloride Carbon Dioxide BUN Creatinine Glucose POC Glucose 111 H 122 H 142 H Lactic Acid Calcium AST Alkaline Phosphatase Ammonia Total Creatine Kinase Troponin T NT-Pro-B Natriuret Pep Total Protein Albumin Triglycerides HDL Cholesterol Urine WBC (Auto) 04/14/18 04/14/18 04/14/18 11:56 12:12 13:46 WBC 14.8 H RBC Hgb 11.1 L Hct 33.3 L RDW 15.7 H Plt Count 443 H Lymph % (Auto) Lymph # Seg Neutrophils % Seg Neuts % (Manual) 89.0 H Lymphocytes % (Manual) 1.0 L Seg Neutrophils # Man 13.2 H Lymphocytes # (Manual) 0.1 L Monocytes # (Manual) PT INR APTT Thrombin Time POC ABG pH POC ABG pCO2 POC ABG pO2 Sodium 150 H D Potassium 3.3 L Chloride 108.5 H Carbon Dioxide BUN 40 H Creatinine 0.5 L Glucose 140 H POC Glucose 135 H Lactic Acid Calcium AST Alkaline Phosphatase Ammonia Total Creatine Kinase Troponin T NT-Pro-B Natriuret Pep Total Protein Albumin Triglycerides HDL Cholesterol Urine WBC (Auto) 04/14/18 04/14/18 04/15/18 17:32 23:27 05:58 WBC RBC Hgb Hct RDW Plt Count Lymph % (Auto) Lymph # Seg Neutrophils % Seg Neuts % (Manual) Lymphocytes % (Manual) Seg Neutrophils # Man Lymphocytes # (Manual) Monocytes # (Manual) PT INR APTT Thrombin Time POC ABG pH POC ABG pCO2 POC ABG pO2 Sodium Potassium Chloride Carbon Dioxide BUN Creatinine Glucose POC Glucose 158 H 156 H 122 H Lactic Acid Calcium AST Alkaline Phosphatase Ammonia Total Creatine Kinase Troponin T NT-Pro-B Natriuret Pep Total Protein Albumin Triglycerides HDL Cholesterol Urine WBC (Auto) 04/15/18 04/17/18 04/17/18 12:05 05:56 08:26 WBC 28.7 H RBC Hgb Hct RDW Plt Count 466 H Lymph % (Auto) Lymph # Seg Neutrophils % Seg Neuts % (Manual) 89.0 H Lymphocytes % (Manual) 3.0 L Seg Neutrophils # Man 25.5 H Lymphocytes # (Manual) 0.9 L Monocytes # (Manual) 0.9 H PT INR APTT Thrombin Time POC ABG pH POC ABG pCO2 67.3 H POC ABG pO2 387 H Sodium Potassium Chloride Carbon Dioxide BUN Creatinine Glucose POC Glucose 150 H Lactic Acid Calcium AST Alkaline Phosphatase Ammonia Total Creatine Kinase Troponin T NT-Pro-B Natriuret Pep Total Protein Albumin Triglycerides HDL Cholesterol Urine WBC (Auto) 04/17/18 04/17/18 04/17/18 08:26 08:26 09:04 WBC RBC Hgb Hct RDW Plt Count Lymph % (Auto) Lymph # Seg Neutrophils % Seg Neuts % (Manual) Lymphocytes % (Manual) Seg Neutrophils # Man Lymphocytes # (Manual) Monocytes # (Manual) PT INR APTT 21.3 L Thrombin Time POC ABG pH 7.509 H POC ABG pCO2 46.0 H POC ABG pO2 62 L Sodium 147 H Potassium 3.4 L Chloride Carbon Dioxide 31 H BUN 24 H Creatinine 0.3 L Glucose 113 H POC Glucose Lactic Acid Calcium AST Alkaline Phosphatase Ammonia Total Creatine Kinase Troponin T NT-Pro-B Natriuret Pep Total Protein Albumin Triglycerides HDL Cholesterol Urine WBC (Auto) 04/17/18 04/18/18 14:58 00:03 WBC RBC Hgb Hct RDW Plt Count Lymph % (Auto) Lymph # Seg Neutrophils % Seg Neuts % (Manual) Lymphocytes % (Manual) Seg Neutrophils # Man Lymphocytes # (Manual) Monocytes # (Manual) PT INR APTT Thrombin Time POC ABG pH 7.546 H POC ABG pCO2 POC ABG pO2 72 L Sodium Potassium Chloride Carbon Dioxide BUN Creatinine Glucose POC Glucose 148 H Lactic Acid Calcium AST Alkaline Phosphatase Ammonia Total Creatine Kinase Troponin T NT-Pro-B Natriuret Pep Total Protein Albumin Triglycerides HDL Cholesterol Urine WBC (Auto) Allied health notes reviewed: RT (Wean supplemental oxygen for O2 sats>90%)
[2018-04-18 09:31] LABS: Hematocrit 32.2 % (35.5-45.6); Hemoglobin 11.2 gm/dl (11.8-15.2); Mean Corpuscular HGB Conc 35 % (32-34); Mean Corpuscular Hemoglobin 31 pg (28-32); Mean Corpuscular Volume 88 fl (84-94); Platelet Count 345 K/mm3 (140-440); Red Blood Count 3.64 M/mm3 (3.65-5.03); Red Cell Distribution Width 15.1 % (13.2-15.2)
[2018-04-18 09:51] LABS: BUN/Creatinine Ratio 77; Blood Urea Nitrogen 23 mg/dL (9-20); Calcium 9.3 mg/dL (8.4-10.2); Hemolysis Index 24
[2018-04-18] MEDS: ROCEPHIN/NS 2 GM/100 ML 2 GM/100 ML BAG IV SCH (10:00)
[2018-04-18] MEDS: LOVENOX SUB-Q SCH (12:01)
[2018-04-18] MEDS: PEPCID PO SCH ×2 (12:01→21:32)
[2018-04-18] MEDS: SODIUM CHLORIDE FLUSH SYRINGE 10 ML IV SCH ×2 (12:06→20:00)
[2018-04-18] MEDS: DECADRON PO SCH ×2 (15:33→21:32)
[2018-04-18] MEDS ORDERED: NACL 0.9% 1000 ML 1,000 ML IV ONE (17:07)
[2018-04-18] MEDS: KCL 10MEQ/100ML 10 MEQ/100 ML BAG IV SCH ×2 (20:00→21:01)
[2018-04-19] MEDS: DUONEB *Not for PRN Use IH SCH ×4 (01:43→19:24)
[2018-04-19] MEDS: DECADRON PO SCH ×3 (05:09→22:57)
--- NOTE | 2018-04-19 08:15 | Progress Note ---
Assessment and Plan Assessment and plan: Patient is a 52 yo man from [facility] Hospice who presented to [facility] ED via EMS with AMS/unresponsiveness. According to chart, patient had just arrived to [facility] with hospice one day prior to this unresponsive state. 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 He has already received chemotherapy and radiation therapy. The father is aware that the patient is in hospice for a terminal condition. His CODE STATUS was initially full code but was changed to DNR/AND. He was intubated on admission on 04/08/18, but was not sedated, then extubated on 04/11/18. His care has been pretty much been governed by Print Finisher. He woke up one day. Patient was responsive, writing, doing well and told Dr. Gomez that he wanted to be full code. So the DNR was changed back to full code. Then early Tuesday morning on 04/17/18 he became unresponsive in the IMCU and was orally Intubated then moved back to the ICU. Later on Tuesday, he was extubated again on 04/17/18. 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: still on on IV Decadron -Dysphagia: consult GI to evaluate the PEG tube -Acute encephalopathy as above -ARF, vasomotor nephropathy, poa: continue to monitor bmp -Severe protein calorie malnutrition: consult Clock And Watch Assembler, tube feeding -Oropharyngeal dysphaigia with PEG tube: continue present management -Advance care planning: pt was full changed to DNR and now full code, day later he was intubated -DVT prophylaxis: scd and sq lovenox Ethic committee consult still pending, ?hospice but family are not on the same page, patient is terminally ill==>it appears the patient's mother and father ( pt lives with father) are now on the same page; however, patient is still legally but x 6 yr ( lives in [place]) they (parents) want SNF hospice. History Interval history: Patient was seen and examined. Follow-up on current diagnosis of unresponsiveness. Overnight uneventful. Imaging, nursing note, chart, labs and old chart reviewed. Hospitalist Physical - Physical exam Narrative exam: GEN: gravely ill, Orally intubated again on 04/17/18 and extubated later the same day, now on NRB, communicating HEENT: extubated 04/11/18, extraocular, pupils focused and tracking appropriately , NECK: supple, no adenopathy, no thyromegaly, no JVD CVS/HEART: Regular tacycardia, normal S1S2, pulses present bilaterally CHEST/LUNGS: Tachypneic, Symmetrical chest expansion, good air entry bilaterally GI/Abdomen: soft, PEG in place, good bowel sounds, no guarding or rebound EXT/Skin: dependant edema MSK: unresponsive, he will spontaneous move extremities, right wrist in restraint but not left Neuro: CN 2-12 grossly intact, following most commands, left hemiparesis remains Psych: calm - Constitutional Vitals: Temp Pulse Resp BP Pulse Ox 98.7 F 111 H 21 122/83 99 04/19/18 03:48 04/19/18 08:00 04/19/18 08:00 04/19/18 08:00 04/19/18 07:50 General appearance: Absent: mild distress, well-nourished, other Results - Labs CBC & Chem 7: 04/18/18 09:09 04/19/18 08:06 Labs: Laboratory Last Values WBC 21.2 K/mm3 (4.5-11.0) H 04/18/18 09:09 RBC 3.64 M/mm3 (3.65-5.03) L 04/18/18 09:09 Hgb 11.2 gm/dl (11.8-15.2) L 04/18/18 09:09 Hct 32.2 % (35.5-45.6) L 04/18/18 09:09 MCV 88 fl (84-94) 04/18/18 09:09 MCH 31 pg (28-32) 04/18/18 09:09 MCHC 35 % (32-34) H 04/18/18 09:09 RDW 15.1 % (13.2-15.2) 04/18/18 09:09 Plt Count 345 K/mm3 (140-440) 04/18/18 09:09 Lymph % (Auto) 6.5 % (13.4-35.0) L 04/09/18 04:00 [place] % (Auto) 3.5 % (0.0-7.3) 04/09/18 04:00 Eos % (Auto) 0.2 % (0.0-4.3) 04/09/18 04:00 Baso % (Auto) 0.2 % (0.0-1.8) 04/09/18 04:00 Lymph # 0.5 K/mm3 (1.2-5.4) L 04/09/18 04:00 [place] # 0.2 K/mm3 (0.0-0.8) 04/09/18 04:00 Eos # 0.0 K/mm3 (0.0-0.4) 04/09/18 04:00 Baso # 0.0 K/mm3 (0.0-0.1) 04/09/18 04:00 Add Manual Diff Complete 04/17/18 08:26 Total Counted 100 04/17/18 08:26 Seg Neutrophils % 89.6 % (40.0-70.0) H 04/09/18 04:00 Seg Neuts % (Manual) 89.0 % (40.0-70.0) H 04/17/18 08:26 Band Neutrophils % 1.0 % 04/17/18 08:26 Lymphocytes % (Manual) 3.0 % (13.4-35.0) L 04/17/18 08:26 Reactive Lymphs % (Man) 0 % 04/17/18 08:26 Monocytes % (Manual) 3.0 % (0.0-7.3) 04/17/18 08:26 Eosinophils % (Manual) 1.0 % (0.0-4.3) 04/17/18 08:26 Basophils % (Manual) 0 % (0.0-1.8) 04/17/18 08:26 Metamyelocytes % 3.0 % 04/17/18 08:26 Myelocytes % 0 % 04/17/18 08:26 Promyelocytes % 0 % 04/17/18 08:26 Blast Cells % 0 % 04/17/18 08:26 Nucleated RBC % Not Reportable 04/17/18 08:26 Seg Neutrophils # 6.4 K/mm3 (1.8-7.7) 04/09/18 04:00 Seg Neutrophils # Man 25.5 K/mm3 (1.8-7.7) H 04/17/18 08:26 Band Neutrophils # 0.3 K/mm3 04/17/18 08:26 Lymphocytes # (Manual) 0.9 K/mm3 (1.2-5.4) L 04/17/18 08:26 Abs React Lymphs (Man) 0.0 K/mm3 04/17/18 08:26 Monocytes # (Manual) 0.9 K/mm3 (0.0-0.8) H 04/17/18 08:26 Eosinophils # (Manual) 0.3 K/mm3 (0.0-0.4) 04/17/18 08:26 Basophils # (Manual) 0.0 K/mm3 (0.0-0.1) 04/17/18 08:26 Metamyelocytes # 0.9 K/mm3 04/17/18 08:26 Myelocytes # 0.0 K/mm3 04/17/18 08:26 Promyelocytes # 0.0 K/mm3 04/17/18 08:26 Blast Cells # 0.0 K/mm3 04/17/18 08:26 WBC Morphology Not Reportable 04/17/18 08:26 Hypersegmented Neuts Not Reportable 04/17/18 08:26 Hyposegmented Neuts Not Reportable 04/17/18 08:26 Hypogranular Neuts Not Reportable 04/17/18 08:26 Smudge Cells Not Reportable 04/17/18 08:26 Toxic Granulation Few 04/17/18 08:26 Toxic Vacuolation Not Reportable 04/17/18 08:26 Dohle Bodies Not Reportable 04/17/18 08:26 Pelger-Huet Anomaly Not Reportable 04/17/18 08:26 Zandra Rods Not Reportable 04/17/18 08:26 Platelet Estimate Cons 04/17/18 08:26 Clumped Platelets Not Reportable 04/17/18 08:26 Plt Clumps, EDTA Not Reportable 04/17/18 08:26 Large Platelets Not Reportable 04/17/18 08:26 Giant Platelets Not Reportable 04/17/18 08:26 Platelet Satelliting Not Reportable 04/17/18 08:26 Plt Morphology Comment Not Reportable 04/17/18 08:26 RBC Morphology Not Reportable 04/17/18 08:26 Dimorphic RBCs Not Reportable 04/17/18 08:26 Polychromasia Not Reportable 04/17/18 08:26 Hypochromasia Not Reportable 04/17/18 08:26 Poikilocytosis Not Reportable 04/17/18 08:26 Anisocytosis 1+ 04/17/18 08:26 Microcytosis Not Reportable 04/17/18 08:26 Macrocytosis Not Reportable 04/17/18 08:26 Spherocytes Not Reportable 04/17/18 08:26 Pappenheimer Bodies Not Reportable 04/17/18 08:26 Sickle Cells Not Reportable 04/17/18 08:26 Target Cells Not Reportable 04/17/18 08:26 Tear Drop Cells Not Reportable 04/17/18 08:26 Ovalocytes Not Reportable 04/17/18 08:26 Helmet Cells Not Reportable 04/17/18 08:26 Beltrán-Cecilia Bodies Not Reportable 04/17/18 08:26 [place] Rings Not Reportable 04/17/18 08:26 [place] Cells Not Reportable 04/17/18 08:26 Bite Cells Not Reportable 04/17/18 08:26 Crenated Cell Not Reportable 04/17/18 08:26 Elliptocytes Not Reportable 04/17/18 08:26 Acanthocytes (Spur) Not Reportable 04/17/18 08:26 Rouleaux Not Reportable 04/17/18 08:26 Hemoglobin C Crystals Not Reportable 04/17/18 08:26 Schistocytes Not Reportable 04/17/18 08:26 Malaria parasites Not Reportable 04/17/18 08:26 Juan Bodies Not Reportable 04/17/18 08:26 Hem Pathologist Commnt No 04/17/18 08:26 PT 12.9 Sec. (12.2-14.9) 04/17/18 08:26 INR 0.93 (0.87-1.13) 04/17/18 08:26 APTT 21.3 Sec. (24.2-36.6) L 04/17/18 08:26 Thrombin Time 14.6 Sec. (15.1-19.6) L 04/08/18 09:25 POC ABG pH 7.546 (7.35-7.45) H 04/17/18 14:58 POC ABG pCO2 39.4 (35-45) 04/17/18 14:58 POC ABG pO2 72 (80-105) L 04/17/18 14:58 POC ABG HCO3 34.2 04/17/18 14:58 POC ABG Total CO2 35 04/17/18 14:58 POC ABG O2 Sat 96 04/17/18 14:58 POC ABG Base Excess 12 04/17/18 14:58 FiO2 35 % 04/17/18 14:58 Sodium 145 mmol/L (137-145) 04/18/18 09:09 Potassium 3.5 mmol/L (3.6-5.0) L 04/18/18 09:09 Chloride 104.3 mmol/L (98-107) 04/18/18 09:09 Carbon Dioxide 29 mmol/L (22-30) 04/18/18 09:09 Anion Gap 15 mmol/L 04/18/18 09:09 BUN 23 mg/dL (9-20) H 04/18/18 09:09 Creatinine 0.3 mg/dL (0.8-1.5) L 04/18/18 09:09 Estimated GFR > 60 ml/min 04/18/18 09:09 BUN/Creatinine Ratio 77 % 04/18/18 09:09 Glucose 141 mg/dL (75-100) H 04/18/18 09:09 POC Glucose 114 (70-105) H 04/19/18 05:34 Lactic Acid 2.60 mmol/L (0.7-2.0) H* 04/12/18 10:12 Calcium 9.3 mg/dL (8.4-10.2) 04/18/18 09:09 Magnesium 1.90 mg/dL (1.7-2.3) 04/08/18 09:25 Total Bilirubin 0.30 mg/dL (0.1-1.2) 04/09/18 04:00 Direct Bilirubin 0.2 mg/dL (0-0.2) 04/08/18 10:18 Indirect Bilirubin 0.3 mg/dL 04/08/18 10:18 AST 61 units/L (5-40) H 04/09/18 04:00 ALT 26 units/L (7-56) 04/09/18 04:00 Alkaline Phosphatase 142 units/L (35-129) H 04/09/18 04:00 Ammonia 74.0 umol/L (25-60) H 04/08/18 09:57 Total Creatine Kinase 38 units/L (55-170) L 04/08/18 09:25 CK-MB (CK-2) < 1.0 ng/mL (0.0-4.0) 04/08/18 09:25 CK-MB (CK-2) Rel Index 2.6 (0-4) 04/08/18 09:25 Troponin T 0.059 ng/mL (0.00-0.029) H 04/08/18 09:25 NT-Pro-B Natriuret Pep 2534 pg/mL (0-900) H 04/08/18 09:25 Total Protein 5.2 g/dL (6.3-8.2) L D 04/09/18 04:00 Albumin 2.3 g/dL (3.9-5) L 04/09/18 04:00 Albumin/Globulin Ratio 0.8 % 04/09/18 04:00 Triglycerides 158 mg/dL (2-149) H 04/08/18 09:25 Cholesterol 130 mg/dL (50-199) 04/08/18 09:25 LDL Cholesterol Direct 60 mg/dL (50-130) 04/08/18 09:25 HDL Cholesterol 32 mg/dL (40-59) L 04/08/18 09:25 Cholesterol/HDL Ratio 4.06 % 04/08/18 09:25 Urine Color Kiersten (Yellow) 04/08/18 12:34 Urine Turbidity Cloudy (Clear) 04/08/18 12:34 Urine pH 5.0 (5.0-7.0) 04/08/18 12:34 Ur Specific [place] 1.023 (1.003-1.030) 04/08/18 12:34 Urine Protein 100 mg/dl mg/dL (Negative) 04/08/18 12:34 Urine Glucose (UA) 50 mg/dL (Negative) 04/08/18 12:34 Urine Ketones Neg mg/dL (Negative) 04/08/18 12:34 Urine Blood Neg (Negative) 04/08/18 12:34 Urine Nitrite Neg (Negative) 04/08/18 12:34 Ur Reducing Substances Not Reportable 04/08/18 12:34 Urine Bilirubin Neg (Negative) 04/08/18 12:34 Urine Ictotest Not Reportable 04/08/18 12:34 Urine Urobilinogen 4.0 mg/dL (<2.0) 04/08/18 12:34 Ur Leukocyte Esterase Neg (Negative) 04/08/18 12:34 Urine WBC (Auto) 22.0 /HPF (0.0-6.0) H 04/08/18 12:34 Urine RBC (Auto) 7.0 /HPF (0.0-6.0) 04/08/18 12:34 U Epithel Cells (Auto) 5.0 /HPF (0-13.0) 04/08/18 12:34 Urine Bacteria (Auto) 1+ /HPF (Negative) 04/08/18 12:34 Urine Mucus Few /HPF 04/08/18 12:34
[2018-04-19 08:42] LABS: BUN/Creatinine Ratio 95; Blood Urea Nitrogen 19 mg/dL (9-20); Calcium 8.9 mg/dL (8.4-10.2); Hemolysis Index 41
[2018-04-19] MEDS: PEPCID PO SCH ×2 (09:07→22:57)
[2018-04-19] MEDS: LOVENOX SUB-Q SCH (09:07)
[2018-04-19] MEDS: SODIUM CHLORIDE FLUSH SYRINGE 10 ML IV SCH (09:08)
--- NOTE | 2018-04-19 10:48 | Progress Note ---
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 Subjective Date of service: 04/19/18 Principal diagnosis: acute hypoxemic respiratory failure, pneumonia, brain metastases, sepsis Interval history: Acute hypoxemic respiratory failure, pneumonia, brain metastases, sepsis Seen and examined at bedside; 24hour events reviewed; nursing and respiratory care staff consulted; no adverse overnight events reported to me; Responsive this morning, On Venturi mask at 50%, required NIPPV support all night Resting quietly in bed Objective Vital Signs - 12hr 04/18/18 04/18/18 04/18/18 23:00 23:04 23:42 Temperature Pulse Rate 99 H 96 H 95 H Pulse Rate [ Anterior Bilateral Throughout] Pulse Rate [ From Monitor] Respiratory 16 22 21 Rate Respiratory Rate [Anterior Bilateral Throughout] Blood Pressure 142/74 142/74 142/74 O2 Sat by Pulse 99 100 96 Oximetry 04/18/18 04/19/18 04/19/18 23:58 00:00 01:00 Temperature 98.1 F Pulse Rate 99 H 94 H Pulse Rate [ Anterior Bilateral Throughout] Pulse Rate [ From Monitor] Respiratory 20 20 Rate Respiratory Rate [Anterior Bilateral Throughout] Blood Pressure 142/74 126/63 O2 Sat by Pulse 94 97 Oximetry 04/19/18 04/19/18 04/19/18 01:44 02:00 02:01 Temperature Pulse Rate 99 H Pulse Rate [ 89 93 H Anterior Bilateral Throughout] Pulse Rate [ From Monitor] Respiratory 22 Rate Respiratory 18 18 Rate [Anterior Bilateral Throughout] Blood Pressure 125/79 O2 Sat by Pulse Oximetry 04/19/18 04/19/18 04/19/18 02:53 03:00 03:48 Temperature 98.7 F Pulse Rate 100 H Pulse Rate [ Anterior Bilateral Throughout] Pulse Rate [ 98 H From Monitor] Respiratory 23 Rate Respiratory Rate [Anterior Bilateral Throughout] Blood Pressure 119/80 O2 Sat by Pulse 100 Oximetry 04/19/18 04/19/18 04/19/18 04:00 05:00 06:00 Temperature Pulse Rate 105 H 89 94 H Pulse Rate [ Anterior Bilateral Throughout] Pulse Rate [ From Monitor] Respiratory 20 19 14 Rate Respiratory Rate [Anterior Bilateral Throughout] Blood Pressure 127/76 127/76 125/83 O2 Sat by Pulse 98 97 89 Oximetry 04/19/18 04/19/18 04/19/18 07:00 07:49 07:50 Temperature Pulse Rate 87 Pulse Rate [ 93 H 89 Anterior Bilateral Throughout] Pulse Rate [ 92 H From Monitor] Respiratory 19 Rate Respiratory 17 20 Rate [Anterior Bilateral Throughout] Blood Pressure 126/80 O2 Sat by Pulse 97 99 Oximetry 04/19/18 04/19/18 08:00 09:00 Temperature 97.5 F L Pulse Rate 111 H 106 H Pulse Rate [ Anterior Bilateral Throughout] Pulse Rate [ From Monitor] Respiratory 21 21 Rate Respiratory Rate [Anterior Bilateral Throughout] Blood Pressure 122/83 134/84 O2 Sat by Pulse Oximetry Constitutional: appears uncomfortable, other (middle aged chronically ill looking CM; normocephalic and atraumatic) Eyes: non-icteric ENT: oropharynx dry, oropharyngeal exudate pre, other (Venturi mask, ) Neck: supple, no lymphadenopathy, no JVD, other (no thyromegaly) Effort: mildly labored Ascultation: Bilateral: diminished breath sounds, rales, rhonchi (corse BS) Percussion: Bilateral: not dull Cardiovascular: regular rate and rhythm, PVC's noted (occasional), other (No R/M ) Gastrointestinal: normoactive bowel sounds, soft, non-tender, non-distended, other (No HSM, PEG in place..single lumen, floppy) Integumentary: other (poor turgor) Extremities: no cyanosis, no edema, pink and warm, pulses normal, other ( contractures) Neurologic: pupils equal and round, motor strength normal and (bilateral lower extremities), other (A & OX 2) Psychiatric: mood appropriate, anxious CBC and BMP: 04/18/18 09:09 04/19/18 08:06 ABG, PT/INR, D-dimer: ABG POC ABG pH 7.546 (7.35-7.45) H 04/17/18 14:58 POC ABG pCO2 39.4 (35-45) 04/17/18 14:58 POC ABG pO2 72 (80-105) L 04/17/18 14:58 POC ABG HCO3 34.2 04/17/18 14:58 POC ABG Total CO2 35 04/17/18 14:58 POC ABG O2 Sat 96 04/17/18 14:58 PT/INR, D-dimer PT 12.9 Sec. (12.2-14.9) 04/17/18 08:26 INR 0.93 (0.87-1.13) 04/17/18 08:26 Abnormal lab findings: Abnormal Labs 04/08/18 04/08/18 04/08/18 09:25 09:25 09:25 WBC RBC 5.20 H Hgb 15.7 H Hct 47.1 H MCHC RDW Plt Count 621 H Lymph % (Auto) 11.4 L Lymph # 1.1 L Seg Neutrophils % 81.7 H Seg Neuts % (Manual) Lymphocytes % (Manual) Seg Neutrophils # Man Lymphocytes # (Manual) Monocytes # (Manual) PT 17.5 H INR 1.35 H APTT Thrombin Time 14.6 L POC ABG pH POC ABG pCO2 POC ABG pO2 Sodium Potassium 5.2 H Chloride 89.9 L Carbon Dioxide BUN 22 H Creatinine 1.7 H Glucose 184 H POC Glucose Lactic Acid Calcium AST Alkaline Phosphatase Ammonia Total Creatine Kinase Troponin T 0.059 H NT-Pro-B Natriuret Pep Total Protein Albumin Triglycerides 158 H HDL Cholesterol 32 L Urine WBC (Auto) 04/08/18 04/08/18 04/08/18 09:25 09:25 09:57 WBC RBC Hgb Hct MCHC RDW Plt Count Lymph % (Auto) Lymph # Seg Neutrophils % Seg Neuts % (Manual) Lymphocytes % (Manual) Seg Neutrophils # Man Lymphocytes # (Manual) Monocytes # (Manual) PT INR APTT Thrombin Time POC ABG pH POC ABG pCO2 POC ABG pO2 Sodium Potassium Chloride Carbon Dioxide BUN Creatinine Glucose POC Glucose Lactic Acid 10.50 H* Calcium AST Alkaline Phosphatase Ammonia 74.0 H Total Creatine Kinase 38 L Troponin T NT-Pro-B Natriuret Pep 2534 H Total Protein Albumin Triglycerides HDL Cholesterol Urine WBC (Auto) 04/08/18 04/08/18 04/08/18 10:18 10:43 11:00 WBC RBC Hgb Hct MCHC RDW Plt Count Lymph % (Auto) Lymph # Seg Neutrophils % Seg Neuts % (Manual) Lymphocytes % (Manual) Seg Neutrophils # Man Lymphocytes # (Manual) Monocytes # (Manual) PT INR APTT Thrombin Time POC ABG pH 7.294 L POC ABG pCO2 49.6 H POC ABG pO2 Sodium Potassium Chloride 96.8 L Carbon Dioxide BUN 21 H Creatinine 1.6 H Glucose 155 H POC Glucose Lactic Acid Calcium AST 93 H Alkaline Phosphatase 216 H Ammonia Total Creatine Kinase Troponin T NT-Pro-B Natriuret Pep Total Protein Albumin 3.0 L Triglycerides HDL Cholesterol Urine WBC (Auto) 04/08/18 04/08/18 04/08/18 11:00 12:34 16:41 WBC RBC Hgb Hct MCHC RDW Plt Count Lymph % (Auto) Lymph # Seg Neutrophils % Seg Neuts % (Manual) Lymphocytes % (Manual) Seg Neutrophils # Man Lymphocytes # (Manual) Monocytes # (Manual) PT INR APTT Thrombin Time POC ABG pH POC ABG pCO2 POC ABG pO2 Sodium Potassium Chloride Carbon Dioxide BUN Creatinine Glucose POC Glucose Lactic Acid 8.40 H* 5.10 H* Calcium AST Alkaline Phosphatase Ammonia Total Creatine Kinase Troponin T NT-Pro-B Natriuret Pep Total Protein Albumin Triglycerides HDL Cholesterol Urine WBC (Auto) 22.0 H 04/08/18 04/08/18 04/08/18 17:43 20:54 23:39 WBC RBC Hgb Hct MCHC RDW Plt Count Lymph % (Auto) Lymph # Seg Neutrophils % Seg Neuts % (Manual) Lymphocytes % (Manual) Seg Neutrophils # Man Lymphocytes # (Manual) Monocytes # (Manual) PT INR APTT Thrombin Time POC ABG pH POC ABG pCO2 POC ABG pO2 Sodium Potassium Chloride Carbon Dioxide BUN Creatinine Glucose POC Glucose 168 H 167 H Lactic Acid 4.70 H* Calcium AST Alkaline Phosphatase Ammonia Total Creatine Kinase Troponin T NT-Pro-B Natriuret Pep Total Protein Albumin Triglycerides HDL Cholesterol Urine WBC (Auto) 04/09/18 04/09/18 04/09/18 04:00 04:00 04:00 WBC RBC Hgb 11.7 L D Hct 34.7 L D MCHC RDW Plt Count Lymph % (Auto) 6.5 L Lymph # 0.5 L Seg Neutrophils % 89.6 H Seg Neuts % (Manual) Lymphocytes % (Manual) Seg Neutrophils # Man Lymphocytes # (Manual) Monocytes # (Manual) PT INR APTT Thrombin Time POC ABG pH POC ABG pCO2 POC ABG pO2 Sodium Potassium Chloride Carbon Dioxide BUN 26 H Creatinine Glucose 179 H POC Glucose Lactic Acid 3.50 H* Calcium 8.2 L AST 61 H Alkaline Phosphatase 142 H Ammonia Total Creatine Kinase Troponin T NT-Pro-B Natriuret Pep Total Protein 5.2 L D Albumin 2.3 L Triglycerides HDL Cholesterol Urine WBC (Auto) 04/09/18 04/09/18 04/09/18 04:24 06:03 12:19 WBC RBC Hgb Hct MCHC RDW Plt Count Lymph % (Auto) Lymph # Seg Neutrophils % Seg Neuts % (Manual) Lymphocytes % (Manual) Seg Neutrophils # Man Lymphocytes # (Manual) Monocytes # (Manual) PT INR APTT Thrombin Time POC ABG pH POC ABG pCO2 POC ABG pO2 135 H Sodium Potassium Chloride Carbon Dioxide BUN Creatinine Glucose POC Glucose 158 H 168 H Lactic Acid Calcium AST Alkaline Phosphatase Ammonia Total Creatine Kinase Troponin T NT-Pro-B Natriuret Pep Total Protein Albumin Triglycerides HDL Cholesterol Urine WBC (Auto) 04/09/18 04/09/18 04/09/18 16:30 18:01 23:31 WBC RBC Hgb Hct MCHC RDW Plt Count Lymph % (Auto) Lymph # Seg Neutrophils % Seg Neuts % (Manual) Lymphocytes % (Manual) Seg Neutrophils # Man Lymphocytes # (Manual) Monocytes # (Manual) PT INR APTT Thrombin Time POC ABG pH POC ABG pCO2 45.7 H POC ABG pO2 168 H Sodium Potassium Chloride Carbon Dioxide BUN Creatinine Glucose POC Glucose 161 H 154 H Lactic Acid Calcium AST Alkaline Phosphatase Ammonia Total Creatine Kinase Troponin T NT-Pro-B Natriuret Pep Total Protein Albumin Triglycerides HDL Cholesterol Urine WBC (Auto) 04/10/18 04/10/18 04/10/18 04:01 05:24 12:49 WBC RBC Hgb Hct MCHC RDW Plt Count Lymph % (Auto) Lymph # Seg Neutrophils % Seg Neuts % (Manual) Lymphocytes % (Manual) Seg Neutrophils # Man Lymphocytes # (Manual) Monocytes # (Manual) PT INR APTT Thrombin Time POC ABG pH POC ABG pCO2 POC ABG pO2 124 H Sodium Potassium Chloride Carbon Dioxide BUN Creatinine Glucose POC Glucose 141 H 132 H Lactic Acid Calcium AST Alkaline Phosphatase Ammonia Total Creatine Kinase Troponin T NT-Pro-B Natriuret Pep Total Protein Albumin Triglycerides HDL Cholesterol Urine WBC (Auto) 04/10/18 04/11/18 04/11/18 19:07 00:11 05:28 WBC RBC Hgb Hct MCHC RDW Plt Count Lymph % (Auto) Lymph # Seg Neutrophils % Seg Neuts % (Manual) Lymphocytes % (Manual) Seg Neutrophils # Man Lymphocytes # (Manual) Monocytes # (Manual) PT INR APTT Thrombin Time POC ABG pH POC ABG pCO2 POC ABG pO2 Sodium Potassium Chloride Carbon Dioxide BUN Creatinine Glucose POC Glucose 128 H 120 H 107 H Lactic Acid Calcium AST Alkaline Phosphatase Ammonia Total Creatine Kinase Troponin T NT-Pro-B Natriuret Pep Total Protein Albumin Triglycerides HDL Cholesterol Urine WBC (Auto) 04/11/18 04/12/18 04/12/18 22:04 03:48 08:29 WBC RBC Hgb Hct MCHC RDW Plt Count Lymph % (Auto) Lymph # Seg Neutrophils % Seg Neuts % (Manual) Lymphocytes % (Manual) Seg Neutrophils # Man Lymphocytes # (Manual) Monocytes # (Manual) PT INR APTT Thrombin Time POC ABG pH POC ABG pCO2 POC ABG pO2 Sodium Potassium Chloride Carbon Dioxide BUN Creatinine Glucose POC Glucose Lactic Acid 3.10 H* 3.30 H* 3.10 H* Calcium AST Alkaline Phosphatase Ammonia Total Creatine Kinase Troponin T NT-Pro-B Natriuret Pep Total Protein Albumin Triglycerides HDL Cholesterol Urine WBC (Auto) 04/12/18 04/12/18 04/12/18 08:29 10:12 11:52 WBC RBC Hgb Hct MCHC RDW Plt Count Lymph % (Auto) Lymph # Seg Neutrophils % Seg Neuts % (Manual) Lymphocytes % (Manual) Seg Neutrophils # Man Lymphocytes # (Manual) Monocytes # (Manual) PT INR APTT Thrombin Time POC ABG pH POC ABG pCO2 POC ABG pO2 Sodium Potassium Chloride Carbon Dioxide BUN 34 H Creatinine Glucose 135 H POC Glucose 140 H Lactic Acid 2.60 H* Calcium AST Alkaline Phosphatase Ammonia Total Creatine Kinase Troponin T NT-Pro-B Natriuret Pep Total Protein Albumin Triglycerides HDL Cholesterol Urine WBC (Auto) 04/12/18 04/12/18 04/13/18 13:48 18:32 00:23 WBC RBC Hgb Hct MCHC RDW Plt Count Lymph % (Auto) Lymph # Seg Neutrophils % Seg Neuts % (Manual) Lymphocytes % (Manual) Seg Neutrophils # Man Lymphocytes # (Manual) Monocytes # (Manual) PT INR APTT Thrombin Time POC ABG pH POC ABG pCO2 54.5 H POC ABG pO2 Sodium Potassium Chloride Carbon Dioxide BUN Creatinine Glucose POC Glucose 121 H 118 H Lactic Acid Calcium AST Alkaline Phosphatase Ammonia Total Creatine Kinase Troponin T NT-Pro-B Natriuret Pep Total Protein Albumin Triglycerides HDL Cholesterol Urine WBC (Auto) 04/13/18 04/13/18 04/14/18 05:41 13:49 00:22 WBC RBC Hgb Hct MCHC RDW Plt Count Lymph % (Auto) Lymph # Seg Neutrophils % Seg Neuts % (Manual) Lymphocytes % (Manual) Seg Neutrophils # Man Lymphocytes # (Manual) Monocytes # (Manual) PT INR APTT Thrombin Time POC ABG pH POC ABG pCO2 POC ABG pO2 Sodium Potassium Chloride Carbon Dioxide BUN Creatinine Glucose POC Glucose 111 H 122 H 142 H Lactic Acid Calcium AST Alkaline Phosphatase Ammonia Total Creatine Kinase Troponin T NT-Pro-B Natriuret Pep Total Protein Albumin Triglycerides HDL Cholesterol Urine WBC (Auto) 04/14/18 04/14/18 04/14/18 11:56 12:12 13:46 WBC 14.8 H RBC Hgb 11.1 L Hct 33.3 L MCHC RDW 15.7 H Plt Count 443 H Lymph % (Auto) Lymph # Seg Neutrophils % Seg Neuts % (Manual) 89.0 H Lymphocytes % (Manual) 1.0 L Seg Neutrophils # Man 13.2 H Lymphocytes # (Manual) 0.1 L Monocytes # (Manual) PT INR APTT Thrombin Time POC ABG pH POC ABG pCO2 POC ABG pO2 Sodium 150 H D Potassium 3.3 L Chloride 108.5 H Carbon Dioxide BUN 40 H Creatinine 0.5 L Glucose 140 H POC Glucose 135 H Lactic Acid Calcium AST Alkaline Phosphatase Ammonia Total Creatine Kinase Troponin T NT-Pro-B Natriuret Pep Total Protein Albumin Triglycerides HDL Cholesterol Urine WBC (Auto) 04/14/18 04/14/18 04/15/18 17:32 23:27 05:58 WBC RBC Hgb Hct MCHC RDW Plt Count Lymph % (Auto) Lymph # Seg Neutrophils % Seg Neuts % (Manual) Lymphocytes % (Manual) Seg Neutrophils # Man Lymphocytes # (Manual) Monocytes # (Manual) PT INR APTT Thrombin Time POC ABG pH POC ABG pCO2 POC ABG pO2 Sodium Potassium Chloride Carbon Dioxide BUN Creatinine Glucose POC Glucose 158 H 156 H 122 H Lactic Acid Calcium AST Alkaline Phosphatase Ammonia Total Creatine Kinase Troponin T NT-Pro-B Natriuret Pep Total Protein Albumin Triglycerides HDL Cholesterol Urine WBC (Auto) 04/15/18 04/17/18 04/17/18 12:05 05:56 08:26 WBC 28.7 H RBC Hgb Hct MCHC RDW Plt Count 466 H Lymph % (Auto) Lymph # Seg Neutrophils % Seg Neuts % (Manual) 89.0 H Lymphocytes % (Manual) 3.0 L Seg Neutrophils # Man 25.5 H Lymphocytes # (Manual) 0.9 L Monocytes # (Manual) 0.9 H PT INR APTT Thrombin Time POC ABG pH POC ABG pCO2 67.3 H POC ABG pO2 387 H Sodium Potassium Chloride Carbon Dioxide BUN Creatinine Glucose POC Glucose 150 H Lactic Acid Calcium AST Alkaline Phosphatase Ammonia Total Creatine Kinase Troponin T NT-Pro-B Natriuret Pep Total Protein Albumin Triglycerides HDL Cholesterol Urine WBC (Auto) 04/17/18 04/17/18 04/17/18 08:26 08:26 09:04 WBC RBC Hgb Hct MCHC RDW Plt Count Lymph % (Auto) Lymph # Seg Neutrophils % Seg Neuts % (Manual) Lymphocytes % (Manual) Seg Neutrophils # Man Lymphocytes # (Manual) Monocytes # (Manual) PT INR APTT 21.3 L Thrombin Time POC ABG pH 7.509 H POC ABG pCO2 46.0 H POC ABG pO2 62 L Sodium 147 H Potassium 3.4 L Chloride Carbon Dioxide 31 H BUN 24 H Creatinine 0.3 L Glucose 113 H POC Glucose Lactic Acid Calcium AST Alkaline Phosphatase Ammonia Total Creatine Kinase Troponin T NT-Pro-B Natriuret Pep Total Protein Albumin Triglycerides HDL Cholesterol Urine WBC (Auto) 04/17/18 04/18/18 04/18/18 14:58 00:03 09:09 WBC 21.2 H RBC 3.64 L Hgb 11.2 L Hct 32.2 L MCHC 35 H RDW Plt Count Lymph % (Auto) Lymph # Seg Neutrophils % Seg Neuts % (Manual) Lymphocytes % (Manual) Seg Neutrophils # Man Lymphocytes # (Manual) Monocytes # (Manual) PT INR APTT Thrombin Time POC ABG pH 7.546 H POC ABG pCO2 POC ABG pO2 72 L Sodium Potassium Chloride Carbon Dioxide BUN Creatinine Glucose POC Glucose 148 H Lactic Acid Calcium AST Alkaline Phosphatase Ammonia Total Creatine Kinase Troponin T NT-Pro-B Natriuret Pep Total Protein Albumin Triglycerides HDL Cholesterol Urine WBC (Auto) 04/18/18 04/18/18 04/18/18 09:09 15:33 23:32 WBC RBC Hgb Hct MCHC RDW Plt Count Lymph % (Auto) Lymph # Seg Neutrophils % Seg Neuts % (Manual) Lymphocytes % (Manual) Seg Neutrophils # Man Lymphocytes # (Manual) Monocytes # (Manual) PT INR APTT Thrombin Time POC ABG pH POC ABG pCO2 POC ABG pO2 Sodium Potassium 3.5 L Chloride Carbon Dioxide BUN 23 H Creatinine 0.3 L Glucose 141 H POC Glucose 136 H 124 H Lactic Acid Calcium AST Alkaline Phosphatase Ammonia Total Creatine Kinase Troponin T NT-Pro-B Natriuret Pep Total Protein Albumin Triglycerides HDL Cholesterol Urine WBC (Auto) 04/19/18 04/19/18 05:34 08:06 WBC RBC Hgb Hct MCHC RDW Plt Count Lymph % (Auto) Lymph # Seg Neutrophils % Seg Neuts % (Manual) Lymphocytes % (Manual) Seg Neutrophils # Man Lymphocytes # (Manual) Monocytes # (Manual) PT INR APTT Thrombin Time POC ABG pH POC ABG pCO2 POC ABG pO2 Sodium Potassium Chloride Carbon Dioxide BUN Creatinine 0.2 L Glucose 125 H POC Glucose 114 H Lactic Acid Calcium AST Alkaline Phosphatase Ammonia Total Creatine Kinase Troponin T NT-Pro-B Natriuret Pep Total Protein Albumin Triglycerides HDL Cholesterol Urine WBC (Auto) Allied health notes reviewed: RT (Wean supplemental oxygen for O2 sats>90%)
[2018-04-19] MEDS ORDERED: LASIX IV ONE (12:00)
[2018-04-19] MEDS ORDERED: SODIUM BICARBONATE FEEDTUBE PRN (12:14)
[2018-04-19] MEDS ORDERED: SIMPLE SYRUP FEEDTUBE PRN ×2 (12:14)
[2018-04-19] MEDS ORDERED: PANCREAZE DR 10,500 UNIT FEEDTUBE PRN (12:14)
[2018-04-19] MEDS ORDERED: LASIX IV NR (15:00)
[2018-04-20] MEDS ORDERED: ATIVAN IV PRN (00:15)
[2018-04-20] MEDS: DUONEB *Not for PRN Use IH SCH ×3 (02:23→13:48)
[2018-04-20] MEDS: DECADRON PO SCH ×2 (05:15→13:56)
[2018-04-20 05:17] LABS: Hematocrit 36.2 % (35.5-45.6); Hemoglobin 11.7 gm/dl (11.8-15.2); Mean Corpuscular HGB Conc 32 % (32-34); Mean Corpuscular Hemoglobin 29 pg (28-32); Mean Corpuscular Volume 90 fl (84-94); Platelet Count 440 K/mm3 (140-440); Red Blood Count 4.03 M/mm3 (3.65-5.03); Red Cell Distribution Width 15.6 % (13.2-15.2)
[2018-04-20 05:41] LABS: BUN/Creatinine Ratio 63; Blood Urea Nitrogen 19 mg/dL (9-20); Hemolysis Index 11
[2018-04-20] MEDS: PEPCID PO SCH (09:07)
[2018-04-20] MEDS: LOVENOX SUB-Q SCH (09:07)
--- NOTE | 2018-04-20 09:07 | Progress Note ---
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 Acute encephalopathy Abnormal CTscan brain Severe protein calorie malnutrition Oropharyngeal dysphagia PEG - ETT pulled back to 23 cm BALDEMAR - place on PSV / begin SBT now - extubate after 2 hour ABG if meets criteria otherwise - begin seroquel scheduled with prn xanax for anxiolysis - VAP bundle addressed - oral care per RT/RN - humidify all supplemental oxygen - prn NT-suction post extubation - continue aspiration precautions - continue VTE prophylaxis - continue Reglan prn - continue Enteral nutrition as tolerated (hold for extubation) - BIPAP qhs post extubation - continue to monitor renal indices and urine output - KCL 40meq enterally X 1 dose - continue to monitor neurology, neuro checks - continue Seizure precautions - Analgesia and agitation management - Accuchecks with glycemic control - complete rocephin dosing (7 days) - Critical care bundles addressed - continue other care per attending / other consultants ... FULL CODE status per patients wishes The high probability of a clinically significant, sudden or life threatening deterioration of the [respiratory,cardiac, neurologic] system(s) required my full and direct attention, intervention and personal management. The aggregate critical care time was [35] minutes without overlap. Time includes spent on; [x] Data Review and interpretation [x] Patient assessment and monitoring of vital signs [x] Documentation [x] Medication orders and management Subjective Date of service: 04/20/18 Principal diagnosis: acute hypoxemic respiratory failure, pneumonia, brain metastases, sepsis Interval history: Patient is seen today for: Acute hypoxemic respiratory failure, pneumonia, brain metastases, sepsis Seen and examined at bedside; 24hour events reviewed; nursing and respiratory care staff consulted; no adverse overnight events reported to me; Objective Vital Signs - 12hr 04/19/18 04/19/18 04/19/18 22:00 22:03 23:00 Temperature Pulse Rate 107 H 101 H 98 H Pulse Rate [ Anterior Bilateral Throughout] Pulse Rate [ 72 From Monitor] Pulse Rate [ 78 Right Dorsalis Pedis] Respiratory 16 21 23 Rate Respiratory Rate [Anterior Bilateral Throughout] Blood Pressure 142/96 142/96 129/87 O2 Sat by Pulse 97 95 Oximetry 04/20/18 04/20/18 04/20/18 00:00 01:00 02:00 Temperature 98.2 F Pulse Rate 118 H 114 H 89 Pulse Rate [ 98 H Anterior Bilateral Throughout] Pulse Rate [ From Monitor] Pulse Rate [ Right Dorsalis Pedis] Respiratory 19 21 21 Rate Respiratory 19 Rate [Anterior Bilateral Throughout] Blood Pressure 108/77 108/77 130/87 O2 Sat by Pulse 97 96 98 Oximetry 04/20/18 04/20/18 04/20/18 02:05 02:25 03:00 Temperature Pulse Rate 104 H Pulse Rate [ 102 H Anterior Bilateral Throughout] Pulse Rate [ 78 From Monitor] Pulse Rate [ Right Dorsalis Pedis] Respiratory 18 21 Rate Respiratory 21 Rate [Anterior Bilateral Throughout] Blood Pressure 119/86 O2 Sat by Pulse 97 Oximetry 04/20/18 04/20/18 04/20/18 04:00 05:00 06:00 Temperature Pulse Rate 99 H 104 H 94 H Pulse Rate [ Anterior Bilateral Throughout] Pulse Rate [ 117 H 104 H From Monitor] Pulse Rate [ 117 H 104 H Right Dorsalis Pedis] Respiratory 22 19 Rate Respiratory Rate [Anterior Bilateral Throughout] Blood Pressure 132/86 119/83 118/77 O2 Sat by Pulse 98 99 97 Oximetry 04/20/18 04/20/18 04/20/18 07:00 07:56 07:57 Temperature Pulse Rate 101 H Pulse Rate [ 97 H 97 H Anterior Bilateral Throughout] Pulse Rate [ From Monitor] Pulse Rate [ Right Dorsalis Pedis] Respiratory 20 Rate Respiratory 24 19 Rate [Anterior Bilateral Throughout] Blood Pressure 117/84 O2 Sat by Pulse 95 Oximetry 04/20/18 08:00 Temperature Pulse Rate 105 H Pulse Rate [ Anterior Bilateral Throughout] Pulse Rate [ 105 H From Monitor] Pulse Rate [ Right Dorsalis Pedis] Respiratory 23 Rate Respiratory Rate [Anterior Bilateral Throughout] Blood Pressure 128/83 O2 Sat by Pulse 94 Oximetry Constitutional: appears uncomfortable, other (middle aged chronically ill looking CM; normocephalic and atraumatic) Eyes: non-icteric ENT: oropharynx dry, oropharyngeal exudate pre, other (Venturi mask, ) Neck: supple, no lymphadenopathy, no JVD, other (no thyromegaly) Effort: mildly labored Ascultation: Bilateral: diminished breath sounds, rales, rhonchi (corse BS) Percussion: Bilateral: not dull Cardiovascular: regular rate and rhythm, PVC's noted (occasional), other (No R/M ) Gastrointestinal: normoactive bowel sounds, soft, non-tender, non-distended, other (No HSM, PEG in place..single lumen, floppy) Integumentary: other (poor turgor) Extremities: no cyanosis, no edema, pink and warm, pulses normal, other ( contractures) Neurologic: pupils equal and round, motor strength normal and (bilateral lower extremities), other (A & OX 2) Psychiatric: mood appropriate, anxious CBC and BMP: 04/20/18 04:42 04/20/18 04:42 ABG, PT/INR, D-dimer: ABG POC ABG pH 7.421 (7.35-7.45) 04/20/18 00:00 POC ABG pCO2 45.4 (35-45) H 04/20/18 00:00 POC ABG pO2 125 (80-105) H 04/20/18 00:00 POC ABG HCO3 29.5 04/20/18 00:00 POC ABG Total CO2 31 04/20/18 00:00 POC ABG O2 Sat 99 04/20/18 00:00 PT/INR, D-dimer PT 12.9 Sec. (12.2-14.9) 04/17/18 08:26 INR 0.93 (0.87-1.13) 04/17/18 08:26 Abnormal lab findings: Abnormal Labs 04/08/18 04/08/18 04/08/18 09:25 09:25 09:25 WBC RBC 5.20 H Hgb 15.7 H Hct 47.1 H MCHC RDW Plt Count 621 H Lymph % (Auto) 11.4 L Lymph # 1.1 L Seg Neutrophils % 81.7 H Seg Neuts % (Manual) Lymphocytes % (Manual) Seg Neutrophils # Man Lymphocytes # (Manual) Monocytes # (Manual) PT 17.5 H INR 1.35 H APTT Thrombin Time 14.6 L POC ABG pH POC ABG pCO2 POC ABG pO2 Sodium Potassium 5.2 H Chloride 89.9 L Carbon Dioxide BUN 22 H Creatinine 1.7 H Glucose 184 H POC Glucose Lactic Acid Calcium AST Alkaline Phosphatase Ammonia Total Creatine Kinase Troponin T 0.059 H NT-Pro-B Natriuret Pep Total Protein Albumin Triglycerides 158 H HDL Cholesterol 32 L Urine WBC (Auto) 04/08/18 04/08/18 04/08/18 09:25 09:25 09:57 WBC RBC Hgb Hct MCHC RDW Plt Count Lymph % (Auto) Lymph # Seg Neutrophils % Seg Neuts % (Manual) Lymphocytes % (Manual) Seg Neutrophils # Man Lymphocytes # (Manual) Monocytes # (Manual) PT INR APTT Thrombin Time POC ABG pH POC ABG pCO2 POC ABG pO2 Sodium Potassium Chloride Carbon Dioxide BUN Creatinine Glucose POC Glucose Lactic Acid 10.50 H* Calcium AST Alkaline Phosphatase Ammonia 74.0 H Total Creatine Kinase 38 L Troponin T NT-Pro-B Natriuret Pep 2534 H Total Protein Albumin Triglycerides HDL Cholesterol Urine WBC (Auto) 04/08/18 04/08/18 04/08/18 10:18 10:43 11:00 WBC RBC Hgb Hct MCHC RDW Plt Count Lymph % (Auto) Lymph # Seg Neutrophils % Seg Neuts % (Manual) Lymphocytes % (Manual) Seg Neutrophils # Man Lymphocytes # (Manual) Monocytes # (Manual) PT INR APTT Thrombin Time POC ABG pH 7.294 L POC ABG pCO2 49.6 H POC ABG pO2 Sodium Potassium Chloride 96.8 L Carbon Dioxide BUN 21 H Creatinine 1.6 H Glucose 155 H POC Glucose Lactic Acid Calcium AST 93 H Alkaline Phosphatase 216 H Ammonia Total Creatine Kinase Troponin T NT-Pro-B Natriuret Pep Total Protein Albumin 3.0 L Triglycerides HDL Cholesterol Urine WBC (Auto) 04/08/18 04/08/18 04/08/18 11:00 12:34 16:41 WBC RBC Hgb Hct MCHC RDW Plt Count Lymph % (Auto) Lymph # Seg Neutrophils % Seg Neuts % (Manual) Lymphocytes % (Manual) Seg Neutrophils # Man Lymphocytes # (Manual) Monocytes # (Manual) PT INR APTT Thrombin Time POC ABG pH POC ABG pCO2 POC ABG pO2 Sodium Potassium Chloride Carbon Dioxide BUN Creatinine Glucose POC Glucose Lactic Acid 8.40 H* 5.10 H* Calcium AST Alkaline Phosphatase Ammonia Total Creatine Kinase Troponin T NT-Pro-B Natriuret Pep Total Protein Albumin Triglycerides HDL Cholesterol Urine WBC (Auto) 22.0 H 04/08/18 04/08/18 04/08/18 17:43 20:54 23:39 WBC RBC Hgb Hct MCHC RDW Plt Count Lymph % (Auto) Lymph # Seg Neutrophils % Seg Neuts % (Manual) Lymphocytes % (Manual) Seg Neutrophils # Man Lymphocytes # (Manual) Monocytes # (Manual) PT INR APTT Thrombin Time POC ABG pH POC ABG pCO2 POC ABG pO2 Sodium Potassium Chloride Carbon Dioxide BUN Creatinine Glucose POC Glucose 168 H 167 H Lactic Acid 4.70 H* Calcium AST Alkaline Phosphatase Ammonia Total Creatine Kinase Troponin T NT-Pro-B Natriuret Pep Total Protein Albumin Triglycerides HDL Cholesterol Urine WBC (Auto) 04/09/18 04/09/18 04/09/18 04:00 04:00 04:00 WBC RBC Hgb 11.7 L D Hct 34.7 L D MCHC RDW Plt Count Lymph % (Auto) 6.5 L Lymph # 0.5 L Seg Neutrophils % 89.6 H Seg Neuts % (Manual) Lymphocytes % (Manual) Seg Neutrophils # Man Lymphocytes # (Manual) Monocytes # (Manual) PT INR APTT Thrombin Time POC ABG pH POC ABG pCO2 POC ABG pO2 Sodium Potassium Chloride Carbon Dioxide BUN 26 H Creatinine Glucose 179 H POC Glucose Lactic Acid 3.50 H* Calcium 8.2 L AST 61 H Alkaline Phosphatase 142 H Ammonia Total Creatine Kinase Troponin T NT-Pro-B Natriuret Pep Total Protein 5.2 L D Albumin 2.3 L Triglycerides HDL Cholesterol Urine WBC (Auto) 04/09/18 04/09/18 04/09/18 04:24 06:03 12:19 WBC RBC Hgb Hct MCHC RDW Plt Count Lymph % (Auto) Lymph # Seg Neutrophils % Seg Neuts % (Manual) Lymphocytes % (Manual) Seg Neutrophils # Man Lymphocytes # (Manual) Monocytes # (Manual) PT INR APTT Thrombin Time POC ABG pH POC ABG pCO2 POC ABG pO2 135 H Sodium Potassium Chloride Carbon Dioxide BUN Creatinine Glucose POC Glucose 158 H 168 H Lactic Acid Calcium AST Alkaline Phosphatase Ammonia Total Creatine Kinase Troponin T NT-Pro-B Natriuret Pep Total Protein Albumin Triglycerides HDL Cholesterol Urine WBC (Auto) 04/09/18 04/09/18 04/09/18 16:30 18:01 23:31 WBC RBC Hgb Hct MCHC RDW Plt Count Lymph % (Auto) Lymph # Seg Neutrophils % Seg Neuts % (Manual) Lymphocytes % (Manual) Seg Neutrophils # Man Lymphocytes # (Manual) Monocytes # (Manual) PT INR APTT Thrombin Time POC ABG pH POC ABG pCO2 45.7 H POC ABG pO2 168 H Sodium Potassium Chloride Carbon Dioxide BUN Creatinine Glucose POC Glucose 161 H 154 H Lactic Acid Calcium AST Alkaline Phosphatase Ammonia Total Creatine Kinase Troponin T NT-Pro-B Natriuret Pep Total Protein Albumin Triglycerides HDL Cholesterol Urine WBC (Auto) 04/10/18 04/10/18 04/10/18 04:01 05:24 12:49 WBC RBC Hgb Hct MCHC RDW Plt Count Lymph % (Auto) Lymph # Seg Neutrophils % Seg Neuts % (Manual) Lymphocytes % (Manual) Seg Neutrophils # Man Lymphocytes # (Manual) Monocytes # (Manual) PT INR APTT Thrombin Time POC ABG pH POC ABG pCO2 POC ABG pO2 124 H Sodium Potassium Chloride Carbon Dioxide BUN Creatinine Glucose POC Glucose 141 H 132 H Lactic Acid Calcium AST Alkaline Phosphatase Ammonia Total Creatine Kinase Troponin T NT-Pro-B Natriuret Pep Total Protein Albumin Triglycerides HDL Cholesterol Urine WBC (Auto) 04/10/18 04/11/18 04/11/18 19:07 00:11 05:28 WBC RBC Hgb Hct MCHC RDW Plt Count Lymph % (Auto) Lymph # Seg Neutrophils % Seg Neuts % (Manual) Lymphocytes % (Manual) Seg Neutrophils # Man Lymphocytes # (Manual) Monocytes # (Manual) PT INR APTT Thrombin Time POC ABG pH POC ABG pCO2 POC ABG pO2 Sodium Potassium Chloride Carbon Dioxide BUN Creatinine Glucose POC Glucose 128 H 120 H 107 H Lactic Acid Calcium AST Alkaline Phosphatase Ammonia Total Creatine Kinase Troponin T NT-Pro-B Natriuret Pep Total Protein Albumin Triglycerides HDL Cholesterol Urine WBC (Auto) 04/11/18 04/12/18 04/12/18 22:04 03:48 08:29 WBC RBC Hgb Hct MCHC RDW Plt Count Lymph % (Auto) Lymph # Seg Neutrophils % Seg Neuts % (Manual) Lymphocytes % (Manual) Seg Neutrophils # Man Lymphocytes # (Manual) Monocytes # (Manual) PT INR APTT Thrombin Time POC ABG pH POC ABG pCO2 POC ABG pO2 Sodium Potassium Chloride Carbon Dioxide BUN Creatinine Glucose POC Glucose Lactic Acid 3.10 H* 3.30 H* 3.10 H* Calcium AST Alkaline Phosphatase Ammonia Total Creatine Kinase Troponin T NT-Pro-B Natriuret Pep Total Protein Albumin Triglycerides HDL Cholesterol Urine WBC (Auto) 04/12/18 04/12/18 04/12/18 08:29 10:12 11:52 WBC RBC Hgb Hct MCHC RDW Plt Count Lymph % (Auto) Lymph # Seg Neutrophils % Seg Neuts % (Manual) Lymphocytes % (Manual) Seg Neutrophils # Man Lymphocytes # (Manual) Monocytes # (Manual) PT INR APTT Thrombin Time POC ABG pH POC ABG pCO2 POC ABG pO2 Sodium Potassium Chloride Carbon Dioxide BUN 34 H Creatinine Glucose 135 H POC Glucose 140 H Lactic Acid 2.60 H* Calcium AST Alkaline Phosphatase Ammonia Total Creatine Kinase Troponin T NT-Pro-B Natriuret Pep Total Protein Albumin Triglycerides HDL Cholesterol Urine WBC (Auto) 04/12/18 04/12/18 04/13/18 13:48 18:32 00:23 WBC RBC Hgb Hct MCHC RDW Plt Count Lymph % (Auto) Lymph # Seg Neutrophils % Seg Neuts % (Manual) Lymphocytes % (Manual) Seg Neutrophils # Man Lymphocytes # (Manual) Monocytes # (Manual) PT INR APTT Thrombin Time POC ABG pH POC ABG pCO2 54.5 H POC ABG pO2 Sodium Potassium Chloride Carbon Dioxide BUN Creatinine Glucose POC Glucose 121 H 118 H Lactic Acid Calcium AST Alkaline Phosphatase Ammonia Total Creatine Kinase Troponin T NT-Pro-B Natriuret Pep Total Protein Albumin Triglycerides HDL Cholesterol Urine WBC (Auto) 04/13/18 04/13/18 04/14/18 05:41 13:49 00:22 WBC RBC Hgb Hct MCHC RDW Plt Count Lymph % (Auto) Lymph # Seg Neutrophils % Seg Neuts % (Manual) Lymphocytes % (Manual) Seg Neutrophils # Man Lymphocytes # (Manual) Monocytes # (Manual) PT INR APTT Thrombin Time POC ABG pH POC ABG pCO2 POC ABG pO2 Sodium Potassium Chloride Carbon Dioxide BUN Creatinine Glucose POC Glucose 111 H 122 H 142 H Lactic Acid Calcium AST Alkaline Phosphatase Ammonia Total Creatine Kinase Troponin T NT-Pro-B Natriuret Pep Total Protein Albumin Triglycerides HDL Cholesterol Urine WBC (Auto) 04/14/18 04/14/18 04/14/18 11:56 12:12 13:46 WBC 14.8 H RBC Hgb 11.1 L Hct 33.3 L MCHC RDW 15.7 H Plt Count 443 H Lymph % (Auto) Lymph # Seg Neutrophils % Seg Neuts % (Manual) 89.0 H Lymphocytes % (Manual) 1.0 L Seg Neutrophils # Man 13.2 H Lymphocytes # (Manual) 0.1 L Monocytes # (Manual) PT INR APTT Thrombin Time POC ABG pH POC ABG pCO2 POC ABG pO2 Sodium 150 H D Potassium 3.3 L Chloride 108.5 H Carbon Dioxide BUN 40 H Creatinine 0.5 L Glucose 140 H POC Glucose 135 H Lactic Acid Calcium AST Alkaline Phosphatase Ammonia Total Creatine Kinase Troponin T NT-Pro-B Natriuret Pep Total Protein Albumin Triglycerides HDL Cholesterol Urine WBC (Auto) 04/14/18 04/14/18 04/15/18 17:32 23:27 05:58 WBC RBC Hgb Hct MCHC RDW Plt Count Lymph % (Auto) Lymph # Seg Neutrophils % Seg Neuts % (Manual) Lymphocytes % (Manual) Seg Neutrophils # Man Lymphocytes # (Manual) Monocytes # (Manual) PT INR APTT Thrombin Time POC ABG pH POC ABG pCO2 POC ABG pO2 Sodium Potassium Chloride Carbon Dioxide BUN Creatinine Glucose POC Glucose 158 H 156 H 122 H Lactic Acid Calcium AST Alkaline Phosphatase Ammonia Total Creatine Kinase Troponin T NT-Pro-B Natriuret Pep Total Protein Albumin Triglycerides HDL Cholesterol Urine WBC (Auto) 04/15/18 04/17/18 04/17/18 12:05 05:56 08:26 WBC 28.7 H RBC Hgb Hct MCHC RDW Plt Count 466 H Lymph % (Auto) Lymph # Seg Neutrophils % Seg Neuts % (Manual) 89.0 H Lymphocytes % (Manual) 3.0 L Seg Neutrophils # Man 25.5 H Lymphocytes # (Manual) 0.9 L Monocytes # (Manual) 0.9 H PT INR APTT Thrombin Time POC ABG pH POC ABG pCO2 67.3 H POC ABG pO2 387 H Sodium Potassium Chloride Carbon Dioxide BUN Creatinine Glucose POC Glucose 150 H Lactic Acid Calcium AST Alkaline Phosphatase Ammonia Total Creatine Kinase Troponin T NT-Pro-B Natriuret Pep Total Protein Albumin Triglycerides HDL Cholesterol Urine WBC (Auto) 04/17/18 04/17/18 04/17/18 08:26 08:26 09:04 WBC RBC Hgb Hct MCHC RDW Plt Count Lymph % (Auto) Lymph # Seg Neutrophils % Seg Neuts % (Manual) Lymphocytes % (Manual) Seg Neutrophils # Man Lymphocytes # (Manual) Monocytes # (Manual) PT INR APTT 21.3 L Thrombin Time POC ABG pH 7.509 H POC ABG pCO2 46.0 H POC ABG pO2 62 L Sodium 147 H Potassium 3.4 L Chloride Carbon Dioxide 31 H BUN 24 H Creatinine 0.3 L Glucose 113 H POC Glucose Lactic Acid Calcium AST Alkaline Phosphatase Ammonia Total Creatine Kinase Troponin T NT-Pro-B Natriuret Pep Total Protein Albumin Triglycerides HDL Cholesterol Urine WBC (Auto) 04/17/18 04/18/18 04/18/18 14:58 00:03 09:09 WBC 21.2 H RBC 3.64 L Hgb 11.2 L Hct 32.2 L MCHC 35 H RDW Plt Count Lymph % (Auto) Lymph # Seg Neutrophils % Seg Neuts % (Manual) Lymphocytes % (Manual) Seg Neutrophils # Man Lymphocytes # (Manual) Monocytes # (Manual) PT INR APTT Thrombin Time POC ABG pH 7.546 H POC ABG pCO2 POC ABG pO2 72 L Sodium Potassium Chloride Carbon Dioxide BUN Creatinine Glucose POC Glucose 148 H Lactic Acid Calcium AST Alkaline Phosphatase Ammonia Total Creatine Kinase Troponin T NT-Pro-B Natriuret Pep Total Protein Albumin Triglycerides HDL Cholesterol Urine WBC (Auto) 04/18/18 04/18/18 04/18/18 09:09 15:33 23:32 WBC RBC Hgb Hct MCHC RDW Plt Count Lymph % (Auto) Lymph # Seg Neutrophils % Seg Neuts % (Manual) Lymphocytes % (Manual) Seg Neutrophils # Man Lymphocytes # (Manual) Monocytes # (Manual) PT INR APTT Thrombin Time POC ABG pH POC ABG pCO2 POC ABG pO2 Sodium Potassium 3.5 L Chloride Carbon Dioxide BUN 23 H Creatinine 0.3 L Glucose 141 H POC Glucose 136 H 124 H Lactic Acid Calcium AST Alkaline Phosphatase Ammonia Total Creatine Kinase Troponin T NT-Pro-B Natriuret Pep Total Protein Albumin Triglycerides HDL Cholesterol Urine WBC (Auto) 04/19/18 04/19/18 04/19/18 05:34 08:06 12:43 WBC RBC Hgb Hct MCHC RDW Plt Count Lymph % (Auto) Lymph # Seg Neutrophils % Seg Neuts % (Manual) Lymphocytes % (Manual) Seg Neutrophils # Man Lymphocytes # (Manual) Monocytes # (Manual) PT INR APTT Thrombin Time POC ABG pH POC ABG pCO2 POC ABG pO2 Sodium Potassium Chloride Carbon Dioxide BUN Creatinine 0.2 L Glucose 125 H POC Glucose 114 H 143 H Lactic Acid Calcium AST Alkaline Phosphatase Ammonia Total Creatine Kinase Troponin T NT-Pro-B Natriuret Pep Total Protein Albumin Triglycerides HDL Cholesterol Urine WBC (Auto) 04/19/18 04/19/18 04/20/18 18:25 23:18 00:00 WBC RBC Hgb Hct MCHC RDW Plt Count Lymph % (Auto) Lymph # Seg Neutrophils % Seg Neuts % (Manual) Lymphocytes % (Manual) Seg Neutrophils # Man Lymphocytes # (Manual) Monocytes # (Manual) PT INR APTT Thrombin Time POC ABG pH POC ABG pCO2 45.4 H POC ABG pO2 125 H Sodium Potassium Chloride Carbon Dioxide BUN Creatinine Glucose POC Glucose 112 H 113 H Lactic Acid Calcium AST Alkaline Phosphatase Ammonia Total Creatine Kinase Troponin T NT-Pro-B Natriuret Pep Total Protein Albumin Triglycerides HDL Cholesterol Urine WBC (Auto) 04/20/18 04/20/18 04/20/18 04:42 04:42 05:19 WBC 24.7 H RBC Hgb 11.7 L Hct MCHC RDW 15.6 H Plt Count Lymph % (Auto) Lymph # Seg Neutrophils % Seg Neuts % (Manual) Lymphocytes % (Manual) Seg Neutrophils # Man Lymphocytes # (Manual) Monocytes # (Manual) PT INR APTT Thrombin Time POC ABG pH POC ABG pCO2 POC ABG pO2 Sodium Potassium Chloride 97.0 L Carbon Dioxide BUN Creatinine 0.3 L Glucose 132 H POC Glucose 117 H Lactic Acid Calcium AST Alkaline Phosphatase Ammonia Total Creatine Kinase Troponin T NT-Pro-B Natriuret Pep Total Protein Albumin Triglycerides HDL Cholesterol Urine WBC (Auto) Allied health notes reviewed: RT (Wean supplemental oxygen for O2 sats>90%)
[2018-04-20] MEDS: SODIUM CHLORIDE FLUSH SYRINGE 10 ML IV SCH (09:14)
--- NOTE | 2018-04-20 10:33 | Gastroenterology Consultation ---
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 He was admitted with acute hypoxic respiratory failure, pneumonia, sepsis, and acute encephalopathy. He is s/p extubation 04/11 with reintubation and extubation again on 04/17. Now DNR. GI has been consulted for a PEG evaluation. This morning patient was resting in bed w/o acute distress. Upon exam, PEG is discolored but patent and intact. PEG site w/o s/s of infection/bleeding. No evidence of abd pain or N/V. Tolerating TFs. Past History Past Medical History: other (metastatic cancer) Past Surgical History: Other (PEG) Social history: other (group home resident) Medications and Allergies Allergies Allergy/AdvReac Type Severity Reaction Status Date / Time No Known Allergies Allergy Unverified 04/08/18 09:20 Home Medications Medication Instructions Recorded Confirmed Last Taken Type Acetaminophen 650 mg PERCUTANEO Q4HR PRN 04/08/18 04/08/18 Unknown History Cipro/Dexameth 0.3/0.1% 1 drop OD 4XD 04/08/18 04/08/18 04/07/18 13:00 History Furosemide 20 mg PERCUTANEO DAILY 04/08/18 04/08/18 04/07/18 09:00 History Hyoscyamine Rapdis 0.125 mg 0.125 mg SL Q4HR PRN 04/08/18 04/08/18 Unknown History Keppra TAB 500 mg PERCUTANEO Q12H 04/08/18 04/08/18 04/07/18 09:00 History Morphine Sulfate 0.25 - 1 ml PERCUTANEO Q4-6H PRN 04/08/18 04/08/18 04/07/18 01: 30 History [place] 10-325 Tablet 10 - 325 mg PERCUTANEO Q6HR PRN 04/08/18 04/08/18 04/08/18 05:10 History Polyethylene Glycol 3350 17 gm PERCUTANEO Q24HR PRN 04/08/18 04/08/18 Unknown History [Smoothlax] Senna 17.2 mg PERCUTANEO QHS PRN 04/08/18 04/08/18 04/06/18 21:00 History Sertraline HCl 50 mg PERCUTANEO DAILY 04/08/18 04/08/18 04/07/18 09:00 History Xanax 1 mg PERCUTANEO Q12H 04/08/18 04/08/18 04/07/18 09:00 History oxyCODONE 10 mg PERCUTANEO Q12H 04/08/18 04/08/18 04/07/18 09:00 History Active Meds: Active Medications Acetaminophen (Tylenol) 650 mg PO Q4H PRN PRN Reason: Pain MILD(1-3)/Fever >100.5/CHEN Last Admin: 04/15/18 04:52 Dose: 650 mg Albuterol/Ipratropium (Duoneb *Not For Prn Use*) 1 ampul IH Q6HRT [facility] Last Admin: 04/20/18 07:56 Dose: 1 ampul Lipase/Protease/Amylase (Pancreaze Dr 10,500 Unit) 1 each FEEDTUBE PRN PRN PRN Reason: For Clogged Feeding Tube Dexamethasone (Decadron) 4 mg PO Q8HR [facility] Last Admin: 04/20/18 05:15 Dose: 4 mg Dextrose (D50w (25gm) Syringe) 50 ml IV PRN PRN PRN Reason: Hypoglycemia Enoxaparin Sodium (Lovenox) 40 mg SUB-Q QDAY@1000 [facility] Last Admin: 04/20/18 09:07 Dose: 40 mg Famotidine (Pepcid) 20 mg PO BID [facility] Last Admin: 04/20/18 09:07 Dose: 20 mg Hydrophilic Ointment (Vaseline Lip Therapy) 1 applic TP Q2HR PRN PRN Reason: Dry Lips Lorazepam (Ativan) 0.5 mg IV Q4H PRN PRN Reason: Seizures Metoclopramide HCl (Reglan) 10 mg IV Q6H PRN PRN Reason: Nausea And Vomiting Morphine Sulfate (Morphine) 2 mg IV Q4H PRN PRN Reason: Pain, Moderate (4-6) Last Admin: 04/16/18 02:22 Dose: 2 mg Multi-Ingred Cream/Lotion/Oil/Oint (Artificial Tears Ophth Oint) 1 applic OU Q4HR PRN PRN Reason: Dry Eye(s) Ondansetron HCl (Zofran) 4 mg IV Q8H PRN PRN Reason: Nausea And Vomiting Oxycodone/Acetaminophen (Percocet 5/325) 1 tab PO Q4H PRN PRN Reason: Pain, Moderate (4-6) Last Admin: 04/16/18 00:28 Dose: 1 tab Quetiapine Fumarate (Seroquel) 50 mg PO BID [facility] Last Admin: 04/20/18 09:07 Dose: 50 mg Simple Syrup (Simple Syrup) 15 ml FEEDTUBE PRN PRN PRN Reason: Hypoglycemia Simple Syrup (Simple Syrup) 30 ml FEEDTUBE PRN PRN PRN Reason: Hypoglycemia Sodium Bicarbonate (Sodium Bicarbonate) 325 mg FEEDTUBE PRN PRN PRN Reason: For Clogged Feeding Tube Sodium Chloride (Sodium Chloride Flush Syringe 10 Ml) 10 ml IV BID [facility] Last Admin: 04/20/18 09:14 Dose: 10 ml Sodium Chloride (Sodium Chloride Flush Syringe 10 Ml) 10 ml IV PRN PRN PRN Reason: LINE FLUSH Last Admin: 04/10/18 18:46 Dose: 10 ml Review of Systems - Review of Systems All systems: negative Gastrointestinal: no abdominal pain, no nausea, no vomiting Exam - Constitutional Vital Signs: Temp Pulse Resp BP Pulse Ox 98.2 F 112 H 21 121/80 94 04/20/18 00:00 04/20/18 10:00 04/20/18 10:00 04/20/18 10:00 04/20/18 09:00 General appearance: no acute distress - Respiratory Respiratory: bilateral: diminished - Cardiovascular Rhythm: other (tachycardia) - Gastrointestinal General gastrointestinal: Present: soft, non-tender, non-distended, normal bowel sounds, other (+PEG) - Neurologic Neurological: other (alert) - Labs CBC & Chem 7: 04/20/18 04:42 04/20/18 04:42 Lab Results: Laboratory Results - last 24 hr 04/19/18 04/19/18 04/19/18 12:43 18:25 23:18 WBC RBC Hgb Hct MCV MCH MCHC RDW Plt Count POC ABG pH POC ABG pCO2 POC ABG pO2 POC ABG HCO3 POC ABG Total CO2 POC ABG O2 Sat POC ABG Base Excess FiO2 Sodium Potassium Chloride Carbon Dioxide Anion Gap BUN Creatinine Estimated GFR BUN/Creatinine Ratio Glucose POC Glucose 143 H 112 H 113 H Calcium 04/20/18 04/20/18 04/20/18 00:00 04:42 04:42 WBC 24.7 H RBC 4.03 Hgb 11.7 L Hct 36.2 MCV 90 MCH 29 MCHC 32 RDW 15.6 H Plt Count 440 POC ABG pH 7.421 POC ABG pCO2 45.4 H POC ABG pO2 125 H POC ABG HCO3 29.5 POC ABG Total CO2 31 POC ABG O2 Sat 99 POC ABG Base Excess 5 FiO2 50 Sodium 138 Potassium 3.8 Chloride 97.0 L Carbon Dioxide 28 Anion Gap 17 BUN 19 Creatinine 0.3 L Estimated GFR > 60 BUN/Creatinine Ratio 63 Glucose 132 H POC Glucose Calcium 9.0 04/20/18 05:19 WBC RBC Hgb Hct MCV MCH MCHC RDW Plt Count POC ABG pH POC ABG pCO2 POC ABG pO2 POC ABG HCO3 POC ABG Total CO2 POC ABG O2 Sat POC ABG Base Excess FiO2 Sodium Potassium Chloride Carbon Dioxide Anion Gap BUN Creatinine Estimated GFR BUN/Creatinine Ratio Glucose POC Glucose 117 H Calcium Assessment and Plan 1.PEG evaluation -PEG currently noted to be discolored but patent and intact, however nursing reports a need for some manipulation of PEG tube with flushing -PEG site w/o s/s of infection -clinically, pt is currently tolerating TFs w/o evidence of abd pain or N/V. -spoke with Dr. Salazar about possibly replacing PEG tube- he recommends using current PEG for now, can change PEG under endoscopic evaluation prior to discharge if needed once patient is medically stable -continue TFs per dietary recommendations and supportive care -will sign off for now, please call back if needed <MARLENE SALAZAR - Last Filed: 04/20/18 13:36> Medications and Allergies Active Meds: Active Medications Acetaminophen (Tylenol) 650 mg PO Q4H PRN PRN Reason: Pain MILD(1-3)/Fever >100.5/CHEN Last Admin: 04/15/18 04:52 Dose: 650 mg Albuterol/Ipratropium (Duoneb *Not For Prn Use*) 1 ampul IH Q6HRT [facility] Last Admin: 04/20/18 07:56 Dose: 1 ampul Lipase/Protease/Amylase (Chaparrita Hopper 10,500 Unit) 1 each FEEDTUBE PRN PRN PRN Reason: For Clogged Feeding Tube Dexamethasone (Decadron) 4 mg PO Q8HR [facility] Last Admin: 04/20/18 05:15 Dose: 4 mg Dextrose (D50w (25gm) Syringe) 50 ml IV PRN PRN PRN Reason: Hypoglycemia Enoxaparin Sodium (Lovenox) 40 mg SUB-Q QDAY@1000 [facility] Last Admin: 04/20/18 09:07 Dose: 40 mg Famotidine (Pepcid) 20 mg PO BID [facility] Last Admin: 04/20/18 09:07 Dose: 20 mg Hydrophilic Ointment (Vaseline Lip Therapy) 1 applic TP Q2HR PRN PRN Reason: Dry Lips Levetiracetam 750 mg/ Sodium (Chloride) 107.5 mls @ 400 mls/hr IV Q12HR [facility] Levofloxacin (Levaquin) 500 mg PO Q24HR [facility] Lorazepam (Ativan) 0.5 mg IV Q4H PRN PRN Reason: Seizures Metoclopramide HCl (Reglan) 10 mg IV Q6H PRN PRN Reason: Nausea And Vomiting Morphine Sulfate (Morphine) 2 mg IV Q4H PRN PRN Reason: Pain, Moderate (4-6) Last Admin: 04/16/18 02:22 Dose: 2 mg Multi-Ingred Cream/Lotion/Oil/Oint (Artificial Tears Ophth Oint) 1 applic OU Q4HR PRN PRN Reason: Dry Eye(s) Ondansetron HCl (Zofran) 4 mg IV Q8H PRN PRN Reason: Nausea And Vomiting Oxycodone/Acetaminophen (Percocet 5/325) 1 tab PO Q4H PRN PRN Reason: Pain, Moderate (4-6) Last Admin: 04/16/18 00:28 Dose: 1 tab Quetiapine Fumarate (Seroquel) 50 mg PO BID [facility] Last Admin: 04/20/18 09:07 Dose: 50 mg Simple Syrup (Simple Syrup) 15 ml FEEDTUBE PRN PRN PRN Reason: Hypoglycemia Simple Syrup (Simple Syrup) 30 ml FEEDTUBE PRN PRN PRN Reason: Hypoglycemia Sodium Bicarbonate (Sodium Bicarbonate) 325 mg FEEDTUBE PRN PRN PRN Reason: For Clogged Feeding Tube Sodium Chloride (Sodium Chloride Flush Syringe 10 Ml) 10 ml IV BID [facility] Last Admin: 04/20/18 09:14 Dose: 10 ml Sodium Chloride (Sodium Chloride Flush Syringe 10 Ml) 10 ml IV PRN PRN PRN Reason: LINE FLUSH Last Admin: 04/10/18 18:46 Dose: 10 ml Exam - Constitutional Vital Signs: Temp Pulse Resp BP Pulse Ox 98.2 F 112 H 21 121/80 96 04/20/18 00:00 04/20/18 10:00 04/20/18 10:00 04/20/18 10:00 04/20/18 10:00 - Labs CBC & Chem 7: 04/20/18 04:42 04/20/18 04:42 Lab Results: Laboratory Results - last 24 hr 04/19/18 04/19/18 04/19/18 12:43 18:25 23:18 WBC RBC Hgb Hct MCV MCH MCHC RDW Plt Count POC ABG pH POC ABG pCO2 POC ABG pO2 POC ABG HCO3 POC ABG Total CO2 POC ABG O2 Sat POC ABG Base Excess FiO2 Sodium Potassium Chloride Carbon Dioxide Anion Gap BUN Creatinine Estimated GFR BUN/Creatinine Ratio Glucose POC Glucose 143 H 112 H 113 H Calcium 04/20/18 04/20/18 04/20/18 00:00 04:42 04:42 WBC 24.7 H RBC 4.03 Hgb 11.7 L Hct 36.2 MCV 90 MCH 29 MCHC 32 RDW 15.6 H Plt Count 440 POC ABG pH 7.421 POC ABG pCO2 45.4 H POC ABG pO2 125 H POC ABG HCO3 29.5 POC ABG Total CO2 31 POC ABG O2 Sat 99 POC ABG Base Excess 5 FiO2 50 Sodium 138 Potassium 3.8 Chloride 97.0 L Carbon Dioxide 28 Anion Gap 17 BUN 19 Creatinine 0.3 L Estimated GFR > 60 BUN/Creatinine Ratio 63 Glucose 132 H POC Glucose Calcium 9.0 04/20/18 04/20/18 05:19 11:59 WBC RBC Hgb Hct MCV MCH MCHC RDW Plt Count POC ABG pH POC ABG pCO2 POC ABG pO2 POC ABG HCO3 POC ABG Total CO2 POC ABG O2 Sat POC ABG Base Excess FiO2 Sodium Potassium Chloride Carbon Dioxide Anion Gap BUN Creatinine Estimated GFR BUN/Creatinine Ratio Glucose POC Glucose 117 H 106 H Calcium Assessment and Plan Pt seen and examined. Agree with note above. G tube functioning. Can be exchanged if needed but would ideally perform endoscopically to evaluate type of peg tube/internal bumper before blindly exchanging at bedside to avoid possible complications as he is currently in the ICU. Call back prn or prior to d/c for re-evaluation.
[2018-04-20] MEDS ORDERED: LEVAQUIN PO SCH ×2 (12:00→14:00)
[2018-04-20] MEDS ORDERED: KEPPRA 750 MG in NACL 0.9% 100 ML IV SCH (14:00)
--- NOTE | 2018-04-20 14:43 | Discharge Summary ---
Providers - Providers Date of Admission: 04/08/18 11:52 Date of discharge: 04/20/18 Attending physician: KOTA CLARK 04/08/18 09:39 Consult to Dietitian/Nutrition [CONS] Routine Physician Instructions: Reason For Exam: Reason for Consult: Write/Manage Tube Feeding 04/08/18 11:28 Consult to Physician [CONS] Routine Comment: Consulting Provider: KENTRELL REID Physician Instructions: Reason For Exam: Acute resp failure 04/08/18 11:35 Consult to Dietitian/Nutrition [CONS] Routine Physician Instructions: Assess nutrtn needs, initiate, modify, manage TF Reason For Exam: Reason for Consult: Write/Manage Tube Feeding Reason for Consult: Write/Manage Tube Feeding 04/09/18 06:55 Consult to Dietitian/Nutrition [CONS] Routine Physician Instructions: Reason For Exam: Reason for Consult: Write/Manage Tube Feeding 04/14/18 15:27 Consult to Ethics Committee [CONS] Routine Reason For Exam: terminal ill patient, family in disagreement 04/15/18 14:20 Consult to Case Management [CONS] Routine Services Needed at Discharge: Other Notified:: cm notified Comment:: LTAC evaluation 04/18/18 09:27 Physical Therapy Evaluation and Treat [CONS] Routine Comment: Reason For Exam: deconditioning 04/18/18 09:28 Occupational Therapy Evaluate and Treat [CONS] Urgent Comment: Reason For Exam: deconditioning 04/19/18 10:28 Consult to Physician [CONS] Routine Comment: Consulting Provider: MARLENE CALERO Physician Instructions: Reason For Exam: Evaluate PEG tube, Primary care physician: CLINICAL PROVIDER TRAINER Hospitalization Condition: Stable Disposition: DC-30 STILL A PATIENT - Discharge Diagnoses (1) Respiratory failure Status: Acute Qualifiers: Chronicity: acute Respiratory failure complication: hypoxia Qualified Code(s): J96.01 - Acute respiratory failure with hypoxia (2) Brain metastases Status: Chronic (3) Metastatic cancer Status: Chronic (4) Sepsis Status: Acute Qualifiers: Sepsis type: sepsis due to unspecified organism Qualified Code(s): A41.9 - Sepsis, unspecified organism (5) SETH (acute kidney injury) Status: Acute (6) DVT prophylaxis Status: Acute Exam - Constitutional Vitals: Temp Pulse Resp BP Pulse Ox 98.2 F 112 H 21 121/80 96 04/20/18 00:00 04/20/18 10:00 04/20/18 10:00 04/20/18 10:00 04/20/18 10:00 Plan Follow up with: YVETTE LANCE MD [Primary Care Provider] - 3-5 Days
[2018-04-20 18:43] VITALS: BP 117/83
== END 2018-04-20 16:00 | disposition hospice, inpatient (51) | DRG 871 ==
LOC: ED 09:00 → CC1 11:52 → IMCU 04-15 18:33 → CC1 04-17 08:16
PROVIDERS: ADMIT Internal Medicine; ATTEND Internal Medicine
PROC: 5A1945Z Respiratory Ventilation, 24-96 Consecutive Hours (ICD-10-PCS; 2018-04-08)
PROC: 0BH17EZ Insertion of Endotracheal Airway into Trachea, Via Natural or Artificial Opening (ICD-10-PCS; 2018-04-08)
PROC: 02HV33Z Insertion of Infusion Device into Superior Vena Cava, Percutaneous Approach (ICD-10-PCS; 2018-04-08)
PROC: 5A09357 Assistance with Respiratory Ventilation, Less than 24 Consecutive Hours, Continuous Positive Airway Pressure (ICD-10-PCS; principal; 2018-04-10)
PROC: 4A033R1 Measurement of Arterial Saturation, Peripheral, Percutaneous Approach (ICD-10-PCS; 2018-04-10)
PROC: 5A09357 Assistance with Respiratory Ventilation, Less than 24 Consecutive Hours, Continuous Positive Airway Pressure (ICD-10-PCS; 2018-04-11)
PROC: 5A09357 Assistance with Respiratory Ventilation, Less than 24 Consecutive Hours, Continuous Positive Airway Pressure (ICD-10-PCS; 2018-04-12)
PROC: 5A09357 Assistance with Respiratory Ventilation, Less than 24 Consecutive Hours, Continuous Positive Airway Pressure (ICD-10-PCS; 2018-04-13)
PROC: 5A09357 Assistance with Respiratory Ventilation, Less than 24 Consecutive Hours, Continuous Positive Airway Pressure (ICD-10-PCS; 2018-04-14)
PROC: 5A09357 Assistance with Respiratory Ventilation, Less than 24 Consecutive Hours, Continuous Positive Airway Pressure (ICD-10-PCS; 2018-04-16)
PROC: 5A09357 Assistance with Respiratory Ventilation, Less than 24 Consecutive Hours, Continuous Positive Airway Pressure (ICD-10-PCS; 2018-04-17)
PROC: 5A1935Z Respiratory Ventilation, Less than 24 Consecutive Hours (ICD-10-PCS; 2018-04-17)
PROC: 0BH17EZ Insertion of Endotracheal Airway into Trachea, Via Natural or Artificial Opening (ICD-10-PCS; 2018-04-17)
PROC: 5A09357 Assistance with Respiratory Ventilation, Less than 24 Consecutive Hours, Continuous Positive Airway Pressure (ICD-10-PCS; 2018-04-18)
PROC: 5A09357 Assistance with Respiratory Ventilation, Less than 24 Consecutive Hours, Continuous Positive Airway Pressure (ICD-10-PCS; 2018-04-19)
DX: A41.9 Sepsis, unspecified organism (principal); J96.01 Acute respiratory failure with hypoxia; J69.0 Pneumonitis due to inhalation of food and vomit; E43 Unspecified severe protein-calorie malnutrition; N17.0 Acute kidney failure with tubular necrosis; C78.00 Secondary malignant neoplasm of unspecified lung; C79.31 Secondary malignant neoplasm of brain; Z51.5 Encounter for palliative care; C76.0 Malignant neoplasm of head, face and neck; R40.2431 Glasgow coma scale score 3-8, in the field [EMT or ambulance]; R13.12 Dysphagia, oropharyngeal phase; Z66 Do not resuscitate; Z93.1 Gastrostomy status; Z79.899 Other long term (current) drug therapy; Z68.22 Body mass index [BMI] 22.0-22.9, adult; Z79.01 Long term (current) use of anticoagulants
CPT/HCPCS: 31720; 36415; 36600; 70450; 71045; 80048; 80053; 80061; 80074; 81001; 82140; 82550; 82553; 82803; 82962; 83735; 83880; 84484; 85007; 85025; 85027; 85610; 85670; 85730; 87040; 87070; 87076; 87086; 87186; 87205; 93005; 93010; 94002; 94003; 94640; 94660; 94760; 96365; 96367; 99291; 99292; J0330; J0696; J1100; J1650; J1885; J1940; J1953; J2001; J2060; J2270; J2405; J2543; J3370; J3480; J7030; J7040; J7042; J7050; J8540